=== PATIENT | male | born 1950 | race Caucasian/White ===

== ENCOUNTER 2023-12-20 14:43 | Inpatient (IN) ==
[2023-12-20 15:34] LABS: Basophils # (auto) 0.03 K/uL (0.00-0.20); Basophils % (auto) 0.2 %; Eosinophils # (auto) 0.01 K/uL (0.00-0.50); Eosinophils % (auto) 0.1 %; Hematocrit (blood only) 35.3 % (42.0-52.0); Hemoglobin 11.4 g/dl (14.0-18.0); Immature Granulocytes # (auto) 0.07 K/uL (0.01-0.20); Immature Granulocytes % (auto) 0.5 %; Lymphocytes # (auto) 0.93 K/uL (1.20-3.40); Lymphocytes % (auto) 7.3 %; Mean Corpuscular Hemoglobin 31.2 pg (25.0-34.0); Mean Corpuscular Hgb Conc 32.3 g/dL (32.0-36.0); Mean Corpuscular Volume 96.7 fL (80.0-100.0); Mean Platelet Volume 9.2 fL (9.4-12.4); Monocytes # (auto) 1.93 K/uL (0.11-0.59); Monocytes % (auto) 15.2 %; Neutrophils # (auto) 9.76 K/uL (1.40-6.50); Neutrophils % (auto) 76.7 %; Platelet Count 114 K/uL (130-400); RDW Coefficient of Variation 13.3 % (11.5-14.5); RDW Standard Deviation 47.8 fL (36.4-46.3); Red Blood Count 3.65 M/uL (4.70-6.10); White Blood Count 12.73 K/ul (4.8-10.8)
--- NOTE | 2023-12-20 15:42 | Electrocardiogram Report ---
Test Reason : Blood Pressure : */* mmHG Vent. Rate : 73 BPM Atrial Rate : 73 BPM P-R Int : 156 ms QRS Dur : 136 ms QT Int : 396 ms P-R-T Axes : 45 -30 -32 degrees QTcB Int : 436 ms Normal sinus rhythm Left axis deviation Right bundle branch block T wave abnormality, consider lateral ischemia Abnormal ECG When compared with ECG of 04-Sep-2022 16:28, Nonspecific T wave abnormality now evident in Inferior leads T wave inversion now evident in Lateral leads QT has shortened Confirmed by Ritchie Adams ([id number]) on 12/20/2023 3:41:39 PM Referred By: Confirmed By: Ritchie Adams
[2023-12-20 15:48] LABS: Albumin Globulin Ratio 1.2 (0.9-2); Albumin Level 3.5 gm/dl (3.4-5.0); BUN Creatinine Ratio 15.7 (10-20); Bilirubin,Total 0.9 mg/dl (0.2-1.0); Calcium 9.1 mg/dl (8.6-10.3); Globulin 2.9 gm/dl (2.5-4.0); Potassium 4.6 mmol/L (3.5-5.1); Total Protein 6.4 gm/dl (6.0-8.3)
[2023-12-20 15:54] LABS: Troponin I High Sensitivity 21.6 pg/ml (0-20)
[2023-12-20 16:01] LABS: INR 1.1 (0.9-1.1); Partial Thromboplastin Ratio 1.4; Partial Thromboplastin Time 38 Seconds (21-31); Prothrombin Time 12.2 Seconds (9.0-12.0)
[2023-12-20 16:17] LABS: Adenovirus PCR Not Detected (NotDetected); Bordetella parapertussis PCR Not Detected (NotDetected); Bordetella pertussis PCR Not Detected (NotDetected); Chlamydia pneumoniae PCR Not Detected (NotDetected); Coronavirus 229E PCR Not Detected (NotDetected); Coronavirus CoV-2 (COVID19)PCR Not Detected (NotDetected); Coronavirus HKU1 PCR Not Detected (NotDetected); Coronavirus NL63 PCR Not Detected (NotDetected); Coronavirus OC43PCR Not Detected (NotDetected); Human Metapneumovirus PCR Not Detected (NotDetected); Influenza A PCR Not Detected (NotDetected); Influenza B PCR Not Detected (NotDetected); Mycoplasma pneumoniae PCR Not Detected (NotDetected); Parainfluenza Virus 1 PCR Not Detected (NotDetected); Parainfluenza Virus 2 PCR Not Detected (NotDetected); Parainfluenza Virus 3 PCR Not Detected (NotDetected); Parainfluenza Virus 4 PCR Not Detected (NotDetected); Respiratory Syncytial VirusPCR Not Detected (NotDetected); Rhinovirus/Enterovirus PCR DETECTED (NotDetected)
--- NOTE | 2023-12-20 16:23 | XRay Report ---
SINGLE VIEW CHEST CLINICAL HISTORY: Atypical chest pain FINDINGS: 2 AP upright chest radiographs are compared to study dated 09/04/2022. The heart is enlarged noting atherosclerotic calcification of the thoracic aorta. The pulmonary vasculature is noncongeste d. Chronic interstitial thickening similar to previous. There is a small left pleural effusion with l eft basilar consolidation. This is similar to 09/04/2022. The right lung is grossly clear noting depen dent atelectasis. No pneumothorax is seen. The skeletal structures are osteopenic. The bony thorax is grossly intact. IMPRESSION: 1. Cardiomegaly without radiographic evidence of congestive failure. 2. Small left pleural effusion and left basilar consolidation is similar to the 09/04/2022 examination and may be chronic. Correlate clinically. ACT 112: Negative or not required by law. Electronically signed by: Navin Alfonso M.D. 12/20/2023 4:21 PM
[2023-12-20] MEDS: ALBUT/IPRATROP 3MG/0.5MG NEB 3 ML VIAL NEB STA ×2 (16:26→19:12)
[2023-12-20] MEDS: methylPREDNISolone 125 MG/2 ML VIAL IV STA (16:28)
[2023-12-20] MEDS: METOPROLOL TARTRATE 1 MG/ML VIAL IV STA (19:09)
[2023-12-20] MEDS: guaiFENesin 600 MG TABCR PO STA (20:28)
[2023-12-20] MEDS: PIPERACILLIN/TAZOBACTAM 4.5 GM/100 ML BAG IV ONE (20:30)
[2023-12-20] MEDS: traZODone HCL 50 MG TAB PO STA (21:06)
[2023-12-20] MEDS: QUEtiapine FUMARATE 100 MG TABLET PO STA (21:07)
[2023-12-20] MEDS: busPIRone 5 MG TAB PO STA (21:08)
[2023-12-20] MEDS: DIVALPROEX DELAY RELEASE 250 MG TABEC PO STA (21:08)
[2023-12-20] MEDS: APIXABAN 5 MG TABLET PO STA (21:08)
[2023-12-20] MEDS: AZITHROMYCIN 500 MG in DEXTROSE 5% 250 ML IV ONE (21:15)
[2023-12-20] MEDS: QUEtiapine FUMARATE 25 MG TABLET PO STA (21:22)
[2023-12-20] MEDS ORDERED: METOPROLOL TARTRATE 1 MG/ML VIAL IV PRN (22:33)
[2023-12-20] MEDS ORDERED: ACETAMINOPHEN 325 MG TAB PO PRN (22:33)
--- NOTE | 2023-12-20 23:09 | History & Physical Report ---
Date of Service December 20, 2023 Assessment & Plan (1) Acute respiratory failure with hypoxia: (2) Left lower lobe pneumonia: (3) Rhinovirus infection: (4) COPD (chronic obstructive pulmonary disease): (5) KURT (obstructive sleep apnea): (6) Hypertension: (7) Convulsions: (8) Dementia: (9) Diabetes mellitus: (10) Atrial fibrillation: (11) Hyperlipidemia: Plan Acute respiratory failure with hypoxia/left lower lobe pneumonia/rhinovirus infection/COPD exacerbation- Pulse ox 84% on room air, and presently 96% on 4 L nasal cannula Sputum Gram stain and culture Droplet precautions From the ED received the following: Duonebs 3 mL x 2, methylprednisolone 60 mg IV Zosyn 4.5 g IV every 8 hours Azithromycin 500 mg IV daily Guaifenesin extended release 1200 mg p.o. twice daily Methylprednisolone 40 mg IV every 8 hours Duonebs every 4 hours while awake and every 2 hours when necessary. Nasal cannula oxygen, titrate to keep pulse ox around 94% Atrial fibrillation with RVR- The patient will be admitted to telemetry for serial cardiac enzymes, serial EKG's, cardiac rhythm monitoring and a 2-D echocardiogram with Dopplers. Continue apixaban 5 mg twice daily He did not receive the Lopressor IV dose written for by the ED, due to low blood pressure Resume metoprolol tartrate 25 mg p.o. twice daily in the a.m. if blood pressure is adequate Lopressor 2.5 mg IV every 4 hours as needed for heart rate greater than 120 May need treated with digoxin if blood pressure remains low No previous echocardiogram on record Convulsions/seizure disorder/dementia/depression- Continue buspirone, divalproex, quetiapine and trazodone CODE STATUS: Full code, as noted in transfer records from [facility] Admission and Anticipated Discharge Date Admission Date: December 20, 2023 History of Present Illness Chief Complaint: The patient is referred to the emergency department from [facility] with confusion increased difficulty with respirations throughout the day, hypoxia, and atrial fibrillation with RVR. Primary Care Provider: Adonay Yost The patient is a 73-year-old male with a past medical history including COPD, KURT, hypertension, convulsions, dementia, diabetes mellitus, atrial fibrillation, hyperlipidemia and chronic anemia. He is brought to the emergency department with symptoms as noted above. HPI and review of systems are limited due to patient's underlying dementia and current medical state. During conversation, patient continually removes his mask, and is noted to have a moist cough. He is conversant, but is confused. Allergies Allergy/AdvReac Type Severity Reaction Status Date / Time No Known Allergies Allergy Verified 12/20/23 19:27 Home Medications Medication Instructions Recorded Confirmed Type acetaminophen 325 mg tablet 650 mg PO Q6 PRN PAIN 1-10 12/20/23 12/20/23 History acetaminophen 325 mg tablet 650 mg PO QID PRN TEMP > 101 12/20/23 12/20/23 History apixaban 5 mg tablet (Eliquis) 5 mg PO BID 12/20/23 12/20/23 History atorvastatin 40 mg tablet 40 mg PO DAILY 12/20/23 12/20/23 History buspirone 10 mg tablet 10 mg PO TID 12/20/23 12/20/23 History chlorhexidine gluconate 0.12 % 15 ml buccal Q12 12/20/23 12/20/23 History mouthwash (Peridex) divalproex 250 mg tablet,delayed 250 mg PO TID 12/20/23 12/20/23 History release ferrous sulfate 325 mg (65 mg 325 mg PO DAILY 12/20/23 12/20/23 History iron) tablet (FeroSul) folic acid 400 mcg tablet 0.4 mg PO DAILY 12/20/23 12/20/23 History ipratropium 20 mcg-albuterol 100 1 puff inhalation Q6 PRN Wheezing 12/20/23 12/20/23 History mcg/actuation mist for inhalation (Combivent Respimat) menthol 0.1 % lotion (Eucerin Itch 1 ea topical BID 12/20/23 12/20/23 History Relief) metoprolol tartrate 25 mg tablet 25 mg PO BID 12/20/23 12/20/23 History quetiapine 100 mg tablet 100 mg PO HS 12/20/23 12/20/23 History quetiapine 25 mg tablet (Seroquel) 50 mg PO DAILY 12/20/23 12/20/23 History sennosides 8.6 mg-docusate sodium 1 tab-cap PO HS 12/20/23 12/20/23 History 50 mg tablet (Senna-S) trazodone 50 mg tablet 75 mg PO HS 12/20/23 12/20/23 History Past Med/Surg History Problem List (Updated 12/20/23 @ 23:23 by Jeancarlos Woodard MD) Acute respiratory failure with hypoxia Rhinovirus infection Left lower lobe pneumonia Supplemental oxygen dependent 2 L n/c COPD (chronic obstructive pulmonary disease) KURT (obstructive sleep apnea) Hypokalemia Hypertension Respiratory failure with hypoxia Convulsions Dementia Diabetes mellitus Atrial fibrillation Osteoarthritis Hyperlipidemia Anemia Medical History Complication of tracheostomy tube Social History Smoking Status: Never smoker Hx Alcohol Use: No Hx Substance Use: No Preferred Language: [employer] L[employer] Required: No Beliefs That Will Affect Care: None Current Living Situation: Long-Term Current Living Situation Comment: [facility] Feels Safe at Home: Yes Safety Concerns: Feels Safe At This Time Assistive Devices: Denture - Upper, Denture - Lower, Glasses and Oxygen - Continuous Review of Systems Review of Systems: Review of systems is somewhat limited due to patient's dementia Physical Exam Physical Exam: The patient is awake, confused, well developed and well nourished, normocephalic and atraumatic, lying in bed and in no acute distress. HEENT--PERRL, EOMI, mucous membranes and oropharynx dry. Neck--supple. No JVD. No bruits. Thyroid normal, trachea midline, no adenopathy. Heart--normal S1 and S2. No murmurs, rubs or gallops. Lungs--coarse breath sounds bilaterally, with scattered wheezes. No respiratory distress, no accessory muscle use. Abdomen--normal bowel sounds and soft. Nontender. Nondistended. Extremities--no cyanosis or clubbing. No edema. Dermatologic--normal skin turgor, normal color, no abnormal lymph nodes, no rash. Neurologic--cranial nerves II through XII grossly intact. Rheumatologic--normal range of motion. Psychiatric--normal affect. Results & Data Results & Data Vital Signs (Past 12 Hours) Vital Signs Temp Pulse Pulse Resp BP BP Pulse Ox 12/20/23 23:06 60 12/20/23 22:34 12/20/23 22:34 36.3 C L 77 16 96/58 L 96 12/20/23 22:33 12/20/23 22:04 79 16 87/55 L 96 12/20/23 21:18 81 22 99/62 L 94 12/20/23 19:09 93 H 91/69 L 12/20/23 19:04 93 H 28 H 102/73 92 12/20/23 18:55 110 H 12/20/23 15:18 73 18 96 12/20/23 15:07 73 12/20/23 14:43 84 L 12/20/23 14:43 37 C 80 18 98/54 L 84 L Pulse Ox O2 Del Method O2 Del Method O2 Flow Rate O2 Flow Rate 12/20/23 23:06 12/20/23 22:34 Nasal Cannula 4 12/20/23 22:34 Nasal Cannula 4 12/20/23 22:33 94 Nasal Cannula 4 12/20/23 22:04 Nasal Cannula 4 12/20/23 21:18 Nasal Cannula 4 12/20/23 19:09 12/20/23 19:04 Oxymask 7 12/20/23 18:55 12/20/23 15:18 Oxymask 5 12/20/23 15:07 12/20/23 14:43 Oxymask 2 12/20/23 14:43 Nasal Cannula 2 Laboratory Results Laboratory Results WBC 12.73 K/ul (4.8-10.8) H 12/20/23 15:10 RBC 3.65 M/uL (4.70-6.10) L 12/20/23 15:10 Hgb 11.4 g/dl (14.0-18.0) L 12/20/23 15:10 Hct 35.3 % (42.0-52.0) L 12/20/23 15:10 MCV 96.7 fL (80.0-100.0) 12/20/23 15:10 MCH 31.2 pg (25.0-34.0) 12/20/23 15:10 MCHC 32.3 g/dL (32.0-36.0) 12/20/23 15:10 RDW Std Deviation 47.8 fL (36.4-46.3) H 12/20/23 15:10 RDW Coeff of Johana 13.3 % (11.5-14.5) 12/20/23 15:10 Plt Count 114 K/uL (130-400) L 12/20/23 15:10 MPV 9.2 fL (9.4-12.4) L 12/20/23 15:10 Immature Gran % (Auto) 0.5 % 12/20/23 15:10 Neut % (Auto) 76.7 % 12/20/23 15:10 Lymph % (Auto) 7.3 % 12/20/23 15:10 [place] % (Auto) 15.2 % 12/20/23 15:10 Eos % (Auto) 0.1 % 12/20/23 15:10 Baso % (Auto) 0.2 % 12/20/23 15:10 Neut # (Auto) 9.76 K/uL (1.40-6.50) H 12/20/23 15:10 Lymph # (Auto) 0.93 K/uL (1.20-3.40) L 12/20/23 15:10 [place] # (Auto) 1.93 K/uL (0.11-0.59) H 12/20/23 15:10 Eos # (Auto) 0.01 K/uL (0.00-0.50) 12/20/23 15:10 Baso # (Auto) 0.03 K/uL (0.00-0.20) 12/20/23 15:10 Immature Gran # (Auto) 0.07 K/uL (0.01-0.20) 12/20/23 15:10 PT 12.2 Seconds (9.0-12.0) H 12/20/23 15:10 INR 1.1 (0.9-1.1) 12/20/23 15:10 APTT 38 Seconds (21-31) H 12/20/23 15:10 PTT Ratio 1.4 12/20/23 15:10 Sodium 134 mmol/L (136-145) L 12/20/23 15:10 Potassium 4.6 mmol/L (3.5-5.1) 12/20/23 15:10 Chloride 96 mmol/L (98-107) L 12/20/23 15:10 Carbon Dioxide 33 mmol/L (21-32) H 12/20/23 15:10 Anion Gap 5 (3-11) 12/20/23 15:10 BUN 18 mg/dl (6-23) 12/20/23 15:10 Creatinine 1.15 mg/dl (0.6-1.4) 12/20/23 15:10 Est Cr Clr Drug Dosing 60.0 ml/min 12/20/23 15:10 eGFR 66.78 12/20/23 15:10 BUN/Creatinine Ratio 15.7 (10-20) 12/20/23 15:10 Glucose 87 mg/dl (70-99(Fasting)) 12/20/23 15:10 Calcium 9.1 mg/dl (8.6-10.3) 12/20/23 15:10 Total Bilirubin 0.9 mg/dl (0.2-1.0) 12/20/23 15:10 AST 19 U/L (13-39) 12/20/23 15:10 ALT 8 U/L (7-52) 12/20/23 15:10 Alkaline Phosphatase 37 U/L (34-104) 12/20/23 15:10 Troponin I High Sens 18.0 pg/ml (0-20) 12/20/23 17:00 Total Protein 6.4 gm/dl (6.0-8.3) 12/20/23 15:10 Albumin 3.5 gm/dl (3.4-5.0) 12/20/23 15:10 Globulin 2.9 gm/dl (2.5-4.0) 12/20/23 15:10 Albumin/Globulin Ratio 1.2 (0.9-2) 12/20/23 15:10 Nasal Screen MRSA (PCR) Negative (Negative) 12/20/23 21:19 Adenovirus (PCR) Not Detected (NotDetected) 12/20/23 15:12 B. pertussis DNA (PCR) Not Detected (NotDetected) 12/20/23 15:12 B.parapertussis DNA PCR Not Detected (NotDetected) 12/20/23 15:12 C. pneumoniae DNA (PCR) Not Detected (NotDetected) 12/20/23 15:12 Coronavirus OC43 (PCR) Not Detected (NotDetected) 12/20/23 15:12 Coronavirus HKU1 (PCR) Not Detected (NotDetected) 12/20/23 15:12 Coronavirus 229E (PCR) Not Detected (NotDetected) 12/20/23 15:12 SARS-CoV-2 (PCR) Not Detected (NotDetected) 12/20/23 15:12 Coronavirus NL63 (PCR) Not Detected (NotDetected) 12/20/23 15:12 Human Metapneumovir PCR Not Detected (NotDetected) 12/20/23 15:12 Influenza Type A (PCR) Not Detected (NotDetected) 12/20/23 15:12 Influenza Type B (PCR) Not Detected (NotDetected) 12/20/23 15:12 M. pneumoniae (PCR) Not Detected (NotDetected) 12/20/23 15:12 Parainfluenza 1 (PCR) Not Detected (NotDetected) 12/20/23 15:12 Parainfluenza 2 (PCR) Not Detected (NotDetected) 12/20/23 15:12 Parainfluenza 3 (PCR) Not Detected (NotDetected) 12/20/23 15:12 Parainfluenza 4 (PCR) Not Detected (NotDetected) 12/20/23 15:12 RSV (PCR) Not Detected (NotDetected) 12/20/23 15:12 Entero/Rhino (PCR) DETECTED (NotDetected) A 12/20/23 15:12 Impressions Chest X-Ray 12/20/23 15:18 SINGLE VIEW CHEST CLINICAL HISTORY: Atypical chest pain FINDINGS: 2 AP upright chest radiographs are compared to study dated 09/04/2022. The heart is enlarged noting atherosclerotic calcification of the thoracic aorta. The pulmonary vasculature is noncongested. Chronic interstitial thickening similar to previous. There is a small left pleural effusion with left basilar consolidation. This is similar to 09/04/2022. The right lung is grossly clear noting dependent atelectasis. No pneumothorax is seen. The skeletal structures are osteopenic. The bony thorax is grossly intact. IMPRESSION: 1. Cardiomegaly without radiographic evidence of congestive failure. 2. Small left pleural effusion and left basilar consolidation is similar to the 09/04/2022 examination and may be chronic. Correlate clinically. ACT 112: Negative or not required by law. Electronically signed by: Navin Alfonso M.D. 12/20/2023 4:21 PM Code Status & VTE Plan Code Status Full code VTE Prophylaxis Plan VTE Prophylaxis will be ordered: Yes PG Care Time/CCT Total # of Minutes Spent Total Time Spent with Patient: Total time spent is greater than 50% in coordination of care (as documented) at patient's floor/unit and/or counseling patient: Coding Level of Care Code 33212 INT INP/OBS CARE 3/75MIN Diagnoses Acute respiratory failure with hypoxia J96.01 Left lower lobe pneumonia J18.9 Rhinovirus infection B34.8 COPD (chronic obstructive pulmonary disease) J44.9 KURT (obstructive sleep apnea) G47.33 Hypertension I10 Convulsions R56.9 Dementia F03.90 Diabetes mellitus E11.9 Atrial fibrillation I48.91 Hyperlipidemia E78.5
[2023-12-20] MEDS: EUCERIN CR 120 GM JAR TOP SCH (23:19)
[2023-12-20] MEDS: DOCUSATE SODIUM/SENNA 50/8.6MG TAB PO SCH (23:19)
[2023-12-20] MEDS: CHLORHEXIDINE GLUCONATE 0.12% 480 ML MT SCH (23:19)
--- NOTE | 2023-12-21 00:33 | Emergency Department Note ---
Impression & Plan COPD (chronic obstructive pulmonary disease), Supplemental oxygen dependent, Rhinovirus infection ED Provider Note CHIEF COMPLAINT: Shortness of breath, hypoxia, cough HISTORY OF PRESENT ILLNESS: This 73-year-old male patient with past medical history of COPD, hypertension, dementia, diabetes mellitus, atrial fibrillation, hyperlipidemia, osteoarthritis who is chronically O2 dependent at a local snf presents to the emergency department with a cough, shortness of breath and hypoxia. The patient's roommate has a "cold" per nursing/EMS report. Patient does have some difficulty leaving his oxygen in place. He has noted to be in the mid 80s on his nasal cannula oxygen however 94% on oxymask. The patient will not leave the oxymask in place. REVIEW OF SYSTEMS: A review of systems was performed with positives and pertinent negatives listed in the history of present illness. 10 systems were reviewed and are otherwise negative. ALLERGIES: see below MEDICATIONS: see below PMH: see below SOCIAL HISTORY: see below DDx: Pneumonia, COPD exacerbation, pleural effusion, PE, viral syndrome such as COVID, influenza among others. PHYSICAL EXAM: Vital signs reviewed. General: Chronically ill-appearing 73-year-old male, in no significant distress. HEENT: No scleral icterus, PERRLA, neck supple. Atraumatic. Cardiovascular: Regular rate and rhythm, no extra sounds. Pulmonary: Wheezing throughout the bilateral lung youssef with slight increased work of breathing, Abdomen: Soft, nontender, nondistended, positive bowel sounds. Musculoskeletal: Atraumatic, no peripheral edema. Neurologic: Patient awake alert and oriented x 3, speech is clear Skin: Warm, dry, no rash EMERGENCY DEPARTMENT COURSE/MDM: This patient was evaluated and appeared to be in no significant distress. IV access was obtained and laboratory work was drawn. The patient was placed on the conveyor monitor noted to be hypoxic on room air. Per past medical records, the patient is oxygen dependent secondary to his COPD. He would not leave the oxymask in place however a nasal cannula was attempted. The nursing staff reminded the patient fairly constantly to keep his oxygen in place as he did desaturate when it was removed. Patient was medicated with 60 mg of IV Solu-Medrol, DuoNeb treatment. He did receive 5 mg of IV metoprolol due to atrial fibrillation with RVR. Patient's laboratory work is fairly reassuring. Chest x-ray is clear, there is no evidence of focal lung consolidation or failure. Imaging3 has tested positive for rhinovirus. Patient is likely suffering a COPD exacerbation secondary to the rhinovirus. Due to his hypoxia, the patient will be evaluated by the hospitalist service for admission and further management. MONITORING: An order for cardiac monitoring was placed and the patient is noted to be in a NSR at 93 beats per minute. RADIOLOGY: Chest x-ray: IMPRESSION: 1. Cardiomegaly without radiographic evidence of congestive failure. 2. Small left pleural effusion and left basilar consolidation is similar to the 09/04/2022 examination and may be chronic. Correlate clinically. EKG: To my interpretation reveals a normal sinus rhythm at 73 bpm. left axis deviation, right bundle branch block, QTc of 436. Patient then converted to atrial fibrillation. DISPOSITION: Admission Past Med/Surg History Problem List (Updated 12/23/23 @ 21:58 by Annette Mcclendon MD) Rhinovirus infection (Acute) Acute respiratory failure with hypoxia Rhinovirus infection Left lower lobe pneumonia Supplemental oxygen dependent (Acute) 2 L n/c COPD (chronic obstructive pulmonary disease) (Acute) KURT (obstructive sleep apnea) Hypokalemia Hypertension Respiratory failure with hypoxia Convulsions Dementia Diabetes mellitus Atrial fibrillation Osteoarthritis Hyperlipidemia Anemia Medical History Complication of tracheostomy tube Social History Smoking Status: Never smoker Hx Alcohol Use: No Hx Substance Use: No Preferred Language: Georgian Communication Ability: Effective 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 Beliefs That Will Affect Care: None Current Living Situation: Care Home Current Living Situation Comment: [place] Feels Safe at Home: Yes Safety Concerns: Feels Safe At This Time Assistive Devices: Wheelchair Allergies Allergies Allergy/AdvReac Type Severity Reaction Status Date / Time No Known Allergies Allergy Verified 12/20/23 19:27 Home Meds Home Medications Medication Instructions Recorded Confirmed acetaminophen 325 mg tablet 650 mg PO Q6 PRN PAIN 1-10 12/20/23 12/20/23 acetaminophen 325 mg tablet 650 mg PO QID PRN TEMP > 101 12/20/23 12/20/23 apixaban 5 mg tablet (Eliquis) 5 mg PO BID 12/20/23 12/20/23 atorvastatin 40 mg tablet 40 mg PO DAILY 12/20/23 12/20/23 buspirone 10 mg tablet 10 mg PO TID 12/20/23 12/20/23 chlorhexidine gluconate 0.12 % 15 ml buccal Q12 12/20/23 12/20/23 mouthwash (Peridex) divalproex 250 mg tablet,delayed 250 mg PO TID 12/20/23 12/20/23 release ferrous sulfate 325 mg (65 mg 325 mg PO DAILY 12/20/23 12/20/23 iron) tablet (FeroSul) folic acid 400 mcg tablet 0.4 mg PO DAILY 12/20/23 12/20/23 ipratropium 20 mcg-albuterol 100 1 puff inhalation Q6 PRN Wheezing 12/20/23 12/20/23 mcg/actuation mist for inhalation (Combivent Respimat) menthol 0.1 % lotion (Eucerin Itch 1 ea topical BID 12/20/23 12/20/23 Relief) metoprolol tartrate 25 mg tablet 25 mg PO BID 12/20/23 12/20/23 quetiapine 100 mg tablet 100 mg PO HS 12/20/23 12/20/23 quetiapine 25 mg tablet (Seroquel) 50 mg PO DAILY 12/20/23 12/20/23 sennosides 8.6 mg-docusate sodium 1 tab-cap PO HS 12/20/23 12/20/23 50 mg tablet (Senna-S) trazodone 50 mg tablet 75 mg PO HS 12/20/23 12/20/23 Results & Data (ED) Vital Signs Vital Signs - 24 hr 12/20/23 14:43 12/20/23 14:43 12/20/23 15:07 Temperature 37 C Temperature Source Axillary Pulse Rate 80 73 Pulse Rate [Apical] Pulse Rhythm Respiratory Rate 18 Respiratory Effort / Characteristics Non-Labored Respiratory Depth Normal Respiratory Pattern Regular Blood Pressure 98/54 L Blood Pressure [Right Arm] Blood Pressure Mean 68 Blood Pressure Mean [Right Arm] Pulse Oximetry 84 L 84 L Oxygen Delivery Method Nasal Cannula Oxymask Oxygen Flow Rate 2 2 Sepsis Recent Fever Within 48 Hours No Sepsis New/Unexplained Change in Mental Status N/A Sepsis Action Taken by Nursing No Action Required Oxygen Flow Rate - Titration 5 Pulse Oximetry Post Tiitration 96 12/20/23 15:18 12/20/23 18:55 12/20/23 19:04 Temperature Temperature Source Pulse Rate 73 110 H Pulse Rate [Apical] 93 H Pulse Rhythm Regular Respiratory Rate 18 28 H Respiratory Effort / Characteristics Respiratory Depth Respiratory Pattern Blood Pressure Blood Pressure [Right Arm] 102/73 Blood Pressure Mean Blood Pressure Mean [Right Arm] 82 Pulse Oximetry 96 92 Oxygen Delivery Method Oxymask Oxymask Oxygen Flow Rate 5 7 Sepsis Recent Fever Within 48 Hours Sepsis New/Unexplained Change in Mental Status Sepsis Action Taken by Nursing Oxygen Flow Rate - Titration Pulse Oximetry Post Tiitration 12/20/23 19:09 Temperature Temperature Source Pulse Rate 93 H Pulse Rate [Apical] Pulse Rhythm Respiratory Rate Respiratory Effort / Characteristics Respiratory Depth Respiratory Pattern Blood Pressure 91/69 L Blood Pressure [Right Arm] Blood Pressure Mean Blood Pressure Mean [Right Arm] Pulse Oximetry Oxygen Delivery Method Oxygen Flow Rate Sepsis Recent Fever Within 48 Hours Sepsis New/Unexplained Change in Mental Status Sepsis Action Taken by Nursing Oxygen Flow Rate - Titration Pulse Oximetry Post Tiitration Home Medications Current Medication List: was personally reviewed by me Laboratory Data Attestation: I reviewed the patient's lab results. 12/23/23 06:19 12/23/23 06:19 Lab Results 12/20/23 12/20/23 12/20/23 Range/Units 15:10 15:12 17:00 WBC 12.73 H (4.8-10.8) K/ul RBC 3.65 L (4.70-6.10) M/uL Hgb 11.4 L (14.0-18.0) g/dl Hct 35.3 L (42.0-52.0) % MCV 96.7 (80.0-100.0) fL MCH 31.2 (25.0-34.0) pg MCHC 32.3 (32.0-36.0) g/dL RDW Std Deviation 47.8 H (36.4-46.3) fL RDW Coeff of Johana 13.3 (11.5-14.5) % Plt Count 114 L (130-400) K/uL MPV 9.2 L (9.4-12.4) fL Immature Gran % (Auto) 0.5 % Neut % (Auto) 76.7 % Lymph % (Auto) 7.3 % [place] % (Auto) 15.2 % Eos % (Auto) 0.1 % Baso % (Auto) 0.2 % Neut # (Auto) 9.76 H (1.40-6.50) K/uL Lymph # (Auto) 0.93 L (1.20-3.40) K/uL [place] # (Auto) 1.93 H (0.11-0.59) K/uL Eos # (Auto) 0.01 (0.00-0.50) K/uL Baso # (Auto) 0.03 (0.00-0.20) K/uL Immature Gran # (Auto) 0.07 (0.01-0.20) K/uL PT 12.2 H (9.0-12.0) Seconds INR 1.1 (0.9-1.1) APTT 38 H (21-31) Seconds PTT Ratio 1.4 Sodium 134 L (136-145) mmol/L Potassium 4.6 (3.5-5.1) mmol/L Chloride 96 L (98-107) mmol/L Carbon Dioxide 33 H (21-32) mmol/L Anion Gap 5 (3-11) BUN 18 (6-23) mg/dl Creatinine 1.15 (0.6-1.4) mg/dl Est Cr Clr Drug Dosing 60.0 ml/min eGFR 66.78 BUN/Creatinine Ratio 15.7 (10-20) Glucose 87 (70-99(Fasting)) mg/dl Calcium 9.1 (8.6-10.3) mg/dl Total Bilirubin 0.9 (0.2-1.0) mg/dl AST 19 (13-39) U/L ALT 8 (7-52) U/L Alkaline Phosphatase 37 (34-104) U/L Troponin I High Sens 21.6 H 18.0 (0-20) pg/ml Total Protein 6.4 (6.0-8.3) gm/dl Albumin 3.5 (3.4-5.0) gm/dl Globulin 2.9 (2.5-4.0) gm/dl Albumin/Globulin Ratio 1.2 (0.9-2) Adenovirus (PCR) Not Detected (NotDetected) B. pertussis DNA (PCR) Not Detected (NotDetected) B.parapertussis DNA PCR Not Detected (NotDetected) C. pneumoniae DNA (PCR) Not Detected (NotDetected) Coronavirus OC43 (PCR) Not Detected (NotDetected) Coronavirus HKU1 (PCR) Not Detected (NotDetected) Coronavirus 229E (PCR) Not Detected (NotDetected) SARS-CoV-2 (PCR) Not Detected (NotDetected) Coronavirus NL63 (PCR) Not Detected (NotDetected) Human Metapneumovir PCR Not Detected (NotDetected) Influenza Type A (PCR) Not Detected (NotDetected) Influenza Type B (PCR) Not Detected (NotDetected) M. pneumoniae (PCR) Not Detected (NotDetected) Parainfluenza 1 (PCR) Not Detected (NotDetected) Parainfluenza 2 (PCR) Not Detected (NotDetected) Parainfluenza 3 (PCR) Not Detected (NotDetected) Parainfluenza 4 (PCR) Not Detected (NotDetected) RSV (PCR) Not Detected (NotDetected) Entero/Rhino (PCR) DETECTED A (NotDetected) Administered Medications Albuterol (Albut/Ipratrop 3mg/0.5mg Neb 3 Ml Vial) 3 ml NEB Q3HWA PRN; Protocol PRN Reason: Shortness Of Breath Or Wheezing Stop: 01/20/24 17:59 Last Admin: 12/22/23 08:50 Dose: 3 ml Documented By: [id number] Albuterol (Albuterol Hfa 8 Gm Inhaler) 1 puffs INH QIDR QUINCY Stop: 01/22/24 10:59 Last Admin: 12/23/23 19:45 Dose: 1 puffs Documented By: Admin: 12/23/23 14:31 Dose: 1 puffs Documented By: Admin: 12/23/23 11:12 Dose: 1 puffs Documented By: GARY Apixaban (Apixaban 5 Mg Tablet) 5 mg PO BID [facility] Stop: 01/20/24 08:59 Last Admin: 12/23/23 20:19 Dose: 5 mg Documented By: Admin: 12/23/23 09:41 Dose: 5 mg Documented By: Admin: 12/22/23 20:06 Dose: 5 mg Documented By: Admin: 12/22/23 08:29 Dose: 5 mg Documented By: Admin: 12/21/23 21:52 Dose: 5 mg Documented By: Admin: 12/21/23 08:47 Dose: 5 mg Documented By: MARLEN Atorvastatin Calcium (Atorvastatin 40 Mg Tab) 40 mg PO DAILY QUINCY Stop: 01/20/24 08:59 Last Admin: 12/23/23 09:41 Dose: 40 mg Documented By: Admin: 12/22/23 08:29 Dose: 40 mg Documented By: Admin: 12/21/23 08:47 Dose: 40 mg Documented By: MARLEN Azithromycin (Azithromycin 250 Mg Tab) 250 mg PO DAILY@2100 QUINCY Stop: 12/24/23 21:01 Last Admin: 12/23/23 20:20 Dose: 250 mg Documented By: Admin: 12/22/23 20:09 Dose: 250 mg Documented By: JAMES Buspirone HCl (Buspirone 5 Mg Tab) 10 mg PO TID QUINCY Stop: 01/20/24 08:59 Last Admin: 12/23/23 20:20 Dose: 10 mg Documented By: Admin: 12/23/23 15:00 Dose: 10 mg Documented By: Admin: 12/23/23 09:41 Dose: 10 mg Documented By: Admin: 12/22/23 20:08 Dose: 10 mg Documented By: Admin: 12/22/23 15:23 Dose: 10 mg Documented By: Admin: 12/22/23 08:30 Dose: 10 mg Documented By: Admin: 12/21/23 21:53 Dose: 10 mg Documented By: Admin: 12/21/23 13:29 Dose: 10 mg Documented By: Admin: 12/21/23 08:45 Dose: 10 mg Documented By: MARLEN Chlorhexidine Gluconate (Chlorhexidine Gluconate 0.12% 480 Ml) 15 ml MT Q12 QUINCY Stop: 01/19/24 22:32 Last Admin: 12/23/23 20:21 Dose: 15 ml Documented By: Admin: 12/23/23 09:43 Dose: 15 ml Documented By: Admin: 12/22/23 20:09 Dose: 15 ml Documented By: Admin: 12/22/23 08:33 Dose: 15 ml Documented By: Admin: 12/21/23 21:53 Dose: 15 ml Documented By: Admin: 12/21/23 08:59 Dose: 15 ml Documented By: Admin: 12/20/23 23:19 Dose: 15 ml Documented By: ALEKSANDR Divalproex Sodium (Divalproex Delay Release 250 Mg Tabec) 250 mg PO TID QUINCY Stop: 01/20/24 08:59 Last Admin: 12/23/23 20:22 Dose: 250 mg Documented By: Admin: 12/23/23 15:00 Dose: 250 mg Documented By: Admin: 12/23/23 09:41 Dose: 250 mg Documented By: Admin: 12/22/23 20:06 Dose: 250 mg Documented By: Admin: 12/22/23 15:23 Dose: 250 mg Documented By: Admin: 12/22/23 08:29 Dose: 250 mg Documented By: Admin: 12/21/23 21:53 Dose: 250 mg Documented By: Admin: 12/21/23 13:29 Dose: 250 mg Documented By: Admin: 12/21/23 08:45 Dose: 250 mg Documented By: MARLEN Ferrous Sulfate (Ferrous Sulfate 325 Mg Tab) 325 mg PO DAILY QUINCY Stop: 01/20/24 08:59 Last Admin: 12/23/23 09:42 Dose: 325 mg Documented By: Admin: 12/22/23 08:29 Dose: 325 mg Documented By: Admin: 12/21/23 08:44 Dose: 325 mg Documented By: MARLEN Folic Acid (Folic Acid 400 Mcg Tab) 400 mcg PO DAILY QUINCY Stop: 01/20/24 08:59 Last Admin: 12/23/23 09:42 Dose: 400 mcg Documented By: Admin: 12/22/23 08:30 Dose: 400 mcg Documented By: Admin: 12/21/23 08:44 Dose: 400 mcg Documented By: MARLEN Guaifenesin (Guaifenesin 600 Mg Tabcr) 1,200 mg PO Q12 QUINCY Stop: 01/20/24 08:59 Last Admin: 12/23/23 20:25 Dose: 1,200 mg Documented By: Admin: 12/23/23 09:41 Dose: 1,200 mg Documented By: Admin: 12/22/23 20:08 Dose: 1,200 mg Documented By: Admin: 12/22/23 08:29 Dose: 1,200 mg Documented By: Admin: 12/21/23 21:51 Dose: 1,200 mg Documented By: Admin: 12/21/23 08:45 Dose: 1,200 mg Documented By: MARLEN Ipratropium Husser (Ipratropium Husser Hfa Inhaler) 1 puffs INH QIDR QUINCY Stop: 01/22/24 10:59 Last Admin: 12/23/23 19:46 Dose: 1 puffs Documented By: Admin: 12/23/23 14:32 Dose: 1 puffs Documented By: Admin: 12/23/23 11:12 Dose: 1 puffs Documented By: GARY Metoprolol Tartrate (Metoprolol Tartrate 25 Mg Tab) 25 mg PO BID [facility] Stop: 01/20/24 08:59 Last Admin: 12/23/23 09:41 Dose: 25 mg Documented By: Admin: 12/22/23 20:10 Dose: Not Given Documented By: Admin: 12/22/23 08:29 Dose: 25 mg Documented By: Admin: 12/21/23 22:44 Dose: Not Given Documented By: Admin: 12/21/23 08:52 Dose: Not Given Documented By: MARLEN Multi-Ingredient Cream (Eucerin Cr 120 Gm Jar) 1 appln TOP BID [facility] Stop: 01/19/24 22:32 Last Admin: 12/23/23 20:22 Dose: 1 appln Documented By: Admin: 12/23/23 09:42 Dose: 1 appln Documented By: Admin: 12/22/23 20:09 Dose: 1 appln Documented By: Admin: 12/22/23 08:34 Dose: 1 appln Documented By: Admin: 12/21/23 21:53 Dose: 1 appln Documented By: Admin: 12/21/23 08:43 Dose: 1 appln Documented By: Admin: 12/20/23 23:19 Dose: 1 appln Documented By: ALEKSANDR Quetiapine Fumarate (Quetiapine Fumarate 100 Mg Tablet) 100 mg PO HS [facility] Stop: 01/20/24 20:59 Last Admin: 12/23/23 20:24 Dose: 100 mg Documented By: Admin: 12/22/23 20:08 Dose: 100 mg Documented By: Admin: 12/21/23 21:49 Dose: 100 mg Documented By: JAMES Quetiapine Fumarate (Quetiapine Fumarate 25 Mg Tablet) 50 mg PO DAILY [facility] Stop: 01/20/24 08:59 Last Admin: 12/23/23 09:42 Dose: 50 mg Documented By: Admin: 12/22/23 08:29 Dose: 50 mg Documented By: Admin: 12/21/23 08:44 Dose: 50 mg Documented By: MARLEN Senna/Docusate Sodium (Docusate Sodium/Senna 50/8.6mg Tab) 1 tab PO [facility] Stop: 01/19/24 22:32 Last Admin: 12/23/23 20:22 Dose: 1 tab Documented By: Admin: 12/22/23 20:06 Dose: 1 tab Documented By: Admin: 12/21/23 21:48 Dose: 1 tab Documented By: Admin: 12/20/23 23:19 Dose: 1 tab Documented By: ALEKSANDR Trazodone HCl (Trazodone Hcl 50 Mg Tab) 75 mg PO [facility] Stop: 01/20/24 20:59 Last Admin: 12/23/23 20:23 Dose: 75 mg Documented By: Admin: 12/22/23 20:07 Dose: 75 mg Documented By: Admin: 12/21/23 21:48 Dose: 75 mg Documented By: JAMES Discontinued Medications Albuterol (Albut/Ipratrop 3mg/0.5mg Neb 3 Ml Vial) 3 ml NEB NOW STA; Protocol Stop: 12/20/23 16:22 Last Admin: 12/20/23 16:26 Dose: 3 ml Documented By: KRISTA Albuterol (Albut/Ipratrop 3mg/0.5mg Neb 3 Ml Vial) 3 ml NEB NOW STA; Protocol Stop: 12/20/23 19:09 Last Admin: 12/20/23 19:12 Dose: 3 ml Documented By: JASMIN Albuterol (Albut/Ipratrop 3mg/0.5mg Neb 3 Ml Vial) 3 ml NEB QIDR QUINCY; Protocol Stop: 01/20/24 06:59 Last Admin: 12/21/23 16:13 Dose: 3 ml Documented By: JASMIN(2) Admin: 12/21/23 14:28 Dose: Not Given Documented By: Admin: 12/21/23 13:43 Dose: 3 ml Documented By: [id number] Admin: 12/21/23 07:45 Dose: 3 ml Documented By: [id number] Apixaban (Apixaban 5 Mg Tablet) 5 mg PO ONE STA Stop: 12/20/23 20:35 Last Admin: 12/20/23 21:08 Dose: 5 mg Documented By: JASMIN Buspirone HCl (Buspirone 5 Mg Tab) 10 mg PO ONE STA Stop: 12/20/23 20:36 Last Admin: 12/20/23 21:08 Dose: 10 mg Documented By: JASMIN Divalproex Sodium (Divalproex Delay Release 250 Mg Tabec) 250 mg PO NOW STA Stop: 12/20/23 20:36 Last Admin: 12/20/23 21:08 Dose: 250 mg Documented By: JASMIN Guaifenesin (Guaifenesin 600 Mg Tabcr) 1,200 mg PO NOW STA Stop: 12/20/23 20:13 Last Admin: 12/20/23 20:28 Dose: 1,200 mg Documented By: JASMIN Piperacillin Sod/Tazobactam Sod (Zosyn) 4.5 gm in 100 mls @ 200 mls/hr IV NOW ONE; Protocol Stop: 12/20/23 20:59 Last Infusion: 12/20/23 21:06 Dose: Infused Documented By: Admin: 12/20/23 20:30 Dose: 200 mls/hr Documented By: JASMIN Azithromycin 500 mg/ Dextrose 255 mls @ 127.5 mls/hr IV ONE ONE Stop: 12/20/23 22:29 Last Infusion: 12/20/23 23:15 Dose: Infused Documented By: Admin: 12/20/23 21:15 Dose: 127.5 mls/hr Documented By: JASMIN Azithromycin 500 mg/ Dextrose 255 mls @ 125 mls/hr IV Q24H QUINCY Stop: 12/28/23 20:59 Last Infusion: 12/21/23 23:59 Dose: Infused Documented By: Admin: 12/21/23 21:53 Dose: 125 mls/hr Documented By: JAMES Piperacillin Sod/Tazobactam Sod (Zosyn) 4.5 gm in 100 mls @ 25 mls/hr IV Q8H QUINCY; Protocol Stop: 12/28/23 01:59 Last Infusion: 12/21/23 10:24 Dose: Infused Documented By: Admin: 12/21/23 08:59 Dose: 25 mls/hr Documented By: Infusion: 12/21/23 06:00 Dose: Infused Documented By: Admin: 12/21/23 01:52 Dose: 25 mls/hr Documented By: ALEKSANDR Methylprednisolone 40 mg/ (Syringe) 0.64 mls @ 1.5 mls/min IV Q8H QUINCY Stop: 01/20/24 05:59 Last Admin: 12/21/23 05:32 Dose: 1.5 mls/min Documented By: ALEKSANDR Methylprednisolone 40 mg/ (Syringe) 0.64 mls @ 1.5 mls/min IV BID QUINCY Stop: 01/20/24 20:59 Last Admin: 12/23/23 09:40 Dose: 1.5 mls/min Documented By: Admin: 12/22/23 20:09 Dose: 1.5 mls/min Documented By: Admin: 12/22/23 08:34 Dose: 1.5 mls/min Documented By: Admin: 12/21/23 23:01 Dose: 1.5 mls/min Documented By: JAMES Lactated Ringer's (Lr) 1,000 mls @ 999 mls/hr IV .Q1H1M ONE Stop: 12/21/23 16:25 Last Infusion: 12/21/23 17:28 Dose: Infused Documented By: Admin: 12/21/23 16:24 Dose: 999 mls/hr Documented By: MARLEN Lactated Ringer's (Lr) 1,000 mls @ 999 mls/hr IV .Q1H1M ONE Stop: 12/21/23 18:41 Last Infusion: 12/21/23 19:28 Dose: Infused Documented By: Admin: 12/21/23 18:10 Dose: 999 mls/hr Documented By: MARLEN Methylprednisolone (Methylprednisolone 125 Mg/2 Ml Vial) 60 mg IV NOW STA Stop: 12/20/23 16:22 Last Admin: 12/20/23 16:28 Dose: 60 mg Documented By: KRITSA Metoprolol Tartrate (Metoprolol Tartrate 1 Mg/Ml Vial) 5 mg IV NOW STA Stop: 12/20/23 19:03 Last Admin: 12/20/23 19:09 Dose: Not Given Documented By: JASMIN Quetiapine Fumarate (Quetiapine Fumarate 25 Mg Tablet) 50 mg PO NOW STA Stop: 12/20/23 20:22 Last Admin: 12/20/23 21:22 Dose: Not Given Documented By: JASMIN Quetiapine Fumarate (Quetiapine Fumarate 100 Mg Tablet) 100 mg PO NOW STA Stop: 12/20/23 20:22 Last Admin: 12/20/23 21:07 Dose: 100 mg Documented By: JASMIN Trazodone HCl (Trazodone Hcl 50 Mg Tab) 75 mg PO NOW STA Stop: 12/20/23 20:36 Last Admin: 12/20/23 21:06 Dose: 75 mg Documented By: EMB Imaging Data Radiologist's Impression: Chest X-Ray 12/20/23 15:18 SINGLE VIEW CHEST CLINICAL HISTORY: Atypical chest pain FINDINGS: 2 AP upright chest radiographs are compared to study dated 09/04/2022. The heart is enlarged noting atherosclerotic calcification of the thoracic aorta. The pulmonary vasculature is noncongested. Chronic interstitial thickening similar to previous. There is a small left pleural effusion with left basilar consolidation. This is similar to 09/04/2022. The right lung is grossly clear noting dependent atelectasis. No pneumothorax is seen. The skeletal structures are osteopenic. The bony thorax is grossly intact. IMPRESSION: 1. Cardiomegaly without radiographic evidence of congestive failure. 2. Small left pleural effusion and left basilar consolidation is similar to the 09/04/2022 examination and may be chronic. Correlate clinically. ACT 112: Negative or not required by law. Electronically signed by: Navin Alfonso M.D. 12/20/2023 4:21 PM Discharge Plan Visit Data Chief Complaint: Shortness of Breath/Dyspnea Stated Complaint: HYPOXIA, ED Provider: Annette Mcclendon Discharge Problem: COPD (chronic obstructive pulmonary disease), Supplemental oxygen dependent, Rhinovirus infection Patient Disposition: Admitted As Inpatient Discharge Instructions Interventions: ED Discharge Assessment Last Done: 12/20/23 22:04 Discharge Problem: COPD (chronic obstructive pulmonary disease) Qualifiers: COPD type: COPD with acute exacerbation Qualified Code(s): J44.1 - Chronic obstructive pulmonary disease with (acute) exacerbation
[2023-12-21] MEDS: PIPERACILLIN/TAZOBACTAM 4.5 GM/100 ML BAG IV SCH (01:52)
[2023-12-21] MEDS: methylPREDNISolone 40 MG in SYRINGE 0 ML IV SCH ×2 (05:32→23:01)
[2023-12-21] MEDS ORDERED: methylPREDNISolone 1000 MG/16 ML IV SCH (06:00)
[2023-12-21 07:33] LABS: Basophils # (auto) 0.01 K/uL (0.00-0.20); Basophils % (auto) 0.1 %; Hematocrit (blood only) 33.7 % (42.0-52.0); Hemoglobin 11.1 g/dl (14.0-18.0); Immature Granulocytes # (auto) 0.04 K/uL (0.01-0.20); Immature Granulocytes % (auto) 0.5 %; Lymphocytes # (auto) 0.42 K/uL (1.20-3.40); Lymphocytes % (auto) 4.9 %; Mean Corpuscular Hemoglobin 31.6 pg (25.0-34.0); Mean Corpuscular Hgb Conc 32.9 g/dL (32.0-36.0); Mean Platelet Volume 9.8 fL (9.4-12.4); Monocytes # (auto) 0.65 K/uL (0.11-0.59); Monocytes % (auto) 7.5 %; Platelet Count 109 K/uL (130-400); RDW Coefficient of Variation 13.1 % (11.5-14.5); RDW Standard Deviation 46.3 fL (36.4-46.3); Red Blood Count 3.51 M/uL (4.70-6.10); White Blood Count 8.62 K/ul (4.8-10.8)
[2023-12-21] MEDS: ALBUT/IPRATROP 3MG/0.5MG NEB 3 ML VIAL NEB SCH (07:45)
[2023-12-21 08:02] LABS: Albumin Level 3.3 gm/dl (3.4-5.0); BUN Creatinine Ratio 26.1 (10-20); Calcium 8.8 mg/dl (8.6-10.3); Creatinine Clr Calc Pharmacy 78.4 ml/min; Magnesium 1.8 mg/dl (1.7-2.4); Phosphorus 3.6 mg/dl (2.5-4.9); Potassium 4.2 mmol/L (3.5-5.1)
[2023-12-21] MEDS: FERROUS SULFATE 325 MG TAB PO SCH (08:44)
[2023-12-21] MEDS: FOLIC ACID 400 MCG TAB PO SCH (08:44)
[2023-12-21] MEDS: QUEtiapine FUMARATE 25 MG TABLET PO SCH (08:44)
[2023-12-21] MEDS: DIVALPROEX DELAY RELEASE 250 MG TABEC PO SCH (08:45)
[2023-12-21] MEDS: busPIRone 5 MG TAB PO SCH (08:45)
[2023-12-21] MEDS: guaiFENesin 600 MG TABCR PO SCH (08:45)
[2023-12-21] MEDS: APIXABAN 5 MG TABLET PO SCH (08:47)
[2023-12-21] MEDS: ATORVASTATIN 40 MG TAB PO SCH (08:47)
[2023-12-21] MEDS: METOPROLOL TARTRATE 25 MG TAB PO SCH (08:52)
--- NOTE | 2023-12-21 10:25 | Hospitalist Progress Note ---
Date of Service December 21, 2023 Assessment & Plan (1) Acute respiratory failure with hypoxia: (2) Left lower lobe pneumonia: (3) Rhinovirus infection: (4) COPD (chronic obstructive pulmonary disease): (5) KURT (obstructive sleep apnea): (6) Hypertension: (7) Convulsions: (8) Dementia: (9) Diabetes mellitus: (10) Atrial fibrillation: (11) Hyperlipidemia: Plan ## Acute respiratory failure with hypoxia // COPD exacerbation (home oxygen 2 lpm) - Patient from [facility] dementia unit who was admitted due to progressively worsening SOB - CXR w/ LLL consolidation that is relatively unchanged from CXR from 08/2022, raising the question of whether or not this is a chronic issue. Believe this is chronic given lack of changes on imaging, but will assess further on CT for better characterization Will stop Zosyn due to low concern of PNA, but may add alternate abx depending on CT findings - Sputum Gram stain and culture showing epithelial cells, recc repeat but already treated w/ abx - Biofire positive for Rhinovirus - Azithromycin 500 mg IV daily x3 days - Guaifenesin extended release 1200 mg p.o. twice daily - Methylprednisolone 40 mg IV bid. If he continue to improve clinically, may start steroid taper tomorrow. - Duonebs every 4 hours while awake and every 2 hours when necessary. - Nasal cannula oxygen, titrate to keep pulse ox 88-92% ## Atrial fibrillation with RVR - Troponin peak at 21 - TTE pending - Continue apixaban 5 mg bid - Currently rate controlled - Continue to monitor tele - Metoprolol tartrate 25 mg p.o. bid held due to hypotension Chronic conditions: Convulsions/seizure disorder/dementia/depression - Continue buspirone, divalproex, quetiapine and trazodone CODE STATUS: Full code Admission and Anticipated Discharge Date Admission Date: December 20, 2023 Supervising Physician Co-Signing Physician Notes I personally examined the patient and verified all baxter points of history and exam, discussed case, and agree with decision making with Dr Trevino feels good hard to guage HPI due to dementia but notes that he feels good. eating lunch. vitals noted nad heent nc at mmm breathing unlabored no accessory muscles good effort skin no rashes no pallor or icterus lungs dminished faint rhonchi COPD exac - steroids, zithromax LLL findings - doubt pneumonia. CT to clarify. stop zosyn anticoagulated with eliquis Subjective Patient pleasantly confused, limiting HPI. Denies SOB or respiratory difficulty. No chest pain, fevers, chills, weakness, or any other sxs. No overnight events. Review of Systems Review of Systems: As per HPI. Physical Exam Physical Exam: GENERAL: awake and alert, not oriented/pleasantly confused, afebrile, NAD Heart--normal S1 and S2. No murmurs, rubs or gallops. Lungs--coarse breath sounds bilaterally, with scattered wheezes. No respiratory distress, no accessory muscle use, NC at 2 lpm Abdomen--normal bowel sounds and soft. Nontender. Nondistended. Extremities--no cyanosis or clubbing. No edema. Results & Data Results & Data Vital Signs (Past 12 Hours) Vital Signs Temp Pulse Pulse Resp BP Pulse Ox Pulse Ox 12/21/23 10:07 12/21/23 08:25 36.2 C L 73 19 95/51 L 91 12/21/23 07:47 69 20 91 12/21/23 03:28 36.3 C L 71 18 103/62 91 12/20/23 23:06 60 12/20/23 22:34 12/20/23 22:34 36.3 C L 77 16 96/58 L 96 12/20/23 22:33 94 O2 Del Method O2 Del Method O2 Flow Rate O2 Flow Rate 12/21/23 10:07 Nasal Cannula 2 12/21/23 08:25 Nasal Cannula 3 12/21/23 07:47 Oxymask 4 12/21/23 03:28 Room Air 12/20/23 23:06 12/20/23 22:34 Nasal Cannula 4 12/20/23 22:34 Nasal Cannula 4 12/20/23 22:33 Nasal Cannula 4 Resident Activity Tracking Resident Involvement: Resident Care Provided Care Provided: Adult Hospital Medicine
--- NOTE | 2023-12-21 12:14 | XCELERA ---
[id number]
--- NOTE | 2023-12-21 13:27 | CT Scan Report ---
CT SCAN OF THE CHEST WITHOUT IV CONTRAST CLINICAL HISTORY: Left lower lobe consolidation COMPARISON STUDY: Chest x-ray dated 12/20/2023 and 09/04/2022 TECHNIQUE: CT scan of the thorax was performed from the thoracic inlet to the upper abdomen. Images are reviewed in the axial, sagittal, and coronal planes. IV contrast was not administered for this ex amination as per the referring clinician. A dose lowering technique was utilized adhering to the [facility]. The examination is severely degraded by motion artifact, as well as by streak artif act from the arms which could not be elevated above the chest. CT DOSE: 633.87 mGy.cm FINDINGS: Thyroid: Imaged portions of the thyroid gland are normal in size and attenuation. Thoracic aorta: There is atherosclerotic calcification of the thoracic aorta, which is normal in chencho rocky and demonstrates variant 3-vessel arch anatomy. 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 Heart: The heart is mildly enlarged and without pericardial effusion. The coronary arteries are dense ly calcified. Lungs and pleural spaces: Evaluation of the lung parenchyma is severely degraded by motion artifact. Emphysematous change is noted. The trachea is clear. There is marked narrowing with near complete occ lusion of the left mainstem bronchus seen on axial image #93. There is complete atelectasis/consolida tion of the left lower lobe. Segmental atelectasis is seen in the left upper lobe which is largely ae rated. There are trace pleural effusions. Segmental atelectasis is seen at the right lung base. Mediastinum: There is no mediastinal lymphadenopathy. There is leftward shift of the mediastinum. Krissy: Not well assessed without IV contrast. Axillae: There is no axillary lymphadenopathy. Upper abdomen: Partially visualized upper abdominal viscera is within normal limits. Skeletal structures: The skeletal structures are osteopenic. Degenerative change and hyperkyphosis is noted in the thoracic spine. Arthritic change is seen in the shoulders. No lytic or blastic bony les ions are seen. IMPRESSION: 1. Streak and motion compromised examination 2. Cardiomegaly and emphysema 3. There is marked narrowing of the distal left mainstem bronchus, which could be related to stenosis or intraluminal secretions/debris. An obstructing lesion would be impossible to exclude. Pulmonology evaluation is advised. 4. There is complete atelectasis/consolidation of the left lower lobe. This may be related to bronchi al obstruction. Underlying mass lesion or pneumonia would be impossible to exclude. 5. There is segmental atelectasis in the left upper lobe and at the right lung base. 6. Trace pleural effusions. 7. No mediastinal lymphadenopathy is seen. 8. Advanced coronary artery atherosclerosis. 9. Additional findings as above. ACT 112: Negative or not required by law. Electronically signed by: Navin Alfonso M.D. 12/21/2023 1:25 PM
[2023-12-21] MEDS: LACTATED RINGER'S 1,000 ML IV ONE ×2 (16:24→18:10)
--- NOTE | 2023-12-21 17:57 | Billing Data ---
Date of Service December 21, 2023 Coding Level of Care Code 51261 SUB INP/OBS CARE MIN
[2023-12-21] MEDS: traZODone HCL 50 MG TAB PO SCH (21:48)
[2023-12-21] MEDS: QUEtiapine FUMARATE 100 MG TABLET PO SCH (21:49)
[2023-12-21] MEDS: AZITHROMYCIN 500 MG in DEXTROSE 5% 250 ML IV SCH (21:53)
[2023-12-22 06:29] LABS: Hematocrit (blood only) 33.3 % (42.0-52.0); Hemoglobin 11.1 g/dl (14.0-18.0); Mean Corpuscular Hemoglobin 31.5 pg (25.0-34.0); Mean Corpuscular Hgb Conc 33.3 g/dL (32.0-36.0); Mean Corpuscular Volume 94.6 fL (80.0-100.0); Mean Platelet Volume 9.5 fL (9.4-12.4); Platelet Count 122 K/uL (130-400); RDW Coefficient of Variation 12.7 % (11.5-14.5); RDW Standard Deviation 43.9 fL (36.4-46.3); Red Blood Count 3.52 M/uL (4.70-6.10); White Blood Count 9.78 K/ul (4.8-10.8)
[2023-12-22 06:58] LABS: Albumin Level 3.2 gm/dl (3.4-5.0); BUN Creatinine Ratio 35.5 (10-20); Basophils # (auto) 0.01 K/uL (0.00-0.20); Basophils % (auto) 0.1 %; Calcium 8.8 mg/dl (8.6-10.3); Creatinine Clr Calc Pharmacy 90.8 ml/min; Immature Granulocytes # (auto) 0.06 K/uL (0.01-0.20); Immature Granulocytes % (auto) 0.6 %; Lymphocytes # (auto) 0.43 K/uL (1.20-3.40); Lymphocytes % (auto) 4.4 %; Magnesium 1.7 mg/dl (1.7-2.4); Monocytes # (auto) 0.47 K/uL (0.11-0.59); Monocytes % (auto) 4.8 %; Neutrophils # (auto) 8.81 K/uL (1.40-6.50); Neutrophils % (auto) 90.1 %; Phosphorus 2.4 mg/dl (2.5-4.9); Polychromasia 1+; Potassium 4.4 mmol/L (3.5-5.1); Toxic Vacuolation 1+
[2023-12-22] MEDS: ALBUT/IPRATROP 3MG/0.5MG NEB 3 ML VIAL NEB PRN (08:50)
--- NOTE | 2023-12-22 14:15 | Electrocardiogram Report ---
Test Reason : Blood Pressure : */* mmHG Vent. Rate : 100 BPM Atrial Rate : * BPM P-R Int : * ms QRS Dur : 138 ms QT Int : 378 ms P-R-T Axes : * -27 -30 degrees QTcB Int : 487 ms Atrial fibrillation Right bundle branch block Minimal voltage criteria for LVH, may be normal variant ( R in aVL ) Lateral infarct , age undetermined Abnormal ECG When compared with ECG of 20-Dec-2023 14:58, Atrial fibrillation has replaced Sinus rhythm QT has lengthened Confirmed by Ritchie Adams ([id number]) on 12/22/2023 2:14:36 PM [facility] Confirmed By: Ritchie Adams
--- NOTE | 2023-12-22 14:52 | Electrocardiogram Report ---
Test Reason : Blood Pressure : */* mmHG Vent. Rate : 47 BPM Atrial Rate : 47 BPM P-R Int : 130 ms QRS Dur : 132 ms QT Int : 442 ms P-R-T Axes : 43 -27 -47 degrees QTcB Int : 391 ms Sinus bradycardia with Premature atrial complexes in a pattern of bigeminy Right bundle branch block Abnormal ECG When compared with ECG of 20-Dec-2023 18:59, (unconfirmed) Sinus rhythm has replaced Atrial fibrillation Vent. rate has decreased by 53 bpm QT has shortened Confirmed by Ritchie Adams ([id number]) on 12/22/2023 2:52:26 PM Referred By: [facility] Confirmed By: Ritchie Adams
--- NOTE | 2023-12-22 15:13 | Medical Student Progress Note ---
Date of Service December 22, 2023 Assessment & Plan (1) Acute respiratory failure with hypoxia: (2) Left lower lobe pneumonia: (3) Rhinovirus infection: (4) COPD (chronic obstructive pulmonary disease): (5) KURT (obstructive sleep apnea): (6) Hypertension: (7) Convulsions: (8) Dementia: (9) Diabetes mellitus: (10) Atrial fibrillation: (11) Hyperlipidemia: Plan Acute respiratory failure with hypoxia/left lower lobe pneumonia/rhinovirus infection/COPD exacerbation - Biofire positive for RSV - Pulse ox mid 70s on nasal cannula, currently in 90s with 10L oxygen mask - L lower lobe atelectasis that appears to be chronic, recent XR remains similar to [address], weigh mucus plugging vs endobronchial lesion. Consider bronchoscopy and lesion biopsy. - Continue Azithromycin 500 mg IV daily x3 days - Guaifenesin extended release 1200 mg p.o. twice daily - Methylprednisolone 40 mg IV bid. Consider tapering tomorrow if he continues to improve - Duonebs every 4 hours while awake and every 2 hours when necessary. Atrial fibrillation with RVR - Troponin peak at 21 - Transthoracic echocardiogram recorded normal LV function, LV ejection fraction 60-65% - Currently rate controlled - Continue apixaban 5 mg bid - Continue to monitor tele - Metoprolol tartrate 25 mg p.o. bid held due to hypotension Chronic conditions: Convulsions/seizure disorder/dementia/depression - Continue buspirone, divalproex, quetiapine and trazodone Admission and Anticipated Discharge Date Admission Date: December 20, 2023 Subjective Patient is pleasantly confused, limiting HPI. Denies SOB or respiratory difficulty. Denies chest pain, fevers, chills, weakness, or any other sxs. No overnight events. Physical Exam Respiratory: B/L diminished air flow, crackles heard in b/l mid lobes Results & Data Vital Signs (Past 12 Hours) Vital Signs Temp Pulse Pulse Resp BP Pulse Ox O2 Del Method 12/22/23 12:07 35.7 C L 60 15 122/70 97 Oxymask 12/22/23 10:18 Oxymask 12/22/23 08:55 89 26 H 99 Oxymask 12/22/23 07:59 36.3 C L 83 20 131/67 87 L Nasal Cannula 12/22/23 05:54 56 L 12/22/23 03:26 36.5 C 75 18 116/58 L 90 Nasal Cannula O2 Flow Rate 12/22/23 12:07 12/22/23 10:18 5 12/22/23 08:55 15 12/22/23 07:59 2 12/22/23 05:54 12/22/23 03:26 6 Resident Activity Tracking Resident Involvement: Resident Care Provided Care Provided: Adult Hospital Medicine Resident Supervision Co-Signing Physician Notes Resident Attestation I was personally present during medical student and patient encounter and independently interviewed and examined the patient and verified the baxter history and physical, reviewed labs and image studies, discussed the case with Sue Navarro, and agree with the above mentioned findings and care plan. I personally examined the patient and verified all baxter points of history and exam, discussed case, and agree with decision making with Dr Trevino and Nadira Navarro MS2 feels good hard to gauge HPI due to dementia but notes that he feels good. Later called and updated the best my ability and her satisfaction. vitals noted nad heent nc at mmm breathing unlabored no accessory muscles good effort skin no rashes no pallor or icterus lungs diminished faint rhonchi COPD exac - steroids, zithromax, seems to be overall improving, oxygen requirements along with neurotic likely due to mucous plugging LLL findings - CT notedmucous plugging versus endobronchial lesion. The concern would be for a while, but directions would be if it has been there for a while certainly does not seem to be growing dramatically. Discussed this with , discussed options, she is most likely to leave it alone given his dementia and overall condition. Outpatient follow-up to revisit discussions at a later date, but at this point she was pretty clear that she would not want anything done for cancer anyway, which seems really reasonable given his baseline status anticoagulated with eliquis
--- NOTE | 2023-12-22 18:04 | Billing Data ---
Date of Service December 22, 2023 Coding Level of Care Code 91486 SUB INP/OBS CARE MIN
[2023-12-22] MEDS: AZITHROMYCIN 250 MG TAB PO SCH (20:09)
[2023-12-23 07:04] LABS: Hematocrit (blood only) 33.6 % (42.0-52.0); Hemoglobin 11.4 g/dl (14.0-18.0); Immature Granulocytes # (auto) 0.05 K/uL (0.01-0.20); Immature Granulocytes % (auto) 0.7 %; Lymphocytes # (auto) 0.57 K/uL (1.20-3.40); Lymphocytes % (auto) 8.2 %; Mean Corpuscular Hemoglobin 32.2 pg (25.0-34.0); Mean Corpuscular Hgb Conc 33.9 g/dL (32.0-36.0); Mean Corpuscular Volume 94.9 fL (80.0-100.0); Mean Platelet Volume 9.6 fL (9.4-12.4); Monocytes # (auto) 0.24 K/uL (0.11-0.59); Monocytes % (auto) 3.5 %; Neutrophils # (auto) 6.05 K/uL (1.40-6.50); Neutrophils % (auto) 87.6 %; Platelet Count 156 K/uL (130-400); RDW Coefficient of Variation 12.7 % (11.5-14.5); RDW Standard Deviation 44.4 fL (36.4-46.3); Red Blood Count 3.54 M/uL (4.70-6.10); White Blood Count 6.91 K/ul (4.8-10.8)
[2023-12-23 07:08] LABS: Acanthocytes 1+
--- NOTE | 2023-12-23 07:19 | Hospitalist Progress Note ---
Date of Service December 23, 2023 Assessment & Plan (1) Acute respiratory failure with hypoxia: (2) Left lower lobe pneumonia: (3) Rhinovirus infection: (4) COPD (chronic obstructive pulmonary disease): (5) KURT (obstructive sleep apnea): (6) Hypertension: (7) Convulsions: (8) Dementia: (9) Diabetes mellitus: (10) Atrial fibrillation: (11) Hyperlipidemia: Plan 1) Acute respiratory failure with hypoxia/left lower lobe pneumonia/rhinovirus infection/COPD exacerbation - Biofire positive for RSV - Pulse ox mid 70s on nasal cannula, currently in 90s with 5 L NC O2 - L lower lobe atelectasis that appears to be chronic, recent CXR remains simil ar to [address] consider mucus plugging vs endobronchial lesion, - Continue Azithromycin 500 mg IV daily x3 days; Guaifenesin, ER, 1200 mg, PO, BID - Methylprednisolone 40 mg IV bid. Consider tapering tomorrow if he continues to improve - Duonebs every 4 hours while awake and every 2 hours when necessary. 2) Atrial fibrillation with RVR - Troponin peak at 21; troponin (12/22), 10.6 - TTE recorded normal LV function - Currently rate controlled, Continue apixaban 5 mg bid - Continue to monitor tele - Metoprolol tartrate 25 mg, PO, BID held due to hypotension and bradycardia Chronic conditions: 3) Convulsions/seizure disorder/dementia/depression - Continue buspirone, divalproex, quetiapine and trazodone Code status: Full code Disposition: PCU-Tele FENGI: Heart healthy diet VTE Prophylaxis: continue home med, Eliquis, 5 mg, PO, BID Admission and Anticipated Discharge Date Admission Date: December 20, 2023 Supervising Physician Co-Signing Physician Notes I personally examined the patient and verified all baxter points of history and exam, discussed case, and agree with decision making with Dr Asencio feels good no complaints, obviously HPI and ROS enormously limited by dementia. vitals noted nad heent nc at mmm breathing unlabored no accessory muscles good effort. no focal neuro deficits. again more lucid today but still seems quite easily confused, not clear that he remembers that he lives in a SNF COPD exac - slowly wean steroids, continue nebs, suspect a lot of his erratic O2 requirement relates to mucous plugging, finish zithromax LLL findings - mucous plugging vs obstructing mass - d/w on 12/21 - she wouldn't want anything invasive done, and because of that she really doesn't feel further w/u would benefit him. agree with her thoughts. would ask that PCP at [facility] revisit once more in the coming weeks to ensure this remains her opinion, but given his dementia/this seems to be the most reasonable approach - i doubt she would change her thoughts bradycardia - very hard to gauge sx due to dementia, for the most part doesn't appear symptomatic - but at times quite bradycardic - predominantly sinus; has baseline hx afib. at this point on low but (+) dose of metoprolol - will hold and follow. question if he's starting to show sick sinus - although may not meet indications for pacemaker considerations and possible that stopping metoprolol alone will allow rates to improve. obviously even after discharge will have to look at this as "work in progress" monitoring for both rosi and tachycardia - probably would benefit from ambulatory rhythm monitoring at SNF anticoagulated with eliquis return to [facility] once able Subjective Patient is pleasantly confused, limiting HPI. Denies SOB or respiratory difficulty. Denies chest pain, fevers, chills, weakness, or any other sxs. No overnight events, besides sinus bradycardia into 40s, noted on telemetry. Patient AAO x 3 (not to time) Review of Systems Constitutional: no fever, no chills and no body aches Ear, Nose, Mouth, Throat: + nasal congestion, + nasal discharge an d + post nasal drip; no sinus pain/pressure Respiratory: + cough and + dyspnea Cardiovascular: no chest pain, no palpitations, no edema and no calf pain Gastrointestinal: no abdominal pain, no nausea, no vomiting, no constipation and no diarrhea/loose stools Neurologic: no tingling, no numbness and no headache(s) Physical Exam Constitutional: WD/WN, vitals as above Respiratory: normal respiratory effort, lungs clear to auscultation Cardiovascular: RRR, no murmur, no edema Gastrointestinal (Abdomen): normal bowel sounds, soft, nontender, no hepatosplenomegaly Psychiatric: Orientation: alert, oriented to person, oriented to place and cooperative; + not oriented to time Results & Data Results & Data Vital Signs (Past 12 Hours) Vital Signs Temp Pulse Pulse Resp BP Pulse Ox O2 Del Method 12/23/23 05:32 53 L 12/23/23 04:14 36.4 C L 50 L 15 115/68 94 Oxymask 12/22/23 23:53 36.4 C L 49 L 16 125/61 96 Oxymask 12/22/23 23:36 Oxymask 12/22/23 22:19 53 L 12/22/23 20:23 36.4 C L 91 H 18 120/67 90 Nasal Cannula O2 Flow Rate 12/23/23 05:32 12/23/23 04:14 3 12/22/23 23:53 3 12/22/23 23:36 3 12/22/23 22:19 12/22/23 20:23 5
[2023-12-23 07:35] LABS: Albumin Level 3.2 gm/dl (3.4-5.0); BUN Creatinine Ratio 37.3 (10-20); Calcium 8.9 mg/dl (8.6-10.3); Magnesium 1.9 mg/dl (1.7-2.4); Phosphorus 3.1 mg/dl (2.5-4.9); Potassium 4.7 mmol/L (3.5-5.1)
[2023-12-23] MEDS ORDERED: IPRATROPIUM BROMIDE/ALBUTEROL respimat INH INH SCH (09:00)
--- NOTE | 2023-12-23 09:51 | Billing Data ---
Date of Service December 23, 2023 Coding Level of Care Code 54742 SUB INP/OBS CARE
[2023-12-23] MEDS: ALBUTEROL HFA 8 GM INHALER INH SCH (11:12)
[2023-12-23] MEDS: IPRATROPIUM BROMIDE HFA INHALER INH SCH (11:12)
--- NOTE | 2023-12-24 07:42 | Hospitalist Progress Note ---
Date of Service December 24, 2023 Assessment & Plan (1) Acute respiratory failure with hypoxia: (2) Left lower lobe pneumonia: (3) Rhinovirus infection: (4) COPD (chronic obstructive pulmonary disease): (5) KURT (obstructive sleep apnea): (6) Hypertension: (7) Convulsions: (8) Dementia: (9) Diabetes mellitus: (10) Atrial fibrillation: (11) Hyperlipidemia: Plan 1) Acute respiratory failure with hypoxia/left lower lobe pneumonia/rhinovirus infection/COPD exacerbation - Biofire positive for RSV - Pulse ox currently in mid 90s with 4 L NC O2 - L lower lobe atelectasis that appears to be chronic, recent CXR remains similar to [address] consider mucus plugging vs endobronchial lesion - Last dose of Azithromycin 500 mg IV daily x3 days; Guaifenesin, ER, 1200 mg, PO, BID - Methylprednisolone 40 mg IV bid. Consider tapering tomorrow if he continues to improve - Duonebs every 4 hours while awake and every 2 hours when necessary. 2) Atrial fibrillation with RVR - Troponin peak at 21; troponin (12/22), 10.6 - TTE recorded normal LV function - Currently rate controlled, Continue apixaban 5 mg bid - Continue to monitor tele - Metoprolol tartrate 25 mg, PO, BID held due to hypotension and bradycardia 3) Asymptomatic bradycardia - patient with episodes of sinus bradycardia during the day (HR's in the 40s) and overnight (HR as low as 37), as noted on telemetry and captured on EKG, even after metoprolol has been held - with Hx of AFib w/ RVR, concerning for development of sick sinus syndrome; outpatient cardiac monitoring w/ Holter monitor should be considered once discharged Chronic conditions: 4) Convulsions/seizure disorder/dementia/depression - Continue buspirone, divalproex, quetiapine and trazodone Code status: Full code Disposition: PCU-Tele FENGI: Heart healthy diet VTE Prophylaxis: continue home med, Eliquis, 5 mg, PO, BID Admission and Anticipated Discharge Date Admission Date: December 20, 2023 Subjective Patient is confused but pleasant, limiting HPI. Believes he still lives at home with and children, who are waiting expectantly for him to return. Denies SOB or respiratory difficulty, but desatting to low 80s even on 10 L NC O2. Denies chest pain, fevers, chills, weakness, or any other sxs. No overnight events, besides sinus bradycardia, with HR's in upper 30s noted on telemetry. Patient AAO x 3 (not to time). Review of Systems Review of Systems: As per HPI. Constitutional: no fever, no chills and no body aches Ear, Nose, Mouth, Throat: + nasal congestion, + nasal discharge an d + post nasal drip; no sinus pain/pressure Respiratory: + cough and + dyspnea Cardiovascular: no chest pain, no palpitations, no edema and no calf pain Gastrointestinal: no abdominal pain, no nausea, no vomiting, no constipation and no diarrhea/loose stools Neurologic: no tingling, no numbness and no headache(s) Physical Exam Constitutional: WD/WN, vitals as above Respiratory: normal respiratory effort, lungs clear to auscultation Cardiovascular: RRR, no murmur, no edema Gastrointestinal (Abdomen): normal bowel sounds, soft, nontender, no hepatosplenomegaly Psychiatric: Orientation: alert, oriented to person, oriented to place and cooperative; + not oriented to time Results & Data Results & Data Vital Signs (Past 12 Hours) Vital Signs Temp Pulse Pulse Resp BP Pulse Ox O2 Del Method 12/24/23 07:30 64 12/24/23 07:18 48 L 16 96 Oxymask 12/24/23 06:50 148/77 H 12/24/23 04:20 36.7 C 69 18 159/90 H 98 Oxymask 12/23/23 23:41 36.4 C L 54 L 17 127/67 95 Nasal Cannula 12/23/23 23:27 58 L 12/23/23 23:27 Nasal Cannula 12/23/23 20:06 36.6 C 61 17 143/78 H 91 Nasal Cannula 12/23/23 19:50 92 H 24 92 Nasal Cannula O2 Flow Rate 12/24/23 07:30 12/24/23 07:18 4 12/24/23 06:50 12/24/23 04:20 5 12/23/23 23:41 5 12/23/23 23:27 12/23/23 23:27 5 12/23/23 20:06 5 12/23/23 19:50 5 (4) COPD (chronic obstructive pulmonary disease) COPD type: COPD with acute exacerbation Qualified Code(s): J44.1 - Chronic obstructive pulmonary disease with (acute) exacerbation
[2023-12-24 08:43] LABS: BUN Creatinine Ratio 33.3 (10-20); Calcium 8.8 mg/dl (8.6-10.3); Creatinine Clr Calc Pharmacy 109.6 ml/min
[2023-12-24 08:45] LABS: Basophils # (auto) 0.01 K/uL (0.00-0.20); Basophils % (auto) 0.1 %; Eosinophils # (auto) 0.01 K/uL (0.00-0.50); Eosinophils % (auto) 0.1 %; Hematocrit (blood only) 36.8 % (42.0-52.0); Immature Granulocytes # (auto) 0.06 K/uL (0.01-0.20); Immature Granulocytes % (auto) 0.8 %; Lymphocytes # (auto) 1.38 K/uL (1.20-3.40); Lymphocytes % (auto) 19.1 %; Mean Corpuscular Hemoglobin 31.3 pg (25.0-34.0); Mean Corpuscular Hgb Conc 32.6 g/dL (32.0-36.0); Mean Corpuscular Volume 96.1 fL (80.0-100.0); Mean Platelet Volume 9.3 fL (9.4-12.4); Monocytes # (auto) 0.63 K/uL (0.11-0.59); Monocytes % (auto) 8.7 %; Neutrophils # (auto) 5.12 K/uL (1.40-6.50); Neutrophils % (auto) 71.2 %; Platelet Count 174 K/uL (130-400); RDW Coefficient of Variation 12.5 % (11.5-14.5); Red Blood Count 3.83 M/uL (4.70-6.10); White Blood Count 7.21 K/ul (4.8-10.8)
[2023-12-24] MEDS: methylPREDNISolone 40 MG in SYRINGE 0 ML IV SCH (09:42)
--- NOTE | 2023-12-24 12:28 | Electrocardiogram Report ---
Test Reason : Blood Pressure : */* mmHG Vent. Rate : 48 BPM Atrial Rate : 48 BPM P-R Int : 128 ms QRS Dur : 132 ms QT Int : 422 ms P-R-T Axes : 48 -25 -47 degrees QTcB Int : 376 ms Sinus bradycardia Right bundle branch block Abnormal ECG When compared with ECG of 22-Dec-2023 06:02, Premature atrial complexes are no longer Present Confirmed by Ritchie Adams ([id number]) on 12/24/2023 12:28:29 PM Referred By: [facility] Confirmed By: Ritchie Adams
--- NOTE | 2023-12-24 14:36 | Billing Data ---
Date of Service December 24, 2023 Coding Level of Care Code 91031 SUB INP/OBS CARE MIN
--- NOTE | 2023-12-25 07:07 | Hospitalist Progress Note ---
Date of Service December 25, 2023 Assessment & Plan (1) Acute respiratory failure with hypoxia: (2) Left lower lobe pneumonia: (3) Rhinovirus infection: (4) COPD (chronic obstructive pulmonary disease): (5) KURT (obstructive sleep apnea): (6) Hypertension: (7) Convulsions: (8) Dementia: (9) Diabetes mellitus: (10) Atrial fibrillation: (11) Hyperlipidemia: Plan 1) Acute respiratory failure with hypoxia/left lower lobe pneumonia/rhinovirus infection/COPD exacerbation - Biofire positive for Rhinovirus - Pulse ox 90s on 4 L NC O2, improved with sitting up - L lower lobe atelectasis that appears to be chronic, recent CXR similar to [address] with possible mucus plugging vs obstructing mass in left mainstem bronchus - d/w patient's previously, declined further work up as she wouldn't want to pursue invasive or aggressive treatment - Azithromycin x3 days completed, continue Guaifenesin, ER, 1200 mg, PO, BID - Methylprednisolone 40 mg IV given today - plan to transition to PO prednisone 40mg daily x3 days starting 12/25 - Duonebs every 4 hours while awake and every 2 hours when necessary. 2) Atrial fibrillation with RVR - Rate controlled with Metoprolol at baseline - held due to sinus bradycardia n oted on telemetry and relative hypotension, now resolved. - Continue apixaban 5 mg bid - Continue to monitor tele 3) Asymptomatic bradycardia - patient with episodes of sinus bradycardia during the day and overnight, as noted on telemetry and captured on EKG - sinus bradycardia persisted even after metoprolol held - Concerning for possible sick sinus syndrome - discussed with patient's , who would like cardiology to weigh in - cardiology consulted, appreciate recs Chronic conditions: 4) Convulsions/seizure disorder/dementia/depression - Continue buspirone, divalproex, quetiapine and trazodone Code status: Full code Disposition: PCU-Tele FENGI: Heart healthy diet VTE Prophylaxis: Eliquis, 5 mg, PO, BID Admission and Anticipated Discharge Date Admission Date: December 20, 2023 Supervising Physician Co-Signing Physician Notes Attending Physician Supervision Note: I independently interviewed and examined the patient and verified the baxter history and physical, reviewed labs and image studies and agree with findings and care plan noted above. Unable to get any history. Pleasant. No respiratory distress. Pulse dropping with removal of oxymask. Left lung crackles Persistent Hypoxia - On 2L at baseline. Assess oxygenation while upright and with ambulation. COPD exac d/t Rhinovirus - improved. 3 days of steroid burst and then stop. LLL consolidation/atelectasis with left bronchus narrowing - per discussion with 12/21 - no w/u since not planning anything invasive done. A fib; Bradycardia - episodic. No improvement with holding metoprolol. Eliquis. Severe dementia - continue further goals of care discussion. Once oxygenation status assessed to the level of SNF care level then anticipate d/c. From [facility]. Subjective Patient is confused but pleasant, unable to contribute meaningfully to HPI but denies SOB, fevers, chills. Of note patient removed oxymask and fairly quickly desatted to low 80s. Overnight O2 requirement between 4-7L. Telemetry reviewed, overnight HR min 36 but generally maintained in the 80s-90s. Review of Systems Review of Systems: as per HPI Physical Exam Physical Exam: General: AOx1. No acute distress Cardiac: Regular rate and rhythm, no murmurs appreciated Respiratory: Lungs clear to auscultation bilaterally, mildly decreased breath sounds bilaterally,, No increased work of breathing Abdominal: Soft, non-tender, non-distended. Bowel sounds present. Results & Data Results & Data Vital Signs (Past 12 Hours) Vital Signs Temp Pulse Resp BP Pulse Ox O2 Del Method O2 Flow Rate 12/25/23 03:37 36.8 C 61 17 136/79 90 Oxymask 12/24/23 23:37 36.4 C L 67 18 106/65 88 L Oxymask 12/24/23 22:00 Oxymask 5 12/24/23 19:55 36.5 C 82 18 138/71 94 Oxymask 7 12/24/23 19:37 72 20 95 Oxymask 7 Resident Activity Tracking Resident Involvement: Resident Care Provided Care Provided: Adult Hospital Medicine (4) COPD (chronic obstructive pulmonary disease) COPD type: COPD with acute exacerbation Qualified Code(s): J44.1 - Chronic obstructive pulmonary disease with (acute) exacerbation
--- NOTE | 2023-12-25 15:57 | Cardiology Consultation ---
Date of Consultation December 25, 2023 Assessment & Plan (1) Paroxysmal A-fib: (2) Tachy-rosi syndrome: (3) Acute respiratory failure with hypoxia: (4) COPD (chronic obstructive pulmonary disease): (5) Dementia: Plan Despite heart rate variability suggesting tendency to tachybradycardia syndrome, no need for any medication adjustments at this time as he remains asymptomatic. Although demonstrating a wide variation in his heart rate (40-150 bpm range), his rate response is generally appropriate (slower overnight when sleeping, faster with activity) and up to this point there have been no symptoms clearly attributable to bradycardia or tachycardia. If he were to have more frequent or sustained tachycardic episodes, could restart metoprolol tartrate at reduced dose (12.5 mg twice daily) while continuing to monitor for bradycardia (in the absence of heart block or major pauses, would probably be preferable to have mild sinus bradycardia over sustained tachycardia). However, reasonable to remain off any negative chronotropes for now (although trazodone could have a mild negative chronotropic effect and may account for some of his nocturnal bradycardia, in the absence of symptoms reasonable to continue this). In the absence of substantial or symp tomatic pauses, no need to consider pacemaker placement at this time. Although on multiple potentially QT prolonging medications (quetiapine, trazodone, briefly on azithromycin) his QT interval on ECG has been unremarkable. Continue anticoagulation with apixaban given his episodic recurrences of atrial fibrillation. Will continue to follow along from a cardiac perspective while he is hospitaliz ed. History of Present Illness Reason for Consultation: Concern for Sick Sinus Syndrome Requesting Physician: Crystal Howard MD Attending Physician: Crystal Howard MD History of Present Illness 73-year-old man who resides in an assisted care facility due to dementia and severe COPD, cardiac history notable for paroxysmal atrial fibrillation (metoprolol/apixaban), admitted with RSV infection 12/20/2023, who during this hospitalization has had predominantly sinus rhythm with episodes of marked nocturnal bradycardia and predominantly daytime episodes of transient atrial fib rillation. He is alert and answers simple questions but lacks insight. He denies any subjective palpitations, lightheadedness, or chest discomfort. He denies any dyspnea at rest currently. Review of telemetry monitoring shows initial tachycardia on the day of admission, but only transient subsequent episodes of tachycardia (usually atrial fibrillation) with rates of up to 150 bpm, but lasting only seconds to minutes before returning to sinus rhythm. At night, his rhythm is predominantly sinus bradycardia, with rate mostly 40-50 bpm. He was hypotensive on admission, but subsequent BPs have been variable and generally normotensive. Of note, there is no evidence of prolonged hypotension, heart block, or persistent tachycardia. His usual dose of metoprolol tartrate 25 mg twice daily has been held since admission due to his initial hypotension. At the time of my evaluation this afternoon he was comfortable and had no somatic complaints. Allergies Allergy/AdvReac Type Severity Reaction Status Date / Time No Known Allergies Allergy Verified 12/20/23 19:27 Home Medications Medication Instructions Recorded Confirmed Type acetaminophen 325 mg tablet 650 mg PO Q6 PRN PAIN 1-10 12/20/23 12/20/23 History acetaminophen 325 mg tablet 650 mg PO QID PRN TEMP > 101 12/20/23 12/20/23 History apixaban 5 mg tablet (Eliquis) 5 mg PO BID 12/20/23 12/20/23 History atorvastatin 40 mg tablet 40 mg PO DAILY 12/20/23 12/20/23 History buspirone 10 mg tablet 10 mg PO TID 12/20/23 12/20/23 History chlorhexidine gluconate 0.12 % 15 ml buccal Q12 12/20/23 12/20/23 History mouthwash (Peridex) divalproex 250 mg tablet,delayed 250 mg PO TID 12/20/23 12/20/23 History release ferrous sulfate 325 mg (65 mg 325 mg PO DAILY 12/20/23 12/20/23 History iron) tablet (FeroSul) folic acid 400 mcg tablet 0.4 mg PO DAILY 12/20/23 12/20/23 History ipratropium 20 mcg-albuterol 100 1 puff inhalation Q6 PRN Wheezing 12/20/23 12/20/23 History mcg/actuation mist for inhalation (Combivent Respimat) menthol 0.1 % lotion (Eucerin Itch 1 ea topical BID 12/20/23 12/20/23 History Relief) metoprolol tartrate 25 mg tablet 25 mg PO BID 12/20/23 12/20/23 History quetiapine 100 mg tablet 100 mg PO HS 12/20/23 12/20/23 History quetiapine 25 mg tablet (Seroquel) 50 mg PO DAILY 12/20/23 12/20/23 History sennosides 8.6 mg-docusate sodium 1 tab-cap PO HS 12/20/23 12/20/23 History 50 mg tablet (Senna-S) trazodone 50 mg tablet 75 mg PO HS 12/20/23 12/20/23 History Patient History Medical History Complication of tracheostomy tube Social History Smoking Status: Never smoker Hx Alcohol Use: No Hx Substance Use: No Preferred Language: Wallisian Communication Ability: Effective Pilot Instructor Required: No Beliefs That Will Affect Care: None Current Living Situation: [facility] Current Living Situation Comment: [facility] Feels Safe at Home: Yes Safety Concerns: Feels Safe At This Time Assistive Devices: Wheelchair Physical Exam Physical Exam: Adult white male in no distress. Afebrile. BP currently normotensive. Pulse 94 bpm and regular with occasional ectopy. Respirations 19 and unlabored. Skin: no generalized lesions. HEENT: unremarkable. Neck: JVP just above the clavicle at 90 degrees, no carotid bruits. Lungs: Mildly decreased breath sounds with occasional rhonchi, no wheezing on forced exhalation. No accessory muscle use. Cardiac: regular rhythm, normal S1-2, no murmur. Abdomen: benign. Extremities: no edema, pulses intact. Neurologic: Answers simple questions, limited insight, grossly nonfocal. Results & Data Laboratory Results Hemoglobin 12.0 with normal white count and platelet count. Sodium 134, potassium 5.0, BUN 21, creatinine 0.63. Magnesium 1.92 days ago. Peak troponin 21.6 with subsequent decline. Diagnostic Findings Initial ECG showed sinus rhythm at 73 bpm with right bundle branch block and lateral T wave inversions. Compared with August 2022 T wave inversion laterally was new. An ECG later on the day of admission showed atrial fibrillation at 100 bpm, RBBB, no change in lateral T abnormalities. ECG the day after admission showed sinus bradycardia at 47 bpm with PACs in a bigeminal pattern, RBBB, no change in the lateral T abnormalities. ECG on 12/23/2023 showed sinus bradycardia at 48 bpm, RBBB, no change in the lateral T wave abnormalities. Echocardiogram 12/21/2023 showed normal LV systolic function with mild LVH, no wall motion abnormalities. No obvious valvular disease and no prior studies for comparison. Chest x-ray on admission showed cardiomegaly without CHF, small left pleural effusion and left basilar consolidation were unchanged from August 2022. Chest CT showed emphysema, narrowed left mainstem bronchus, atelectasis/consolidation of left lower lobe, trace pleural effusions, advanced coronary atherosclerosis, no pulmonary edema noted. PG Care Time/CCT Total # of Minutes Spent Total Time Spent with Patient: Total time spent is greater than 50% in coordination of care (as documented) at patient's floor/unit and/or counseling patient: Coding Level of Care Code 14656 IN/OBS CONSULT LVL 4,60M Diagnoses Paroxysmal A-fib I48.0 Tachy-rosi syndrome I49.5 Acute respiratory failure with hypoxia J96.01 COPD (chronic obstructive pulmonary disease) J44.1 COPD type: COPD with acute exacerbation Dementia F03.90 (4) COPD (chronic obstructive pulmonary disease) COPD type: COPD with acute exacerbation Qualified Code(s): J44.1 - Chronic obstructive pulmonary disease with (acute) exacerbation
[2023-12-26 03:38] VITALS: TEMP 97.5
--- NOTE | 2023-12-26 06:50 | Hospitalist Progress Note ---
Date of Service December 26, 2023 Assessment & Plan (1) Acute respiratory failure with hypoxia: (2) Left lower lobe pneumonia: (3) Rhinovirus infection: (4) COPD (chronic obstructive pulmonary disease): (5) KURT (obstructive sleep apnea): (6) Hypertension: (7) Convulsions: (8) Dementia: (9) Diabetes mellitus: (10) Atrial fibrillation: (11) Hyperlipidemia: Plan 1) Acute respiratory failure with hypoxia/left lower lobe pneumonia/rhinovirus infection/COPD exacerbation - Biofire positive for Rhinovirus - Pulse ox 90s on 4 L NC O2, improved with sitting up - L lower lobe atelectasis that appears to be chronic, recent CXR similar to [address] with possible mucus plugging vs obstructing mass in left mainstem bronchus - d/w patient's previously, declined further work up as she wouldn't want to pursue invasive or aggressive treatment - Azithromycin x3 days completed, continue Guaifenesin, ER, 1200 mg, PO, BID - Methylprednisolone 40 mg IV given today - plan to transition to PO prednisone 40mg daily x3 days starting 12/25 - Duonebs every 4 hours while awake and every 2 hours when necessary. 2) Atrial fibrillation with RVR - Rate controlled with Metoprolol at baseline - held due to sinus bradycardia n oted on telemetry and relative hypotension, now resolved. - Continue apixaban 5 mg bid - Continue to monitor tele 3) Asymptomatic bradycardia - patient with episodes of sinus bradycardia during the day and overnight, as noted on telemetry and captured on EKG - sinus bradycardia persisted even after metoprolol held - Concerning for possible sick sinus syndrome - discussed with patient's , who would like cardiology to weigh in - cardiology consulted, appreciate recs Chronic conditions: 4) Convulsions/seizure disorder/dementia/depression - Continue buspirone, divalproex, quetiapine and trazodone Code status: Full code Disposition: PCU-Tele FENGI: Heart healthy diet VTE Prophylaxis: Eliquis, 5 mg, PO, BID Admission and Anticipated Discharge Date Admission Date: December 20, 2023 Subjective Patient is confused but pleasant, unable to contribute meaningfully to HPI but denies SOB, fevers, chills. Of note patient removed oxymask and fairly quickly desatted to low 80s. Overnight O2 requirement between 4-7L. Telemetry reviewed, overnight HR min 36 but generally maintained in the 80s-90s. Review of Systems Review of Systems: as per HPI Physical Exam Physical Exam: General: AOx1. No acute distress Cardiac: Regular rate and rhythm, no murmurs appreciated Respiratory: Lungs clear to auscultation bilaterally, mildly decreased breath sounds bilaterally,, No increased work of breathing Abdominal: Soft, non-tender, non-distended. Bowel sounds present. Results & Data Results & Data Vital Signs (Past 12 Hours) Vital Signs Temp Pulse Resp BP Pulse Ox O2 Del Method O2 Flow Rate 12/26/23 03:37 36.4 C L 64 18 169/71 H 99 Nasal Cannula 12/25/23 23:30 Nasal Cannula 3 12/25/23 22:47 36.3 C L 64 20 118/69 99 Nasal Cannula 4.0 12/25/23 21:00 Nasal Cannula 4 12/25/23 20:23 82 22 98 Nasal Cannula 4 12/25/23 19:33 36.6 C 81 20 130/80 94 Nasal Cannula 4.0 (4) COPD (chronic obstructive pulmonary disease) COPD type: COPD with acute exacerbation Qualified Code(s): J44.1 - Chronic obstructive pulmonary disease with (acute) exacerbation
[2023-12-26] MEDS: predniSONE 20 MG TAB PO SCH (10:06)
--- NOTE | 2023-12-26 10:49 | Cardiology Progress Note ---
Date of Service December 26, 2023 Assessment & Plan (1) Paroxysmal A-fib: (2) Tachy-rosi syndrome: (3) Acute respiratory failure with hypoxia: (4) COPD (chronic obstructive pulmonary disease): (5) Dementia: Plan He remains asymptomatic from a cardiac perspective and his heart rate range is less variable. Reasonable to remain off metoprolol given absence of any sustained tachycardias and concerns about worsening his nocturnal bradycardia. If tachycardia does occur, resume metoprolol at reduced dose (12.5 mg twice daily). Continue anticoagulation indefinitely. No role for pacemaker presently. Will sign off from a cardiology perspective, please contact if any additional concerns or change in his clinical status. Admission and Anticipated Discharge Date Admission Date: December 20, 2023 Subjective States that he feels "tired" today and would like to rest. Denies lightheadedness, palpitations, chest pain, or dyspnea. Telemetry shows sinus rhythm in the 50 bpm range overnight, peak heart rate over the past 24 hours in the 110 bpm range, no sustained tachycardia or pauses. Physical Exam Physical Exam: No distress. Normotensive. Pulse 63 bpm and regular. Respirations 20 and unlabored. Skin: no generalized lesions. HEENT: unremarkable. Neck: JVP just above the clavicle at 90 degrees, no carotid bruits. Lungs: Mildly decreased breath sounds with occasional rhonchi, no wheezing on forced exhalation. No accessory muscle use. Cardiac: regular rhythm, normal S1-2, no murmur. Abdomen: benign. Extremities: no edema, pulses intact. Neurologic: Answers simple questions, limited insight, grossly nonfocal. PG Care Time/CCT Total # of Minutes Spent Total Time Spent with Patient: Total time spent is greater than 50% in coordination of care (as documented) at patient's floor/unit and/or counseling patient: Coding Level of Care Code 46415 SUB INP/OBS CARE 04/06MIN Diagnoses Paroxysmal A-fib I48.0 Tachy-rosi syndrome I49.5 Acute respiratory failure with hypoxia J96.01 COPD (chronic obstructive pulmonary disease) J44.1 COPD type: COPD with acute exacerbation Dementia F03.90 (4) COPD (chronic obstructive pulmonary disease) COPD type: COPD with acute exacerbation Qualified Code(s): J44.1 - Chronic obstructive pulmonary disease with (acute) exacerbation
--- NOTE | 2023-12-26 11:17 | Discharge Summary ---
Date of Service December 26, 2023 Admission HPI Per Admitting Provider The patient is a 73-year-old male with a past medical history including COPD, KURT, hypertension, convulsions, dementia, diabetes mellitus, atrial fibrillation, hyperlipidemia and chronic anemia. He is brought to the emergency department with symptoms as noted above. HPI and review of systems are limited due to patient's underlying dementia and current medical state. During conversation, patient continually removes his mask, and is noted to have a moist cough. He is conversant, but is confused. Admission Exam Per Admitting Provider The patient is awake, confused, well developed and well nourished, normocephalic and atraumatic, lying in bed and in no acute distress. HEENT--PERRL, EOMI, mucous membranes and oropharynx dry. Neck--supple. No JVD. No bruits. Thyroid normal, trachea midline, no adenopathy. Heart--normal S1 and S2. No murmurs, rubs or gallops. Lungs--coarse breath sounds bilaterally, with scattered wheezes. No respiratory distress, no accessory muscle use. Abdomen--normal bowel sounds and soft. Nontender. Nondistended. Extremities--no cyanosis or clubbing. No edema. Dermatologic--normal skin turgor, normal color, no abnormal lymph nodes, no rash. Neurologic--cranial nerves II through XII grossly intact. Rheumatologic--normal range of motion. Psychiatric--normal affect. Principal Diagnosis COPD exacerbation Discharge Exam General: AOx1. No acute distress Cardiac: Regular rate and rhythm, no murmurs appreciated Respiratory: Lungs clear to auscultation bilaterally, mildly decreased breath sounds bilaterally,, No increased work of breathing Abdominal: Soft, non-tender, non-distended. Bowel sounds present. Discharge Data Allergies Allergy/AdvReac Type Severity Reaction Status Date / Time No Known Allergies Allergy Verified 12/20/23 19:27 Consultations 12/20/23 20:55 ED Decision to Admit Stat 12/25/23 14:03 Consult Cardiology Routine Ordered Studies 12/21/23 10:13 CT chest without contrast [CT chest diagnostic wo con] Routine Hospital Course (1) Acute respiratory failure with hypoxia: (2) Left lower lobe pneumonia: (3) Rhinovirus infection: (4) COPD (chronic obstructive pulmonary disease): (5) KURT (obstructive sleep apnea): (6) Hypertension: (7) Convulsions: (8) Dementia: (9) Diabetes mellitus: (10) Atrial fibrillation: (11) Hyperlipidemia: Plan 1) Acute respiratory failure with hypoxia/rhinovirus infection/COPD exacerbation - Biofire positive for Rhinovirus - L lower lobe atelectasis that appears to be chronic, recent CXR similar to [address] with possible mucus plugging vs obstructing mass in left mainstem bronchus - d/w patient's , declined further work up as she wouldn't want to pursue invasive or aggressive treatment. Consider revisiting in the outpatient setting as part of broader goals of care discussion. - Azithromycin x3 days completed - Treated with steroids - recommend completing course with Prednisone 40mg daily 12/26-12/27 - Continue home inhaler regimen - Supplemental O2 as needed, on 2L at time of discharge, may have elevated O2 requirement following discharge but expect return to baseline 2) Atrial fibrillation with RVR - Rate controlled with Metoprolol at baseline - Metoprolol held due to sinus bradycardia noted on telemetry, no significant tachycardia noted on tele since Metoprolol held. Recommend holding Metoprolol at discharge, could consider restarting at 12.5mg dose if noted recurrence of RVR. - Continue apixaban 5 mg bid 3) Asymptomatic bradycardia - patient with episodes of sinus bradycardia during the day and overnight, as noted on telemetry and captured on EKG - sinus bradycardia persisted even after metoprolol held - Concerning for possible sick sinus syndrome - cardiology consulted - given absence of major pauses or heart block in addition to asymptomatic nature of bradycardic episodes, no role for pacemaker at this time. Chronic conditions: 4) Convulsions/seizure disorder/dementia/depression - Continue buspirone, divalproex, quetiapine and trazodone Total Time Total Time Spent Total Time Spent (In Minutes): see attending attestation Discharge Plan Discharge Items Patient Disposition: Personal Group Home Reason For Visit: ACURE RESP FAILURE WITH HYPOXIA Discharge Diagnosis: Acute respiratory failure with hypoxia/left lower lobe pneumonia/rhinovirus infection/COPD exacerbation Activity: Per Instructions section Non-emergency contact: Primary Care Provider Call non-emergency contact if: you have any medication questions, your symptoms worsen and you have a fever Follow-up/Referrals: Adonay Yost [Primary Care Provider] - Diet: Heart Healthy Addtl Attending Provider Instructions: 1) Acute respiratory failure with hypoxia/rhinovirus infection/COPD exacerbation - Biofire positive for Rhinovirus - L lower lobe atelectasis that appears to be chronic, recent CXR similar to [address] with possible mucus plugging vs obstructing mass in left mainstem bronchus - d/w patient's , declined further work up as she wouldn't want to pursue invasive or aggressive treatment. Consider revisiting in the outpatient setting as part of broader goals of care discussion. - Azithromycin x3 days completed - Treated with steroids - recommend completing course with Prednisone 40mg daily 12/26-12/27 - Continue home inhaler regimen - Supplemental O2 as needed, on 2L at time of discharge, may have elevated O2 requirement following discharge but expect return to baseline 2) Atrial fibrillation with RVR - Rate controlled with Metoprolol at baseline - Metoprolol held due to sinus bradycardia noted on telemetry, no significant tachycardia noted on tele since Metoprolol held. Recommend holding Metoprolol at discharge, could consider restarting at 12.5mg dose if noted recurrence of RVR. - Continue apixaban 5 mg bid 3) Asymptomatic bradycardia - patient with episodes of sinus bradycardia during the day and overnight, as noted on telemetry and captured on EKG - sinus bradycardia persisted even after metoprolol held - Concerning for possible sick sinus syndrome - cardiology consulted - given absence of major pauses or heart block in addition to asymptomatic nature of bradycardic episodes, no role for pacemaker at this time. Chronic conditions: 4) Convulsions/seizure disorder/dementia/depression - Continue buspirone, divalproex, quetiapine and trazodone Pending Studies at Discharge: No Stand-Alone Forms: My [employer], Smoking Cessation Skilled Items Patient informed of condition?: Yes DNR: No Discharge Level of Care: Other Communicable Disease: No Discharge Prognosis: Improving Lines: None Urinary Catheter: No Medications and DC Order Prescriptions: New prednisone 20 mg tablet 40 mg PO DAILY 2 Days Qty: 4 0RF Continued quetiapine [Seroquel] 25 mg Tablet 50 mg PO DAILY trazodone 50 mg Tablet 75 mg PO HS atorvastatin 40 mg Tablet 40 mg PO DAILY acetaminophen 325 mg Tablet 650 mg PO Q6 MDD 3G/24HR PRN (Reason: PAIN 1-10) acetaminophen 325 mg Tablet 650 mg PO QID MDD 3GM/24 HRS PRN (Reason: TEMP > 101) divalproex 250 mg tablet,delayed release (DR/EC) 250 mg PO TID buspirone 10 mg tablet 10 mg PO TID Combivent Respimat 20-100 mcg/actuation mist 1 puff INHALATION Q6 PRN (Reason: Wheezing) ferrous sulfate [FeroSul] 325 mg (65 mg iron) tablet 325 mg PO DAILY Eliquis 5 mg tablet 5 mg PO BID Eucerin Itch Relief 0.1 % Lotion 1 ea TOPICAL BID Rx Instructions: APPLY TO ITCHY AREAS EVERY DAY AND EVENING SHIFT folic acid 400 mcg Tablet 0.4 mg PO DAILY quetiapine 100 mg tablet 100 mg PO HS sennosides-docusate sodium [Senna-S] 8.6-50 mg Tablet 1 tab-cap PO HS chlorhexidine gluconate [Peridex] 0.12 % Mouthwash 15 ml BUCCAL Q12 Held metoprolol tartrate 25 mg tablet 25 mg PO BID Hold Instructions: Held due to bradycardia; could consider reduced dose (12.5mg BID) if sustained episodes of tachycardia Discharge Orders: Discharge Order (Routine); Ordered 12/26/23 Ordered By: Brayan Dalal Admission Data Admit Date/Time: 12/20/23 20:42 Attending Provider: Crystal Howard Admit Provider: Jeancarlos Woodard Primary Care Provider: Adonay Yost Other Providers: Jeancarlos Woodard; Phil Andino; Roshan Narvaez Other Interventions: Discharge Summary Assessment (RN) Last Done: 12/26/23 11:28 Supervising Physician Co-Signing Physician Notes Attending Physician Supervision Note: I independently interviewed and examined the patient and verified the baxter history and physical, reviewed labs and image studies and agree with findings and care plan noted above. Unable to get any history. Pleasant. No respiratory distress. Left lung crackles Acute on chronic resp failure - Down to his baseline O2 needs at 2L. COPD exac d/t Rhinovirus - improved. Finish steroid burst in 2 days. LLL consolidation/atelectasis with left bronchus narrowing - per discussion with 12/21 - no w/u since not planning anything invasive done. A fib; Bradycardia - episodic. Metoprolol held. HR by the time of discharge better - lowest drop into 50s. Evaluated by cardiology - recommended continuing to hold Beta kyaw. Continue to hold metoprolol on discharge and to assess for resuming at the SNF. Continue Eliquis. Severe dementia - continue further goals of care discussion. Discussed with at the time of discharge - She would like to keep him on full code status. Unsure of her understanding of the condition given undifferentiated lung pathology. Should continue discussion at the facility. Discharged to [facility].
[2023-12-26 11:28] VITALS: BP 116/69; PULSE 58; RESP 16; O2SAT 90
[2023-12-26 12:07] LABS: BUN Creatinine Ratio 31.1 (10-20); Calcium 8.5 mg/dl (8.6-10.3); Creatinine Clr Calc Pharmacy 113.2 ml/min; Potassium 4.6 mmol/L (3.5-5.1)
--- NOTE | 2023-12-27 17:32 | Coding Query ---
To promote full compliance with coding requirements relating to patient care, provider participation is requested in all cases of it support specialist uncertainty. Please assist us with the question(s) below: Coding Question(s): The diagnosis(es) below was documented in the (it support specialist fill out source document ie H&P, progress notes, etc.) then subsequently still being documented subseqently. Please indicate if it is still a possible diagnosis or ruled out. 12/20 PN Acute respiratory failure with hypoxia // COPD exacerbation (home oxygen 2 lpm) - Patient from [facility] dementia unit who was admitted due to progressively worsening SOB - CXR w/ LLL consolidation that is relatively unchanged from CXR from 08/2022, raising the question of whether or not this is a chronic issue. Believe this is chronic given lack of changes on imaging, but will assess further on CT for better characterization Will stop Zosyn due to low concern of PNA, but may add alternate abx depending on CT findings Physician's Response(s): PNEUMONIA ( ) Diagnosed and POA Pls specifiy type (bacterial, viral, or unknown) ( x ) Ruled out - bacterial pneumonia ruled out. Rhino virus infection LRTI. ( ) Other (please specify) If ruled out, please specify the site/type of the rhinovirus infection. ie bronchitis, bronchiectasis, other LRTI Mary Nieto, CDIP, [employer] PROF[employer] ) [facility]
== END 2023-12-26 14:00 | disposition home or self-care (01) | DRG 190 ==
LOC: ED 14:43 → SUATTDRO 20:42 → 2E 20:42

== ENCOUNTER 2024-04-01 01:27 | Inpatient (IN) ==
[2024-04-01] MEDS: NOREPINEPHRINE/D5W 4 MG/250 ML PLCT IV SCH (01:43)
[2024-04-01] MEDS: CEFEPIME 2000MG 2,000 MG/20 ML SYR IV STA (01:58)
[2024-04-01] MEDS: SODIUM CHLORIDE 0.9% 1,000 ML IV SCH (01:59)
[2024-04-01 02:01] LABS: Basophils # (auto) 0.02 K/uL (0.00-0.20); Basophils % (auto) 0.2 %; Hematocrit (blood only) 37.3 % (42.0-52.0); Hemoglobin 12.1 g/dl (14.0-18.0); Immature Granulocytes # (auto) 0.06 K/uL (0.01-0.20); Immature Granulocytes % (auto) 0.5 %; Lymphocytes # (auto) 2.11 K/uL (1.20-3.40); Lymphocytes % (auto) 16.9 %; Mean Corpuscular Hemoglobin 31.4 pg (25.0-34.0); Mean Corpuscular Hgb Conc 32.4 g/dL (32.0-36.0); Mean Corpuscular Volume 96.9 fL (80.0-100.0); Monocytes # (auto) 1.54 K/uL (0.11-0.59); Monocytes % (auto) 12.3 %; Neutrophils # (auto) 8.75 K/uL (1.40-6.50); Neutrophils % (auto) 70.1 %; Platelet Count 111 K/uL (130-400); RDW Coefficient of Variation 13.2 % (11.5-14.5); RDW Standard Deviation 47.1 fL (36.4-46.3); Red Blood Count 3.85 M/uL (4.70-6.10); White Blood Count 12.48 K/ul (4.8-10.8)
[2024-04-01 02:15] LABS: Alanine Aminotransferase 10 U/L (7-52); Alkaline Phosphatase 32 U/L (34-104); Anion Gap 8 (3-11); Aspartate Aminotransferase 23 U/L (13-39); BUN Creatinine Ratio 19.7 (10-20); Bilirubin Direct 0.1 mg/dl (0-0.2); Bilirubin,Total 0.5 mg/dl (0.2-1.0); Blood Urea Nitrogen 31 mg/dl (6-23); Calcium 8.2 mg/dl (8.6-10.3); Carbon Dioxide 25 mmol/L (21-32); Chloride 112 mmol/L (98-107); Glucose 105 mg/dl (70-99(Fasting)); Magnesium 1.6 mg/dl (1.7-2.4); Potassium 3.9 mmol/L (3.5-5.1); Sodium 145 mmol/L (136-145); Total Protein 5.7 gm/dl (6.0-8.3)
[2024-04-01 02:22] LABS: Troponin I High Sensitivity 32.5 pg/ml (0-20)
[2024-04-01] MEDS: MIDAZOLAM HCL 5 MG/ML 2ML VIAL ONE (02:41)
[2024-04-01] MEDS: MIDAZOLAM HCL 1 MG/ML 2ML VIAL IV STA (02:41)
[2024-04-01 02:43] LABS: Appearance Urine Cloudy (Clear); Bacteria Urine Automated 2+ (None Seen); Bilirubin Urine Negative (Negative); Blood Urine Trace (Negative); Cast Urine Automated >20 /lpf (0-2); Color Urine Dark Yellow; Glucose Urine UA Negative (Negative); Ketones Urine 1+ (Negative); Leukocyte Esterase Urine Trace (Negative); Mucus Urine Present (None Prsent); Nitrite Urine Negative (Negative); Protein Urine 2+ (Negative); Urobilinogen Urine Negative (Negative)
[2024-04-01] MEDS: OPTIRAY 320 125ml IV ONE (03:00)
[2024-04-01] MEDS ORDERED: STAT IV Infusion **Titration per Protocol STA ×2 (03:05→06:05)
[2024-04-01] MEDS ORDERED: fentaNYL BOLUS from BAG IV PRN (03:05)
--- NOTE | 2024-04-01 03:06 | XRay Report ---
EXAM: XR chest 1V portable CLINICAL HISTORY: POST INTUBATION SDM TECHNIQUE: An X-ray image of the chest is obtained in AP projection. COMPARISON: No prior studies are available for comparison. FINDINGS: Pulmonary Parenchyma: An ETT is noted, its tip is about 1.4 cm above the isaiah. A left mid and lower zonal air-space opacity is seen silhouetting the left cardiac border and left hemidiaphragm. The left costophrenic angle is obscured. No gross right lung air-space opacities. The right costophrenic angle is clear. Heart and Mediastinum: Limited evaluation of the cardiac size given an AP projection. Bony Thorax: Bony thorax appears intact without fractures or deformities. Soft Tissues: Soft tissues overlying the chest wall are unremarkable. IMPRESSION: 1. An ETT is noted, its tip is about 1.4 cm above the isaiah, need to be pulled 1-2 cm. 2. Left mid and lower zonal air-space opacity (possibly pneumonic) with possible left pleural effusion. Electronically signed by Melvin Farris 04-01-2024 03:06 AM
[2024-04-01] MEDS: fentaNYL citrate PF 100 MCG/2 ML VIAL IV ONE (03:12)
[2024-04-01] MEDS: fentaNYL citrate PF 100 MCG/2 ML VIAL ONE (03:12)
[2024-04-01] MEDS: NOREPINEPHRINE/D5W 4 MG/250 ML IV ONE (03:12)
[2024-04-01] MEDS: STAT IV Infusion **Titration per Protocol STA (03:12)
[2024-04-01] MEDS: fentaNYL citrate 2,500 MCG/250 ML BAG IV SCH (03:13)
[2024-04-01] MEDS: fentaNYL citrate 2,500 MCG/250 ML BAG IV ONE (03:13)
--- NOTE | 2024-04-01 03:14 | XRay Report ---
EXAM: XR KUB/Abdomen 1 view CLINICAL HISTORY: OG PLACEMENT. TECHNIQUE: An X-ray image of the abdomen was obtained in an AP supine position. COMPARISON: No prior studies are available for comparison. FINDINGS: The tip of the NG tube is noted in the stomach. Gas Pattern: The gas pattern within the abdomen is normal. No free air under the diaphragm. Soft Tissues: Visualized soft tissues of the abdomen appear normal. For lungs please refer to chest xray of the same date. IMPRESSION: 1. The tip of the NG tube is noted in the stomach. Optimal position. 2. No free air under the diaphragm. Electronically signed by Melvin Farris 04-01-2024 03:14 AM
[2024-04-01 03:22] LABS: Adenovirus PCR Not Detected (NotDetected); Bordetella parapertussis PCR Not Detected (NotDetected); Bordetella pertussis PCR Not Detected (NotDetected); Chlamydia pneumoniae PCR Not Detected (NotDetected); Coronavirus 229E PCR Not Detected (NotDetected); Coronavirus CoV-2 (COVID19)PCR Not Detected (NotDetected); Coronavirus HKU1 PCR Not Detected (NotDetected); Coronavirus NL63 PCR Not Detected (NotDetected); Coronavirus OC43PCR Not Detected (NotDetected); Human Metapneumovirus PCR Not Detected (NotDetected); Influenza A PCR Not Detected (NotDetected); Influenza B PCR Not Detected (NotDetected); Mycoplasma pneumoniae PCR Not Detected (NotDetected); Parainfluenza Virus 1 PCR Not Detected (NotDetected); Parainfluenza Virus 2 PCR Not Detected (NotDetected); Parainfluenza Virus 3 PCR Not Detected (NotDetected); Parainfluenza Virus 4 PCR Not Detected (NotDetected); Respiratory Syncytial VirusPCR Not Detected (NotDetected); Rhinovirus/Enterovirus PCR DETECTED (NotDetected)
[2024-04-01 03:23] LABS: iSTAT Arterial Blood Gas HCO3 21 meg/L (19-24); iSTAT Arterial Blood Gas pCO2 46 mmHg (35-46); iSTAT Arterial Blood Gas pH 7.27 (7.35-7.45); iSTAT Arterial Blood Gas pO2 82 mmHg (80-95); iSTAT Carbon Dioxide 22 mmol/L (24-31); iSTAT FiO2 80 %; iSTAT Hematocrit 34 % (42-52); iSTAT Hemoglobin 11.6 g/dl (14.0-18.0); iSTAT Potassium 3.7 mmol/L (3.3-5.0); iSTAT Sample Type Arterial; iSTAT Sodium 144 mmol/L (135-144)
--- NOTE | 2024-04-01 03:31 | Critical Care Consultation ---
Date of Consultation April 01, 2024 Assessment & Plan (1) Required emergency intubation: (2) Acute respiratory failure with hypoxia: (3) Shock: (4) Paroxysmal A-fib: (5) COPD (chronic obstructive pulmonary disease): (6) Hypertension: (7) Dementia: (8) Diabetes mellitus: (9) Hyperlipidemia: Plan Reason Critically Ill: 74 YOM resident of group home found unresponsive and hypoxic requiring intubation in the field, now on vasopressors and mechanically ventilated Neuro - Sedation for mechanical ventilation, hx of dementia, Hx of convulsions CAM ICU: LENA - Sedation goal MARYSOL -1 - Fentanyl infusion with bolus, if more sedation required for synchrony will add propofol - Reportedly baseline function is good and he is independent at the facility - Head CT negative for acute bleed or LVO - Medical history with reports of "convulsions" however with what information is currently viewable, there is no mention of type or other seizure disorder- convert valproate to IV while intubated - Hold serequel, Buspar, Trazadone while intubated and sedated Cardiac - Shock unspecified, afib, on chronic anticoagulation - Hypotension likely related to sedation as well as possible sepsis - Per my interpretation CTA of chest negative for PE/obstructive shock- - Bedside POCUS negative for pericardial effusion - ECG without STEMI- RBB - Levophed to maintain MAPS > 65 - ECHO in am - Trend HsCTNI- likely elevated secondary to type II mismatch - FOR his Afib hold on metoprolol with JASON - if rate control needed- will replete magnesium to level of 2.0 and could then consider Esmolol or Amiodarone for rate control - Heparin in lieu of Eliquis Respiratory - Hypoxic respiratory failure requiring emergent intubation and mechanical ventilation, COPD, KURT - Respiratory failure requiring intubation- at this time likely secondary to viral infection and possible mucous plugging vs. aspiration vs. viral and bacterial pneumonia or combination of these. - VLAD opacity, increased oxygen need, sputum yellow mondragon, WBC elevation, elevated PCT- can't exclude bacterial pneumonia see below - CTA negative for PE - Respiratory viral panel + for Enter/Rhinovirus - As he is not overtly wheezy or with CO2 retention, will hold on IV steroids at this time - Continue supportive care - Nebulizers scheduled- MAE and ICS GI - No acute needs - OGT to LIWS - NPO RENAL/LYTES - Respiratory acidosis, JASON - Continue supportive care for mild acidosis - Maintain MAPS >65 for JASON- follow urine output and volume assessments - ICU electrolyte protocol - No acute needs - Andrade while intubated and sedated ENDO - DMII - ICU hyperglycemic protocol HEME - On chronic anticoagulation - Hold Eliquis - Heparin infusion ID - Sepsis likely pulmonary source - VLAD opacity, increased oxygen need, sputum yellow mondragon, WBC elevation, elevated PCT- can't exclude bacterial pneumonia in conjunction with Enter/Rhino - Zosyn, Vancomycin- pending MRSA swab - Sputum sample pending - blood culture pending LINES/IV ACCESS - PIV, ETT, OGT, CVL, Barbra Continue use of these lines DVT PROPHYLAXIS - SCDS, Heparin infusion DISPO: ICU while intubated and sedated as well as requiring vasopressors I have personally spent 60 minutes of critical care time in the direct management of this patient. This is a life/limb threatening event. This includes time spent evaluating patient, direct bedside care, chart review, placing orders, interpretation of diagnostic studies, discussion with consultants, patient, and family members, as well as other required patient management activities. This time is exclusive of all separately billable procedures, and teaching time and separate from and in addition to any other critical care service time. Thank you for allowing us to participate in the care of this patient. Please refer to my attending physician's documentation for any further recommendations. Supervising Physician Co-Signing Physician Notes I have personally evaluated and examined this patient. I agree with assessment and plan of Davy LACEY. I was able to contact the patient's at the phone number listed in the chart. Phone was initially picked up by patient's son: AJ (patient's reported that the son lives with them, I was unable to elucidate whether the patient's son has a disability that may preclude him from functioning as a surrogate decision maker should this be required.) Discussed with patient's current prognosis and current condition. Emphasized patient is critically ill in a day by day state. He had previously underwent a tracheostomy for what sounds like inability to liberate from the ventilator. Patient was reportedly transferred to [facility] at [facility] with tracheostomy still present. I am able to locate prior records that indicate the tracheostomy was dislodged and eventually the patient was evaluated by ENT and the stoma was closed. Patient's reports that this all took place at [facility]. Patient's lives in [facility] and is unable to drive, given the extreme weather she is not planning on presenting to the hospital. She reports patient has significant dementia and is a permanent resident in a longterm facility. I asked if they had ever discussed what he would want in event of a life-threatening illness or significant impairments, reported they had not had these discussions (reported they have been for 35+ years). Also emphasized patient has multisystem organ failure given presumptive sepsis requiring vasoactive medication administration and acute kidney injury. I was asked several times by the patient's whether the patient was in serious condition or data day/hour by hour, I reiterated at least 5 times during our discussion patient was in a dated day condition. When asked explicitly if he would want heroic resuscitative efforts in event of cardiac arrest patient's responded affirmatively. Reported to the she would be contacted if patient condition continues to deteriorate. I have personally spent 30 minutes of critical care time in the direct management of this patient. This is a life/limb threatening event. This includes time spent evaluating patient, direct bedside care, chart review, placing orders, interpretation of diagnostic studies, discussion with consultants, patient, and/or family members regarding treatment decisions, as well as other required patient management activities. This time is exclusive of all separately billable procedures, and teaching time and separate from and in addition to any other critical care service time. History of Present Illness Reason for Consultation: intubation with mechanical ventilation secondary to hypoxic respiratory failure Requesting Physician: Jeancarlos Woodard MD Attending Physician: Jeancarlos Woodard MD History of Present Illness 73 YOM resident of [facility] with medical history of: COPD, KURT, HTN, Dementia, DM, Afib (on Eliquis), HLD. Patient was brought to EMD today following being found unresponsive and hypoxic at his [facility]. Reportedly found "blue" EMS was summoned and reportedly was found hypoxic in the 60-70s as well as hypotensive. Reportedly NIPPV was trialed and subsequently he was intubated in the field. He also reportedly required push dose epi en route as well on arrival to the EMD. In the ER he had CXR obtained and routine labs to include respiratory biofire. He was given 3 L of crystalloid and remained hypotensive and Levophed infusion was initiated. He received Versed x1 as well as Cefepime in the ER. CTA was requested following discussion with ER physician. ABG was also requested upon my arrival to the ER, which reveals mixed respiratory and metabolic acidosis. He will be brought ot the ICU for continued support for respiratory failure and possibly septic shock from pulmonary source. CODE: FULL Allergies Allergy/AdvReac Type Severity Reaction Status Date / Time No Known Allergies Allergy Verified 12/20/23 19:27 Home Medications Medication Instructions Recorded Confirmed Type acetaminophen 325 mg tablet 650 mg PO Q6 PRN PAIN 1-10 12/20/23 12/20/23 History acetaminophen 325 mg tablet 650 mg PO QID PRN TEMP > 101 12/20/23 12/20/23 History apixaban 5 mg tablet (Eliquis) 5 mg PO BID 12/20/23 12/20/23 History atorvastatin 40 mg tablet 40 mg PO DAILY 12/20/23 12/20/23 History buspirone 10 mg tablet 10 mg PO TID 12/20/23 12/20/23 History chlorhexidine gluconate 0.12 % 15 ml buccal Q12 12/20/23 12/20/23 History mouthwash (Peridex) divalproex 250 mg tablet,delayed 250 mg PO TID 12/20/23 12/20/23 History release ferrous sulfate 325 mg (65 mg 325 mg PO DAILY 12/20/23 12/20/23 History iron) tablet (FeroSul) folic acid 400 mcg tablet 0.4 mg PO DAILY 12/20/23 12/20/23 History ipratropium 20 mcg-albuterol 100 1 puff inhalation Q6 PRN Wheezing 12/20/23 12/20/23 History mcg/actuation mist for inhalation (Combivent Respimat) menthol 0.1 % lotion (Eucerin Itch 1 ea topical BID 12/20/23 12/20/23 History Relief) metoprolol tartrate 25 mg tablet 25 mg PO BID 12/20/23 12/20/23 History quetiapine 100 mg tablet 100 mg PO HS 12/20/23 12/20/23 History quetiapine 25 mg tablet (Seroquel) 50 mg PO DAILY 12/20/23 12/20/23 History sennosides 8.6 mg-docusate sodium 1 tab-cap PO HS 12/20/23 12/20/23 History 50 mg tablet (Senna-S) trazodone 50 mg tablet 75 mg PO HS 12/20/23 12/20/23 History Patient History Medical History Complication of tracheostomy tube Social History Smoking Status: Never smoker Hx Alcohol Use: No Hx Substance Use: No Preferred Language: Italian Communication Ability: Impaired Harvesting Contractor Required: No Beliefs That Will Affect Care: None Current Living Situation: [facility] Current Living Situation Comment: [facility] Feels Safe at Home: Declines to Answer Assistive Devices: Wheelchair Review of Systems Review of Systems: unable to perform secondary to intubation and mechanical ventilation Physical Exam Physical Exam: PHYSICAL EXAM: General: moving arms and legs, bucking the ventilator Head: Normocephalic, atraumatic ENT: PERRLA, no pharyngeal exudate, mucous membranes dry Neuro: Intubated and sedated, was coughing and gagging with tube prior to sedation, moving hands and lower extremities, localized Chest: equal rise and fall of the chest, scattered rhonchi LT > RT Cardiac: Irregular rate and rhythm, telemetry reviewed- afib s/tach, skin warm dry, cap refill <3 seconds, peripheral pulses, +2 no JVD, no murmur, no edema, dusky feet GI: NABS x 4 quadrants, soft, nontender to palpation, no rebound, guarding or tenderness : Andrade to gravity draining light yellow urine Results & Data Results & Data Vital Signs (Past 12 Hours) Vital Signs Temp Pulse Pulse Resp BP BP Pulse Ox 04/01/24 03:20 37.5 C 114 H 18 113/71 95 04/01/24 02:24 121 H 14 91 04/01/24 02:12 122 H 14 98/65 L 92 04/01/24 02:06 113 H 14 96 04/01/24 02:04 90/48 L 04/01/24 01:58 124/68 04/01/24 01:57 122 H 14 100 04/01/24 01:56 119/69 04/01/24 01:54 120 H 10 L 100 04/01/24 01:54 118/60 04/01/24 01:45 120 H 04/01/24 01:44 73/57 L 04/01/24 01:44 73/57 L 04/01/24 01:43 43/30 L 04/01/24 01:41 122 H 14 94 04/01/24 01:41 04/01/24 01:41 37.4 C 122 H 14 93 04/01/24 01:41 04/01/24 01:41 37.4 C 122 H 14 100/62 93 04/01/24 01:39 40/31 L 04/01/24 01:38 119 H 14 100 04/01/24 01:36 153 H 87 L 04/01/24 01:33 44/32 L O2 Del Method FiO2 04/01/24 03:20 Mechanical Vent 04/01/24 02:24 04/01/24 02:12 04/01/24 02:06 04/01/24 02:04 04/01/24 01:58 04/01/24 01:57 04/01/24 01:56 04/01/24 01:54 04/01/24 01:54 04/01/24 01:45 04/01/24 01:44 04/01/24 01:44 04/01/24 01:43 04/01/24 01:41 Mechanical Vent 40 04/01/24 01:41 Mechanical Vent 40 04/01/24 01:41 Mechanical Vent 40 04/01/24 01:41 Mechanical Vent 40 04/01/24 01:41 Mechanical Vent 40 04/01/24 01:39 04/01/24 01:38 40 04/01/24 01:36 04/01/24 01:33 Laboratory Results Abnormal lab results 04/01/24 04/01/24 Range/Units 01:42 03:09 WBC 12.48 H (4.8-10.8) K/ul RBC 3.85 L (4.70-6.10) M/uL Hgb 12.1 L (14.0-18.0) g/dl POC Hgb 11.6 L (14.0-18.0) g/dl Hct 37.3 L (42.0-52.0) % POC Hct 34 L (42-52) % RDW Std Deviation 47.1 H (36.4-46.3) fL Plt Count 111 L (130-400) K/uL Neut # (Auto) 8.75 H (1.40-6.50) K/uL Dukes # (Auto) 1.54 H (0.11-0.59) K/uL POC pH 7.27 L (7.35-7.45) POC Total CO2 22 L (24-31) mmol/L Chloride 112 H (98-107) mmol/L BUN 31 H (6-23) mg/dl Creatinine 1.57 H (0.6-1.4) mg/dl Glucose 105 H (70-99(Fasting)) mg/dl Lactate 2.2 H* (0.4-2.0) mmol/L Calcium 8.2 L (8.6-10.3) mg/dl Magnesium 1.6 L (1.7-2.4) mg/dl Alkaline Phosphatase 32 L (34-104) U/L Troponin I High Sens 32.5 H (0-20) pg/ml Total Protein 5.7 L (6.0-8.3) gm/dl Albumin 3.0 L (3.4-5.0) gm/dl Procalcitonin 1.18 H (0-0.5) ng/ml Urine Appearance Cloudy A (Clear) Urine Protein 2+ H (Negative) Urine Ketones 1+ H (Negative) Urine Blood Trace H (Negative) Ur Leukocyte Esterase Trace H (Negative) Urine WBC (Auto) 6-10 H (0-5) /hpf Urine RBC (Auto) 11-20 H (0-2) /hpf U Hyaline Cast (Auto) >20 H (0-2) /lpf U Epithel Cells (Auto) 11-20 H (0-2) /hpf Urine Bacteria (Auto) 2+ H (None Seen) Urine Mucus Present A (None Prsent) Entero/Rhino (PCR) DETECTED A (NotDetected) Diagnostic Findings Chest X-Ray 04/01/24 01:34 EXAM: XR chest 1V portable CLINICAL HISTORY: POST INTUBATION SDM TECHNIQUE: An X-ray image of the chest is obtained in AP projection. COMPARISON: No prior studies are available for comparison. FINDINGS: Pulmonary Parenchyma: An ETT is noted, its tip is about 1.4 cm above the isaiah. A left mid and lower zonal air-space opacity is seen silhouetting the left cardiac border and left hemidiaphragm. The left costophrenic angle is obscured. No gross right lung air-space opacities. The right costophrenic angle is clear. Heart and Mediastinum: Limited evaluation of the cardiac size given an AP projection. Bony Thorax: Bony thorax appears intact without fractures or deformities. Soft Tissues: Soft tissues overlying the chest wall are unremarkable. IMPRESSION: 1. An ETT is noted, its tip is about 1.4 cm above the isaiah, need to be pulled 1-2 cm. 2. Left mid and lower zonal air-space opacity (possibly pneumonic) with possible left pleural effusion. Electronically signed by Melvin Farris 04-01-2024 03:06 AM KUB X-Ray 04/01/24 02:21 EXAM: XR KUB/Abdomen 1 view CLINICAL HISTORY: OG PLACEMENT. TECHNIQUE: An X-ray image of the abdomen was obtained in an AP supine position. COMPARISON: No prior studies are available for comparison. FINDINGS: The tip of the NG tube is noted in the stomach. Gas Pattern: The gas pattern within the abdomen is normal. No free air under the diaphragm. Soft Tissues: Visualized soft tissues of the abdomen appear normal. For lungs please refer to chest xray of the same date. IMPRESSION: 1. The tip of the NG tube is noted in the stomach. Optimal position. 2. No free air under the diaphragm. Electronically signed by Melvin Farris 04-01-2024 03:[address] 04/01/24 02:27 EXAM: CT head/brain wo con CLINICAL HISTORY: the chief complaint of respiratory distress occurred tonight. Pt is from the [facility] and staff reported to EMS pt was found blue and unresponsive. TECHNIQUE: Axial non-contrast CT scan of the brain was performed from the skull base to the high parietal region. One of the following dose reduction techniques was utilized for this exam: Automated exposure control, adjustment of the mA and/or kV according to patient size, use of iterative reconstruction. COMPARISON: None. FINDINGS: Brain Parenchyma: Mild age-related cerebral involutional changes were noted. Patchy periventricular hypodense areas related to small vessel disease. Normal attenuation of the cerebral hemispheres, cerebellum, and brainstem. No evidence of acute infarct, hemorrhage, or mass effect. Diffuse scattered atherosclerotic clarifications within the ICA cavernous portions and both vertebral arteries. Ventricular System: Ventricles are normal in size and configuration. No evidence of hydrocephalus or ventricular enlargement. Subarachnoid Spaces: Normal sulci and cisterns. No evidence of subarachnoid hemorrhage or extra-axial fluid collections. Cerebellum and Brainstem: Normal size and signal. No masses, lesions, or areas of abnormal density. Orbits: Normal appearance of the globes, optic nerves, and extraocular muscles. No evidence of orbital masses or abnormal density. Sinuses: Clear paranasal sinuses. No evidence of sinusitis or mucosal thickening. Mastoid Air Cells: Clear mastoid air cells. No evidence of mastoiditis. Skull: Normal skull morphology. IMPRESSION: 1. Mild age-related cerebral involutional changes were noted. 2. Patchy periventricular hypodense areas related to small vessel disease. 3. Diffuse scattered atherosclerotic clarifications within the ICA cavernous portions and both vertebral arteries. 4. No recent ischemic or hemorrhagic insult was depicted. Electronically signed by Melvin Farris 04-01-2024 04:36 AM Medications Administered Sodium Chloride (Nss) 1,000 mls @ 999 mls/hr IV .Q1H1M QUINCY Stop: 04/01/24 03:45 Last Admin: 04/01/24 03:00 Dose: 999 mls/hr Documented By: Infusion: 04/01/24 03:00 Dose: Infused Documented By: Admin: 04/01/24 01:59 Dose: 999 mls/hr Documented By: IDD Norepinephrine Bitartrate (Levophed/D5w) 4 mg in 250 mls @ 14.063 mls/hr IV .[id number] QUINCY; Protocol Stop: 05/01/24 01:44 Last Titration: 04/01/24 02:50 Dose: 0.2 mcg/kg/min, 56.3 mls/hr Documented By: IDD Co-signed By: TAMAR Titration: 04/01/24 02:48 Dose: 0.15 mcg/kg/min, 42.2 mls/hr Documented By: IDD Co-signed By: AN Titration: 04/01/24 02:06 Dose: 0.13 mcg/kg/min, 36.6 mls/hr Documented By: IDD Co-signed By: AN Titration: 04/01/24 01:58 Dose: 0.1 mcg/kg/min, 28.1 mls/hr Documented By: IDD Co-signed By: TAMAR Titration: 04/01/24 01:54 Dose: 0.15 mcg/kg/min, 42.2 mls/hr Documented By: IDD Co-signed By: TAMAR Titration: 04/01/24 01:48 Dose: 0.2 mcg/kg/min, 56.3 mls/hr Documented By: IDD Co-signed By: TAMAR Admin: 04/01/24 01:43 Dose: 0.05 mcg/kg/min, 14.1 mls/hr Documented By: IDD Co-signed By: TAMAR Fentanyl Citrate (Fentanyl Citrate) 2,500 mcg in 250 mls @ 5 mls/hr IV .Q50H QUINCY; Protocol Stop: 04/15/24 03:14 Last Admin: 04/01/24 03:13 Dose: 50 mcg/hr, 5 mls/hr Documented By: IDD Co-signed By: TAMAR Discontinued Medications Fentanyl Citrate (Fentanyl Citrate Pf 100 Mcg/2 Ml Vial) Confirm Administered Dose 100 mcg .ROUTE .STK-MED ONE Stop: 04/01/24 01:58 Last Admin: 04/01/24 03:12 Dose: Not Given Documented By: IDSahra Fentanyl Citrate (Fentanyl Citrate Pf 100 Mcg/2 Ml Vial) 50 mcg IV NOW ONE Stop: 04/01/24 03:03 Last Admin: 04/01/24 03:12 Dose: 50 mcg Documented By: VIKRAM Fentanyl Citrate (Fentanyl Citrate 2,500 Mcg/250 Ml Bag) Confirm Administered Dose 2,500 mcg IV .STK-MED ONE Stop: 04/01/24 03:07 Last Admin: 04/01/24 03:13 Dose: Not Given Documented By: IDSahra Cefepime HCl (Maxipime 2000mg) 2,000 mg in 20 mls @ 5 mls/min IV NOW STA; Protocol Stop: 04/01/24 01:46 Last Admin: 04/01/24 01:58 Dose: 5 mls/min Documented By: VIKRAM Ioversol (Optiray 320 125ml) 125 ml IV ONCE ONE Stop: 04/01/24 03:01 Last Admin: 04/01/24 03:00 Dose: 118 ml Documented By: BUNNY Midazolam HCl (Midazolam Hcl 5 Mg/Ml 2ml Vial) Confirm Administered Dose 10 mg .ROUTE .STK-MED ONE Stop: 04/01/24 01:32 Last Admin: 04/01/24 02:41 Dose: Not Given Documented By: IDD Midazolam HCl (Midazolam Hcl 1 Mg/Ml 2ml Vial) 2 mg IV NOW STA Stop: 04/01/24 02:36 Last Admin: 04/01/24 02:41 Dose: 2 mg Documented By: IDD Miscellaneous (Stat Iv Infusion Titration Per Protocol) 1 each N/A NOW Stop: 04/01/24 01:41 Last Admin: 04/01/24 03:12 Dose: Not Given Documented By: IDD Norepinephrine Bitartrate (Norepinephrine/D5w 4 Mg/250 Ml) Confirm Administered Dose 4 mg IV .STK-MED ONE Stop: 04/01/24 01:35 Last Admin: 04/01/24 03:12 Dose: Not Given Documented By: IDD ECG Additional Comments: Atrial fibrillationwith rapid ventricular response Right bundle branch block Left anterior fascicular block Bifascicular block T wave abnormality, consider lateral ischemia Abnormal ECG When compared with ECG [id number] 15:21, Atrial fibrillationhas replacedSinus rhythm Vent. ratehas increasedby 99bpm T wave inversion no longer evident inInferior leads T wave inversion less evident inLateral leads Coding Level of Care Code 58735 CRITICAL CARE 1ST 30-74M Additional Critical Care Time Additional 30min Critical Care Time: Yes - 56195 Diagnoses Required emergency intubation Z98.890 Acute respiratory failure with hypoxia J96.01 Shock R57.9 Paroxysmal A-fib I48.0 COPD (chronic obstructive pulmonary disease) J44.1 COPD type: COPD with acute exacerbation Hypertension I10 Dementia F03.90 Diabetes mellitus E11.9 Hyperlipidemia E78.5 Additional Codes Critical Care Time - Additional 30min Critical Care Time: Yes - 64737 ([id number]) (5) COPD (chronic obstructive pulmonary disease) COPD type: COPD with acute exacerbation Qualified Code(s): J44.1 - Chronic obstructive pulmonary disease with (acute) exacerbation
--- NOTE | 2024-04-01 03:39 | History & Physical Report ---
Date of Service April 01, 2024 Assessment & Plan (1) Septic shock: (2) Acute respiratory failure with hypoxia: (3) Pneumonia involving left lung: (4) Acute kidney injury: (5) Rhinovirus infection: (6) Admitted to intensive care unit: (7) Required emergency intubation: Plan The patient is a 73-year-old male with a past medical history including paroxysmal atrial fibrillation, tachybradycardia syndrome, COPD, KURT, hypertension, chronic respiratory failure with hypoxia, convulsions, dementia, diabetes mellitus, osteoarthritis, hyperlipidemia, anemia, on chronic anticoagulation with Eliquis. The patient had been found unresponsive and hypoxic at [facility], EMS was called emergently, the patient required intubation in the field, and mechanical ventilation. Upon arrival to the emergency department and prior my examination, patient is unresponsive, on the ventilator, and on pressure support and IV sedation. #Acute respiratory failure with hypoxia/pneumonia involving left lung/required emergency intubation in the field- Admitted to intensive care unit Consult intensive team for ventilator management Linezolid 60 mg IV every 12 hours Zosyn 4.5 g IV every 8 hours Methylprednisolone 125 mg IV now, then 40 mg IV every 8 hours Duonebs every 2 hours when necessary. #Septic shock- Continue Levophed IV infusion per protocol #Atrial fibrillation/chronic anticoagulation with Eliquis- Holding Eliquis Placed on heparin drip standard dosing without bolus per protocol #Acute kidney injury- Creatinine 1.57, with base 0.62 IV fluid rehydration NSS 80 mL/h x 2 L Recheck laboratories in the a.m. #Seizure disorder-on oral divalproex 250 p.o. 3 times daily. Pharmacy to change to IV dosing History of Present Illness Chief Complaint: The patient was brought to the emergency department via EMS after being found unresponsive and hypoxic at [facility], requiring intubation in the field and mechanical ventilation. Primary Care Provider: [facility] The patient is a 73-year-old male with a past medical history including paroxysmal atrial fibrillation, tachybradycardia syndrome, COPD, KURT, hypertension, chronic respiratory failure with hypoxia, convulsions, dementia, diabetes mellitus, osteoarthritis, hyperlipidemia, anemia, on chronic anticoagulation with Eliquis. The patient had been found unresponsive and hypoxic at [facility], EMS was called emergently, the patient required intubation in the field, and mechanical ventilation. Upon arrival to the emergency department and prior my examination, patient is unresponsive, on the ventilator, and on pressure support and IV sedation. Allergies Allergy/AdvReac Type Severity Reaction Status Date / Time No Known Allergies Allergy Verified 12/20/23 19:27 Home Medications Medication Instructions Recorded Confirmed Type acetaminophen 325 mg tablet 650 mg PO Q6 PRN PAIN 1-10 12/20/23 12/20/23 History acetaminophen 325 mg tablet 650 mg PO QID PRN TEMP > 101 12/20/23 12/20/23 H istory apixaban 5 mg tablet (Eliquis) 5 mg PO BID 12/20/23 12/20/23 History atorvastatin 40 mg tablet 40 mg PO DAILY 12/20/23 12/20/23 History buspirone 10 mg tablet 10 mg PO TID 12/20/23 12/20/23 History chlorhexidine gluconate 0.12 % 15 ml buccal Q12 12/20/23 12/20/23 History mouthwash (Peridex) divalproex 250 mg tablet,delayed 250 mg PO TID 12/20/23 12/20/23 History release ferrous sulfate 325 mg (65 mg 325 mg PO DAILY 12/20/23 12/20/23 History iron) tablet (FeroSul) folic acid 400 mcg tablet 0.4 mg PO DAILY 12/20/23 12/20/23 History ipratropium 20 mcg-albuterol 100 1 puff inhalation Q6 PRN Wheezing 12/20/23 12/20/23 History mcg/actuation mist for inhalation (Combivent Respimat) menthol 0.1 % lotion (Eucerin Itch 1 ea topical BID 12/20/23 12/20/23 History Relief) metoprolol tartrate 25 mg tablet 25 mg PO BID 12/20/23 12/20/23 History quetiapine 100 mg tablet 100 mg PO HS 12/20/23 12/20/23 History quetiapine 25 mg tablet (Seroquel) 50 mg PO DAILY 12/20/23 12/20/23 History sennosides 8.6 mg-docusate sodium 1 tab-cap PO HS 12/20/23 12/20/23 History 50 mg tablet (Senna-S) trazodone 50 mg tablet 75 mg PO HS 12/20/23 12/20/23 History Past Med/Surg History Problem List (Updated 04/01/24 @ 04:40 by Jeancarlos Woodard MD) Admitted to intensive care unit Rhinovirus infection Acute kidney injury Pneumonia involving left lung Septic shock Shock Required emergency intubation Respiratory failure Paroxysmal A-fib Tachy-rosi syndrome Acute respiratory failure with hypoxia Supplemental oxygen dependent (Acute) 2 L n/c COPD (chronic obstructive pulmonary disease) (Acute) KURT (obstructive sleep apnea) Hypokalemia Hypertension Respiratory failure with hypoxia Convulsions Dementia Diabetes mellitus Atrial fibrillation Osteoarthritis Hyperlipidemia Anemia Medical History Complication of tracheostomy tube Social History Smoking Status: Unknown if ever smoked Hx Alcohol Use: No Hx Substance Use: No Preferred Language: Gabonese Communication Ability: Effective Cutter Hot Knife Required: No Beliefs That Will Affect Care: None Current Living Situation: Senior Living Current Living Situation Comment: [facility] Feels Safe at Home: Yes Assistive Devices: Wheelchair Review of Systems Review of Systems: HPI and review of systems are unobtainable due to patient's medical state, and obtained from EMS records, [facility] records in the emergency department Physical Exam Physical Exam: The patient is sedated, unresponsive, intubated, normocephalic and atraumatic, lying in bed and in no acute distress. HEENT--PERRL, EOMI, mucous membranes and oropharynx dry. Neck--supple. No JVD. No bruits. Thyroid normal, trachea midline, no adenopathy. Heart--normal S1 and S2. No murmurs, rubs or gallops. Lungs--coarse breath sounds with wheezes, left significantly greater than right. On the ventilator Abdomen--normal bowel sounds and soft. Nontender. Nondistended. Mildly tympanitic Extremities--no cyanosis or clubbing. No edema. There are good distal pulses b/l. Dermatologic--normal skin turgor, normal color, no abnormal lymph nodes, no rash. Neurologic--cranial nerves II through XII grossly intact. Rheumatologic--sedated. Psychiatric--sedated Results & Data Results & Data Vital Signs (Past 12 Hours) Vital Signs Temp Pulse Pulse Resp BP BP Pulse Ox 04/01/24 03:30 37.5 C 113 H 16 113/74 94 01/20/25 03:20 37.5 C 114 H 18 113/71 95 04/01/24 02:24 121 H 14 91 04/01/24 02:12 122 H 14 98/65 L 92 04/01/24 02:06 113 H 14 96 04/01/24 02:04 90/48 L 04/01/24 01:58 124/68 04/01/24 01:57 122 H 14 100 04/01/24 01:56 119/69 04/01/24 01:54 120 H 10 L 100 04/01/24 01:54 118/60 04/01/24 01:45 120 H 04/01/24 01:44 73/57 L 04/01/24 01:44 73/57 L 04/01/24 01:43 43/30 L 04/01/24 01:41 122 H 14 94 04/01/24 01:41 04/01/24 01:41 37.4 C 122 H 14 93 04/01/24 01:41 04/01/24 01:41 37.4 C 122 H 14 100/62 93 04/01/24 01:39 40/31 L 04/01/24 01:38 119 H 14 100 04/01/24 01:36 153 H 87 L 04/01/24 01:33 44/32 L O2 Del Method FiO2 04/01/24 03:30 Mechanical Vent 04/01/24 03:20 Mechanical Vent 04/01/24 02:24 04/01/24 02:12 04/01/24 02:06 04/01/24 02:04 04/01/24 01:58 04/01/24 01:57 04/01/24 01:56 04/01/24 01:54 04/01/24 01:54 04/01/24 01:45 04/01/24 01:44 04/01/24 01:44 04/01/24 01:43 04/01/24 01:41 Mechanical Vent 40 04/01/24 01:41 Mechanical Vent 40 04/01/24 01:41 Mechanical Vent 40 04/01/24 01:41 Mechanical Vent 40 04/01/24 01:41 Mechanical Vent 40 04/01/24 01:39 04/01/24 01:38 40 04/01/24 01:36 04/01/24 01:33 Laboratory Results Laboratory Results WBC 12.48 K/ul (4.8-10.8) H 04/01/24 01:42 RBC 3.85 M/uL (4.70-6.10) L 04/01/24 01:42 Hgb 12.1 g/dl (14.0-18.0) L 04/01/24 01:42 POC Hgb 11.6 g/dl (14.0-18.0) L 04/01/24 03:09 Hct 37.3 % (42.0-52.0) L 04/01/24 01:42 POC Hct 34 % (42-52) L 04/01/24 03:09 MCV 96.9 fL (80.0-100.0) 04/01/24 01:42 MCH 31.4 pg (25.0-34.0) 04/01/24 01:42 MCHC 32.4 g/dL (32.0-36.0) 04/01/24 01:42 RDW Std Deviation 47.1 fL (36.4-46.3) H 04/01/24 01:42 RDW Coeff of Johana 13.2 % (11.5-14.5) 04/01/24 01:42 Plt Count 111 K/uL (130-400) L 04/01/24 01:42 MPV 10.0 fL (9.4-12.4) 04/01/24 01:42 Immature Gran % (Auto) 0.5 % 04/01/24 01:42 Neut % (Auto) 70.1 % 04/01/24 01:42 Lymph % (Auto) 16.9 % 04/01/24 01:42 [place] % (Auto) 12.3 % 04/01/24 01:42 Eos % (Auto) 0.0 % 04/01/24 01:42 Baso % (Auto) 0.2 % 04/01/24 01:42 Neut # (Auto) 8.75 K/uL (1.40-6.50) H 04/01/24 01:42 Lymph # (Auto) 2.11 K/uL (1.20-3.40) 04/01/24 01:42 [place] # (Auto) 1.54 K/uL (0.11-0.59) H 04/01/24 01:42 Eos # (Auto) 0.00 K/uL (0.00-0.50) 04/01/24 01:42 Baso # (Auto) 0.02 K/uL (0.00-0.20) 04/01/24 01:42 Immature Gran # (Auto) 0.06 K/uL (0.01-0.20) 04/01/24 01:42 Specimen Type Arterial 04/01/24 03:09 POC pH 7.27 (7.35-7.45) L 04/01/24 03:09 POC pCO2 46 mmHg (35-46) 04/01/24 03:09 POC pO2 82 mmHg (80-95) 04/01/24 03:09 POC HCO3 21 julieth/L (19-24) 04/01/24 03:09 POC Total CO2 22 mmol/L (24-31) L 04/01/24 03:09 POC Base Excess -6.0 julieth/L (-9-1.8) 04/01/24 03:09 POC ABG O2 Sat 94.0 % (90-95) 04/01/24 03:09 POC FiO2 80 % 04/01/24 03:09 POC Sodium 144 mmol/L (135-144) 04/01/24 03:09 Sodium 145 mmol/L (136-145) 04/01/24 01:42 POC Potassium 3.7 mmol/L (3.3-5.0) 04/01/24 03:09 Potassium 3.9 mmol/L (3.5-5.1) 04/01/24 01:42 Chloride 112 mmol/L (98-107) H 04/01/24 01:42 Carbon Dioxide 25 mmol/L (21-32) 04/01/24 01:42 Anion Gap 8 (3-11) 04/01/24 01:42 BUN 31 mg/dl (6-23) H 04/01/24 01:42 Creatinine 1.57 mg/dl (0.6-1.4) H 04/01/24 01:42 Est Cr Clr Drug Dosing Not Reportable 04/01/24 01:42 eGFR 45.96 04/01/24 01:42 BUN/Creatinine Ratio 19.7 (10-20) 04/01/24 01:42 Glucose 105 mg/dl (70-99(Fasting)) H 04/01/24 01:42 Lactate 2.2 mmol/L (0.4-2.0) H* 04/01/24 01:42 Calcium 8.2 mg/dl (8.6-10.3) L 04/01/24 01:42 Magnesium 1.6 mg/dl (1.7-2.4) L 04/01/24 01:42 Total Bilirubin 0.5 mg/dl (0.2-1.0) 04/01/24 01:42 Direct Bilirubin 0.1 mg/dl (0-0.2) 04/01/24 01:42 AST 23 U/L (13-39) 04/01/24 01:42 ALT 10 U/L (7-52) 04/01/24 01:42 Alkaline Phosphatase 32 U/L (34-104) L 04/01/24 01:42 Troponin I High Sens 32.5 pg/ml (0-20) H 04/01/24 01:42 Total Protein 5.7 gm/dl (6.0-8.3) L 04/01/24 01:42 Albumin 3.0 gm/dl (3.4-5.0) L 04/01/24 01:42 Procalcitonin 1.18 ng/ml (0-0.5) H 04/01/24 01:42 Urine Color Dark Yellow 04/01/24 01:42 Urine Appearance Cloudy (Clear) A 04/01/24 01:42 Urine pH 6.0 (4.5-7.5) 04/01/24 01:42 Ur Specific [place] 1.020 (1.000-1.030) 04/01/24 01:42 Urine Protein 2+ (Negative) H 04/01/24 01:42 Urine Glucose (UA) Negative (Negative) 04/01/24 01:42 Urine Ketones 1+ (Negative) H 04/01/24 01:42 Urine Blood Trace (Negative) H 04/01/24 01:42 Urine Nitrite Negative (Negative) 04/01/24 01:42 Urine Bilirubin Negative (Negative) 04/01/24 01:42 Urine Urobilinogen Negative (Negative) 04/01/24 01:42 Ur Leukocyte Esterase Trace (Negative) H 04/01/24 01:42 Urine WBC (Auto) 6-10 /hpf (0-5) H 04/01/24 01:42 Urine RBC (Auto) 11-20 /hpf (0-2) H 04/01/24 01:42 U Hyaline Cast (Auto) >20 /lpf (0-2) H 04/01/24 01:42 U Epithel Cells (Auto) 11-20 /hpf (0-2) H 04/01/24 01:42 Urine Bacteria (Auto) 2+ (None Seen) H 04/01/24 01:42 Urine Mucus Present (None Prsent) A 04/01/24 01:42 Adenovirus (PCR) Not Detected (NotDetected) 04/01/24 01:42 B. pertussis DNA (PCR) Not Detected (NotDetected) 04/01/24 01:42 B.parapertussis DNA PCR Not Detected (NotDetected) 04/01/24 01:42 C. pneumoniae DNA (PCR) Not Detected (NotDetected) 04/01/24 01:42 Coronavirus OC43 (PCR) Not Detected (NotDetected) 04/01/24 01:42 Coronavirus HKU1 (PCR) Not Detected (NotDetected) 04/01/24 01:42 Coronavirus 229E (PCR) Not Detected (NotDetected) 04/01/24 01:42 SARS-CoV-2 (PCR) Not Detected (NotDetected) 04/01/24 01:42 Coronavirus NL63 (PCR) Not Detected (NotDetected) 04/01/24 01:42 Human Metapneumovir PCR Not Detected (NotDetected) 04/01/24 01:42 Influenza Type A (PCR) Not Detected (NotDetected) 04/01/24 01:42 Influenza Type B (PCR) Not Detected (NotDetected) 04/01/24 01:42 M. pneumoniae (PCR) Not Detected (NotDetected) 04/01/24 01:42 Parainfluenza 1 (PCR) Not Detected (NotDetected) 04/01/24 01:42 Parainfluenza 2 (PCR) Not Detected (NotDetected) 04/01/24 01:42 Parainfluenza 3 (PCR) Not Detected (NotDetected) 04/01/24 01:42 Parainfluenza 4 (PCR) Not Detected (NotDetected) 04/01/24 01:42 RSV (PCR) Not Detected (NotDetected) 04/01/24 01:42 Entero/Rhino (PCR) DETECTED (NotDetected) A 04/01/24 01:42 Impressions Chest X-Ray 04/01/24 01:34 EXAM: XR chest 1V portable CLINICAL HISTORY: POST INTUBATION SDM TECHNIQUE: An X-ray image of the chest is obtained in AP projection. COMPARISON: No prior studies are available for comparison. FINDINGS: Pulmonary Parenchyma: An ETT is noted, its tip is about 1.4 cm above the isaiah. A left mid and lower zonal air-space opacity is seen silhouetting the left cardiac border and left hemidiaphragm. The left costophrenic angle is obscured. No gross right lung air-space opacities. The right costophrenic angle is clear. Heart and Mediastinum: Limited evaluation of the cardiac size given an AP projection. Bony Thorax: Bony thorax appears intact without fractures or deformities. Soft Tissues: Soft tissues overlying the chest wall are unremarkable. IMPRESSION: 1. An ETT is noted, its tip is about 1.4 cm above the isaiah, need to be pulled 1-2 cm. 2. Left mid and lower zonal air-space opacity (possibly pneumonic) with possible left pleural effusion. Electronically signed by Melvin Farris 04-01-2024 03:06 AM KUB X-Ray 04/01/24 02:21 EXAM: XR KUB/Abdomen 1 view CLINICAL HISTORY: OG PLACEMENT. TECHNIQUE: An X-ray image of the abdomen was obtained in an AP supine position. COMPARISON: No prior studies are available for comparison. FINDINGS: The tip of the NG tube is noted in the stomach. Gas Pattern: The gas pattern within the abdomen is normal. No free air under the diaphragm. Soft Tissues: Visualized soft tissues of the abdomen appear normal. For lungs please refer to chest xray of the same date. IMPRESSION: 1. The tip of the NG tube is noted in the stomach. Optimal position. 2. No free air under the diaphragm. Electronically signed by Melvin Farris 04-01-2024 03:[address] 04/01/24 02:27 EXAM: CT head/brain wo con CLINICAL HISTORY: the chief complaint of respiratory distress occurred tonight. Pt is from the [facility] and staff reported to EMS pt was found blue and unresponsive. TECHNIQUE: Axial non-contrast CT scan of the brain was performed from the skull base to the high parietal region. One of the following dose reduction techniques was utilized for this exam: Automated exposure control, adjustment of the mA and/or kV according to patient size, use of iterative reconstruction. COMPARISON: None. FINDINGS: Brain Parenchyma: Mild age-related cerebral involutional changes were noted. Patchy periventricular hypodense areas related to small vessel disease. Normal attenuation of the cerebral hemispheres, cerebellum, and brainstem. No evidence of acute infarct, hemorrhage, or mass effect. Diffuse scattered atherosclerotic clarifications within the ICA cavernous portions and both vertebral arteries. Ventricular System: Ventricles are normal in size and configuration. No evidence of hydrocephalus or ventricular enlargement. Subarachnoid Spaces: Normal sulci and cisterns. No evidence of subarachnoid hemorrhage or extra-axial fluid collections. Cerebellum and Brainstem: Normal size and signal. No masses, lesions, or areas of abnormal density. Orbits: Normal appearance of the globes, optic nerves, and extraocular muscles. No evidence of orbital masses or abnormal density. Sinuses: Clear paranasal sinuses. No evidence of sinusitis or mucosal thickening. Mastoid Air Cells: Clear mastoid air cells. No evidence of mastoiditis. Skull: Normal skull morphology. IMPRESSION: 1. Mild age-related cerebral involutional changes were noted. 2. Patchy periventricular hypodense areas related to small vessel disease. 3. Diffuse scattered atherosclerotic clarifications within the ICA cavernous portions and both vertebral arteries. 4. No recent ischemic or hemorrhagic insult was depicted. Electronically signed by Melvin Farris 04-01-2024 04:36 AM Code Status & VTE Plan Code Status Full code VTE Prophylaxis Plan VTE Prophylaxis will be ordered: Yes PG Care Time/CCT Total # of Minutes Spent Total Time Spent with Patient: Total time spent is greater than 50% in coordination of care (as documented) at patient's floor/unit and/or counseling patient: Critical Care Time 45 minutes Coding Level of Care Code 11451 INT INP/OBS CARE 3/75MIN Diagnoses Septic shock A41.9; R65.21 Acute respiratory failure with hypoxia J96.01 Pneumonia involving left lung J18.9 Acute kidney injury N17.9 Rhinovirus infection B34.8 Admitted to intensive care unit Z78.9 Required emergency intubation Z98.890
[2024-04-01] MEDS: methylPREDNISolone 125 MG/2 ML VIAL IV STA (03:59)
[2024-04-01] MEDS: 4.5GM X1 IV STA (04:00)
[2024-04-01] MEDS: HEPARIN 25000 UNIT/500 ML D5W 25,000 UNITS/500 ML BAG IV SCH (04:15)
[2024-04-01] MEDS: Heparin IV Adult Wt-Based Low-Dose *NO* INITIAL Bolus Protocol IV SCH (04:19)
[2024-04-01] MEDS: LINEZOLID 600 MG/300 ML BAG IV SCH (04:33)
--- NOTE | 2024-04-01 04:36 | CT Scan Report ---
EXAM: CT head/brain wo con CLINICAL HISTORY: the chief complaint of respiratory distress occurred tonight. Pt is from the [facility] and staff reported to EMS pt was found blue and unresponsive. TECHNIQUE: Axial non-contrast CT scan of the brain was performed from the skull base to the high parietal region. One of the following dose reduction techniques was utilized for this exam: Automated exposure control, adjustment of the mA and/or kV according to patient size, use of iterative reconstruction. COMPARISON: None. FINDINGS: Brain Parenchyma: Mild age-related cerebral involutional changes were noted. Patchy periventricular hypodense areas related to small vessel disease. Normal attenuation of the cerebral hemispheres, cerebellum, and brainstem. No evidence of acute infarct, hemorrhage, or mass effect. Diffuse scattered atherosclerotic clarifications within the ICA cavernous portions and both vertebral arteries. Ventricular System: Ventricles are normal in size and configuration. No evidence of hydrocephalus or ventricular enlargement. Subarachnoid Spaces: Normal sulci and cisterns. No evidence of subarachnoid hemorrhage or extra-axial fluid collections. Cerebellum and Brainstem: Normal size and signal. No masses, lesions, or areas of abnormal density. Orbits: Normal appearance of the globes, optic nerves, and extraocular muscles. No evidence of orbital masses or abnormal density. Sinuses: Clear paranasal sinuses. No evidence of sinusitis or mucosal thickening. Mastoid Air Cells: Clear mastoid air cells. No evidence of mastoiditis. Skull: Normal skull morphology. IMPRESSION: 1. Mild age-related cerebral involutional changes were noted. 2. Patchy periventricular hypodense areas related to small vessel disease. 3. Diffuse scattered atherosclerotic clarifications within the ICA cavernous portions and both vertebral arteries. 4. No recent ischemic or hemorrhagic insult was depicted. Electronically signed by Melvin Farris 04-01-2024 04:36 AM
--- NOTE | 2024-04-01 04:45 | Emergency Department Note ---
Impression & Plan Respiratory failure, Rhinovirus infection, Septic shock, Left lower lobe pneumonia, Atrial fibrillation with rapid ventricular response Admit to the ICU ED Provider Note NAME: PORFIRIO JUAN AGE: 73 SEX: Male INFORMANT: EMS ED PROVIDER(S): Maria De Jesus Fox DO CHIEF COMPLAINT: Respiratory arrest with cyanosis PLAN: Disposition: Admit to the ICU MEDICAL DECISION MAKING: This is a 73-year-old male patient from [facility] who according to staff from that facility had not been feeling well throughout the day with decreased oral intake. Tonight staff found the patient unresponsive with decreased respirations and significant cyanosis. EMS was called. Upon their treatment of the patient, they initially tried CPAP but the patient suffered respiratory arrest and they switched to bag valve ventilation and perform sedation assisted endotracheal intubation with etomidate. Patient was significantly hypotensive and required push dose epi in the field. Tube placement was confirmed. Respiratory therapy work to perform inline suctioning and patient's O2 saturations came up. Patient was bolused with an additional liter of IV crystalloid and given consecutive doses of push dose epi for pressure support. Patient was also started on a Levophed drip. A septic protocol was performed. Portable chest x-ray was obtained. Upper respiratory bio fire test was obtained. Laboratory studies revealed a white blood cell count of 12.4. Hemoglobin was 12.1. And platelet count was 111. BUN was 31 and creatinine was 1.57. Troponin was elevated at 32.5. Upper respiratory bio fire testing was positive for rhinovirus. Glucose was normal. Lactate was 2.2 and procalcitonin was 1.18. Patient received an additional 500 cc of normal saline solution in the emergency department and had received a liter prehospital he for a total of 2500 cc of normal saline solution which would meet his 30/mL kilo requirement for sepsis. Chest x-ray shows evidence of a left lower lobe pneumonia. The patient was given IV cefepime for presumed sepsis just after his arrival. Patient blood pressure did respond to the push dose epi, IV crystalloids and IV Levophed. I discussed the case with the [facility] Hospitalist as well as the critical care team and they will evaluate the patient. Care/management discussed with: I kept the patient's -Renee abreast of the situation with multiple phone calls.; I discussed this with the manager food beverage, [facility]ist and critical care team Triage Nursing notes: reviewed and agree with them. Vital Signs: reviewed and remarkable for hypotension, tachycardia Additional History obtained from: EMS Prior/ Outside/ External records reviewed: I did review multiple records from her outside Differential Diagnosis: Cardiac dysrhythmia, sepsis, pneumonia, upper respiratory viral infection, hypercapnic respiratory failure, STEMI, NSTEMI Diagnostics, independently interpreted by me: ECG: A-fib with RVR at a rate of 147. there is a right bundle branch block. There is T wave inversions in leads I and aVL Cardiac Monitoring: none Imaging studies: Portable chest x-ray: Left lower lobe pulmonary infiltrate consistent with pneumonia; endotracheal tube is 1 and half centimeters above the isaiah. This was pulled back by 2 cm. HPI: 73 year old Male arrives for evaluation of respiratory failure and cyanosis. The patient was found at [facility] in his bed cyanotic with significant respiratory distress. EMS was called. Upon their arrival, they found patient with extremely low O2 saturations and with a very low respiratory rate near respiratory arrest. They formed CPAP initially and then switched to sedation assisted endotracheal intubation to support the patient's airway. He was also noted to be significantly hypotensive and required push dose epi. PAST MEDICAL HISTORY: See Below PAST SURGICAL HISTORY: [See Below] SOCIAL HISTORY: Resides at [facility] HOME MEDICATIONS: See list ALLERGIES: None VITALS: See Below PHYSICAL EXAMINATION: HEENT: Head - normocephalic and atraumatic. Pupils are sluggishly reactive to light. sclera are anicteric. Nose -dry nasal mucosa without discharge. Mouth -dry buccal mucosa. Endotracheal tube in place Neck: Supple; no JVD or nuchal rigidity Heart: Irregularly irregular rhythm with a tachycardic rate. there is a normal S1 and S2 with no murmurs, clicks, or gallops appreciated. Lungs: Diminished breath sounds in the left lung base but otherwise clear Abdomen: Soft, nontender, moderately distended, with good bowel sounds. There are no palpable pulsatile masses or hepatosplenomegaly. There is no guarding, rigidity, or rebound noted. Extremities: No evidence of cyanosis, clubbing, or edema. There are easily palpable peripheral pulses. Skin: warm and dry with poor turgor and no rashes. neuro: The patient is sedate after having received etomidate for prehospital intubation. He is not following commands. He is overbreathing the vent. Emergency department treatment: phototypesetting equipment monitor; ventilatory support through prehospital endotracheal intubation; IV normal saline bolus for significant hypotension; push dose epi x 4 doses; IV Levophed; IV cefepime Emergency Department course: The patient was evaluated in room B-1. A complete history and physical was performed. I received report from EMS. Another IV lock was initiated. An order was placed for continuous cardiac monitoring. The patient was in atrial fibrillation at a rate of 144. Patient was bolused with another 1500 cc of normal saline solution under pressure. A twelve-lead EKG was obtained. A portable chest x-ray was performed. A septic protocol was performed. Upper respiratory bio fire testing was obtained. A Andrade catheter was obtained. Patient was given a total of 4 doses of push dose epi in order to support his blood pressure. He was started on a Levophed drip. He was given a dose of IV cefepime for what was presumed to be septic shock. I discussed the case with the patient's to confirm CODE STATUS. An OG tube was placed. I discussed the case with the [facility]ist group as well as the critical care team. They will evaluate the patient for further inpatient care. I have personally spent greater than 70 minutes of critical care time in the direct management of this patient. This includes bedside care, interpretation of diagnostic studies, and testing, discussion with consultants, patient, and family members, and other required patient management activities. This 70 minutes is in excess of all separately billable procedures. Past Med/Surg History Problem List (Updated 04/01/24 @ 18:40 by Maria De Jesus Fox DO) Atrial fibrillation with rapid ventricular response (Acute) Left lower lobe pneumonia (Acute) Septic shock (Acute) Rhinovirus infection (Acute) Respiratory failure (Acute) Admitted to intensive care unit Rhinovirus infection Acute kidney injury Pneumonia involving left lung Septic shock Shock Required emergency intubation Respiratory failure Paroxysmal A-fib Tachy-rosi syndrome Acute respiratory failure with hypoxia Supplemental oxygen dependent (Acute) 2 L n/c COPD (chronic obstructive pulmonary disease) (Acute) KURT (obstructive sleep apnea) Hypokalemia Hypertension Respiratory failure with hypoxia Convulsions Dementia Diabetes mellitus Atrial fibrillation Osteoarthritis Hyperlipidemia Anemia Medical History Complication of tracheostomy tube Social History Smoking Status: Never smoker Hx Alcohol Use: No Hx Substance Use: No Preferred Language: Faroese Communication Ability: Impaired Poultry [employer] Required: No Beliefs That Will Affect Care: None Current Living Situation: Longterm Current Living Situation Comment: [facility] Feels Safe at Home: Declines to Answer Assistive Devices: Wheelchair Allergies Allergies Allergy/AdvReac Type Severity Reaction Status Date / Time No Known Allergies Allergy Verified 12/20/23 19:27 Home Meds Home Medications Medication Instructions Recorded Confirmed acetaminophen 325 mg tablet 650 mg PO Q6 PRN PAIN 1-10 12/20/23 12/20/23 acetaminophen 325 mg tablet 650 mg PO QID PRN TEMP > 101 12/20/23 12/20/23 apixaban 5 mg tablet (Eliquis) 5 mg PO BID 12/20/23 12/20/23 atorvastatin 40 mg tablet 40 mg PO DAILY 12/20/23 12/20/23 buspirone 10 mg tablet 10 mg PO TID 12/20/23 12/20/23 chlorhexidine gluconate 0.12 % 15 ml buccal Q12 12/20/23 12/20/23 mouthwash (Peridex) divalproex 250 mg tablet,delayed 250 mg PO TID 12/20/23 12/20/23 release ferrous sulfate 325 mg (65 mg 325 mg PO DAILY 12/20/23 12/20/23 iron) tablet (FeroSul) folic acid 400 mcg tablet 0.4 mg PO DAILY 12/20/23 12/20/23 ipratropium 20 mcg-albuterol 100 1 puff inhalation Q6 PRN Wheezing 12/20/23 12/20/23 mcg/actuation mist for inhalation (Combivent Respimat) menthol 0.1 % lotion (Eucerin Itch 1 ea topical BID 12/20/23 12/20/23 Relief) metoprolol tartrate 25 mg tablet 25 mg PO BID 12/20/23 12/20/23 quetiapine 100 mg tablet 100 mg PO HS 12/20/23 12/20/23 quetiapine 25 mg tablet (Seroquel) 50 mg PO DAILY 12/20/23 12/20/23 sennosides 8.6 mg-docusate sodium 1 tab-cap PO HS 12/20/23 12/20/23 50 mg tablet (Senna-S) trazodone 50 mg tablet 75 mg PO HS 12/20/23 12/20/23 Results & Data (ED) Vital Signs Vital Signs - 24 hr 04/01/24 01:33 04/01/24 01:36 04/01/24 01:38 Temperature Temperature Source Pulse Rate 153 H 119 H Pulse Rate [Apical] Pulse Rate from SpO2 Sensor 145 H Pulse Rhythm Pulse Rhythm [Apical] Pulse Strength Pulse Strength [Apical] Respiratory Rate 14 Respiratory Effort / Characteristics Respiratory Depth Respiratory Pattern Blood Pressure 44/32 L Blood Pressure [Right Arm] Blood Pressure Mean 37 Blood Pressure Mean [Right Arm] Blood Pressure Position Pulse Oximetry 87 L 100 Oxygen Delivery Method Fraction of Inspired Oxygen 40 SaO2/FiO2 Ratio Sepsis Recent Fever Within 48 Hours Sepsis New/Unexplained Change in Mental Status Sepsis Action Taken by Nursing End-Tidal CO2 37 End Tidal CO2 (18-54mmHg) 04/01/24 01:39 04/01/24 01:41 04/01/24 01:41 Temperature 37.4 C Temperature Source Andrade Cath ( Temp Sensing) Pulse Rate 122 H Pulse Rate [Apical] Pulse Rate from SpO2 Sensor Pulse Rhythm Regular Pulse Rhythm [Apical] Pulse Strength Normal Pulse Strength [Apical] Respiratory Rate 14 Respiratory Effort / Characteristics Non-Labored Spontaneous Respiratory Depth Normal Respiratory Pattern Regular Blood Pressure 40/31 L 100/62 Blood Pressure [Right Arm] Blood Pressure Mean 34 74 Blood Pressure Mean [Right Arm] Blood Pressure Position Semi-fowlers Pulse Oximetry 93 Oxygen Delivery Method Mechanical Vent Mechanical Vent Fraction of Inspired Oxygen 40 40 SaO2/FiO2 Ratio 232 Sepsis Recent Fever Within 48 Hours Yes Sepsis New/Unexplained Change in Mental Status Yes Sepsis Action Taken by Nursing Physician Notified End-Tidal CO2 End Tidal CO2 (18-54mmHg) 04/01/24 01:41 04/01/24 01:41 04/01/24 01:41 Temperature 37.4 C Temperature Source Andrade Cath ( Temp Sensing) Pulse Rate 122 H Pulse Rate [Apical] 122 H Pulse Rate from SpO2 Sensor Pulse Rhythm Regular Pulse Rhythm [Apical] Regular Pulse Strength Pulse Strength [Apical] Normal Respiratory Rate 14 14 Respiratory Effort / Characteristics Non-Labored Spontaneous Non-Labored Spontaneous Respiratory Depth Normal Deep Respiratory Pattern Regular Regular Blood Pressure Blood Pressure [Right Arm] Blood Pressure Mean Blood Pressure Mean [Right Arm] Blood Pressure Position Pulse Oximetry 93 94 Oxygen Delivery Method Mechanical Vent Mechanical Vent Mechanical Vent Fraction of Inspired Oxygen 40 40 40 SaO2/FiO2 Ratio 232 235 Sepsis Recent Fever Within 48 Hours Sepsis New/Unexplained Change in Mental Status Sepsis Action Taken by Nursing End-Tidal CO2 End Tidal CO2 (18-54mmHg) 04/01/24 01:43 04/01/24 01:44 04/01/24 01:44 Temperature Temperature Source Pulse Rate Pulse Rate [Apical] Pulse Rate from SpO2 Sensor Pulse Rhythm Pulse Rhythm [Apical] Pulse Strength Pulse Strength [Apical] Respiratory Rate Respiratory Effort / Characteristics Respiratory Depth Respiratory Pattern Blood Pressure 43/30 L 73/57 L 73/57 L Blood Pressure [Right Arm] Blood Pressure Mean 33 59 59 Blood Pressure Mean [Right Arm] Blood Pressure Position Pulse Oximetry Oxygen Delivery Method Fraction of Inspired Oxygen SaO2/FiO2 Ratio Sepsis Recent Fever Within 48 Hours Sepsis New/Unexplained Change in Mental Status Sepsis Action Taken by Nursing End-Tidal CO2 End Tidal CO2 (18-54mmHg) 04/01/24 01:45 04/01/24 01:54 04/01/24 01:54 Temperature Temperature Source Pulse Rate 120 H 120 H Pulse Rate [Apical] Pulse Rate from SpO2 Sensor 118 H Pulse Rhythm Pulse Rhythm [Apical] Pulse Strength Pulse Strength [Apical] Respiratory Rate 10 L Respiratory Effort / Characteristics Respiratory Depth Respiratory Pattern Blood Pressure 118/60 Blood Pressure [Right Arm] Blood Pressure Mean 88 Blood Pressure Mean [Right Arm] Blood Pressure Position Pulse Oximetry 100 Oxygen Delivery Method Fraction of Inspired Oxygen SaO2/FiO2 Ratio Sepsis Recent Fever Within 48 Hours Sepsis New/Unexplained Change in Mental Status Sepsis Action Taken by Nursing End-Tidal CO2 37 End Tidal CO2 (18-54mmHg) 04/01/24 01:56 04/01/24 01:57 04/01/24 01:58 Temperature Temperature Source Pulse Rate 122 H Pulse Rate [Apical] Pulse Rate from SpO2 Sensor 119 H Pulse Rhythm Pulse Rhythm [Apical] Pulse Strength Pulse Strength [Apical] Respiratory Rate 14 Respiratory Effort / Characteristics Respiratory Depth Respiratory Pattern Blood Pressure 119/69 124/68 Blood Pressure [Right Arm] Blood Pressure Mean 81 79 Blood Pressure Mean [Right Arm] Blood Pressure Position Pulse Oximetry 100 Oxygen Delivery Method Fraction of Inspired Oxygen SaO2/FiO2 Ratio Sepsis Recent Fever Within 48 Hours Sepsis New/Unexplained Change in Mental Status Sepsis Action Taken by Nursing End-Tidal CO2 38 End Tidal CO2 (18-54mmHg) 04/01/24 02:04 04/01/24 02:06 04/01/24 02:12 Temperature Temperature Source Pulse Rate 113 H 122 H Pulse Rate [Apical] Pulse Rate from SpO2 Sensor 106 H 118 H Pulse Rhythm Pulse Rhythm [Apical] Pulse Strength Pulse Strength [Apical] Respiratory Rate 14 14 Respiratory Effort / Characteristics Respiratory Depth Respiratory Pattern Blood Pressure 90/48 L 98/65 L Blood Pressure [Right Arm] Blood Pressure Mean 59 76 Blood Pressure Mean [Right Arm] Blood Pressure Position Pulse Oximetry 96 92 Oxygen Delivery Method Fraction of Inspired Oxygen SaO2/FiO2 Ratio Sepsis Recent Fever Within 48 Hours Sepsis New/Unexplained Change in Mental Status Sepsis Action Taken by Nursing End-Tidal CO2 35 36 End Tidal CO2 (18-54mmHg) 04/01/24 02:24 04/01/24 02:28 04/01/24 02:34 Temperature Temperature Source Pulse Rate 121 H Pulse Rate [Apical] Pulse Rate from SpO2 Sensor 117 H Pulse Rhythm Pulse Rhythm [Apical] Pulse Strength Pulse Strength [Apical] Respiratory Rate 14 Respiratory Effort / Characteristics Respiratory Depth Respiratory Pattern Blood Pressure 101/66 111/59 L Blood Pressure [Right Arm] Blood Pressure Mean 84 77 Blood Pressure Mean [Right Arm] Blood Pressure Position Pulse Oximetry 91 Oxygen Delivery Method Fraction of Inspired Oxygen SaO2/FiO2 Ratio Sepsis Recent Fever Within 48 Hours Sepsis New/Unexplained Change in Mental Status Sepsis Action Taken by Nursing End-Tidal CO2 35 End Tidal CO2 (18-54mmHg) 04/01/24 02:36 04/01/24 02:38 04/01/24 02:59 Temperature Temperature Source Pulse Rate Pulse Rate [Apical] Pulse Rate from SpO2 Sensor Pulse Rhythm Pulse Rhythm [Apical] Pulse Strength Pulse Strength [Apical] Respiratory Rate Respiratory Effort / Characteristics Respiratory Depth Respiratory Pattern Blood Pressure 108/59 L 96/72 L 146/94 H Blood Pressure [Right Arm] Blood Pressure Mean 76 76 114 Blood Pressure Mean [Right Arm] Blood Pressure Position Pulse Oximetry Oxygen Delivery Method Fraction of Inspired Oxygen SaO2/FiO2 Ratio Sepsis Recent Fever Within 48 Hours Sepsis New/Unexplained Change in Mental Status Sepsis Action Taken by Nursing End-Tidal CO2 End Tidal CO2 (18-54mmHg) 04/01/24 03:00 04/01/24 03:00 04/01/24 03:02 Temperature Temperature Source Pulse Rate 119 H Pulse Rate [Apical] Pulse Rate from SpO2 Sensor 118 H Pulse Rhythm Pulse Rhythm [Apical] Pulse Strength Pulse Strength [Apical] Respiratory Rate 14 Respiratory Effort / Characteristics Respiratory Depth Respiratory Pattern Blood Pressure 124/97 125/85 Blood Pressure [Right Arm] Blood Pressure Mean 100 88 Blood Pressure Mean [Right Arm] Blood Pressure Position Pulse Oximetry 98 Oxygen Delivery Method Fraction of Inspired Oxygen SaO2/FiO2 Ratio Sepsis Recent Fever Within 48 Hours Sepsis New/Unexplained Change in Mental Status Sepsis Action Taken by Nursing End-Tidal CO2 41 End Tidal CO2 (18-54mmHg) 04/01/24 03:02 04/01/24 03:02 04/01/24 03:06 Temperature Temperature Source Pulse Rate 116 H Pulse Rate [Apical] Pulse Rate from SpO2 Sensor 118 H Pulse Rhythm Pulse Rhythm [Apical] Pulse Strength Pulse Strength [Apical] Respiratory Rate 14 Respiratory Effort / Characteristics Respiratory Depth Respiratory Pattern Blood Pressure 125/85 125/85 Blood Pressure [Right Arm] Blood Pressure Mean 88 88 Blood Pressure Mean [Right Arm] Blood Pressure Position Pulse Oximetry 94 Oxygen Delivery Method Fraction of Inspired Oxygen SaO2/FiO2 Ratio Sepsis Recent Fever Within 48 Hours Sepsis New/Unexplained Change in Mental Status Sepsis Action Taken by Nursing End-Tidal CO2 35 End Tidal CO2 (18-54mmHg) 04/01/24 03:08 04/01/24 03:10 04/01/24 03:12 Temperature Temperature Source Pulse Rate Pulse Rate [Apical] Pulse Rate from SpO2 Sensor Pulse Rhythm Pulse Rhythm [Apical] Pulse Strength Pulse Strength [Apical] Respiratory Rate Respiratory Effort / Characteristics Respiratory Depth Respiratory Pattern Blood Pressure 101/80 119/74 112/69 Blood Pressure [Right Arm] Blood Pressure Mean 84 87 85 Blood Pressure Mean [Right Arm] Blood Pressure Position Pulse Oximetry Oxygen Delivery Method Fraction of Inspired Oxygen SaO2/FiO2 Ratio Sepsis Recent Fever Within 48 Hours Sepsis New/Unexplained Change in Mental Status Sepsis Action Taken by Nursing End-Tidal CO2 End Tidal CO2 (18-54mmHg) 04/01/24 03:18 04/01/24 03:18 04/01/24 03:20 Temperature 37.5 C Temperature Source Andrade Cath ( Temp Sensing) Pulse Rate 107 H Pulse Rate [Apical] 114 H Pulse Rate from SpO2 Sensor 113 H Pulse Rhythm Pulse Rhythm [Apical] Pulse Strength Pulse Strength [Apical] Respiratory Rate 18 18 Respiratory Effort / Characteristics Mechanically Ventilated Respiratory Depth Respiratory Pattern Blood Pressure 106/77 Blood Pressure [Right Arm] 113/71 Blood Pressure Mean 88 Blood Pressure Mean [Right Arm] 85 Blood Pressure Position Pulse Oximetry 94 95 Oxygen Delivery Method Mechanical Vent Fraction of Inspired Oxygen SaO2/FiO2 Ratio Sepsis Recent Fever Within 48 Hours Sepsis New/Unexplained Change in Mental Status Sepsis Action Taken by Nursing End-Tidal CO2 29 End Tidal CO2 (18-54mmHg) 04/01/24 03:24 04/01/24 03:24 04/01/24 03:26 Temperature Temperature Source Pulse Rate 122 H Pulse Rate [Apical] Pulse Rate from SpO2 Sensor 114 H Pulse Rhythm Pulse Rhythm [Apical] Pulse Strength Pulse Strength [Apical] Respiratory Rate 18 Respiratory Effort / Characteristics Respiratory Depth Respiratory Pattern Blood Pressure 114/63 119/83 Blood Pressure [Right Arm] Blood Pressure Mean 88 87 Blood Pressure Mean [Right Arm] Blood Pressure Position Pulse Oximetry 94 Oxygen Delivery Method Fraction of Inspired Oxygen SaO2/FiO2 Ratio Sepsis Recent Fever Within 48 Hours Sepsis New/Unexplained Change in Mental Status Sepsis Action Taken by Nursing End-Tidal CO2 29 End Tidal CO2 (18-54mmHg) 04/01/24 03:30 04/01/24 03:30 04/01/24 03:32 Temperature 37.5 C Temperature Source Andrade Cath ( Temp Sensing) Pulse Rate Pulse Rate [Apical] 113 H Pulse Rate from SpO2 Sensor Pulse Rhythm Pulse Rhythm [Apical] Pulse Strength Pulse Strength [Apical] Respiratory Rate 16 Respiratory Effort / Characteristics Mechanically Ventilated Respiratory Depth Respiratory Pattern Blood Pressure 113/74 114/84 Blood Pressure [Right Arm] 113/74 Blood Pressure Mean 98 87 Blood Pressure Mean [Right Arm] 87 Blood Pressure Position Pulse Oximetry 94 Oxygen Delivery Method Mechanical Vent Fraction of Inspired Oxygen SaO2/FiO2 Ratio Sepsis Recent Fever Within 48 Hours Sepsis New/Unexplained Change in Mental Status Sepsis Action Taken by Nursing End-Tidal CO2 End Tidal CO2 (18-54mmHg) 04/01/24 03:33 04/01/24 03:34 Temperature Temperature Source Pulse Rate 107 H Pulse Rate [Apical] Pulse Rate from SpO2 Sensor 104 H Pulse Rhythm Pulse Rhythm [Apical] Pulse Strength Pulse Strength [Apical] Respiratory Rate 16 Respiratory Effort / Characteristics Respiratory Depth Respiratory Pattern Blood Pressure 108/77 Blood Pressure [Right Arm] Blood Pressure Mean 88 Blood Pressure Mean [Right Arm] Blood Pressure Position Pulse Oximetry 94 Oxygen Delivery Method Fraction of Inspired Oxygen SaO2/FiO2 Ratio Sepsis Recent Fever Within 48 Hours Sepsis New/Unexplained Change in Mental Status Sepsis Action Taken by Nursing End-Tidal CO2 29 End Tidal CO2 (18-54mmHg) Laboratory Data 04/01/24 01:42 04/01/24 01:42 Lab Results 04/01/24 04/01/24 04/01/24 Range/Units 01:40 01:42 03:09 WBC 12.48 H (4.8-10.8) K/ul RBC 3.85 L (4.70-6.10) M/uL Hgb 12.1 L (14.0-18.0) g/dl POC Hgb 11.9 L 11.6 L (14.0-18.0) g/dl Hct 37.3 L (42.0-52.0) % POC Hct 35 L 34 L (42-52) % MCV 96.9 (80.0-100.0) fL MCH 31.4 (25.0-34.0) pg MCHC 32.4 (32.0-36.0) g/dL RDW Std Deviation 47.1 H (36.4-46.3) fL RDW Coeff of Johana 13.2 (11.5-14.5) % Plt Count 111 L (130-400) K/uL MPV 10.0 (9.4-12.4) fL Immature Gran % (Auto) 0.5 % Neut % (Auto) 70.1 % Lymph % (Auto) 16.9 % Major % (Auto) 12.3 % Eos % (Auto) 0.0 % Baso % (Auto) 0.2 % Neut # (Auto) 8.75 H (1.40-6.50) K/uL Lymph # (Auto) 2.11 (1.20-3.40) K/uL Major # (Auto) 1.54 H (0.11-0.59) K/uL Eos # (Auto) 0.00 (0.00-0.50) K/uL Baso # (Auto) 0.02 (0.00-0.20) K/uL Immature Gran # (Auto) 0.06 (0.01-0.20) K/uL Specimen Type Arterial POC pH 7.27 L (7.35-7.45) POC pCO2 46 (35-46) mmHg POC pO2 82 (80-95) mmHg POC HCO3 21 (19-24) julieth/L POC Base Excess -6.0 (-9-1.8) julieth/L POC ABG O2 Sat 94.0 (90-95) % POC FiO2 80 % POC Sodium 147 H 144 (135-144) mmol/L Sodium 145 (136-145) mmol/L POC Potassium 3.8 3.7 (3.3-5.0) mmol/L Potassium 3.9 (3.5-5.1) mmol/L POC Chloride 111 (101-112) mmol/L Chloride 112 H (98-107) mmol/L Carbon Dioxide 25 (21-32) mmol/L POC Total CO2 24 22 L (24-31) mmol/L Anion Gap 8 (3-11) POC Anion Gap 17.0 (16-25) mmol/L POC BUN 29 H (7-18) mg/dl BUN 31 H (6-23) mg/dl Creatinine 1.57 H (0.6-1.4) mg/dl POC Creatinine 1.7 H (0.6-1.3) mg/dl Est Cr Clr Drug Dosing Not Reportable eGFR 45.96 BUN/Creatinine Ratio 19.7 (10-20) Glucose 105 H (70-99(Fasting)) mg/dl POC Glucose (other) 102 H (70-99) mg/dl Lactate 2.2 H* (0.4-2.0) mmol/L Calcium 8.2 L (8.6-10.3) mg/dl POC Ioniz Calcium Edil 1.09 L (1.12-1.32) mmol/l Magnesium 1.6 L (1.7-2.4) mg/dl Total Bilirubin 0.5 (0.2-1.0) mg/dl Direct Bilirubin 0.1 (0-0.2) mg/dl AST 23 (13-39) U/L ALT 10 (7-52) U/L Alkaline Phosphatase 32 L (34-104) U/L Troponin I High Sens 32.5 H (0-20) pg/ml Total Protein 5.7 L (6.0-8.3) gm/dl Albumin 3.0 L (3.4-5.0) gm/dl Procalcitonin 1.18 H (0-0.5) ng/ml Urine Color Dark Yellow Urine Appearance Cloudy A (Clear) Urine pH 6.0 (4.5-7.5) Ur Specific [place] 1.020 (1.000-1.030) Urine Protein 2+ H (Negative) Urine Glucose (UA) Negative (Negative) Urine Ketones 1+ H (Negative) Urine Blood Trace H (Negative) Urine Nitrite Negative (Negative) Urine Bilirubin Negative (Negative) Urine Urobilinogen Negative (Negative) Ur Leukocyte Esterase Trace H (Negative) Urine WBC (Auto) 6-10 H (0-5) /hpf Urine RBC (Auto) 11-20 H (0-2) /hpf U Hyaline Cast (Auto) >20 H (0-2) /lpf U Epithel Cells (Auto) 11-20 H (0-2) /hpf Urine Bacteria (Auto) 2+ H (None Seen) Urine Mucus Present A (None Prsent) Adenovirus (PCR) Not Detected (NotDetected) B. pertussis DNA (PCR) Not Detected (NotDetected) B.parapertussis DNA PCR Not Detected (NotDetected) C. pneumoniae DNA (PCR) Not Detected (NotDetected) Coronavirus OC43 (PCR) Not Detected (NotDetected) Coronavirus HKU1 (PCR) Not Detected (NotDetected) Coronavirus 229E (PCR) Not Detected (NotDetected) SARS-CoV-2 (PCR) Not Detected (NotDetected) Coronavirus NL63 (PCR) Not Detected (NotDetected) Human Metapneumovir PCR Not Detected (NotDetected) Influenza Type A (PCR) Not Detected (NotDetected) Influenza Type B (PCR) Not Detected (NotDetected) M. pneumoniae (PCR) Not Detected (NotDetected) Parainfluenza 1 (PCR) Not Detected (NotDetected) Parainfluenza 2 (PCR) Not Detected (NotDetected) Parainfluenza 3 (PCR) Not Detected (NotDetected) Parainfluenza 4 (PCR) Not Detected (NotDetected) RSV (PCR) Not Detected (NotDetected) Entero/Rhino (PCR) DETECTED A (NotDetected) Administered Medications Budesonide (Budesonide 0.25 Mg/2 Ml Vial (Pulmicort)) 0.25 mg NEB QDR QU[facility] Stop: 05/01/24 07:59 Last Admin: 04/01/24 13:33 Dose: 0.25 mg Documented By: DEBBIE Fentanyl Citrate (Fentanyl Citrate Pf 100 Mcg/2 Ml Vial) 100 mcg IV Q2H PRN PRN Reason: Severe Pain (7,8,9,10) on NRS Stop: 04/15/24 10:35 Last Admin: 04/01/24 18:11 Dose: 100 mcg Documented By: VERITO Norepinephrine Bitartrate (Levophed/D5w) 4 mg in 250 mls @ 16.875 mls/hr IV .[id number] QUINCY; Protocol Stop: 05/01/24 01:44 Last Admin: 04/01/24 10:16 Dose: Not Given Documented By: Titration: 04/01/24 09:21 Dose: 0.06 mcg/kg/min, 16.9 mls/hr Documented By: VERITO Co-signed By: LILY Titration: 04/01/24 09:01 Dose: 0.04 mcg/kg/min, 11.3 mls/hr Documented By: VERITO Co-signed By: MARK Titration: 04/01/24 08:16 Dose: 0.06 mcg/kg/min, 16.9 mls/hr Documented By: CB Co-signed By: MARK Admin: 04/01/24 07:24 Dose: 0.08 mcg/kg/min, 22.5 mls/hr Documented By: VERITO Co-signed By: VENESSA Titration: 04/01/24 07:24 Dose: Infused Documented By: VERITO Co-signed By: VENESSA Titration: 04/01/24 06:59 Dose: 0.1 mcg/kg/min, 28.1 mls/hr Documented By: CB Co-signed By: CHRISTOPHER Titration: 04/01/24 06:41 Dose: 0.1 mcg/kg/min, 28.1 mls/hr Documented By: JT Co-signed By: SG Titration: 04/01/24 06:26 Dose: 0.13 mcg/kg/min, 36.6 mls/hr Documented By: JT Co-signed By: SKS Titration: 04/01/24 03:00 Dose: 0.15 mcg/kg/min, 42.2 mls/hr Documented By: AN Co-signed By: ALENW Titration: 04/01/24 02:50 Dose: 0.2 mcg/kg/min, 56.3 mls/hr Documented By: IDD Co-signed By: TAMAR Titration: 04/01/24 02:48 Dose: 0.15 mcg/kg/min, 42.2 mls/hr Documented By: IDD Co-signed By: TAMAR Titration: 04/01/24 02:06 Dose: 0.13 mcg/kg/min, 36.6 mls/hr Documented By: IDD Co-signed By: AN Titration: 04/01/24 01:58 Dose: 0.1 mcg/kg/min, 28.1 mls/hr Documented By: IDD Co-signed By: AN Titration: 04/01/24 01:54 Dose: 0.15 mcg/kg/min, 42.2 mls/hr Documented By: IDD Co-signed By: AN Titration: 04/01/24 01:48 Dose: 0.2 mcg/kg/min, 56.3 mls/hr Documented By: IDD Co-signed By: AN Admin: 04/01/24 01:43 Dose: 0.05 mcg/kg/min, 14.1 mls/hr Documented By: IDD Co-signed By: TAMAR Piperacillin Sod/Tazobactam Sod (Zosyn) 4.5 gm in 100 mls @ 25 mls/hr IV Q8H QUINCY; Protocol Stop: 04/08/24 09:59 Last Admin: 04/01/24 18:12 Dose: 25 mls/hr Documented By: Infusion: 04/01/24 14:10 Dose: Infused Documented By: Admin: 04/01/24 10:20 Dose: 25 mls/hr Documented By: VERITO Heparin Sodium/Dextrose (Heparin Sodium/Dextrose) 25,000 units in 500 mls @ 13 mls/hr IV .Q24H QUINCY; Protocol Stop: 05/01/24 03:59 Last Titration: 04/01/24 14:02 Dose: 650 units/hr, 13 mls/hr Documented By: VERITO Co-signed By: MARK Titration: 04/01/24 12:47 Dose: 0 units/hr, 0 mls/hr Documented By: VERITO Co-signed By: MARK Titration: 04/01/24 06:59 Dose: 900 units/hr, 18 mls/hr Documented By: VERITO Co-signed By: CHRISTOPHER Admin: 04/01/24 04:15 Dose: 900 units/hr, 18 mls/hr Documented By: TAMAR Co-signed By: DEBBIE Valproic Acid 250 mg/ Dextrose 52.5 mls @ 55 mls/hr IV Q8H [facility] Stop: 05/01/24 05:59 Last Infusion: 04/01/24 15:23 Dose: Infused Documented By: Admin: 04/01/24 14:10 Dose: 55 mls/hr Documented By: Infusion: 04/01/24 08:15 Dose: Infused Documented By: Admin: 04/01/24 06:10 Dose: 55 mls/hr Documented By: CHRISTOPHER Pantoprazole Sodium (Protonix) 40 mg in 10 mls @ 5 mls/min IV BID [facility] Stop: 05/01/24 08:59 Last Admin: 04/01/24 09:31 Dose: 5 mls/min Documented By: VERITO Propofol (Diprivan) 1,000 mg in 100 mls @ 0 mls/hr IV .Q0M QUINCY; Protocol Stop: 04/04/24 06:14 Last Titration: 04/01/24 06:59 Dose: 0 mcg/kg/min, 0 mls/hr Documented By: VERITO Co-signed By: CHRISTOPHER Titration: 04/01/24 06:13 Dose: 0 mcg/kg/min, 0 mls/hr Documented By: Admin: 04/01/24 05:45 Dose: 20 mcg/kg/min, 9 mls/hr Documented By: CHRISTOPHER Co-signed By: ALEXIA Vancomycin HCl 1,250 mg/ (Sodium Chloride) 275 mls @ 200 mls/hr IV Q24H [facility] Stop: 04/06/24 17:59 Last Admin: 04/01/24 18:12 Dose: 200 mls/hr Documented By: VERITO Insulin Aspart (Insulin Aspart Per Unit Charge) 0 units SC Q6 [facility] Stop: 05/01/24 11:59 Last Admin: 04/01/24 11:50 Dose: 4 units Documented By: VERITO Co-signed By: VENESSA Miscellaneous (Icu Protocol For Hyperglycemia) 1 each N/A ACHS [facility] Stop: 04/03/24 07:29 Last Admin: 04/01/24 17:05 Dose: Not Given Documented By: Admin: 04/01/24 11:47 Dose: Not Given Documented By: Admin: 04/01/24 07:13 Dose: Not Given Documented By: VERITO Discontinued Medications Fentanyl Citrate (Fentanyl Citrate Pf 100 Mcg/2 Ml Vial) Confirm Administered Dose 100 mcg .ROUTE .STK-MED ONE Stop: 04/01/24 01:58 Last Admin: 04/01/24 03:12 Dose: Not Given Documented By: IDD Fentanyl Citrate (Fentanyl Citrate Pf 100 Mcg/2 Ml Vial) 50 mcg IV NOW ONE Stop: 04/01/24 03:03 Last Admin: 04/01/24 03:12 Dose: 50 mcg Documented By: IDD Fentanyl Citrate (Fentanyl Citrate 2,500 Mcg/250 Ml Bag) Confirm Administered Dose 2,500 mcg IV .STK-MED ONE Stop: 04/01/24 03:07 Last Admin: 04/01/24 03:13 Dose: Not Given Documented By: IDD Heparin Sodium/Dextrose (Heparin Iv Adult Wt-Based Low-Dose *No* Initial Bolus Protocol) 1 each IV Q15M QUINCY; Protocol Stop: 04/01/24 06:00 Last Admin: 04/01/24 04:19 Dose: Not Given Documented By: AN Sodium Chloride (Nss) 1,000 mls @ 999 mls/hr IV .Q1H1M [facility] Stop: 04/01/24 03:45 Last Infusion: 04/01/24 04:12 Dose: Infused Documented By: Admin: 04/01/24 03:00 Dose: 999 mls/hr Documented By: Infusion: 04/01/24 03:00 Dose: Infused Documented By: Admin: 04/01/24 01:59 Dose: 999 mls/hr Documented By: IDD Cefepime HCl (Maxipime 2000mg) 2,000 mg in 20 mls @ 5 mls/min IV NOW STA; Protocol Stop: 04/01/24 01:46 Last Admin: 04/01/24 01:58 Dose: 5 mls/min Documented By: IDD Fentanyl Citrate (Fentanyl Citrate) 2,500 mcg in 250 mls @ 0 mls/hr IV .Q0M [facility]CY; Protocol Stop: 04/15/24 03:14 Last Titration: 04/01/24 10:50 Dose: Infused Documented By: VERITO Co-signed By: LILY Titration: 04/01/24 08:40 Dose: 0 mcg/hr, 0 mls/hr Documented By: VERITO Co-signed By: MARK Titration: 04/01/24 06:59 Dose: 100 mcg/hr, 10 mls/hr Documented By: VERITO Co-signed By: CHRISTOPHER Titration: 04/01/24 06:12 Dose: 100 mcg/hr, 10 mls/hr Documented By: CHRISTOPHER Co-signed By: ALEXIA Titration: 04/01/24 05:30 Dose: 75 mcg/hr, 7.5 mls/hr Documented By: CHRISTOPHER Co-signed By: SKS Admin: 04/01/24 03:13 Dose: 50 mcg/hr, 5 mls/hr Documented By: VIKRAM Co-signed By: TAMAR Linezolid (Zyvox) 600 mg in 300 mls @ 300 mls/hr IV Q12H [facility] Stop: 04/08/24 03:59 Last Infusion: 04/01/24 07:03 Dose: Infused Documented By: Admin: 04/01/24 04:33 Dose: 300 mls/hr Documented By: TAMAR Piperacillin Sod/Tazobactam Sod (Zosyn) 4.5 gm in 100 mls @ 200 mls/hr IV NOW STA; Protocol Stop: 04/01/24 04:23 Last Infusion: 04/01/24 04:37 Dose: Infused Documented By: Admin: 04/01/24 04:00 Dose: 200 mls/hr Documented By: TAMAR Vancomycin HCl 1,500 mg/ (Sodium Chloride) 530 mls @ 200 mls/hr IV NOW ONE Stop: 04/01/24 08:38 Last Infusion: 04/01/24 09:01 Dose: Infused Documented By: Admin: 04/01/24 06:22 Dose: 200 mls/hr Documented By: CHRISTOPHER Magnesium Sulfate/Dextrose (Magnesium Sulfate / D5w) 1 gm in 100 mls @ 50 mls/hr IV Q2H [facility] Stop: 04/01/24 14:44 Last Infusion: 04/01/24 15:24 Dose: Infused Documented By: Admin: 04/01/24 12:49 Dose: 50 mls/hr Documented By: Infusion: 04/01/24 12:49 Dose: Infused Documented By: Admin: 04/01/24 10:57 Dose: 50 mls/hr Documented By: VERITO Ioversol (Optiray 320 125ml) 125 ml IV ONCE ONE Stop: 04/01/24 03:01 Last Admin: 04/01/24 03:00 Dose: 118 ml Documented By: BUNNY Methylprednisolone (Methylprednisolone 125 Mg/2 Ml Vial) 125 mg IV NOW STA Stop: 04/01/24 03:41 Last Admin: 04/01/24 03:59 Dose: 125 mg Documented By: TAMAR Midazolam HCl (Midazolam Hcl 5 Mg/Ml 2ml Vial) Confirm Administered Dose 10 mg .ROUTE .STK-MED ONE Stop: 04/01/24 01:32 Last Admin: 04/01/24 02:41 Dose: Not Given Documented By: IDSahra Midazolam HCl (Midazolam Hcl 1 Mg/Ml 2ml Vial) 2 mg IV NOW STA Stop: 04/01/24 02:36 Last Admin: 04/01/24 02:41 Dose: 2 mg Documented By: IDSahra Miscellaneous (Stat Iv Infusion Titration Per Protocol) 1 each N/A NOW STA Stop: 04/01/24 01:41 Last Admin: 04/01/24 03:12 Dose: Not Given Documented By: IDSahra Norepinephrine Bitartrate (Norepinephrine/D5w 4 Mg/250 Ml) Confirm Administered Dose 4 mg IV .STK-MED ONE Stop: 04/01/24 01:35 Last Admin: 04/01/24 03:12 Dose: Not Given Documented By: IDD Propofol (Propofol Iv Emulsion 10 Mg/Ml 100 Ml Vial) Confirm Administered Dose 1,000 mg IV .STK-MED ONE Stop: 04/01/24 05:10 Last Admin: 04/01/24 06:09 Dose: Not Given Documented By: CHRISTOPHER Imaging Data Radiologist's Impression: Chest X-Ray 04/01/24 01:34 EXAM: XR chest 1V portable CLINICAL HISTORY: POST INTUBATION SDM TECHNIQUE: An X-ray image of the chest is obtained in AP projection. COMPARISON: No prior studies are available for comparison. FINDINGS: Pulmonary Parenchyma: An ETT is noted, its tip is about 1.4 cm above the isaiah. A left mid and lower zonal air-space opacity is seen silhouetting the left cardiac border and left hemidiaphragm. The left costophrenic angle is obscured. No gross right lung air-space opacities. The right costophrenic angle is clear. Heart and Mediastinum: Limited evaluation of the cardiac size given an AP projection. Bony Thorax: Bony thorax appears intact without fractures or deformities. Soft Tissues: Soft tissues overlying the chest wall are unremarkable. IMPRESSION: 1. An ETT is noted, its tip is about 1.4 cm above the isaiah, need to be pulled 1-2 cm. 2. Left mid and lower zonal air-space opacity (possibly pneumonic) with possible left pleural effusion. Electronically signed by Melvin Farris 04-01-2024 03:06 AM KUB X-Ray 04/01/24 02:21 EXAM: XR KUB/Abdomen 1 view CLINICAL HISTORY: OG PLACEMENT. TECHNIQUE: An X-ray image of the abdomen was obtained in an AP supine position. COMPARISON: No prior studies are available for comparison. FINDINGS: The tip of the NG tube is noted in the stomach. Gas Pattern: The gas pattern within the abdomen is normal. No free air under the diaphragm. Soft Tissues: Visualized soft tissues of the abdomen appear normal. For lungs please refer to chest xray of the same date. IMPRESSION: 1. The tip of the NG tube is noted in the stomach. Optimal position. 2. No free air under the diaphragm. Electronically signed by Melvin Farris 04-01-2024 03:[address] 04/01/24 02:27 EXAM: CT head/brain wo con CLINICAL HISTORY: the chief complaint of respiratory distress occurred tonight. Pt is from the [facility] and staff reported to EMS pt was found blue and unresponsive. TECHNIQUE: Axial non-contrast CT scan of the brain was performed from the skull base to the high parietal region. One of the following dose reduction techniques was utilized for this exam: Automated exposure control, adjustment of the mA and/or kV according to patient size, use of iterative reconstruction. COMPARISON: None. FINDINGS: Brain Parenchyma: Mild age-related cerebral involutional changes were noted. Patchy periventricular hypodense areas related to small vessel disease. Normal attenuation of the cerebral hemispheres, cerebellum, and brainstem. No evidence of acute infarct, hemorrhage, or mass effect. Diffuse scattered atherosclerotic clarifications within the ICA cavernous portions and both vertebral arteries. Ventricular System: Ventricles are normal in size and configuration. No evidence of hydrocephalus or ventricular enlargement. Subarachnoid Spaces: Normal sulci and cisterns. No evidence of subarachnoid hemorrhage or extra-axial fluid collections. Cerebellum and Brainstem: Normal size and signal. No masses, lesions, or areas of abnormal density. Orbits: Normal appearance of the globes, optic nerves, and extraocular muscles. No evidence of orbital masses or abnormal density. Sinuses: Clear paranasal sinuses. No evidence of sinusitis or mucosal thickening. Mastoid Air Cells: Clear mastoid air cells. No evidence of mastoiditis. Skull: Normal skull morphology. IMPRESSION: 1. Mild age-related cerebral involutional changes were noted. 2. Patchy periventricular hypodense areas related to small vessel disease. 3. Diffuse scattered atherosclerotic clarifications within the ICA cavernous portions and both vertebral arteries. 4. No recent ischemic or hemorrhagic insult was depicted. Electronically signed by Melvin Farris 04-01-2024 04:36 AM Discharge Plan Visit Data Chief Complaint: Respiratory Problems Stated Complaint: RESPIRATORY FAILURE ED Provider: Maria De Jesus Fox Discharge Problem: Respiratory failure, Rhinovirus infection, Septic shock, Left lower lobe pneumonia, Atrial fibrillation with rapid ventricular response Patient Disposition: Admitted As Inpatient Discharge Instructions Interventions: ED Discharge Assessment Last Done: 04/01/24 04:35
--- NOTE | 2024-04-01 04:45 | Billing Data ---
Date of Service April 01, 2024 Coding Level of Care Code 96248 CRITICAL CARE
--- NOTE | 2024-04-01 05:17 | CT Scan Report ---
EXAM: CT angio chest PE protocol CLINICAL HISTORY: The chief complaint of respiratory distress occurred tonight. Pt is from the [facility] and staff reported to EMS pt was found blue and unresponsive. TECHNIQUE: Contiguous 3.[address] angiographic images of the chest were acquired with the administration of intravenous contrast. Coronal and sagittal reconstructions were obtained. 118 ML Optiray 320 was administered for post-contrast images. One of these 3D techniques was utilized: Maximum Intensity Pixel (MIP), 3D Reconstructed Images, Volume Rendered Images, Surface Shaded Rendering. One of the following dose reduction techniques was utilized for this exam: Automated exposure control, adjustment of the mA and/or kV according to patient size, and use of iterative reconstruction. DLP: 1485.6 mGy-cm, CTDI: 72.5 mGy. COMPARISON: with the prior study dated 12/21/2023. FINDINGS: Aorta: The thoracic aorta is normal in caliber. No evidence of aneurysm, dissection, or significant atherosclerotic changes. The aortic arch and descending thoracic aorta show scattered calcified atheromatous plaques. Pulmonary Arteries: Pulmonary arteries are normal in size and opacification. No evidence of pulmonary embolism. No stenosis or filling defects. Superior Vena Cava (SVC) and Inferior Vena Cava (IVC): Normal opacification and caliber. No evidence of thrombus or obstruction. Coronary Arteries: Coronary arteries are well-opacified. No significant stenosis or atherosclerotic changes. Mediastinum: No mediastinal mass or lymphadenopathy. Normal appearance of the thymus. Heart: Normal size and morphology of the heart. No pericardial effusion. Lungs: Left lower lung lobe collapse noted with mediastinal shift to the left side. Left upper lung lobe patchy ground glass opacities noted. Mild right lower chest pleural thickening noted. No pleural effusion or thickening. Bones: Mild spondylosis of the thoracic spine was noted. No fractures or lytic/sclerotic lesions of the visualized bony structures. Normal alignment and bone density. Soft Tissues: Normal appearance of the visualized soft tissues. No abnormal masses or fluid collections. ETT is properly inserted reaching 4 cm above the isaiah. NGT is inserted in a proper position. IMPRESSION: 1. No signs of pulmonary embolism were noted. 2. Diffuse aortic atherosclerotic changes were noted. 3. Left lower lung lobe collapse was seen. 4. No evidence of significant vascular abnormalities. 5. When compared to prior CT: Mild right pleural effusion is not seen at this time. Other findings are similar. Electronically signed by Melvin Farris 04-01-2024 05:17 AM
[2024-04-01] MEDS ORDERED: VANCOMYCIN CONSULT ACTIVE PRN ×2 (05:41)
[2024-04-01] MEDS ORDERED: ACETAMINOPHEN 1000 MG/100 ML IV IV PRN (05:41)
[2024-04-01] MEDS ORDERED: ONDANSETRON INJ 2 MG/ML 2 ML VIAL IV PRN (05:41)
[2024-04-01] MEDS: propofoL 1,000 MG/100 ML VIAL IV SCH (05:45)
--- NOTE | 2024-04-01 05:56 | Procedure Note ---
Procedure Note Date of Service April 01, 2024 Procedure: Internal Jugular Central Line Placement Proceduralist: Louie LACEY ([facility]-) Attending: Dr. Walters Indication: Central Drug Administration, Poor Venous Access, Multiple Lab Draws Necessary, etc. Anesthesia: [x]Lidocaine 1% Emergent Consent was implied as patient was with increasing vasopressor requirements and is FULL CODE intubated on mechanical ventilation. No family immediately availabe. Benefits outweigh the risks at this point in time. A time-out was completed verifying correct patient, procedure, site, positioning. Patients RIGHT Neck was scouted with ultrasound, once adequate target and anatomy identified, the site was then cleansed and draped in the typical sterile fashion using Chloraprep. The Internal Jugular Vein and Carotid Artery were again identified using ultrasound. The superficial tissue was anesthetized using 5 mL of 1% lidocaine without epinephrine under direct visualization with the ultrasound. After adequate anesthetization was achieved, the Internal Jugular vein was cannulated under direct ultrasound guidance using an introducer needle on a syringe. Good venous blood return was maintained prior to removal of syringe from introducer needle. Using Seldinger Technique, a guide wire was advanced through the introducer needle without resistance. The introducer needle was removed and ultrasound images were obtained of the guide wire within the Internal Jugular Vein. A small incision was made in penetrating fashion at the guide wire insertion site utilizing an 11 blade scalpel. The dilator was advanced to the vessel without resistance. The dilator was exchanged for the triple lumen catheter which was advanced into the vessel without resistance. The guide wire was removed intact from the catheter without issue. Claves were placed on each catheter tip with confirmation of good blood flow from each lumen. Each port was easily flushed with sterile saline. The catheter was placed at 17 cm and sutured in place. BioPatch was applied to the catheter and a sterile Tegaderm dressing was applied over the catheter with careful attention to sterility. Patient tolerated procedure well. No immediate complications were met. Post procedure x-ray was completed, placement was noted to be about 2 cm deep, and appears during dressing application the catheter slipped in to 19 cm, it was withdrew 2cm to 17 cm and covered with sterile dressing. Artery AND Vein visualized: YES Compressible Vein: YES Guidewire or Short Catheter seen in vein prior to dilation: YES [facility] [place] Procedure Codes (Charges) Tubes, Drains, and Vasc Access Procedure 1: Tubes, Drains, and Vasc Access: [id number] Insertion Of Non-tunneled Catheter Age 4 Yrs> Coding CPT Codes Tubes, Drains, and Vasc Access - Tubes, Drains, and Vasc Access: [id number] Insertion Of Non-tunneled Catheter Age 4 Yrs> ([id number]) Additional Codes Date of Service (PG.SURGERY)
--- NOTE | 2024-04-01 05:56 | Procedure Note ---
Procedure Note Date of Service April 01, 2024 Procedure: Arterial Line Placement Proceduralist: Louie LACEY ([facility]-) Attending: Dr. Walters Indication: Monitoring on Pressors Anesthesia: xLidocaine 1% Emergent Consent was implied as patient was on escalating dose of vasopressors, mechanically ventilated and intubated as well as FULL CODE. No family immediately available. Benefits outweigh risks at this point in time. A time-out was completed verifying correct patient, procedure, site, positioning, and implant(s) or special equipment if applicable. Allens test was performed to ensure adequate perfusion. Patients LEFT wrist was prepped and draped in the usual sterile fashion. Ultrasound guidance was used to aid needle placement. A 20g Arrow arterial line was introduced into the LEFT RADIAL artery x1 attempt. Brisk blood return was noted, the wire was advanced without resist ance, the Catheter was threaded, and the needle was removed with appropriate blood return. Pressure tubing was attached noting a good arterial waveform. The patient tolerated the procedure well. blood loss minimal and no immediate complications met. Blood Loss: Minimal Complications: None immediate Artery Identified: YES real time guidance [facility] [place] Procedure Codes (Charges) Tubes, Drains, and Vasc Access Procedure 1: Tubes, Drains, and Vasc Access: [id number] Arterial Cath/Cannulation Sampli ng/Monitoring/Transfusion Coding CPT Codes Tubes, Drains, and Vasc Access - Tubes, Drains, and Vasc Access: [id number] Arterial Cath/Cannulation Sampling/Monitoring/Transfusion ([id number]) Additional Codes Date of Service (PG.SURGERY)
[2024-04-01] MEDS ORDERED: PROPOFOL BOLUS FROM BAG IV PRN (06:05)
[2024-04-01] MEDS: PROPOFOL IV EMULSION 10 MG/ML 100 ML VIAL IV ONE (06:09)
[2024-04-01] MEDS: VALPROATE SOD 250 MG in DEXTROSE 5% 50 ML IV SCH (06:10)
[2024-04-01 06:19] LABS: iSTAT Art Bld Gas pCO2 Correct 31 mmHg (35-46); iSTAT Art Bld Gas pH Corrected 7.401 (7.35-7.45); iSTAT Arterial Blood Gas HCO3 19 meg/L (19-24); iSTAT Arterial Blood Gas pCO2 31 mmHg (35-46); iSTAT Arterial Blood Gas pH 7.41 (7.35-7.45); iSTAT Arterial Blood Gas pO2 95 mmHg (80-95); iSTAT Arterial Blood Gas pO2 C 98; iSTAT Carbon Dioxide 20 mmol/L (24-31); iSTAT FiO2 70 %; iSTAT Hematocrit 39 % (42-52); iSTAT Hemoglobin 13.3 g/dl (14.0-18.0); iSTAT Potassium 3.6 mmol/L (3.3-5.0); iSTAT Sample Type Arterial; iSTAT Site Art Line; iSTAT Sodium 144 mmol/L (135-144); iSTAT SpO2 99
[2024-04-01] MEDS: VANCOMYCIN HCL 1,500 MG in SODIUM CHLORIDE 0.9% 500 ML IV ONE (06:22)
[2024-04-01] MEDS: ICU Protocol for HYPERglycemia SCH (07:13)
--- NOTE | 2024-04-01 07:48 | XRay Report ---
EXAM: XR chest 1V portable CLINICAL HISTORY: S/P CENTRAL LINE PLACEMENT. TECHNIQUE: An X-ray image of the chest is obtained using an AP projection. COMPARISON: Radiograph dated 04/01/2024 01:31:52, performed earlier. FINDINGS: Right-sided central venous catheter with its distal tip in the right atrium. The endotracheal tube is seen in situ with the distal tip 3 cm above the isaiah(previously 1.4 cm). The nasogastric tube is seen, with the distal tip below the left hemidiaphragm. Pulmonary Parenchyma: Airspace opacification in the left lung. Blunting of the left costophrenic angle likely represents pleural effusion. No pleural effusion on the right side. Heart and Mediastinum: Enlarged heart. No mediastinal widening or masses. Bony Thorax: The bony thorax appears intact without fractures or deformities. Soft Tissues: Soft tissues overlying the chest wall are unremarkable. IMPRESSION: 1. Interval placement of right-sided central venous catheter with its distal tip in the right atrium. 2. The endotracheal tube is seen in situ with the distal tip 3 cm above the isaiah (Previously 1.4 cm). 3. The nasogastric tube is seen, with the distal tip below the left hemidiaphragm (new). 4. Airspace opacification in the left lung is likely infective/inflammatory change(mildly increased). 5. Blunting of the left costophrenic angle likely represents pleural effusion(stable). Electronically signed by Melvin Farris 04-01-2024 07:47 AM
[2024-04-01 09:14] LABS: iSTAT Creatinine 1.7 mg/dl (0.6-1.3); iSTAT Hemoglobin 11.9 g/dl (14.0-18.0); iSTAT Ionized Calcium 1.09 mmol/l (1.12-1.32); iSTAT Potassium 3.8 mmol/L (3.3-5.0)
[2024-04-01] MEDS: PANTOprazole 40 MG/10 ML SYR IV SCH (09:31)
[2024-04-01] MEDS: PIPERACILLIN/TAZOBACTAM 4.5 GM/100 ML BAG IV SCH (10:20)
[2024-04-01] MEDS: MAGNESIUM SULFATE / D5W 1 GM/100 ML BAG IV SCH ×2 (10:57→20:04)
[2024-04-01] MEDS ORDERED: methylPREDNISolone 10 mg/mL (For Ped Dose < 7mg) IV SCH (11:00)
[2024-04-01] MEDS ORDERED: methylPREDNISolone 40 MG in SYRINGE 0 ML IV SCH (11:00)
--- NOTE | 2024-04-01 11:15 | XCELERA ---
[id number] \\[email or web address]\[email or web address]_PDF_Reports\[id number]
--- NOTE | 2024-04-01 11:23 | Pharmacy Report ---
Pharmacy PK ABX Note - Date of Service April 01, 2024 - Assessment and Plan Assessment 73 year old M with PMH including COPD, KURT, HTN, Dementia, DM, Afib receiving vancomycin/zosyn for treatment of sepsis w/ presumed pulmonary source. Patient intubated in the field. Blood, urine, sputum cultures pending. SCr acutely elevated 1.57 (baseline ~0.6). + entero/rhinovirus on biofire. MRSA nasal swab negative. Continuing antibiotics for now. Plan Vancomycin * Loading dose: 1500 mg IV x 1 * Maintenance dose: 1250 mg IV every 24 hours * Regimen is predicted to achieve target AUC/RITIKA of 400-600 mg/L.hr * Random level to be ordered if continued >48 hours or with significant renal changes Pharmacy will continue to follow and will adjust dose/frequency as necessary. Thank you. Pharmacy has transitioned to AUC monitoring for vancomycin. AUC/RITIKA is the preferred PK/PD target and is associated with decreased risk of nephrotoxicity compared to traditional trough targets.
[2024-04-01] MEDS ORDERED: GLUCAGON FOR INJ 1 MG VIAL SQ PRN (11:42)
[2024-04-01] MEDS ORDERED: GLUCOSE 40% GEL 15 GM TUBE PO PRN (11:42)
[2024-04-01] MEDS ORDERED: GLUCOSE 10 TAB/TUBE PO PRN (11:42)
[2024-04-01] MEDS ORDERED: CARBOHYDRATES FOR HYPOGLYCEMIA PO PRN (11:42)
[2024-04-01] MEDS ORDERED: DEXTROSE 50% 50 ML SYRINGE IV PRN (11:42)
[2024-04-01] MEDS: INSULIN ASPART PER UNIT CHARGE SC SCH (11:50)
[2024-04-01 12:44] LABS: ANTI-Xa, UFH(UnfractionatedHep 0.99 IU/ml (0.3-0.7)
--- NOTE | 2024-04-01 13:18 | Communication Note ---
Date of Service: April 01, 2024 Please refer to the H&P dictated earlier this morning for details of presentation on admission. In brief, Mr. Mae was found unresponsive and hypoxic at [facility]. EMS was called emergently, patient was intubated in the field. Viral panel positive for enterovirus/rhinovirus. Cannot exclude bacterial superinfection. Started on IV antibiotics. Pulmonology managing vent. Not requiring sedation. He is on Levophed to maintain his blood pressure. He seems to have a urinary tract infection and acute kidney injury as well. Eliquis switched to heparin drip for A-fib chronic anticoagulation
[2024-04-01] MEDS: BUDESONIDE 0.25 MG/2 ML VIAL (PULMICORT) NEB SCH (13:33)
--- NOTE | 2024-04-01 15:03 | Electrocardiogram Report ---
Test Reason : Blood Pressure : */* mmHG Vent. Rate : 147 BPM Atrial Rate : * BPM P-R Int : * ms QRS Dur : 136 ms QT Int : 332 ms P-R-T Axes : * -48 113 degrees QTcB Int : 519 ms Atrial fibrillation with rapid ventricular response Right bundle branch block Left anterior fascicular block Bifascicular block T wave abnormality, consider lateral ischemia Abnormal ECG When compared with ECG of 23-Dec-2023 15:21, Atrial fibrillation has replaced Sinus rhythm Vent. rate has increased by 99 bpm T wave inversion no longer evident in Inferior leads T wave inversion less evident in Lateral leads Confirmed by Milton Song ([id number]) on 04/01/2024 3:03:25 PM Referred By: Jae Mars Confirmed By: Milton Song
--- NOTE | 2024-04-01 15:08 | Electrocardiogram Report ---
Test Reason : Blood Pressure : */* mmHG Vent. Rate : 52 BPM Atrial Rate : 52 BPM P-R Int : 136 ms QRS Dur : 132 ms QT Int : 408 ms P-R-T Axes : 67 -18 -76 degrees QTcB Int : 379 ms Sinus bradycardia Right bundle branch block T wave abnormality, consider inferior ischemia T wave abnormality, consider anterolateral ischemia Abnormal ECG Confirmed by Milton Song ([id number]) on 04/01/2024 3:07:55 PM Referred By: Jae Mars Confirmed By: Milton Song
[2024-04-01] MEDS: fentaNYL citrate PF 100 MCG/2 ML VIAL IV PRN (18:11)
[2024-04-01] MEDS: VANCOMYCIN HCL 1,250 MG in SODIUM CHLORIDE 0.9% 250 ML IV SCH (18:12)
[2024-04-01] MEDS ORDERED: Nursing to Pharmacy Communication SCH (20:00)
[2024-04-01 20:56] LABS: ANTI-Xa, UFH(UnfractionatedHep 0.72 IU/ml (0.3-0.7)
[2024-04-02 03:44] LABS: Albumin Globulin Ratio 0.9 (0.9-2); Albumin Level 2.8 gm/dl (3.4-5.0); Bilirubin,Total 0.6 mg/dl (0.2-1.0); Creatinine Clr Calc Pharmacy 83.2 ml/min; Globulin 3.1 gm/dl (2.5-4.0); Magnesium 2.6 mg/dl (1.7-2.4); Potassium 3.2 mmol/L (3.5-5.1); Total Protein 5.9 gm/dl (6.0-8.3)
[2024-04-02 03:58] LABS: Basophils # (auto) 0.04 K/uL (0.00-0.20); Basophils % (auto) 0.2 %; Echinocytes 1+; Eosinophils # (auto) 0.03 K/uL (0.00-0.50); Eosinophils % (auto) 0.2 %; Hematocrit (blood only) 35.4 % (42.0-52.0); Hemoglobin 12.1 g/dl (14.0-18.0); Immature Granulocytes # (auto) 0.17 K/uL (0.01-0.20); Immature Granulocytes % (auto) 0.9 %; Lymphocytes % (auto) 5.8 %; Mean Corpuscular Hemoglobin 31.1 pg (25.0-34.0); Mean Corpuscular Hgb Conc 34.2 g/dL (32.0-36.0); Mean Platelet Volume 9.7 fL (9.4-12.4); Monocytes % (auto) 10.1 %; Neutrophils # (auto) 15.61 K/uL (1.40-6.50); Neutrophils % (auto) 82.8 %; Platelet Count 127 K/uL (130-400); Polychromasia 1+; RDW Coefficient of Variation 13.2 % (11.5-14.5); RDW Standard Deviation 43.8 fL (36.4-46.3); Red Blood Count 3.89 M/uL (4.70-6.10); White Blood Count 18.85 K/ul (4.8-10.8)
[2024-04-02 04:10] LABS: ANTI-Xa, UFH(UnfractionatedHep 0.49 IU/ml (0.3-0.7); INR 1.1 (0.9-1.1); Partial Thromboplastin Ratio 1.8; Partial Thromboplastin Time 48 Seconds (21-31); Prothrombin Time 12.2 Seconds (9.0-12.0)
[2024-04-02 06:56] LABS: Platelet Estimate Decreased (Normal)
--- NOTE | 2024-04-02 06:58 | Critical Care Progress Note ---
Date of Service April 02, 2024 Assessment & Plan (1) Septic shock: (2) Respiratory failure: (3) Atrial fibrillation with rapid ventricular response: (4) Asymptomatic bradycardia: Plan Reason Critically Ill: 74 YOM resident of skilled nursing found unresponsive and hypoxic requiring intubation in the field, now on vasopressors and being mechanically ventilated Neuro - Sedation for mechanical ventilation, hx of dementia, Hx of convulsions CAM ICU: LENA - Sedation goal MARYSOL -1 - Fentanyl infusion with bolus, if more sedation required for synchrony will add propofol - Reportedly baseline function is good and he is independent at the facility - Head CT negative for acute bleed or LVO - Medical history with reports of "convulsions" however with what information is currently viewable, there is no mention of type or other seizure disorder- on valproate IV while intubated - Hold serequel, Buspar, Trazadone while intubated and sedated Cardiac - Shock unspecified, afib, on chronic anticoagulation; 04/02/24 12pm EKG showing Afib with slow ventricular response, competing junctional rhythm, RBBB; in HR of 30s, idioventricular rhythm suggested - Hypotension and bradycardia likely related to sedation as well as possible sepsis - atropine 1mg IV prepared should patient become symptomatically rosi in 30-40s range - consider cardiology consultation for their professional weigh-in: change of sedation medication vs dosage vs addition of atropine - Echocardiogram 04/01/24 AM: LV systolic function normal, RV moderately dilated, RV systolic function mildly reduced, LA mildly dilated; RV systolic pressure elevated at 30-40mmHg, IVC mildly dilated - CTA of chest negative for PE/obstructive shock - Bedside POCUS negative for pericardial effusion - Levophed to maintain MAPS > 65 - Trend HsCTNI- likely elevated secondary to type II mismatch: downtrending - 108.4 -> 64.8 - For his Afib hold on metoprolol with JASON - Heparin in lieu of Eliquis Respiratory - Hypoxic respiratory failure requiring emergent intubation and mechanical ventilation, COPD, KURT - Respiratory failure requiring intubation- at this time likely secondary to viral infection and possible mucous plugging vs. aspiration vs. viral and bacterial pneumonia or combination of these. - VLAD opacity, increased oxygen need, sputum yellow mondragon, WBC elevation, elevated PCT- can't exclude bacterial pneumonia see below - CTA negative for PE - Respiratory viral panel + for Enter/Rhinovirus - As he is not overtly wheezy or with CO2 retention, will hold on IV steroids at this time - Continue supportive care - Nebulizers scheduled- MAE and ICS GI - OGT to LIWS - can start tube feeds RENAL/LYTES - Respiratory acidosis, JASON - Continue supportive care for mild acidosis - Maintain MAPS >65 for JASON- follow urine output and volume assessments - ICU electrolyte protocol - 2+ bacteria, trace leuk, 11-20 RBCs, trace blood - Urine cx pending - Andrade while intubated and sedated ENDO - DMII - ICU hyperglycemic protocol - starting hydrocortisone IV for suspected adrenal insufficiency HEME - On chronic anticoagulation - Hold Eliquis - Heparin infusion ID - Sepsis likely pulmonary source - VLAD opacity, increased oxygen need, sputum yellow mondragon, WBC elevation, elevated PCT- can't exclude bacterial pneumonia in conjunction with Enter/Rhino - Zosyn, Vancomycin empirically, MRSA nares swab negative 04/01/24 - Sputum sample pending - blood culture pending - urine culture pending LINES/IV ACCESS - PIV, ETT, OGT, CVL, A-line - Continue use of these lines DVT PROPHYLAXIS - SCDS, Heparin infusion DISPO: ICU while intubated and sedated as well as requiring vasopressors Admission and Anticipated Discharge Date Admission Date: April 01, 2024 Supervising Physician Co-Signing Physician Notes Dr. Huerta was resident physician during care of patient. I separately evaluated patient for baxter portions of the history and the exam. I was present during the critical portion of medical decision making, and I discussed the case with the resident. I generally agree with the findings and plan. At baseline has dementia unclear how impactful this is but a permanent residence of senior living. In discussions with I am led to believe patient was intubated and unable to liberate from the ventilator unclear if it was a pulm onary pump issue or a neurologic issue precluding his ability to liberate and he had a tracheostomy in approximately July 2022. I discussed the patient may need tracheostomy for safe liberation from the ventilator if family wants to pursue aggressive care which they do at this time. Per medical records patient had a PEG previously; accordingly if patient needs tracheostomy PEG would be highly indicated as well. Subjective Patient was seen and evaluated at bedside this AM, mechanically intubated with FiO2 40%, not currently appearing in acute distress. Becomes alert when addressed by name, appears to want to talk but unable to do so. Able to somewhat follow basic commands, for example he moved his hands and feet when asked to "wiggle your fingers" and "...toes" respectively. Heart rate seems to be intermittently dropping into the 40s and high 30s at times, EKG suggesting atrial fibrillation with slow ventricular response, junctional rhythm, and RBBB; in 30s, EKG suggesting idioventricular rhythm Physical Exam Physical Exam: General: Sedated, lethargic at rest but becomes alert when addressed by name; intubated, normocephalic and atraumatic, lying in bed and in no acute distress. HEENT: b/l pupils constricted, pupils equal but unable to gauge reactivity to light. EOM intact, mucous membranes and oropharynx dry. Neck: No JVD, R IJ line in place, no signs of inflammation. CV: bradycardic regular rhythm at this time, otherwise regular rhythm. +s1/s2, No murmurs, rubs or gallops heard on auscultation. Respiratory: coarse breath sounds with wheezes, left significantly greater than right. On the ventilator GI/Abdomen: normal bowel sounds, abdomen soft. 1x1cm indentation in epigastric region where PEG was previously located. Abdomen nondistended, nontender to palpation, no ecchymosis seen. Extremities:No edema appreciated. 2+ radial pulses b/l, 2+ posterior tibial pulses b/l. No cyanosis or clubbing seen. Dermatologic: normal skin turgor, normal color, no abnormal lymph nodes, no rashes. Neurologic: no facial droop seen, unable to asses speech as pt is intubated, mild resting tremor seen in RUE, can move b/l hands and feet Results & Data Results & Data Vital Signs (Past 12 Hours) Vital Signs Temp Pulse Resp BP Pulse Ox Pulse Ox O2 Del Method 04/02/24 06:48 36.7 C 44 L 14 98 04/02/24 06:30 36.6 C 44 L 14 98 04/02/24 06:00 118/68 04/02/24 06:00 11804/02/24 06:00 11804/02/24 06:00 36.6 C 44 L 14 98 04/02/24 05:51 36.6 C 44 L 14 98 04/02/24 05:41 98 04/02/24 05:39 36.0 C L 66 18 90 04/02/24 05:15 36.4 C L 45 L 14 98 04/02/24 05:00 144/75 H 04/02/24 05:00 36.4 C L 45 L 14 99 04/02/24 04:45 36.4 C L 45 L 14 98 04/02/24 04:36 36.3 C L 45 L 14 97 04/02/24 04:18 36.4 C L 44 L 14 97 04/02/24 04:03 36.4 C L 46 L 14 97 04/02/24 04:00 120/66 04/02/24 04:00 120/66 04/02/24 04:00 04/02/24 04:00 48 L 114/51 L 04/02/24 03:57 36.4 C L 45 L 14 97 04/02/24 03:45 36.4 C L 45 L 14 98 04/02/24 03:39 36.4 C L 44 L 14 98 04/02/24 03:21 36.1 C L 44 L 15 98 04/02/24 03:08 45 L 15 98 04/02/24 03:00 36.4 C L 46 L 14 97 04/02/24 02:48 36.4 C L 45 L 13 98 04/02/24 02:39 36.3 C L 45 L 14 99 04/02/24 02:18 36.4 C L 44 L 14 98 04/02/24 02:03 36.5 C 43 L 14 98 04/02/24 02:00 142/74 H 04/02/24 02:00 142/74 H 04/02/24 01:48 36.5 C 45 L 14 97 04/02/24 01:36 36.4 C L 43 L 14 98 04/02/24 01:27 36.1 C L 40 L 14 98 04/02/24 01:09 36.6 C 46 L 17 99 04/02/24 01:05 98 04/02/24 01:00 143/75 H 04/02/24 01:00 143/75 H 04/02/24 00:21 36.5 C 43 L 15 99 04/02/24 00:18 36.4 C L 40 L 15 99 04/02/24 00:03 36.6 C 43 L 14 99 04/02/24 00:00 141/69 H 04/02/24 00:00 141/69 H 04/02/24 00:00 04/02/24 00:00 44 L 138/53 L 04/02/24 00:00 44 L 04/01/24 23:39 36.6 C 44 L 14 100 04/01/24 23:36 36.6 C 44 L 15 100 04/01/24 23:30 43 L 15 99 04/01/24 23:03 36.7 C 44 L 14 98 04/01/24 23:00 124/68 04/01/24 23:00 124/68 04/01/24 23:00 124/68 04/01/24 22:51 36.8 C 44 L 14 98 04/01/24 22:30 36.8 C 45 L 14 99 04/01/24 22:21 36.8 C 45 L 14 99 04/01/24 22:20 Mechanical Vent 04/01/24 22:00 125/68 04/01/24 21:54 36.9 C 44 L 14 100 04/01/24 21:39 36.9 C 44 L 14 99 04/01/24 21:15 36.9 C 44 L 14 99 04/01/24 21:00 119/67 04/01/24 20:51 36.8 C 45 L 14 98 04/01/24 20:45 36.8 C 44 L 14 98 04/01/24 20:39 45 L 15 96 04/01/24 20:33 36.3 C L 74 21 90 04/01/24 20:18 35.9 C L 46 L 12 98 04/01/24 20:06 36.7 C 73 32 H 98 04/01/24 20:00 122/65 04/01/24 20:00 122/65 04/01/24 20:00 04/01/24 20:00 45 L 121/74 04/01/24 19:48 37.0 C 45 L 14 97 04/01/24 19:15 37.1 C 45 L 14 97 04/01/24 19:03 37.2 C 45 L 14 97 04/01/24 19:00 122/64 04/01/24 19:00 122/64 O2 Del Method FiO2 04/02/24 06:48 04/02/24 06:30 04/02/24 06:00 04/02/24 06:00 04/02/24 06:00 04/02/24 06:00 04/02/24 05:51 04/02/24 05:41 Mechanical Vent 04/02/24 05:39 04/02/24 05:15 04/02/24 05:00 04/02/24 05:00 04/02/24 04:45 04/02/24 04:36 04/02/24 04:18 04/02/24 04:03 04/02/24 04:00 04/02/24 04:00 04/02/24 04:00 50 04/02/24 04:00 04/02/24 03:57 04/02/24 03:45 04/02/24 03:39 04/02/24 03:21 04/02/24 03:08 50 04/02/24 03:00 04/02/24 02:48 04/02/24 02:39 04/02/24 02:18 04/02/24 02:03 04/02/24 02:00 04/02/24 02:00 04/02/24 01:48 04/02/24 01:36 04/02/24 01:27 04/02/24 01:09 04/02/24 01:05 Mechanical Vent 04/02/24 01:00 04/02/24 01:00 04/02/24 00:21 04/02/24 00:18 04/02/24 00:03 04/02/24 00:00 04/02/24 00:00 04/02/24 00:00 60 04/02/24 00:00 04/02/24 00:00 04/01/24 23:39 04/01/24 23:36 04/01/24 23:30 50 04/01/24 23:03 04/01/24 23:00 04/01/24 23:00 04/01/24 23:00 04/01/24 22:51 04/01/24 22:30 04/01/24 22:21 04/01/24 22:20 60 04/01/24 22:00 04/01/24 21:54 04/01/24 21:39 04/01/24 21:15 04/01/24 21:00 04/01/24 20:51 04/01/24 20:45 04/01/24 20:39 60 04/01/24 20:33 04/01/24 20:18 04/01/24 20:06 04/01/24 20:00 04/01/24 20:00 04/01/24 20:00 60 04/01/24 20:00 04/01/24 19:48 04/01/24 19:15 04/01/24 19:03 04/01/24 19:00 04/01/24 19:00 Resident Activity Tracking Resident Involvement: Resident Care Provided Care Provided: Adult Hospital Medicine (2) Respiratory failure Chronicity: acute Respiratory failure complication: hypoxia Qualified Code(s): J96.01 - Acute respiratory failure with hypoxia
[2024-04-02] MEDS: HYDROCORTISONE SOD 100 MG in SYRINGE 0 ML IV STA (08:18)
[2024-04-02] MEDS: POTASSIUM CHLORIDE / WTR 20 MEQ/100 ML PLCT IV SCH (08:18)
[2024-04-02] MEDS: VANCOMYCIN HCL 1,000 MG/270 ML BAG IV SCH (08:18)
[2024-04-02] MEDS ORDERED: STAT IV Infusion **Titration per Protocol STA (09:31)
[2024-04-02] MEDS: fentaNYL citrate 2,500 MCG/250 ML BAG IV SCH (09:36)
--- NOTE | 2024-04-02 10:03 | Billing Data ---
Date of Service April 02, 2024 Coding Level of Care Code 54911 CRITICAL CARE 1ST 30-74M Time Spent (min) 50
--- NOTE | 2024-04-02 10:28 | XRay Report ---
XR chest 1V portable CLINICAL HISTORY: intubation COMPARISON STUDY: 04/01/2024 FINDINGS: Endotracheal tube tip is stable between the thoracic inlet and the isaiah. Nasogastric tube tip is off the field of view inferiorly. Stable mild cardiomegaly without pulmonary vascular congest ion. Stable opacity at the left base with obscuration of the left hemidiaphragm. No pneumothorax. IMPRESSION: Stable exam. ACT 112: Negative or not required by law. Electronically signed by: Diogo Lacy M.D. 04/02/2024 10:26 AM
[2024-04-02] MEDS: INSULIN ASPART PER UNIT CHARGE SC SCH (11:42)
[2024-04-02] MEDS: ATROPINE SULFATE 0.1 MG/ML 10ML SYR IV ONE (11:45)
--- NOTE | 2024-04-02 13:21 | Hospitalist Progress Note ---
Date of Service April 02, 2024 Assessment & Plan (1) Septic shock: (2) Acute respiratory failure with hypoxia: (3) Pneumonia involving left lung: (4) Acute kidney injury: (5) Rhinovirus infection: (6) Admitted to intensive care unit: (7) Required emergency intubation: Plan The patient is a 73-year-old male with a past medical history including paroxysmal atrial fibrillation, tachybradycardia syndrome, COPD, KURT, hypertension, chronic respiratory failure with hypoxia, convulsions, dementia, diabetes mellitus, osteoarthritis, hyperlipidemia, anemia, on chronic anticoagulation with Eliquis. The patient had been found unresponsive and hypoxic at [facility], EMS was called emergently, the patient required intubation in the field, and mechanical ventilation. #Acute respiratory failure with hypoxia/pneumonia involving left lung/required emergency intubation in the field- Admitted to intensive care unit Millinery Worker involved for ventilator management Positive for enterovirus/rhinovirus On vancomycin and Zosyn Duonebs every 2 hours when necessary. Not on propofol for sedation Managed with IV fentanyl pushes #Septic shock- Continue Levophed IV infusion per protocol On hydrocortisone #Atrial fibrillation/chronic anticoagulation with Eliquis- Holding Eliquis Placed on heparin drip standard dosing without bolus per protocol #Demand ischemia Troponin elevated due to combination of hypotension, hypoxia, pneumonia, sepsis Echocardiogram reviewed #Acute kidney injury- Initial creatinine 1.57, with base 0.62 Improved to 0.8 today Was hydrated #Seizure disorder-on oral divalproex 250 p.o. 3 times daily. Currently on IV Depacon #UTI Banken Zosyn will cover Urine culture pending, blood culture pending Per nurse, public health specialist spoke to family. wishes full code Admission and Anticipated Discharge Date Admission Date: April 01, 2024 Results & Data Results & Data Vital Signs (Past 12 Hours) Vital Signs Temp Pulse Resp BP Pulse Ox Pulse Ox O2 Del Method 04/02/24 12:12 36.8 C 47 L 14 95 04/02/24 11:45 36.8 C 49 L 14 95 04/02/24 11:01 72/44 L 04/02/24 10:51 36.8 C 50 L 14 94 04/02/24 10:46 51 L 20 95 04/02/24 10:12 36.8 C 52 L 14 96 04/02/24 10:01 151/87 H 04/02/24 09:57 36.8 C 42 L 14 96 04/02/24 09:03 36.8 C 47 L 14 95 04/02/24 09:00 129/71 04/02/24 08:54 36.8 C 47 L 14 95 04/02/24 08:33 36.7 C 46 L 14 94 04/02/24 08:27 36.7 C 45 L 14 94 04/02/24 08:19 45 L 14 96 04/02/24 08:12 36.7 C 49 L 20 95 04/02/24 08:00 115/66 04/02/24 08:00 45 L 04/02/24 07:57 36.7 C 45 L 14 95 04/02/24 07:48 36.4 C L 62 23 98 04/02/24 07:18 36.6 C 45 L 14 98 04/02/24 07:09 36.7 C 46 L 14 98 04/02/24 06:48 36.7 C 44 L 14 98 04/02/24 06:30 36.6 C 44 L 14 98 04/02/24 06:00 118/68 04/02/24 06:00 118/68 04/02/24 06:00 118/68 04/02/24 06:00 36.6 C 44 L 14 98 04/02/24 05:51 36.6 C 44 L 14 98 04/02/24 05:41 98 Mechanical Vent 04/02/24 05:39 36.0 C L 66 18 90 04/02/24 05:15 36.4 C L 45 L 14 98 04/02/24 05:00 144/75 H 04/02/24 05:00 36.4 C L 45 L 14 99 04/02/24 04:45 36.4 C L 45 L 14 98 04/02/24 04:36 36.3 C L 45 L 14 97 04/02/24 04:18 36.4 C L 44 L 14 97 04/02/24 04:03 36.4 C L 46 L 14 97 04/02/24 04:00 120/66 04/02/24 04:00 120/66 04/02/24 04:00 04/02/24 04:00 48 L 114/51 L 04/02/24 03:57 36.4 C L 45 L 14 97 04/02/24 03:45 36.4 C L 45 L 14 98 04/02/24 03:39 36.4 C L 44 L 14 98 04/02/24 03:21 36.1 C L 44 L 15 98 04/02/24 03:08 45 L 15 98 04/02/24 03:00 36.4 C L 46 L 14 97 04/02/24 02:48 36.4 C L 45 L 13 98 04/02/24 02:39 36.3 C L 45 L 14 99 04/02/24 02:18 36.4 C L 44 L 14 98 04/02/24 02:03 36.5 C 43 L 14 98 04/02/24 02:00 142/74 H 04/02/24 02:00 142/74 H 04/02/24 01:48 36.5 C 45 L 14 97 04/02/24 01:36 36.4 C L 43 L 14 98 04/02/24 01:27 36.1 C L 40 L 14 98 FiO2 04/02/24 12:12 40 04/02/24 11:45 04/02/24 11:01 04/02/24 10:51 04/02/24 10:46 40 04/02/24 10:12 04/02/24 10:01 04/02/24 09:57 04/02/24 09:03 04/02/24 09:00 04/02/24 08:54 04/02/24 08:33 50 04/02/24 08:27 04/02/24 08:19 40 04/02/24 08:12 04/02/24 08:00 04/02/24 08:00 04/02/24 07:57 04/02/24 07:48 04/02/24 07:18 04/02/24 07:09 04/02/24 06:48 04/02/24 06:30 04/02/24 06:00 04/02/24 06:00 04/02/24 06:00 04/02/24 06:00 04/02/24 05:51 04/02/24 05:41 04/02/24 05:39 04/02/24 05:15 04/02/24 05:00 04/02/24 05:00 04/02/24 04:45 04/02/24 04:36 04/02/24 04:18 04/02/24 04:03 04/02/24 04:00 04/02/24 04:00 04/02/24 04:00 50 04/02/24 04:00 04/02/24 03:57 04/02/24 03:45 04/02/24 03:39 04/02/24 03:21 04/02/24 03:08 50 04/02/24 03:00 04/02/24 02:48 04/02/24 02:39 04/02/24 02:18 04/02/24 02:03 04/02/24 02:00 04/02/24 02:00 04/02/24 01:48 04/02/24 01:36 04/02/24 01:27 PG Care Time/CCT Total # of Minutes Spent Total Time Spent with Patient: Total time spent is greater than 50% in coordination of care (as documented) at patient's floor/unit and/or counseling patient: Coding Level of Care Code 90702 SUB INP/OBS CARE 2/35MIN Diagnoses Septic shock A41.9; R65.21 Acute respiratory failure with hypoxia J96.01 Pneumonia involving left lung J18.9 Acute kidney injury N17.9 Rhinovirus infection B34.8 Admitted to intensive care unit Z78.9 Required emergency intubation Z98.890
--- NOTE | 2024-04-02 13:24 | Pharmacy Report ---
Pharmacy PK ABX Note - Date of Service April 02, 2024 - Assessment and Plan Assessment 04/02 Continuing zosyn/vancomycin today. Requiring pressors, hydrocoritsone. WBC trending upward but remains afebrile. Renal function has improved today (SCr 0.82). Will empirically adjust dose to maintain predicted target AUC/RITIKA between 400-600 mg/L.hr 04/01 73 year old M with PMH including COPD, KURT, HTN, Dementia, DM, Afib receiving vancomycin/zosyn for treatment of sepsis w/ presumed pulmonary source. Patient intubated in the field. Blood, urine, sputum cultures pending. SCr acutely elevated 1.57 (baseline ~0.6). + entero/rhinovirus on biofire. MRSA nasal swab negative. Continuing antibiotics for now. Plan Vancomycin * Loading dose: 1500 mg IV x 1 * Maintenance dose: 1250 mg IV every 24 hours * Adjust to 1000 mg q12H * Regimen is predicted to achieve target AUC/RITIKA of 400-600 mg/L.hr * Random level with AM labs 04/03 Pharmacy will continue to follow and will adjust dose/frequency as necessary. Thank you. Pharmacy has transitioned to AUC monitoring for vancomycin. AUC/RITIKA is the preferred PK/PD target and is associated with decreased risk of nephrotoxicity compared to traditional trough targets.
--- NOTE | 2024-04-02 14:08 | Electrocardiogram Report ---
Test Reason : Blood Pressure : */* mmHG Vent. Rate : 39 BPM Atrial Rate : * BPM P-R Int : * ms QRS Dur : 126 ms QT Int : 468 ms P-R-T Axes : * 10 -66 degrees QTcB Int : 376 ms Junctional rhythm Right bundle branch block T wave abnormality, consider inferolateral ischemia Abnormal ECG When compared with ECG of 02-Apr-2024 07:15, (unconfirmed) Junctional rhythm has replaced Sinus rhythm Confirmed by Milton Song ([id number]) on 04/02/2024 2:08:03 PM Referred By: Jae Mars Confirmed By: Milton Song
[2024-04-02] MEDS: PEPTAMEN INTENSE VHP 1.0 CAL 1,000 ML BAG OG SCH (14:56)
[2024-04-02] MEDS: TUBE FEEDING WATER FLUSH OG SCH (14:57)
[2024-04-02] MEDS: fentaNYL BOLUS from BAG IV PRN (16:00)
[2024-04-02] MEDS: MIDAZOLAM HCL 1 MG/ML 2ML VIAL IV PRN (18:03)
[2024-04-03 04:51] LABS: Basophils # (auto) 0.01 K/uL (0.00-0.20); Basophils % (auto) 0.1 %; Hematocrit (blood only) 33.3 % (42.0-52.0); Hemoglobin 11.5 g/dl (14.0-18.0); Immature Granulocytes # (auto) 0.15 K/uL (0.01-0.20); Immature Granulocytes % (auto) 0.9 %; Lymphocytes # (auto) 1.24 K/uL (1.20-3.40); Lymphocytes % (auto) 7.6 %; Mean Corpuscular Hemoglobin 31.4 pg (25.0-34.0); Mean Corpuscular Hgb Conc 34.5 g/dL (32.0-36.0); Mean Platelet Volume 10.3 fL (9.4-12.4); Monocytes # (auto) 1.15 K/uL (0.11-0.59); Neutrophils # (auto) 13.87 K/uL (1.40-6.50); Neutrophils % (auto) 84.4 %; Platelet Count 141 K/uL (130-400); RDW Coefficient of Variation 12.9 % (11.5-14.5); RDW Standard Deviation 43.2 fL (36.4-46.3); Red Blood Count 3.66 M/uL (4.70-6.10); White Blood Count 16.42 K/ul (4.8-10.8)
[2024-04-03 05:08] LABS: Albumin Level 2.8 gm/dl (3.4-5.0); BUN Creatinine Ratio 32.3 (10-20); Bilirubin,Total 0.5 mg/dl (0.2-1.0); Creatinine Clr Calc Pharmacy 109.4 ml/min; Globulin 2.7 gm/dl (2.5-4.0); Potassium 3.3 mmol/L (3.5-5.1); Total Protein 5.5 gm/dl (6.0-8.3)
[2024-04-03 05:16] LABS: ANTI-Xa, UFH(UnfractionatedHep 0.24 IU/ml (0.3-0.7); INR 1.1 (0.9-1.1); Partial Thromboplastin Ratio 1.5; Partial Thromboplastin Time 41 Seconds (21-31); Prothrombin Time 11.7 Seconds (9.0-12.0)
[2024-04-03] MEDS: VANCOMYCIN LEVEL ONE (06:15)
[2024-04-03] MEDS: POTASSIUM CHLORIDE / WTR 20 MEQ/100 ML PLCT IV SCH (06:16)
[2024-04-03] MEDS: POTASSIUM CHLORIDE 20 MEQ/15 ML UDC PO STA (06:24)
--- NOTE | 2024-04-03 07:19 | Critical Care Progress Note ---
Date of Service April 03, 2024 Assessment & Plan (1) Septic shock: (2) Respiratory failure: (3) Atrial fibrillation with rapid ventricular response: (4) Asymptomatic bradycardia: Plan Reason Critically Ill: 74 YOM resident of [facility] found unresponsive and hypoxic requiring intubation in the field, now on vasopressors and being mechanically ventilated Neuro - Sedation for mechanical ventilation, hx of dementia and convulsions CAM ICU: LENA - Sedation goal MARYSOL -1 - Fentanyl infusion with bolus, if more sedation required for synchrony will add propofol - Reportedly baseline function is good and he is independent at the facility - Head CT negative for acute bleed or LVO - Medical history with reports of "convulsions" however with what information is currently viewable, there is no mention of type or other seizure disorder- on valproate IV while intubated - Hold seroquel, Buspar, Trazadone while intubated and sedated Cardiac - Shock unspecified, afib, on chronic anticoagulation; 04/02/24 12pm EKG showing junctional rhythm per portfolio director interpretation when BP was in upper 30s-40s; appears to have improved -> currently mainly in 50s-60s. - Hypotension and bradycardia have improved - Echocardiogram 04/01/24 AM: LV systolic function normal, RV moderately dilated, RV systolic function mildly reduced, LA mildly dilated; RV systolic pressure elevated at 30-40mmHg, IVC mildly dilated - CTA of chest negative for PE/obstructive shock - Bedside POCUS negative for pericardial effusion - Levophed to maintain MAPS > 65 - high-sensitivity troponin downtrending as of 04/02/24 - 108.4 -> 64.8 - consider restarting metoprolol for afib as JASON has resolved - Heparin in lieu of Eliquis Respiratory - Hypoxic respiratory failure requiring emergent intubation and mechanical ventilation, COPD, KURT - Respiratory failure requiring intubation- at this time likely secondary to viral infection and possible mucous plugging vs. aspiration vs. viral and bacterial pneumonia or combination of these. - Medical Records release form submitted to obtain all relevant medical records from [facility] between June and August 2022, where Kian underwent tracheostomy in order to liberate from ET intubation, verbal consent from pt's obtained - L lung opacities improved from today's cxr 04/03/24; sputum yellow mondragon, WBC elevation, elevated PCT- can't exclude bacterial pneumonia - CTA negative for PE - Respiratory viral panel + for Enter/Rhinovirus - Continue supportive care - Nebulizers scheduled- MAE and ICS GI - OGT to LIWS - can start tube feeds RENAL/LYTES - Respiratory acidosis, JASON - both have improved - Maintain MAPS >65 - continue following urine output and volume assessments - ICU electrolyte protocol - 2+ bacteria, trace leuk, 11-20 RBCs, trace blood - Urine cx pending, presently negative - Andrade while intubated and sedated ENDO - DMII - ICU hyperglycemic protocol - starting hydrocortisone IV for suspected adrenal insufficiency HEME - On chronic anticoagulation - Hold Eliquis - Heparin infusion ID - Sepsis likely pulmonary source - VLAD opacity, increased oxygen need, sputum yellow mondragon, WBC elevation, elevated PCT- can't exclude bacterial pneumonia in conjunction with Enter/Rhino - Zosyn, Vancomycin empirically, MRSA nares swab negative 04/01/24 - Sputum sample pending, moderate normal glenda from 04/01/24 - blood culture pending, preliminary neg - urine culture pending, preliminary neg LINES/IV ACCESS - PIV, ETT, OGT, CVL, A-line - Continue use of these lines DVT PROPHYLAXIS - SCDS, Heparin infusion DISPO: ICU while intubated and sedated as well as requiring vasopressors Admission and Anticipated Discharge Date Admission Date: April 01, 2024 Supervising Physician Co-Signing Physician Notes Dr. Huerta was resident physician during care of patient. I separately evaluated patient for baxter portions of the history and the exam. I was present during the critical portion of medical decision making, and I discussed the case with the resident. I generally agree with the findings and plan. Patient requiring sedation to assist with mechanical ventilation, doubtful we will be able to obtain safe extubation parameters as the patient has significant dementia at baseline necessitating placement in personal care facility. Patient's blood pressure is labile with sedation, during periods of agitation is extremely elevated and then essentially with minimal sedation he requires vasoactive's to maintain adequate perfusion pressure. We have attempted to order prior records from [facility] July 2022 when a similar episode occurred. I believe in order to safely facilitate liberation from the ventilator patient would be best managed with tracheostomy tube provide patent airway and ability to clear secretions. Patient had previous PEG tube, if he undergoes a tracheostomy I feel like PEG tube placement would also be appropriate. de sires full aggressive and heroic measures to be undertaken. Risk of requiring reintubation following simple extubation would be considerably high. Update: Had extensive discussion with the patient's regarding risk benefits of tracheostomy versus extubation and watchful waiting versus terminal extubation. Specifically asked what is a guiding principle the patient being alive for the patient having quality of life to which she replied the patient being alive. In discussing possibilities of extubation watchful waiting and possible need for reintubation, I feel the safest approach is to proceed with tracheostomy as patient had previously undergone. Patient has significant dementia, becomes combative not able to adequately wean sedation and evaluate mental status. Patient on minimal vent settings however I am unclear if he has the neurocognitive capabilities of maintaining a patent airway and airways to clear clearance. Therefore given the under arcing goal of longevity over q uality (we discussed possible needs of PEG tube placement and relearning to talk and feeds self) we will proceed with a tracheostomy. That way the patient will have a definitive airway to facilitate secretion clearance if he is unable to clear his airways. Subjective Patient was seen and evaluated at bedside this AM, mechanically intubated with F iO2 30%, not currently appearing in acute distress. Becomes alert when addressed by name, appears to want to talk but unable to do so. Was not as able to follow simple commands today, such as wiggling his fingers and toes, but appears to move extremities slightly. Heart rate seems to be have improved since day prior, today mainly in 50s-60s. Physical Exam Physical Exam: General: Sedated, lethargic at rest but becomes alert when addressed by name; intubated and with OG tube, normocephalic and atraumatic, lying in bed and in no acute distress. HEENT: b/l pupils constricted, pupils equal and slightly reactive to light. EOM intact, mucous membranes and oropharynx dry. Neck: RIJ line in place, no signs of inflammation. CV: bradycardic-regular rate and regular rhythm at this time. +s1/s2, No murmurs, rubs or gallops heard on auscultation. - 2+ carotid pulses b/l, 2+ radial pulse s b/l Respiratory: mildly coarse breath sounds throughout, no wheezes heard on auscultation. On ventilator, FiO2 30% GI/Abdomen: normal bowel sounds, abdomen soft. 1x1cm indentation in epigastric region where PEG was previously located. Abdomen nondistended, nontender to palpation, no ecchymosis seen. Extremities: No edema appreciated. 2+ radial pulses b/l, 2+ posterior tibial pulses b/l. No cyanosis or clubbing seen. Dermatologic: normal skin turgor, normal color, no abnormal lymph nodes, no rashes. Neurologic: no facial droop seen, unable to asses speech as pt is intubated, mild resting tremor seen in RUE Results & Data Results & Data Vital Signs (Past 12 Hours) Vital Signs Temp Pulse Resp BP Pulse Ox Pulse Ox O2 Del Method 04/03/24 05:00 92 04/03/24 04:01 108/69 04/03/24 04:00 37.4 C 87 30 H 91 04/03/24 03:50 48 L 19 93 04/03/24 03:48 37.3 C 74 15 93 04/03/24 03:42 04/03/24 03:42 61 167/74 H 04/03/24 03:36 37.2 C 68 15 94 04/03/24 03:01 104/77 04/03/24 03:01 104/77 04/03/24 03:01 104/77 04/03/24 02:51 37.3 C 67 22 94 04/03/24 02:39 37.3 C 58 L 14 93 04/03/24 02:15 37.3 C 82 21 92 04/03/24 02:03 37.3 C 63 14 93 04/03/24 02:00 129/74 04/03/24 02:00 129/74 04/03/24 02:00 129/74 04/03/24 01:51 37.2 C 67 15 94 04/03/24 01:36 37.2 C 65 14 91 04/03/24 01:00 108/73 04/03/24 01:00 108/73 04/03/24 00:57 37.3 C 68 16 91 04/03/24 00:48 37.2 C 62 12 93 04/03/24 00:48 92 04/03/24 00:44 65 15 92 04/03/24 00:36 37.3 C 68 14 92 04/03/24 00:18 37.2 C 64 14 92 04/03/24 00:01 127/83 04/03/24 00:00 04/03/24 00:00 69 173/75 H 04/03/24 00:00 69 04/02/24 23:48 37.2 C 73 18 91 04/02/24 23:33 37.3 C 70 15 91 04/02/24 23:24 37.2 C 92 H 29 H 89 L 04/02/24 23:09 37.2 C 89 29 H 88 L 04/02/24 23:01 160/88 H 04/02/24 22:30 37.1 C 44 L 14 93 04/02/24 22:27 37.2 C 42 L 14 94 04/02/24 22:02 127/84 04/02/24 22:00 37.1 C 48 L 14 94 04/02/24 21:45 37.0 C 54 L 14 98 04/02/24 21:30 36.9 C 42 L 14 95 04/02/24 21:27 36.8 C 40 L 16 95 04/02/24 21:01 121/69 04/02/24 21:00 36.9 C 40 L 16 95 04/02/24 20:33 36.9 C 42 L 14 95 04/02/24 20:18 36.9 C 40 L 14 96 04/02/24 20:00 148/77 H 04/02/24 20:00 148/77 H 04/02/24 20:00 04/02/24 20:00 74 150/65 H 04/02/24 20:00 Mechanical Vent 04/02/24 20:00 36.9 C 42 L 14 95 04/02/24 19:59 42 L 14 96 04/02/24 19:45 36.8 C 43 L 14 95 04/02/24 19:33 36.9 C 40 L 14 96 04/02/24 19:27 36.9 C 41 L 14 95 O2 Del Method FiO2 04/03/24 05:00 Mechanical Vent 04/03/24 04:01 04/03/24 04:00 04/03/24 03:50 30 04/03/24 03:48 04/03/24 03:42 30 04/03/24 03:42 04/03/24 03:36 04/03/24 03:01 04/03/24 03:01 04/03/24 03:01 04/03/24 02:51 04/03/24 02:39 04/03/24 02:15 04/03/24 02:03 04/03/24 02:00 04/03/24 02:00 04/03/24 02:00 04/03/24 01:51 04/03/24 01:36 04/03/24 01:00 04/03/24 01:00 04/03/24 00:57 04/03/24 00:48 04/03/24 00:48 Mechanical Vent 04/03/24 00:44 30 04/03/24 00:36 04/03/24 00:18 04/03/24 00:01 04/03/24 00:00 30 04/03/24 00:00 04/03/24 00:00 04/02/24 23:48 04/02/24 23:33 04/02/24 23:24 04/02/24 23:09 04/02/24 23:01 04/02/24 22:30 04/02/24 22:27 04/02/24 22:02 04/02/24 22:00 04/02/24 21:45 04/02/24 21:30 04/02/24 21:27 04/02/24 21:01 04/02/24 21:00 04/02/24 20:33 04/02/24 20:18 04/02/24 20:00 04/02/24 20:00 04/02/24 20:00 30 04/02/24 20:00 04/02/24 20:00 30 04/02/24 20:00 04/02/24 19:59 30 04/02/24 19:45 04/02/24 19:33 04/02/24 19:27 Critical Care Time Critical Care Time: Yes I have personally spent 55 minutes of critical care time in the direct management of this patient. This is a life/limb threatening event. This includes time spent evaluating patient, direct bedside care, chart review, placing orders, interpretation of diagnostic studies, discussion with consultants, patient, and/or family members regarding treatment decisions, as well as other required patient management activities. This time is exclusive of all separately billable procedures, and teaching time and separate from and in addition to any other critical care service time. Resident Activity Tracking Resident Involvement: Resident Care Provided Care Provided: Adult [facility] Medicine (2) Respiratory failure Chronicity: acute Respiratory failure complication: hypoxia Qualified Code (s): J96.01 - Acute respiratory failure with hypoxia
[2024-04-03] MEDS: VANCOMYCIN HCL 1,250 MG in SODIUM CHLORIDE 0.9% 250 ML IV SCH (07:50)
[2024-04-03] MEDS: ALBUT/IPRATROP 3MG/0.5MG NEB 3 ML VIAL NEB PRN (07:56)
[2024-04-03] MEDS: MULTI VIT W/MINERALS LIQUID 15 ML UDC NG SCH (08:39)
--- NOTE | 2024-04-03 08:56 | XRay Report ---
EXAM: XR chest 1V portable CLINICAL HISTORY: INTUBATION TECHNIQUE: An X-ray image of the chest is obtained in 1 AP projection. COMPARISON: 04/01/2024 CR. FINDINGS: Right-sided central venous catheter with its distal tip in the right atrium. The endotracheal tube is seen with its distal tip 2.4 cm above the isaiah. The nasogastric tube is seen with its distal tip below the left hemidiaphragm. Pulmonary Parenchyma: Mild interval improvement of the left lung lower zone opacity/effusion. No right-sided pleural effusion. Heart and Mediastinum: Stable borderline cardiomegaly. No mediastinal widening or masses. Bony Thorax: The bony thorax appears intact without fractures or deformities. Soft Tissues: Soft tissues overlying the chest wall are unremarkable. IMPRESSION: 1. Mild interval improvement of the left lung lower zone opacity/effusion. 2. The endotracheal tube is seen with its distal tip 2.4 cm above the isaiah. 3. Right-sided central venous catheter with its distal tip in the right atrium. 4. The nasogastric tube is seen with its distal tip below the left hemidiaphragm. 5. No other significant interval changes. Electronically signed by Melvin Farris 04-03-2024 08:55 AM
--- NOTE | 2024-04-03 12:13 | Hospitalist Progress Note ---
Date of Service April 03, 2024 Assessment & Plan (1) Septic shock: (2) Acute respiratory failure with hypoxia: (3) Pneumonia involving left lung: (4) Acute kidney injury: (5) Rhinovirus infection: (6) Admitted to intensive care unit: (7) Required emergency intubation: Plan The patient is a 73-year-old male with a past medical history including paroxysmal atrial fibrillation, tachybradycardia syndrome, COPD, KURT, hypertension, chronic respiratory failure with hypoxia, convulsions, dementia, diabetes mellitus, osteoarthritis, hyperlipidemia, anemia, on chronic anticoagulation with Eliquis. The patient had been found unresponsive and hypoxic at [facility], EMS was called emergently, the patient required intubation in the field, and mechanical ventilation. #Acute respiratory failure with hypoxia/pneumonia involving left lung/required emergency intubation in the field- Admitted to intensive care unit Switch Engineer involved for ventilator management Positive for enterovirus/rhinovirus On Zosyn. MRSA negative. Vancomycin discontinued Duonebs every 2 hours when necessary. On propofol for sedation, also on fentanyl Family wanting to continue aggressive treatments. Likely will need to be trached in near future #Septic shock- Continue Levophed IV infusion per protocol On hydrocortisone #Leukocytosis Likely steroid-induced, on hydrocortisone Cultures negative #Atrial fibrillation/chronic anticoagulation with Eliquis- Holding Eliquis Placed on heparin drip standard dosing without bolus per protocol #Demand ischemia Troponin elevated due to combination of hypotension, hypoxia, pneumonia, sepsis Echocardiogram reviewed #Acute kidney injury- Initial creatinine 1.57, with base 0.62 Improved to normal Was hydrated #Seizure disorder-on oral divalproex 250 p.o. 3 times daily. Currently on IV Depacon #UTI Zosyn will cover Urine culture negative Per nurse, pastrycook's assistant spoke to family. wishes full code and to continue "everything". Most likely he is heading towards having a tracheostomy done in near future Admission and Anticipated Discharge Date Admission Date: April 01, 2024 Subjective Patient was seen and examined at 11:30 PM. Discussed with nurse at the bedside. He is still intubated. Review of Systems Review of Systems: Unobtainable due to endotracheal tube Physical Exam Physical Exam: General: Intubated Heart: S1, S2/regular rate and rhythm, no murmur rubs or gallops Lungs: Diminished breath sounds bilaterally. Normal effort Abdomen: Soft/nontender/nondistended. No hepatosplenomegaly Extremities: No clubbing/cyanosis. No edema Behavior: Unable to assess Results & Data Results & Data Vital Signs (Past 12 Hours) Vital Signs Temp Pulse Resp BP Pulse Ox Pulse Ox O2 Del Method 04/03/24 10:15 58 L 14 92 04/03/24 09:30 36.9 C 60 14 92 04/03/24 09:30 107/66 04/03/24 09:30 107/66 04/03/24 09:16 108/66 04/03/24 09:15 36.9 C 55 L 15 95 04/03/24 09:09 37.0 C 60 14 93 04/03/24 09:00 107/70 04/03/24 08:54 37.0 C 66 14 92 04/03/24 08:48 37.1 C 65 14 93 04/03/24 08:45 102/70 04/03/24 08:45 102/70 04/03/24 08:42 37.1 C 60 14 93 04/03/24 08:30 86/62 L 04/03/24 08:00 92/64 L 04/03/24 08:00 58 L 15 92 04/03/24 08:00 92 04/03/24 08:00 04/03/24 08:00 87 04/03/24 08:00 Mechanical Vent 04/03/24 07:54 37.2 C 62 14 93 04/03/24 07:48 37.3 C 56 L 14 95 04/03/24 07:45 124/77 04/03/24 07:45 124/77 04/03/24 07:36 37.3 C 71 14 89 L 04/03/24 07:34 66/42 L 04/03/24 07:34 66/42 L 04/03/24 07:34 66/42 L 04/03/24 07:33 37.2 C 65 14 89 L 04/03/24 07:30 37.2 C 68 17 91 04/03/24 07:15 37.2 C 65 14 91 04/03/24 07:00 103/70 04/03/24 07:00 103/70 04/03/24 07:00 37.1 C 69 17 91 04/03/24 06:45 37.1 C 58 L 14 92 04/03/24 05:00 92 04/03/24 04:01 108/69 04/03/24 04:00 37.4 C 87 30 H 91 04/03/24 03:50 48 L 19 93 04/03/24 03:48 37.3 C 74 15 93 04/03/24 03:42 04/03/24 03:42 61 167/74 H 04/03/24 03:36 37.2 C 68 15 94 04/03/24 03:01 104/77 04/03/24 03:01 104/77 04/03/24 03:01 104/77 04/03/24 02:51 37.3 C 67 22 94 04/03/24 02:39 37.3 C 58 L 14 93 04/03/24 02:15 37.3 C 82 21 92 04/03/24 02:03 37.3 C 63 14 93 04/03/24 02:00 129/74 04/03/24 02:00 129/74 04/03/24 02:00 129/74 04/03/24 01:51 37.2 C 67 15 94 04/03/24 01:36 37.2 C 65 14 91 04/03/24 01:00 108/73 04/03/24 01:00 108/73 04/03/24 00:57 37.3 C 68 16 91 04/03/24 00:48 37.2 C 62 12 93 04/03/24 00:48 92 04/03/24 00:44 65 15 92 04/03/24 00:36 37.3 C 68 14 92 04/03/24 00:18 37.2 C 64 14 92 O2 Del Method FiO2 04/03/24 10:15 30 04/03/24 09:30 04/03/24 09:30 04/03/24 09:30 04/03/24 09:16 04/03/24 09:15 04/03/24 09:09 04/03/24 09:00 04/03/24 08:54 04/03/24 08:48 04/03/24 08:45 04/03/24 08:45 04/03/24 08:42 04/03/24 08:30 04/03/24 08:00 04/03/24 08:00 30 04/03/24 08:00 Mechanical Vent 04/03/24 08:00 30 04/03/24 08:00 04/03/24 08:00 30 04/03/24 07:54 04/03/24 07:48 04/03/24 07:45 04/03/24 07:45 04/03/24 07:36 04/03/24 07:34 04/03/24 07:34 04/03/24 07:34 04/03/24 07:33 04/03/24 07:30 04/03/24 07:15 04/03/24 07:00 04/03/24 07:00 04/03/24 07:00 04/03/24 06:45 04/03/24 05:00 Mechanical Vent 04/03/24 04:01 04/03/24 04:00 04/03/24 03:50 30 04/03/24 03:48 04/03/24 03:42 30 04/03/24 03:42 04/03/24 03:36 04/03/24 03:01 04/03/24 03:01 04/03/24 03:01 04/03/24 02:51 04/03/24 02:39 04/03/24 02:15 04/03/24 02:03 04/03/24 02:00 04/03/24 02:00 04/03/24 02:00 04/03/24 01:51 04/03/24 01:36 04/03/24 01:00 04/03/24 01:00 04/03/24 00:57 04/03/24 00:48 04/03/24 00:48 Mechanical Vent 04/03/24 00:44 30 04/03/24 00:36 04/03/24 00:18 PG Care Time/CCT Total # of Minutes Spent Total Time Spent with Patient: Total time spent is greater than 50% in coordination of care (as documented) at patient's floor/unit and/or counseling patient: Coding Level of Care Code 64352 SUB INP/OBS CARE 2/35MIN Diagnoses Septic shock A41.9; R65.21 Acute respiratory failure with hypoxia J96.01 Pneumonia involving left lung J18.9 Acute kidney injury N17.9 Rhinovirus infection B34.8 Admitted to intensive care unit Z78.9 Required emergency intubation Z98.890
[2024-04-03 12:46] LABS: ANTI-Xa, UFH(UnfractionatedHep 0.28 IU/ml (0.3-0.7)
[2024-04-03] MEDS: HYDROCORTISONE SOD 50 MG in SYRINGE 0 ML IV SCH (12:58)
--- NOTE | 2024-04-03 13:23 | Electrocardiogram Report ---
Test Reason : Blood Pressure : */* mmHG Vent. Rate : 45 BPM Atrial Rate : 45 BPM P-R Int : 92 ms QRS Dur : 128 ms QT Int : 474 ms P-R-T Axes : * -16 -59 degrees QTcB Int : 410 ms Sinus bradycardia Non-specific intra-ventricular conduction block T wave abnormality, consider inferior ischemia T wave abnormality, consider anterolateral ischemia Abnormal ECG When compared with ECG of 01-Apr-2024 12:58, AL interval has decreased Confirmed by Milton Snog ([id number]) on 04/03/2024 1:23:15 PM Referred By: Jae Mars Confirmed By: Milton Song
--- NOTE | 2024-04-03 14:23 | Gastrointestinal Consultation ---
Date of Consultation April 03, 2024 Assessment & Plan (1) Rhinovirus infection: 73 year old male w/ history of COPD, KURT, HTN, Dementia, DM, Afib (on Eliquis), HLD presenting through the ED after being found unresponsive and hypoxic [facility] admitted to the ICU w/ acute respiratory failure with hypoxia/pneumonia involving left lung/required emergency intubation in the field positive for enterovirus/rhinovirus - GI was asked to evaluate for PEG placement. Discussed w/ on phone who is requesting PEG placement. Will discuss with attending. On Zosyn. Will need heparin held. I spent a total of 60 minutes on the date of service in review of patient's record, and previously obtained i nformation in person and appropriate medical visit, discussion and education of plan, with patient and/or caregiver, placing orders for tests/referral/procedures as medically necessary and documentation of pertinent clinical information in patient's medical records for their visit today. Supervising Physician Co-Signing Physician Notes Critically ill gentleman with advanced medical problems. Currently on Levophed he is getting some feeds through a orogastric tube. There is been a previous PEG tube. Reinserting through a previous PEG site can be associate with increased risk of bleeding from scar tissue and revascularization. There is also the risk of other organs being stuck to the PEG site. Not clear that we need to mcdonnell to place a PEG tube. Please not until it is clear what his clinical course will be. If feeding other than orogastric desired a Dobbhoff tube could be used. If and when he is clinical course improves we could look at long-term feeding option such as potential PEG placement. History of Present Illness Reason for Consultation: PEG placement, tracheostomy Requesting Physician: Sterling Veloz MD Attending Physician: Sterling Veloz MD History of Present Illness 73 year old male w/ history of COPD, KURT, HTN, Dementia, DM, Afib (on Eliquis), HLD presenting through the ED after being found unresponsive and hypoxic at his shelter admitted to the ICU w/ acute respiratory failure with hypoxia/pneumonia involving left lung/required emergency intubation in the field positive for enterovirus/rhinovirus. GI was asked to evaluate for PEG placement. No family at bedside - called Renee. She is requesting everything to be arranged including attempted PEG placement. Allergies Allergy/AdvReac Type Severity Reaction Status Date / Time No Known Allergies Allergy Verified 12/20/23 19:27 Home Medications Medication Instructions Recorded Confirmed Type acetaminophen 325 mg tablet 650 mg PO Q6 PRN PAIN 1-10 12/20/23 12/20/23 History acetaminophen 325 mg tablet 650 mg PO QID PRN TEMP > 101 12/20/23 12/20/23 History apixaban 5 mg tablet (Eliquis) 5 mg PO BID 12/20/23 12/20/23 History atorvastatin 40 mg tablet 40 mg PO DAILY 12/20/23 12/20/23 History buspirone 10 mg tablet 10 mg PO TID 12/20/23 12/20/23 History chlorhexidine gluconate 0.12 % 15 ml buccal Q12 12/20/23 12/20/23 History mouthwash (Peridex) divalproex 250 mg tablet,delayed 250 mg PO TID 12/20/23 12/20/23 History release ferrous sulfate 325 mg (65 mg 325 mg PO DAILY 12/20/23 12/20/23 History iron) tablet (FeroSul) folic acid 400 mcg tablet 0.4 mg PO DAILY 12/20/23 12/20/23 History ipratropium 20 mcg-albuterol 100 1 puff inhalation Q6 PRN Wheezing 12/20/23 12/20/23 History mcg/actuation mist for inhalation (Combivent Respimat) menthol 0.1 % lotion (Eucerin Itch 1 ea topical BID 12/20/23 12/20/23 History Relief) metoprolol tartrate 25 mg tablet 25 mg PO BID 12/20/23 12/20/23 History quetiapine 100 mg tablet 100 mg PO HS 12/20/23 12/20/23 History quetiapine 25 mg tablet (Seroquel) 50 mg PO DAILY 12/20/23 12/20/23 History sennosides 8.6 mg-docusate sodium 1 tab-cap PO HS 12/20/23 12/20/23 History 50 mg tablet (Senna-S) trazodone 50 mg tablet 75 mg PO HS 12/20/23 12/20/23 History Patient History Medical History Complication of tracheostomy tube Social History Smoking Status: Never smoker Hx Alcohol Use: No Hx Substance Use: No Preferred Language: Azeri Communication Ability: Impaired Frame And Scrap Crusher Required: No Beliefs That Will Affect Care: None Current Living Situation: Long Term Current Living Situation Comment: [facility] Feels Safe at Home: Declines to Answer Assistive Devices: Wheelchair Review of Systems Review of Systems: Unobtainable due to endotracheal tube Physical Exam Constitutional: well developed; no acute distress Respiratory: sedatd/intubated Cardiovascular: Rate/Rhythm: regular rate Gastrointestinal (Abdomen): normal bowel sounds, soft, nontender, no hepatosplenomegaly healed PEG track in upper abdomen Skin: no rashes, warm and dry Results & Data Vital Signs (Past 12 Hours) Vital Signs Temp Pulse Resp BP Pulse Ox Pulse Ox O2 Del Method 04/03/24 13:15 98.2 F 54 L 14 96 04/03/24 13:00 98.4 F 43 L 14 96 04/03/24 13:00 107/71 04/03/24 13:00 107/71 04/03/24 13:00 107/71 04/03/24 13:00 107/71 04/03/24 12:45 98.2 F 53 L 14 93 04/03/24 12:33 98.2 F 70 14 94 04/03/24 12:30 103/70 04/03/24 12:30 103/70 04/03/24 12:09 98.2 F 56 L 14 95 04/03/24 12:00 87/62 L 04/03/24 12:00 87/62 L 04/03/24 12:00 87/62 L 04/03/24 12:00 98.4 F 61 14 94 04/03/24 12:00 04/03/24 12:00 58 L 04/03/24 11:30 116/77 04/03/24 11:30 116/77 04/03/24 11:30 98.2 F 56 L 14 92 04/03/24 11:15 98.2 F 57 L 14 94 04/03/24 10:48 98.2 F 54 L 14 91 04/03/24 10:45 107/73 04/03/24 10:45 107/73 04/03/24 10:45 107/73 04/03/24 10:30 113/70 04/03/24 10:24 98.2 F 56 L 14 92 04/03/24 10:15 112/71 04/03/24 10:15 112/71 04/03/24 10:15 58 L 14 92 04/03/24 10:00 99/75 L 04/03/24 10:00 98.2 F 58 L 14 92 04/03/24 09:45 98.4 F 64 14 91 04/03/24 09:30 98.4 F 60 14 92 04/03/24 09:30 107/66 04/03/24 09:30 107/66 04/03/24 09:16 108/66 04/03/24 09:15 98.4 F 55 L 15 95 04/03/24 09:09 98.6 F 60 14 93 04/03/24 09:00 107/70 04/03/24 08:54 98.6 F 66 14 92 04/03/24 08:48 98.8 F 65 14 93 04/03/24 08:45 102/70 04/03/24 08:45 102/70 04/03/24 08:42 98.8 F 60 14 93 04/03/24 08:30 86/62 L 04/03/24 08:00 92/64 L 04/03/24 08:00 58 L 15 92 04/03/24 08:00 92 04/03/24 08:00 04/03/24 08:00 87 04/03/24 08:00 Mechanical Vent 04/03/24 07:54 99.0 F 62 14 93 04/03/24 07:48 99.1 F 56 L 14 95 04/03/24 07:45 124/77 04/03/24 07:45 124/77 04/03/24 07:36 99.1 F 71 14 89 L 04/03/24 07:34 66/42 L 04/03/24 07:34 66/42 L 04/03/24 07:34 66/42 L 04/03/24 07:33 99.0 F 65 14 89 L 04/03/24 07:30 99.0 F 68 17 91 04/03/24 07:15 99.0 F 65 14 91 04/03/24 07:00 103/70 01/22/25 07:00 103/70 04/03/24 07:00 98.8 F 69 17 91 04/03/24 06:45 98.8 F 58 L 14 92 04/03/24 05:00 92 04/03/24 04:01 108/69 04/03/24 04:00 99.3 F 87 30 H 91 04/03/24 03:50 48 L 19 93 04/03/24 03:48 99.1 F 74 15 93 04/03/24 03:42 04/03/24 03:42 61 167/74 H 04/03/24 03:36 99.0 F 68 15 94 04/03/24 03:01 104/77 04/03/24 03:01 104/77 04/03/24 03:01 104/77 04/03/24 02:51 99.1 F 67 22 94 04/03/24 02:39 99.1 F 58 L 14 93 O2 Del Method FiO2 04/03/24 13:15 04/03/24 13:00 04/03/24 13:00 04/03/24 13:00 04/03/24 13:00 04/03/24 13:00 04/03/24 12:45 04/03/24 12:33 04/03/24 12:30 04/03/24 12:30 04/03/24 12:09 04/03/24 12:00 04/03/24 12:00 04/03/24 12:00 04/03/24 12:00 04/03/24 12:00 30 04/03/24 12:00 04/03/24 11:30 04/03/24 11:30 04/03/24 11:30 04/03/24 11:15 04/03/24 10:48 04/03/24 10:45 04/03/24 10:45 04/03/24 10:45 04/03/24 10:30 04/03/24 10:24 04/03/24 10:15 04/03/24 10:15 04/03/24 10:15 30 04/03/24 10:00 04/03/24 10:00 04/03/24 09:45 04/03/24 09:30 04/03/24 09:30 04/03/24 09:30 04/03/24 09:16 04/03/24 09:15 04/03/24 09:09 04/03/24 09:00 04/03/24 08:54 04/03/24 08:48 04/03/24 08:45 04/03/24 08:45 04/03/24 08:42 04/03/24 08:30 04/03/24 08:00 04/03/24 08:00 30 04/03/24 08:00 Mechanical Vent 04/03/24 08:00 30 04/03/24 08:00 04/03/24 08:00 30 04/03/24 07:54 04/03/24 07:48 04/03/24 07:45 04/03/24 07:45 04/03/24 07:36 04/03/24 07:34 04/03/24 07:34 04/03/24 07:34 04/03/24 07:33 04/03/24 07:30 04/03/24 07:15 04/03/24 07:00 04/03/24 07:00 04/03/24 07:00 04/03/24 06:45 04/03/24 05:00 Mechanical Vent 04/03/24 04:01 04/03/24 04:00 04/03/24 03:50 30 04/03/24 03:48 04/03/24 03:42 04/03/24 03:42 04/03/24 03:36 04/03/24 03:01 04/03/24 03:01 04/03/24 03:01 04/03/24 02:51 04/03/24 02:39 Laboratory Results 04/03/24 04/03/24 04/03/24 Range/Units 12:10 11:05 07:49 WBC (4.8-10.8) K/ul RBC (4.70-6.10) M/uL Hgb (14.0-18.0) g/dl Hct (42.0-52.0) % MCV (80.0-100.0) fL MCH (25.0-34.0) pg MCHC (32.0-36.0) g/dL RDW Std Deviation (36.4-46.3) fL RDW Coeff of Johana (11.5-14.5) % Plt Count (130-400) K/uL MPV (9.4-12.4) fL Immature Gran % (Auto) % Neut % (Auto) % Lymph % (Auto) % [place] % (Auto) % Eos % (Auto) % Baso % (Auto) % Neut # (Auto) (1.40-6.50) K/uL Lymph # (Auto) (1.20-3.40) K/uL [place] # (Auto) (0.11-0.59) K/uL Eos # (Auto) (0.00-0.50) K/uL Baso # (Auto) (0.00-0.20) K/uL Immature Gran # (Auto) (0.01-0.20) K/uL PT (9.0-12.0) Seconds INR (0.9-1.1) APTT (21-31) Seconds PTT Ratio Heparin Anti-Xa, Unfract 0.28 L (0.3-0.7) IU/ml Sodium (136-145) mmol/L Potassium (3.5-5.1) mmol/L Chloride (98-107) mmol/L Carbon Dioxide (21-32) mmol/L Anion Gap (3-11) BUN (6-23) mg/dl Creatinine (0.6-1.4) mg/dl Est Cr Clr Drug Dosing ml/min eGFR BUN/Creatinine Ratio (10-20) Glucose (70-99(Fasting)) mg/dl POC Glucose (other) 118 H 123 H (70-99) mg/dl Calcium (8.6-10.3) mg/dl Magnesium (1.7-2.4) mg/dl Total Bilirubin (0.2-1.0) mg/dl AST (13-39) U/L ALT (7-52) U/L Alkaline Phosphatase (34-104) U/L Total Protein (6.0-8.3) gm/dl Albumin (3.4-5.0) gm/dl Globulin (2.5-4.0) gm/dl Albumin/Globulin Ratio (0.9-2) Random Vancomycin (10-20) mcg/ml 04/03/24 04/03/24 04/02/24 Range/Units 04:20 03:56 23:35 WBC 16.42 H (4.8-10.8) K/ul RBC 3.66 L (4.70-6.10) M/uL Hgb 11.5 L (14.0-18.0) g/dl Hct 33.3 L (42.0-52.0) % MCV 91.0 (80.0-100.0) fL MCH 31.4 (25.0-34.0) pg MCHC 34.5 (32.0-36.0) g/dL RDW Std Deviation 43.2 (36.4-46.3) fL RDW Coeff of Johana 12.9 (11.5-14.5) % Plt Count 141 (130-400) K/uL MPV 10.3 (9.4-12.4) fL Immature Gran % (Auto) 0.9 % Neut % (Auto) 84.4 % Lymph % (Auto) 7.6 % [place] % (Auto) 7.0 % Eos % (Auto) 0.0 % Baso % (Auto) 0.1 % Neut # (Auto) 13.87 H (1.40-6.50) K/uL Lymph # (Auto) 1.24 (1.20-3.40) K/uL [place] # (Auto) 1.15 H (0.11-0.59) K/uL Eos # (Auto) 0.00 (0.00-0.50) K/uL Baso # (Auto) 0.01 (0.00-0.20) K/uL Immature Gran # (Auto) 0.15 (0.01-0.20) K/uL PT 11.7 (9.0-12.0) Seconds INR 1.1 (0.9-1.1) APTT 41 H (21-31) Seconds PTT Ratio 1.5 Heparin Anti-Xa, Unfract 0.24 L (0.3-0.7) IU/ml Sodium 137 (136-145) mmol/L Potassium 3.3 L (3.5-5.1) mmol/L Chloride 107 (98-107) mmol/L Carbon Dioxide 23 (21-32) mmol/L Anion Gap 7 (3-11) BUN 21 (6-23) mg/dl Creatinine 0.65 (0.6-1.4) mg/dl Est Cr Clr Drug Dosing 109.4 ml/min eGFR 98.88 BUN/Creatinine Ratio 32.3 H (10-20) Glucose 106 H (70-99(Fasting)) mg/dl POC Glucose (other) 112 H 125 H (70-99) mg/dl Calcium 8.0 L (8.6-10.3) mg/dl Magnesium 2.0 (1.7-2.4) mg/dl Total Bilirubin 0.5 (0.2-1.0) mg/dl AST 18 (13-39) U/L ALT 8 (7-52) U/L Alkaline Phosphatase 40 (34-104) U/L Total Protein 5.5 L (6.0-8.3) gm/dl Albumin 2.8 L (3.4-5.0) gm/dl Globulin 2.7 (2.5-4.0) gm/dl Albumin/Globulin Ratio 1.0 (0.9-2) Random Vancomycin 15.1 (10-20) mcg/ml 04/02/24 04/02/24 Range/Units 22:28 16:30 WBC (4.8-10.8) K/ul RBC (4.70-6.10) M/uL Hgb (14.0-18.0) g/dl Hct (42.0-52.0) % MCV (80.0-100.0) fL MCH (25.0-34.0) pg MCHC (32.0-36.0) g/dL RDW Std Deviation (36.4-46.3) fL RDW Coeff of Johana (11.5-14.5) % Plt Count (130-400) K/uL MPV (9.4-12.4) fL Immature Gran % (Auto) % Neut % (Auto) % Lymph % (Auto) % [place] % (Auto) % Eos % (Auto) % Baso % (Auto) % Neut # (Auto) (1.40-6.50) K/uL Lymph # (Auto) (1.20-3.40) K/uL [place] # (Auto) (0.11-0.59) K/uL Eos # (Auto) (0.00-0.50) K/uL Baso # (Auto) (0.00-0.20) K/uL Immature Gran # (Auto) (0.01-0.20) K/uL PT (9.0-12.0) Seconds INR (0.9-1.1) APTT (21-31) Seconds PTT Ratio Heparin Anti-Xa, Unfract (0.3-0.7) IU/ml Sodium (136-145) mmol/L Potassium (3.5-5.1) mmol/L Chloride (98-107) mmol/L Carbon Dioxide (21-32) mmol/L Anion Gap (3-11) BUN (6-23) mg/dl Creatinine (0.6-1.4) mg/dl Est Cr Clr Drug Dosing ml/min eGFR BUN/Creatinine Ratio (10-20) Glucose (70-99(Fasting)) mg/dl POC Glucose (other) 120 H 146 H (70-99) mg/dl Calcium (8.6-10.3) mg/dl Magnesium (1.7-2.4) mg/dl Total Bilirubin (0.2-1.0) mg/dl AST (13-39) U/L ALT (7-52) U/L Alkaline Phosphatase (34-104) U/L Total Protein (6.0-8.3) gm/dl Albumin (3.4-5.0) gm/dl Globulin (2.5-4.0) gm/dl Albumin/Globulin Ratio (0.9-2) Random Vancomycin (10-20) mcg/ml PG Care Time/CCT Total # of Minutes Spent Total Time Spent with Patient: Total time spent is greater than 50% in coordination of care (as documented) at patient's floor/unit and/or counseling patient: Coding Level of Care Code 43900 INT INP/OBS CARE 2MIN Diagnoses Rhinovirus infection B34.8
[2024-04-03] MEDS: HOLD HEPARIN ORDER ONE (23:58)
[2024-04-04 05:13] LABS: Basophils # (auto) 0.01 K/uL (0.00-0.20); Basophils % (auto) 0.1 %; Hematocrit (blood only) 34.8 % (42.0-52.0); Hemoglobin 11.8 g/dl (14.0-18.0); Immature Granulocytes # (auto) 0.04 K/uL (0.01-0.20); Immature Granulocytes % (auto) 0.5 %; Lymphocytes % (auto) 10.5 %; Mean Corpuscular Hemoglobin 30.3 pg (25.0-34.0); Mean Corpuscular Hgb Conc 33.9 g/dL (32.0-36.0); Mean Corpuscular Volume 89.2 fL (80.0-100.0); Monocytes # (auto) 0.37 K/uL (0.11-0.59); Monocytes % (auto) 4.3 %; Neutrophils # (auto) 7.27 K/uL (1.40-6.50); Neutrophils % (auto) 84.6 %; Platelet Count 148 K/uL (130-400); RDW Coefficient of Variation 13.1 % (11.5-14.5); RDW Standard Deviation 42.7 fL (36.4-46.3); White Blood Count 8.59 K/ul (4.8-10.8)
[2024-04-04 05:30] LABS: Albumin Globulin Ratio 1.1 (0.9-2); Albumin Level 2.8 gm/dl (3.4-5.0); BUN Creatinine Ratio 30.5 (10-20); Bilirubin,Total 0.5 mg/dl (0.2-1.0); Calcium 8.1 mg/dl (8.6-10.3); Creatinine Clr Calc Pharmacy 120.6 ml/min; Globulin 2.6 gm/dl (2.5-4.0); Magnesium 1.9 mg/dl (1.7-2.4); Potassium 3.3 mmol/L (3.5-5.1); Total Protein 5.4 gm/dl (6.0-8.3)
[2024-04-04 05:41] LABS: INR 1.1 (0.9-1.1); Partial Thromboplastin Ratio 1.2; Partial Thromboplastin Time 32 Seconds (21-31); Prothrombin Time 11.8 Seconds (9.0-12.0)
[2024-04-04] MEDS: POTASSIUM CHLORIDE / WTR 20 MEQ/100 ML PLCT IV ONE (06:50)
--- NOTE | 2024-04-04 06:54 | Critical Care Progress Note ---
Date of Service April 04, 2024 Assessment & Plan (1) Septic shock: (2) Respiratory failure: (3) Atrial fibrillation with rapid ventricular response: (4) Asymptomatic bradycardia: Plan Reason Critically Ill: 74 YOM resident of [facility] found unresponsive and hypoxic requiring intubation in the field, ICU due to being on vasopressors and mechanically ventilated Neuro - Sedation for mechanical ventilation, hx of dementia and convulsions CAM ICU: LENA - Decreasing sedation post-extubation 04/04/24 - Reportedly baseline function is good and he is independent at [facility] - Head CT negative for acute bleed or LVO - Medical history with reports of "convulsions" however with what information is currently viewable, there is no mention of type or other seizure disorder- on valproate IV while intubated - Hold seroquel, Buspar, Trazadone while sedated -> consider going back on as sedation decreasing Cardiovascular - Shock unspecified, afib, on chronic anticoagulation; 04/02/24 12pm EKG showing junctional rhythm per drilling contractor interpretation when BP was in upper 30s-40s; appears to have improved -> currently mainly in 50s-60s. - Hypotension and bradycardia improved but with transient declines, Midodrine TID started 04/04/24 evening to maintain MAP off Levo - Echocardiogram 04/01/24 AM: LV systolic function normal, RV moderately dilated, RV systolic function mildly reduced, LA mildly dilated; RV systolic pressure elevated at 30-40mmHg, IVC mildly dilated - CTA of chest negative for PE/obstructive shock - Bedside POCUS negative for pericardial effusion - Levophed to maintain MAPS > 65, has been off for all of 04/04/24 - high-sensitivity troponin downtrending as of 04/02/24 - 108.4 -> 64.8 - consider restarting metoprolol for afib as JASON has resolved - Heparin in lieu of Eliquis Respiratory - Hypoxic respiratory failure requiring emergent intubation and mechanical ventilation, COPD, KURT - 04/04/24 liberate from endotracheal intubation via tracheostomy -> tracheal intubation - Respiratory failure requiring intubation- at this time likely secondary to viral infection and possible mucous plugging vs. aspiration vs. viral and bacterial pneumonia or combination of these. - [facility] records between June and August 2022 obtained, where Kian underwent tracheostomy in order to liberate from ET intubation - L lung opacities improved from today's cxr 04/03/24; sputum yellow mondragon, WBC elevation, elevated PCT- can't exclude bacterial pneumonia - CTA negative for PE - Respiratory viral panel + for Enter/Rhinovirus - Continue supportive care - Nebulizers scheduled- MAE and ICS GI - OG -> NG tube post-extubation 04/04/24 - continue NG feeds RENAL/LYTES - Respiratory acidosis, JASON - both have improved: Creatinine 0.59 - Maintain MAPS >65 - continue following urine output and volume assessments - ICU electrolyte protocol - UA 04/01/24 with 2+ bacteria, trace leuk, 11-20 RBCs, trace blood - Urine cx still negative - Andrade while intubated and sedated ENDO - DMII - ICU hyperglycemic protocol: today 118 - hydrocortisone IV completing tonight 04/04/24 HEME - On chronic anticoagulation - Hold Eliquis - Heparin infusion ID - Sepsis likely pulmonary source - VLAD opacity, increased oxygen need, sputum yellow mondragon, WBC elevation, elevated PCT- can't exclude bacterial pneumonia in conjunction with Enter/Rhino - Continue Zosyn through 04/08/24 - Sputum sample pending, light normal glenda from 04/03/24 - blood culture pending, preliminary neg - urine culture pending, preliminary neg LINES/IV ACCESS - PIV, CVL, Left radial A-line, NGT - Continue use of these lines DVT PROPHYLAXIS - SCDS, Heparin infusion DISPO: ICU as he may still require vasopressors Admission and Anticipated Discharge Date Admission Date: April 01, 2024 Supervising Physician Co-Signing Physician Notes Dr. Huerta was resident physician during care of patient. I separately evaluated patient for baxter portions of the history and the exam. I was present during the critical portion of medical decision making, and I discussed the case with the resident. I generally agree with the findings and plan. Patient underwent successful tracheostomy placement today. And discussed with case management patient can return to [facility] if he is off the ventilator however still requiring tracheostomy for airway patency however he would need a definitive PEG tube cannot leave with NG tube for feedings. Continue hydrocortisone for 24 hours then discontinue able to progress tube feeds to goal at this time. Once neuromuscular blockade wears off discontinue sedation and move towards liberating from mechanical ventilation. Patient with persistent left lower lobe opacities, bronchoscopy today he had tenacious mucoid secretions cannot exclude aspiration given history will continue Zosyn for 7 days then discontinue. Subjective Patient was seen and evaluated at bedside this AM, mechanically intubated with FiO2 30%, not currently appearing in acute distress. Becomes alert when addressed by name, appears to want to talk but unable to do so. Was not as able to follow simple commands today, such as wiggling his fingers and toes, but appears to move extremities slightly. Heart rate seems to be have improved since day prior, today mainly in 50s-60s Plan to obtain tracheal intubation today via repeat perc trach to liberate from endotracheal intubation -> procedure successful Physical Exam Physical Exam: Constitutional: Sedated, lethargic at rest but becomes alert when addressed by name; intubated and with OG tube, normocephalic and atraumatic, lying in bed and in no acute distress. HEENT: b/l pupils constricted, pupils equal and slightly reactive to light. EOM intact, mucous membranes and oropharynx dry. Neck: RIJ line in place, no signs of inflammation. CV: regular rate and regular rhythm at this time. +s1/s2, No murmurs, rubs or gallops heard on auscultation. - 2+ carotid pulses b/l, 2+ radial pulse s b/l Respiratory: mildly coarse breath sounds throughout, no wheezes heard on auscultation. On ventilator, FiO2 20% GI/Abdomen: normal bowel sounds, abdomen soft. 1x1cm indentation in epigastric region where PEG was previously located. Abdomen nondistended, nontender to palpation, no ecchymosis seen. Extremities: No edema appreciated. 2+ radial pulses b/l, 2+ posterior tibial pulses b/l. No cyanosis or clubbing seen. Dermatologic: normal skin turgor, normal color, no abnormal lymph nodes, no rashes. Neurologic: no facial droop seen, unable to asses speech as pt is intubated Results & Data Results & Data Vital Signs (Past 12 Hours) Vital Signs Temp Pulse Resp BP Pulse Ox Pulse Ox O2 Del Method 04/04/24 06:00 130/78 04/04/24 06:00 36.7 C 70 14 95 04/04/24 05:30 121/84 04/04/24 05:30 121/84 04/04/24 05:21 36.7 C 65 22 87 L 04/04/24 05:00 36.7 C 59 L 14 95 04/04/24 05:00 62 L 04/04/24 04:30 111/80 04/04/24 04:30 111/80 04/04/24 04:18 36.7 C 59 L 14 95 04/04/24 04:06 36.7 C 54 L 14 96 04/04/24 04:00 119/76 04/04/24 04:00 04/04/24 04:00 130/69 04/04/24 03:51 36.7 C 52 L 14 96 04/04/24 03:28 57 L 14 96 04/04/24 03:03 36.8 C 68 14 97 04/04/24 03:00 119/74 04/04/24 03:00 119/74 04/04/24 03:00 119/74 04/04/24 02:33 36.8 C 56 L 14 97 04/04/24 02:30 122/73 04/04/24 02:30 36.8 C 56 L 14 97 04/04/24 02:06 36.9 C 54 L 14 98 04/04/24 02:00 110/66 04/04/24 02:00 110/66 04/04/24 02:00 110/66 04/04/24 01:48 36.9 C 54 L 14 98 04/04/24 01:30 36.9 C 63 14 99 04/04/24 01:30 106/80 04/04/24 01:00 36.9 C 58 L 14 96 04/04/24 00:33 36.8 C 60 19 88 L 04/04/24 00:30 93/68 L 04/04/24 00:27 36.8 C 58 L 14 100 04/04/24 00:24 36.8 C 65 15 100 04/04/24 00:00 91/64 L 04/04/24 00:00 04/04/24 00:00 113/65 04/03/24 23:48 36.7 C 74 14 97 04/03/24 23:45 36.8 C 65 14 99 04/03/24 23:39 36.8 C 65 14 95 04/03/24 23:31 144/80 H 04/03/24 23:25 55 L 14 98 04/03/24 23:06 36.8 C 51 L 14 98 04/03/24 23:00 36.8 C 73 19 97 04/03/24 22:51 36.8 C 62 14 97 04/03/24 22:30 124/85 04/03/24 22:30 124/85 04/03/24 22:27 36.7 C 61 14 97 04/03/24 22:00 137/79 04/03/24 22:00 137/79 04/03/24 22:00 137/79 04/03/24 22:00 137/79 04/03/24 22:00 137/79 04/03/24 22:00 36.7 C 53 L 14 97 04/03/24 21:45 36.7 C 59 L 14 96 04/03/24 21:33 36.7 C 56 L 14 97 04/03/24 21:31 147/79 H 04/03/24 21:31 147/79 H 04/03/24 21:24 36.8 C 60 14 96 04/03/24 21:18 36.7 C 73 14 94 04/03/24 21:09 36.7 C 78 16 91 04/03/24 21:00 152/89 H 04/03/24 20:51 36.7 C 54 L 14 97 04/03/24 20:45 36.7 C 59 L 14 97 04/03/24 20:30 131/83 04/03/24 20:30 36.7 C 64 14 96 04/03/24 20:15 36.7 C 61 14 95 04/03/24 20:00 117/79 04/03/24 20:00 04/03/24 20:00 154/74 H 04/03/24 20:00 Mechanical Vent 04/03/24 19:57 36.8 C 62 14 96 04/03/24 19:45 36.8 C 71 14 95 04/03/24 19:42 36.8 C 75 14 94 04/03/24 19:30 119/77 04/03/24 19:18 36.8 C 82 14 97 04/03/24 19:15 36.7 C 112 H 18 96 04/03/24 19:00 126/79 04/03/24 19:00 36.8 C 66 14 96 O2 Del Method FiO2 04/04/24 06:00 04/04/24 06:00 04/04/24 05:30 04/04/24 05:30 04/04/24 05:21 04/04/24 05:00 04/04/24 05:00 Mechanical Vent 04/04/24 04:30 04/04/24 04:30 04/04/24 04:18 04/04/24 04:06 04/04/24 04:00 04/04/24 04:00 30 04/04/24 04:00 04/04/24 03:51 04/04/24 03:28 30 04/04/24 03:03 04/04/24 03:00 04/04/24 03:00 04/04/24 03:00 04/04/24 02:33 04/04/24 02:30 04/04/24 02:30 04/04/24 02:06 04/04/24 02:00 04/04/24 02:00 04/04/24 02:00 04/04/24 01:48 04/04/24 01:30 04/04/24 01:30 04/04/24 01:00 04/04/24 00:33 04/04/24 00:30 04/04/24 00:27 04/04/24 00:24 04/04/24 00:00 04/04/24 00:00 30 04/04/24 00:00 04/03/24 23:48 04/03/24 23:45 04/03/24 23:39 04/03/24 23:31 04/03/24 23:25 30 04/03/24 23:06 04/03/24 23:00 04/03/24 22:51 04/03/24 22:30 04/03/24 22:30 04/03/24 22:27 04/03/24 22:00 04/03/24 22:00 04/03/24 22:00 04/03/24 22:00 04/03/24 22:00 04/03/24 22:00 04/03/24 21:45 04/03/24 21:33 04/03/24 21:31 04/03/24 21:31 04/03/24 21:24 04/03/24 21:18 04/03/24 21:09 04/03/24 21:00 04/03/24 20:51 04/03/24 20:45 04/03/24 20:30 04/03/24 20:30 04/03/24 20:15 04/03/24 20:00 04/03/24 20:00 30 04/03/24 20:00 04/03/24 20:00 04/03/24 19:57 04/03/24 19:45 04/03/24 19:42 04/03/24 19:30 04/03/24 19:18 04/03/24 19:15 04/03/24 19:00 04/03/24 19:00 Critical Care Time Critical Care Time: Yes I have personally spent 45 minutes of critical care time in the direct management of this patient. This is a life/limb threatening event. This includes time spent evaluating patient, direct bedside care, chart review, placing orders, interpretation of diagnostic studies, discussion with consultants, patient, and/or family members regarding treatment decisions, as well as other required patient management activities. This time is exclusive of all separately billable procedures, and teaching time and separate from and in addition to any other critical care service time. Resident Activity Tracking Resident Involvement: Resident Care Provided Care Provided: Adult Hospital Medicine (2) Respiratory failure Chronicity: acute Respiratory failure complication: hypoxia Qualified Code(s): J96.01 - Acute respiratory failure with hypoxia
[2024-04-04] MEDS: VECURONIUM BROMIDE 10 MG VIAL IV PRN (07:24)
--- NOTE | 2024-04-04 08:05 | Billing Data ---
Date of Service April 03, 2024 Coding Level of Care Code 60089 CRITICAL CARE
--- NOTE | 2024-04-04 08:12 | Procedure Note ---
Procedure Note Date of Service April 04, 2024 Procedure: Flexible Bronchoscopy Attending/Mineral Surveying Technician: Louie LACEY ([facility]-) Anesthetic/Sedation: Continuos infusions of - Fentanyl, Propofol Indication: Respiratory failure requiring PERC TRACH Consent was obtained and signed by Dr. Walters and placed on the chart prior to procedure. Indication, risks, and benefits were explained at length to the patient's . A time-out was completed verifying correct patient, procedure, site, positioning, and implant(s) or special equipment if applicable.- TIME OUT 714 Procedure: Bronchoscope was advanced down ETT, isaiah easily visualized. There were some thick mucoid secretions that were suctioned out. The bronchoscope was then withdrawn with the ETT to the vocal chords until ballottement was viewed below the tube and transillumination visualized by Dr. Walters. Seeker needle was then placed through anterior neck by Dr. Walters, visualized in good position with bronchoscope and noting not to go through the posterior wall. The guidewire was advanced and visualized going downward towards the isaiah. Serial dilations were viewed being completed by Dr. Walters and 6.0 cuffed Tracheostomy with inner cannula was then placed into the trachea, direct visualization with bronchoscope remained with Trach in good position. The scope and ETT was removed. The bronchoscope was then placed down the new tracheostomy and trach tube, noting no occlusions. The bronchoscope was advanced to the isaiah and then navigated down the RIGHT and LEFT mainstem bronchus suctioning out thick clear mucoid secretions LEFT > RIGHT. Once the mainstem bronchus were cleared the bronchoscope was withdrawn intact. Post procedural CXR is pending. No cultures were obtained [facility] [place] Codes (Charges) Pulmonary/Thoracic Procedure 1: Pulmonary and Thoracic: 75550 Dx bronchoscopy/BAL Procedure 2: Pulmonary and Thoracic: 32636 Bronchoscopy, clear airways Coding CPT Codes Pulmonary/Thoracic - Pulmonary and Thoracic: 74533 Dx bronchoscopy/BAL ([id number]) Pulmonary/Thoracic - Pulmonary and Thoracic: 22939 Bronchoscopy, clear airways ([id number]) Additional Codes Date of Service (PG.SURGERY)
--- NOTE | 2024-04-04 08:25 | XRay Report ---
XR chest 1V portable CLINICAL HISTORY: INTUBATION COMPARISON STUDY: 04/03/2024 FINDINGS: Tracheostomy tube tip is at the thoracic inlet. Nasogastric tube tip is off the field of vi ew inferiorly. Right central catheter is stable. Heart size and pulmonary vasculature are normal. The re is stable opacity at the left base with obscuration of the left hemidiaphragm and blunting of the left costophrenic angle. No pneumothorax. IMPRESSION: Interval well-positioned tracheostomy. Otherwise stable exam. ACT 112: Negative or not required by law. Electronically signed by: Diogo Lacy M.D. 04/04/2024 8:24 AM
--- NOTE | 2024-04-04 09:52 | Billing Data ---
Date of Service April 04, 2024 Coding Level of Care Code 35121 CRITICAL CARE
[2024-04-04] MEDS: POTASSIUM CHLORIDE 20 MEQ/15 ML UDC PO SCH (10:00)
[2024-04-04] MEDS: PEPTAMEN 1.5 CAL 1,000 ML BAG NG SCH (12:47)
--- NOTE | 2024-04-04 12:58 | Hospitalist Progress Note ---
Date of Service April 04, 2024 Assessment & Plan (1) Septic shock: (2) Acute respiratory failure with hypoxia: (3) Pneumonia involving left lung: (4) Acute kidney injury: (5) Rhinovirus infection: (6) Admitted to intensive care unit: (7) Required emergency intubation: Plan The patient is a 73-year-old male with a past medical history including paroxysmal atrial fibrillation, tachybradycardia syndrome, COPD, KURT, hypertension, chronic respiratory failure with hypoxia, convulsions, dementia, diabetes mellitus, osteoarthritis, hyperlipidemia, anemia, on chronic anticoagulation with Eliquis. The patient had been found unresponsive and hypoxic at [facility], EMS was called emergently, the patient required intubation in the field, and mechanical ventilation. #Acute respiratory failure with hypoxia/pneumonia involving left lung/required emergency intubation in the field- Admitted to intensive care unit Art Gilder involved for ventilator management Positive for enterovirus/rhinovirus On Zosyn. MRSA negative. Vancomycin discontinued Patient had trach done 04/04 #Septic shock- Continue Levophed IV infusion per protocol On hydrocortisone #Leukocytosis Likely steroid-induced, on hydrocortisone Cultures negative #Atrial fibrillation/chronic anticoagulation with Eliquis- Holding Eliquis Placed on heparin drip standard dosing #Demand ischemia Troponin elevated due to combination of hypotension, hypoxia, pneumonia, sepsis Echocardiogram reviewed #Acute kidney injury- Initial creatinine 1.57, with base 0.62 Improved to normal Was hydrated #Seizure disorder-on oral divalproex 250 p.o. 3 times daily. Currently on IV Depacon #UTI Zosyn will cover Urine culture negative wishes full code and to continue "everything". Tracheostomy done 12/03. GI involved to consider PEG tube placement. Will continue tube feeds for now. Patient recently had trach and PEG. GI concerned about scar tissue from prior PEG tube placement. GI wishes to monitor for now. Admission and Anticipated Discharge Date Admission Date: April 01, 2024 Subjective Patient was seen and examined at 11:05 AM. Spoke to HAYDEN Szymanski who did not raise any significant issues or concerns. Patient had a tracheostomy done today. Review of Systems Review of Systems: All systems reviewed & are unremarkable except as noted in Subjective Physical Exam Physical Exam: General: Trached. Seems to wake up when I call his name. Tries to talk to me but is unable. Does not follow commands Heart: S1, S2/regular rate and rhythm, no murmur rubs or gallops Lungs: Diminished breath sounds bilaterally. Normal effort Abdomen: Soft/nontender/nondistended. No hepatosplenomegaly Extremities: No clubbing/cyanosis. No edema Behavior: Unable to assess Results & Data Results & Data Vital Signs (Past 12 Hours) Vital Signs Temp Pulse Resp BP Pulse Ox Pulse Ox O2 Del Method 04/04/24 12:00 04/04/24 12:00 113 H 04/04/24 11:03 37.1 C 113 H 30 H 95 04/04/24 11:01 123/85 04/04/24 11:01 123/85 04/04/24 10:52 108/79 04/04/24 10:51 37.0 C 129 H 20 98 04/04/24 10:48 37.0 C 153 H 26 H 98 04/04/24 10:33 36.9 C 83 12 98 04/04/24 10:31 121/91 04/04/24 10:31 121/91 04/04/24 10:18 36.9 C 81 14 97 04/04/24 10:15 107/83 04/04/24 10:15 107/83 04/04/24 10:06 36.9 C 80 17 92 04/04/24 10:05 70 15 97 04/04/24 09:45 36.9 C 59 L 14 99 04/04/24 09:45 107/76 04/04/24 09:45 107/76 04/04/24 09:45 107/76 04/04/24 09:33 36.9 C 68 14 99 04/04/24 09:30 103/81 04/04/24 09:30 103/81 04/04/24 09:27 36.9 C 62 14 99 04/04/24 09:21 36.9 C 64 14 99 04/04/24 09:00 36.9 C 70 14 99 04/04/24 09:00 99/68 L 04/04/24 09:00 99/68 L 04/04/24 09:00 99/68 L 04/04/24 09:00 99/68 L 04/04/24 08:48 36.9 C 89 16 99 04/04/24 08:45 97/79 L 04/04/24 08:45 97/79 L 04/04/24 08:45 97/79 L 04/04/24 08:42 36.8 C 75 14 98 04/04/24 08:30 36.8 C 85 14 97 04/04/24 08:30 102/75 04/04/24 08:30 102/75 04/04/24 08:30 102/75 04/04/24 08:18 36.8 C 83 14 98 04/04/24 08:15 112/81 04/04/24 08:15 112/81 04/04/24 08:13 Mechanical Vent 04/04/24 08:07 79/59 L 04/04/24 08:03 91/63 L 04/04/24 08:03 91/63 L 04/04/24 08:03 36.8 C 98 H 14 100 04/04/24 08:00 Mechanical Vent 04/04/24 08:00 36.8 C 110 H 14 100 04/04/24 08:00 106/78 04/04/24 08:00 106/78 04/04/24 08:00 04/04/24 08:00 62 L 04/04/24 08:00 93/61 L 04/04/24 08:00 102 H 04/04/24 08:00 Mechanical Vent 04/04/24 07:58 98/72 L 04/04/24 07:55 93/61 L 04/04/24 07:53 90/61 L 04/04/24 07:50 95/63 L 04/04/24 07:45 36.9 C 102 H 13 92 Mechanical Vent 04/04/24 07:45 106 H 14 96/64 L 96 Mechanical Vent 04/04/24 07:38 106 H 14 123/80 94 Mechanical Vent 04/04/24 07:33 98 H 14 124/71 94 Mechanical Vent 04/04/24 07:30 95 H 14 115/73 93 Mechanical Vent 04/04/24 07:30 101 H 14 115/73 94 Mechanical Vent 04/04/24 07:28 96 H 14 115/75 96 Mechanical Vent 04/04/24 07:25 95 H 14 123/80 96 Mechanical Vent 04/04/24 07:21 36.9 C 93 H 100 Mechanical Vent 04/04/24 07:15 70 23 90 04/04/24 07:09 36.8 C 69 20 92 Mechanical Vent 04/04/24 07:06 36.8 C 78 22 92 Mechanical Vent 04/04/24 07:00 36.7 C 90 26 H 94 Mechanical Vent 04/04/24 06:00 130/78 04/04/24 06:00 36.7 C 70 14 95 04/04/24 05:30 121/84 04/04/24 05:30 121/84 04/04/24 05:21 36.7 C 65 22 87 L 04/04/24 05:00 36.7 C 59 L 14 95 04/04/24 05:00 62 L 04/04/24 04:30 111/80 04/04/24 04:30 111/80 04/04/24 04:18 36.7 C 59 L 14 95 04/04/24 04:06 36.7 C 54 L 14 96 04/04/24 04:00 119/76 04/04/24 04:00 04/04/24 04:00 130/69 04/04/24 03:51 36.7 C 52 L 14 96 04/04/24 03:28 57 L 14 96 04/04/24 03:03 36.8 C 68 14 97 04/04/24 03:00 119/74 04/04/24 03:00 119/74 04/04/24 03:00 119/74 04/04/24 02:33 36.8 C 56 L 14 97 04/04/24 02:30 122/73 04/04/24 02:30 36.8 C 56 L 14 97 04/04/24 02:06 36.9 C 54 L 14 98 04/04/24 02:00 110/66 04/04/24 02:00 110/66 04/04/24 02:00 110/66 04/04/24 01:48 36.9 C 54 L 14 98 04/04/24 01:30 36.9 C 63 14 99 04/04/24 01:30 106/80 04/04/24 01:00 36.9 C 58 L 14 96 O2 Del Method FiO2 04/04/24 12:00 30 04/04/24 12:00 04/04/24 11:03 04/04/24 11:01 04/04/24 11:01 04/04/24 10:52 04/04/24 10:51 04/04/24 10:48 04/04/24 10:33 04/04/24 10:31 04/04/24 10:31 04/04/24 10:18 04/04/24 10:15 04/04/24 10:15 04/04/24 10:06 04/04/24 10:05 30 04/04/24 09:45 04/04/24 09:45 04/04/24 09:45 04/04/24 09:45 04/04/24 09:33 04/04/24 09:30 04/04/24 09:30 04/04/24 09:27 04/04/24 09:21 04/04/24 09:00 04/04/24 09:00 04/04/24 09:00 04/04/24 09:00 04/04/24 09:00 04/04/24 08:48 04/04/24 08:45 04/04/24 08:45 04/04/24 08:45 04/04/24 08:42 04/04/24 08:30 04/04/24 08:30 04/04/24 08:30 04/04/24 08:30 04/04/24 08:18 04/04/24 08:15 04/04/24 08:15 04/04/24 08:13 04/04/24 08:07 04/04/24 08:03 04/04/24 08:03 04/04/24 08:03 04/04/24 08:00 30 04/04/24 08:00 04/04/24 08:00 04/04/24 08:00 04/04/24 08:00 100 04/04/24 08:00 Mechanical Vent 04/04/24 08:00 04/04/24 08:00 04/04/24 08:00 50 04/04/24 07:58 04/04/24 07:55 04/04/24 07:53 04/04/24 07:50 04/04/24 07:45 100 04/04/24 07:45 100 04/04/24 07:38 100 04/04/24 07:33 100 04/04/24 07:30 100 04/04/24 07:30 100 04/04/24 07:28 04/04/24 07:04/04/24 07:21 04/04/24 07:15 04/04/24 07:09 04/04/24 07:06 04/04/24 07:00 04/04/24 06:00 04/04/24 06:00 04/04/24 05:30 04/04/24 05:30 04/04/24 05:21 04/04/24 05:00 04/04/24 05:00 Mechanical Vent 04/04/24 04:30 04/04/24 04:30 04/04/24 04:18 04/04/24 04:06 04/04/24 04:00 04/04/24 04:00 04/04/24 04:00 04/04/24 03:51 04/04/24 03:28 04/04/24 03:03 04/04/24 03:00 04/04/24 03:00 04/04/24 03:00 04/04/24 02:33 04/04/24 02:30 04/04/24 02:30 04/04/24 02:06 04/04/24 02:00 04/04/24 02:00 04/04/24 02:00 04/04/24 01:48 04/04/24 01:30 04/04/24 01:30 04/04/24 01:00 Laboratory Results Abnormal lab results 04/03/24 04/03/24 04/04/24 Range/Units 15:13 20:49 00:09 RBC (4.70-6.10) M/uL Hgb (14.0-18.0) g/dl Hct (42.0-52.0) % Neut # (Auto) (1.40-6.50) K/uL Lymph # (Auto) (1.20-3.40) K/uL APTT (21-31) Seconds Potassium (3.5-5.1) mmol/L Chloride (98-107) mmol/L Creatinine (0.6-1.4) mg/dl BUN/Creatinine Ratio (10-20) Glucose (70-99(Fasting)) mg/dl POC Glucose (other) 118 H 163 H 133 H (70-99) mg/dl Calcium (8.6-10.3) mg/dl Total Protein (6.0-8.3) gm/dl Albumin (3.4-5.0) gm/dl 04/04/24 04/04/24 04/04/24 Range/Units 04:27 04:35 08:31 RBC 3.90 L (4.70-6.10) M/uL Hgb 11.8 L (14.0-18.0) g/dl Hct 34.8 L (42.0-52.0) % Neut # (Auto) 7.27 H (1.40-6.50) K/uL Lymph # (Auto) 0.90 L (1.20-3.40) K/uL APTT 32 H (21-31) Seconds Potassium 3.3 L (3.5-5.1) mmol/L Chloride 108 H (98-107) mmol/L Creatinine 0.59 L (0.6-1.4) mg/dl BUN/Creatinine Ratio 30.5 H (10-20) Glucose 118 H (70-99(Fasting)) mg/dl POC Glucose (other) 120 H 142 H (70-99) mg/dl Calcium 8.1 L (8.6-10.3) mg/dl Total Protein 5.4 L (6.0-8.3) gm/dl Albumin 2.8 L (3.4-5.0) gm/dl Diagnostic Findings Chest X-Ray 04/04/24 00:00 XR chest 1V portable CLINICAL HISTORY: INTUBATION COMPARISON STUDY: 04/03/2024 FINDINGS: Tracheostomy tube tip is at the thoracic inlet. Nasogastric tube tip is off the field of view inferiorly. Right central catheter is stable. Heart size and pulmonary vasculature are normal. There is stable opacity at the left base with obscuration of the left hemidiaphragm and blunting of the left costophrenic angle. No pneumothorax. IMPRESSION: Interval well-positioned tracheostomy. Otherwise stable exam. ACT 112: Negative or not required by law. Electronically signed by: Diogo Lacy M.D. 04/04/2024 8:24 AM PG Care Time/CCT Total # of Minutes Spent Total Time Spent with Patient: Total time spent is greater than 50% in coordination of care (as documented) at patient's floor/unit and/or counseling patient: Coding Level of Care Code 51043 SUB INP/OBS CARE 2/35MIN Diagnoses Septic shock A41.9; R65.21 Acute respiratory failure with hypoxia J96.01 Pneumonia involving left lung J18.9 Acute kidney injury N17.9 Rhinovirus infection B34.8 Admitted to intensive care unit Z78.9 Required emergency intubation Z98.890
[2024-04-04] MEDS ORDERED: MIDODRINE HCL 2.5 MG TAB PO SCH (17:00)
[2024-04-04] MEDS: PROSOURCE NO CARB 30 ML/PKT NG SCH (17:43)
[2024-04-04] MEDS: MIDODRINE HCL 2.5 MG TAB PO SCH (17:43)
[2024-04-04] MEDS: QUEtiapine FUMARATE 100 MG TABLET PO SCH (21:39)
[2024-04-05 04:49] LABS: Basophils # (auto) 0.01 K/uL (0.00-0.20); Basophils % (auto) 0.2 %; Hematocrit (blood only) 32.2 % (42.0-52.0); Hemoglobin 10.9 g/dl (14.0-18.0); Immature Granulocytes # (auto) 0.05 K/uL (0.01-0.20); Immature Granulocytes % (auto) 0.8 %; Lymphocytes % (auto) 18.2 %; Mean Corpuscular Hemoglobin 30.4 pg (25.0-34.0); Mean Corpuscular Hgb Conc 33.9 g/dL (32.0-36.0); Mean Corpuscular Volume 89.9 fL (80.0-100.0); Mean Platelet Volume 10.1 fL (9.4-12.4); Monocytes # (auto) 0.69 K/uL (0.11-0.59); Monocytes % (auto) 10.4 %; Neutrophils # (auto) 4.66 K/uL (1.40-6.50); Neutrophils % (auto) 70.4 %; Platelet Count 137 K/uL (130-400); RDW Coefficient of Variation 13.2 % (11.5-14.5); RDW Standard Deviation 43.5 fL (36.4-46.3); Red Blood Count 3.58 M/uL (4.70-6.10); White Blood Count 6.61 K/ul (4.8-10.8)
[2024-04-05 05:06] LABS: BUN Creatinine Ratio 37.7 (10-20); Calcium 7.5 mg/dl (8.6-10.3); Creatinine Clr Calc Pharmacy 103.1 ml/min; Magnesium 2.1 mg/dl (1.7-2.4); Phosphorus 1.9 mg/dl (2.5-4.9); Potassium 3.6 mmol/L (3.5-5.1)
--- NOTE | 2024-04-05 07:05 | Critical Care Progress Note ---
Date of Service April 05, 2024 Assessment & Plan (1) Septic shock: (2) Respiratory failure: (3) Atrial fibrillation with rapid ventricular response: (4) Asymptomatic bradycardia: (5) Acute respiratory failure with hypoxia: (6) Pneumonia involving left lung: (7) Acute kidney injury: (8) Rhinovirus infection: (9) Admitted to intensive care unit: (10) Required emergency intubation: Plan Reason Critically Ill: 74 YOM resident of [facility] found unresponsive and hypoxic requiring intubation in the field, ICU due to being on vasopressors and mechanically ventilated TO UPDATE: Neuro - improving alertness and mental status, weaning sedation as he is s/p extubation w/ repeat perc trach intubation day 1 CAM ICU: unable to assess - Reportedly baseline function is good and he is independent at [facility] - Head CT negative for acute bleed or LVO - Medical history with reports of "convulsions" however with what information is currently viewable, there is no mention of type or other seizure disorder, valproate when inubated - back on seroquel and trazodone, sedation weaned Cardiovascular - Shock unspecified, afib, on chronic anticoagulation; 04/02/24 12pm EKG showing junctional rhythm per joint finisher interpretation when BP was in upper 30s-40s; appears to have improved -> currently mainly in 50s-60s. - Hypotension and bradycardia have improved but with transient declines, Midodrine TID started 04/04/24 evening to maintain MAP off Levo - Echocardiogram 04/01/24 AM: LV systolic function normal, RV moderately dilated, RV systolic function mildly reduced, LA mildly dilated; RV systolic pressure elevated at 30-40mmHg, IVC mildly dilated - CTA of chest negative for PE/obstructive shock - Bedside POCUS negative for pericardial effusion - high-sensitivity troponin downtrending as of 04/02/24 - 108.4 -> 64.8 - consider adding metoprolol for afib once BP has stabilized and can be off midodrine - Heparin in lieu of Eliquis Respiratory - Hypoxic respiratory failure requiring emergent intubation and mechanical ventilation, COPD, KURT - 04/04/24 liberate from endotracheal intubation via tracheostomy -> tracheal intubation - Respiratory failure requiring intubation- at this time likely secondary to viral infection and possible mucous plugging vs. aspiration vs. viral and bacterial pneumonia or combination of these. - [facility] records between June and August 2022 obtained, where Kian underwent tracheostomy in order to liberate from ET intubation - L lung opacities improved from today's cxr 04/03/24; sputum yellow mondragon, WBC elevation, elevated PCT- can't exclude bacterial pneumonia - CTA negative for PE - Respiratory viral panel + for Enter/Rhinovirus - Continue supportive care - Nebulizers scheduled- MAE and ICS GI - OG -> NG tube post-extubation 04/04/24 - continue NG feeds RENAL/LYTES - Respiratory acidosis, JASON - both have improved - Maintain MAPS >65, currently midodrine in lieu of Levophed - continue following urine output and volume assessments - ICU electrolyte protocol - UA 04/01/24 with 2+ bacteria, trace leuk, 11-20 RBCs, trace blood - Urine cx still negative - Andrade while intubated / sedated ENDO - DMII - ICU hyperglycemic protocol: today 137 - hydrocortisone IV complete HEME - On chronic anticoagulation - Hold Eliquis - Heparin infusion ID - Sepsis likely pulmonary source - VLAD opacity, increased oxygen need, sputum yellow mondragon, WBC elevation, elevated PCT- can't exclude bacterial pneumonia in conjunction with Enter/Rhino - Continue Zosyn through 04/08/24 - vent sputum suction sample: Leslie albicans 04/05/24 - consider oral fluconazole once able to swallow, though likely will be difficult due to present mouth tremors and tongue pushing - Sputum sample pending, light normal glenda from 04/03/24 - blood culture pending, no growth 48hrs - urine culture pending, no growth 48hrs LINES/IV ACCESS - PIV, CVL, Left radial A-line, NGT - Continue use of these lines DVT PROPHYLAXIS - SCDS, Heparin infusion DISPO: ICU Admission and Anticipated Discharge Date Admission Date: April 01, 2024 Supervising Physician Co-Signing Physician Notes Dr. Huerta was resident physician during care of patient. I separately evaluated patient for baxter portions of the history and the exam. I was present during the critical portion of medical decision making, and I discussed the case with the resident. I generally agree with the findings and plan. Postop day 1 from tracheostomy. Neurostatus improving, discontinuing sedation adding midodrine to medication regimen hopefully will be able to discontinue vasoactive's. Trach trial today as the respiratory failure is largely related to neurocognitive limitations and not respiratory pump failure. Unless we can proceed expediently to decannulation patient will likely need PEG tube placement for enteral feeding access. Clinical update since being placed on trach collar trial patient has adequate cough clearing thick secretions. Empiric antibiotic treatment for 7 days. As anticipated patient's mental status: Not redirectable not following complex commands intermittently following simple commands unclear what his baseline is but resides at [facility] and reports dementia necessitating permanent placement. Venancio Langston was seen and evaluated at bedside this PM s/p extubation and perc trach day 1, currently on trach collar at 9-10/min satting low-mid 90s. Patient was alert during encounter but unable to gauge orientation. Having significant mouth movements with tongue pushing making it difficult for him to speak, in addition to having tracheostomy. Was able to discern an airy "thank you". Upon shaking patient's hand he was able to clench properly, showing potentially some situational awareness. Physical Exam Physical Exam: Constitutional: alert but not able to gauge orientation, trach collar with O2 9L/min with NGT in place, normocephalic and atraumatic, lying in bed and in no acute distress. HEENT: b/l pupils constricted, pupils equal and slightly reactive to light. EOM intact, mucous membranes and oropharynx dry. Neck: RIJ line in place, no signs of inflammation. CV: regular rate and regular rhythm at this time. +s1/s2, No murmurs, rubs or gallops heard on auscultation. - 2+ carotid pulses b/l, 2+ radial pulse s b/l Respiratory: mildly coarse breath sounds throughout, no wheezes heard on auscultation GI/Abdomen: normal bowel sounds, abdomen soft. 1x1cm indentation in epigastric region where PEG was previously located. Abdomen nondistended, nontender to palpation, no ecchymosis seen. Extremities: No edema appreciated. 2+ radial pulses b/l, 2+ posterior tibial pulses b/l. No cyanosis or clubbing seen. Dermatologic: normal skin turgor, normal color, no abnormal lymph nodes, no rashes. Neurologic: no facial droop seen, unable to asses speech as pt is intubated Results & Data Results & Data Vital Signs (Past 12 Hours) Vital Signs Temp Pulse Pulse Resp BP BP BP 04/05/24 06:00 36.7 C 55 L 14 118/50 L 101/50 L 04/05/24 05:09 36.6 C 43 L 14 04/05/24 04:39 36.6 C 45 L 16 04/05/24 04:24 36.5 C 22 04/05/24 04:17 48 L 16 04/05/24 04:01 129/70 04/05/24 04:00 04/05/24 03:54 36.5 C 35 L 14 04/05/24 03:30 36.6 C 42 L 22 04/05/24 03:01 106/58 L 04/05/24 03:00 36.6 C 43 L 14 04/05/24 02:57 36.6 C 53 L 14 04/05/24 02:06 36.6 C 42 L 14 04/05/24 02:00 126/65 04/05/24 01:54 36.7 C 36 L 14 04/05/24 01:33 36.7 C 33 L 14 04/05/24 01:08 36.7 C 47 L 14 04/05/24 00:41 36.8 C 46 L 14 04/05/24 00:30 127/63 04/05/24 00:11 36.9 C 35 L 13 04/05/24 00:00 116/63 04/05/24 00:00 04/05/24 00:00 44 L 04/04/24 23:57 36 L 14 04/04/24 23:35 37.0 C 38 L 14 04/04/24 23:32 37.0 C 39 L 14 04/04/24 23:30 106/59 L 04/04/24 23:29 37.0 C 38 L 14 04/04/24 23:08 37.1 C 39 L 14 04/04/24 22:44 37.1 C 39 L 14 04/04/24 22:30 110/63 04/04/24 22:26 37.0 C 39 L 14 04/04/24 21:41 37.2 C 36 L 12 04/04/24 21:30 115/60 04/04/24 21:17 37.3 C 38 L 17 04/04/24 21:14 37.3 C 42 L 17 04/04/24 20:31 118/61 04/04/24 20:31 118/61 04/04/24 20:31 118/61 01/23/25 20:31 118/61 04/04/24 20:31 118/61 04/04/24 20:30 37.1 C 34 L 14 04/04/24 20:10 62 33 H 04/04/24 20:00 04/04/24 20:00 04/04/24 19:45 116/63 04/04/24 19:45 116/63 04/04/24 19:45 37.3 C 35 L 14 04/04/24 19:30 37.3 C 36 L 14 04/04/24 19:30 122/65 04/04/24 19:30 122/65 04/04/24 19:30 37.3 C 40 L 14 121/59 L 122/65 Pulse Ox O2 Del Method O2 Flow Rate FiO2 04/05/24 06:00 95 Mechanical Vent 40 04/05/24 05:09 95 Mechanical Vent 04/05/24 04:39 92 04/05/24 04:24 96 04/05/24 04:17 94 40 04/05/24 04:01 04/05/24 04:00 40 04/05/24 03:54 92 04/05/24 03:30 92 Mechanical Vent 04/05/24 03:01 04/05/24 03:00 91 04/05/24 02:57 92 04/05/24 02:06 90 Mechanical Vent 04/05/24 02:00 04/05/24 01:54 90 04/05/24 01:33 93 Mechanical Vent 04/05/24 01:08 92 Mechanical Vent 04/05/24 00:41 93 04/05/24 00:30 04/05/24 00:11 94 04/05/24 00:00 04/05/24 00:00 30 04/05/24 00:00 04/04/24 23:57 94 30 04/04/24 23:35 94 04/04/24 23:32 95 Mechanical Vent 04/04/24 23:30 04/04/24 23:29 94 04/04/24 23:08 94 Mechanical Vent 04/04/24 22:44 93 04/04/24 22:30 04/04/24 22:26 93 Mechanical Vent 04/04/24 21:41 91 04/04/24 21:30 04/04/24 21:17 88 L 04/04/24 21:14 89 L 04/04/24 20:31 04/04/24 20:31 04/04/24 20:31 04/04/24 20:31 04/04/24 20:31 04/04/24 20:30 92 Mechanical Vent 04/04/24 20:10 97 30 04/04/24 20:00 Mechanical Vent 30 04/04/24 20:00 30 04/04/24 19:45 04/04/24 19:45 04/04/24 19:45 91 04/04/24 19:30 91 Mechanical Vent 04/04/24 19:30 04/04/24 19:30 04/04/24 19:30 92 Mechanical Vent 30 Resident Activity Tracking Resident Involvement: Resident Care Provided Care Provided: Adult Hospital Medicine (2) Respiratory failure Chronicity: acute Respiratory failure complication: hypoxia Qualified Code(s): J96.01 - Acute respiratory failure with hypoxia
--- NOTE | 2024-04-05 07:43 | Billing Data ---
Date of Service April 05, 2024 Coding Level of Care Code 16591 SUB INP/OBS CARE MIN
--- NOTE | 2024-04-05 11:33 | Electrocardiogram Report ---
Test Reason : Blood Pressure : */* mmHG Vent. Rate : 34 BPM Atrial Rate : 34 BPM P-R Int : 116 ms QRS Dur : 126 ms QT Int : 508 ms P-R-T Axes : 43 -7 -42 degrees QTcB Int : 381 ms Marked sinus bradycardia Right bundle branch block T wave abnormality, consider anterior ischemia Abnormal ECG When compared with ECG of 02-Apr-2024 12:22, Sinus rhythm has replaced Junctional rhythm Confirmed by Milton Song ([id number]) on 04/05/2024 11:33:22 AM Referred By: Jae Mars Confirmed By: Milton Song
[2024-04-05] MEDS: MIDODRINE HCL 10 MG TAB PO SCH (12:07)
--- NOTE | 2024-04-05 12:59 | Hospitalist Progress Note ---
Date of Service April 05, 2024 Assessment & Plan (1) Septic shock: (2) Acute respiratory failure with hypoxia: (3) Pneumonia involving left lung: (4) Acute kidney injury: (5) Rhinovirus infection: (6) Admitted to intensive care unit: (7) Required emergency intubation: Plan The patient is a 73-year-old male with a past medical history including paroxysmal atrial fibrillation, tachybradycardia syndrome, COPD, KURT, hypertension, chronic respiratory failure with hypoxia, convulsions, dementia, diabetes mellitus, osteoarthritis, hyperlipidemia, anemia, on chronic anticoagulation with Eliquis. The patient had been found unresponsive and hypoxic at [facility], EMS was called emergently, the patient required intubation in the field, and mechanical ventilation. #Acute respiratory failure with hypoxia/pneumonia involving left lung/required emergency intubation in the field- Admitted to intensive care unit Poster initially involved for ventilator management Tracheostomy done on 04/04 Now off of vent Positive for enterovirus/rhinovirus On Zosyn. MRSA negative. Vancomycin discontinued #Septic shock- Off of pressors Off of hydrocortisone On midodrine #Leukocytosis Resolved Likely steroid-induced, on hydrocortisone Cultures negative #Atrial fibrillation/chronic anticoagulation with Eliquis- Holding Eliquis Placed on heparin drip standard dosing #Demand ischemia Troponin elevated due to combination of hypotension, hypoxia, pneumonia, sepsis Echocardiogram reviewed #Acute kidney injury- Initial creatinine 1.57, with base 0.62 Improved to normal Was hydrated #Seizure disorder-on oral divalproex 250 p.o. 3 times daily. Currently on IV D epacon #UTI Zosyn will cover Urine culture negative wishes full code and to continue "everything". Tracheostomy done 04/04. GI involved to consider PEG tube placement. Will continue tube feeds for now. Patient recently had trach and PEG. GI concerned about scar tissue from prior PEG tube placement. GI wishes to monitor for now. Admission and Anticipated Discharge Date Admission Date: April 01, 2024 Subjective Patient was seen and examined at 10:40 AM. HAYDEN Carmen was present in the room. Patient is now off of pressors, off of sedation, trached. NG tube feeds ongoing. He seems to be restless, wanting to say something but struggling to bring words out. Review of Systems Review of Systems: Unobtainable due to cognitive status Physical Exam Physical Exam: General: Trached. Awake, trying to say something but unable to bring out words. Getting restless. Heart: S1, S2/regular rate and rhythm, no murmur rubs or gallops Lungs: Diminished breath sounds bilaterally. Normal effort Abdomen: Soft/nontender/nondistended. No hepatosplenomegaly Extremities: No clubbing/cyanosis. No edema Behavior: Unable to assess Results & Data Results & Data Vital Signs (Past 12 Hours) Vital Signs Temp Pulse Pulse Resp BP BP BP 04/05/24 12:03 36.9 C 71 30 H 04/05/24 12:01 138/65 04/05/24 12:01 36.9 C 77 24 138/65 04/05/24 11:03 79 38 H 109/54 L 04/05/24 11:00 36.7 C 75 22 109/54 L 04/05/24 10:34 36.6 C 43 L 99/44 L 04/05/24 10:21 36.7 C 42 L 18 04/05/24 10:08 36.6 C 65 107/69 04/05/24 10:00 36.5 C 57 L 04/05/24 09:45 36.5 C 88 04/05/24 09:30 36.7 C 42 L 04/05/24 09:15 36.6 C 60 04/05/24 09:03 36.7 C 38 L 18 113/51 L 04/05/24 09:00 36.7 C 53 L 22 113/51 L 04/05/24 08:39 36.7 C 51 L 22 04/05/24 08:01 36.8 C 37 L 17 109/52 L 04/05/24 08:00 04/05/24 08:00 04/05/24 07:35 53 L 34 H 04/05/24 07:33 36.4 C L 40 L 22 122/59 L 04/05/24 07:21 36.7 C 42 L 14 115/59 L 04/05/24 06:00 36.7 C 55 L 14 118/50 L 101/50 L 04/05/24 05:09 36.6 C 43 L 14 04/05/24 04:39 36.6 C 45 L 16 04/05/24 04:24 36.5 C 22 04/05/24 04:17 48 L 16 04/05/24 04:01 129/70 01/24/25 04:00 04/05/24 03:54 36.5 C 35 L 14 04/05/24 03:30 36.6 C 42 L 22 04/05/24 03:01 106/58 L 04/05/24 03:00 36.6 C 43 L 14 04/05/24 02:57 36.6 C 53 L 14 04/05/24 02:06 36.6 C 42 L 14 04/05/24 02:00 126/65 04/05/24 01:54 36.7 C 36 L 14 04/05/24 01:33 36.7 C 33 L 14 04/05/24 01:08 36.7 C 47 L 14 Pulse Ox O2 Del Method O2 Flow Rate FiO2 04/05/24 12:03 91 04/05/24 12:01 04/05/24 12:01 94 Trach Collar 9 60 04/05/24 11:03 94 04/05/24 11:00 95 Trach Collar 9 60 04/05/24 10:34 95 Trach Collar 9 60 04/05/24 10:21 96 Trach Collar 9 60 04/05/24 10:08 04/05/24 10:00 04/05/24 09:45 04/05/24 09:30 04/05/24 09:15 04/05/24 09:03 94 04/05/24 09:00 93 Trach Collar 9 50 04/05/24 08:39 94 Trach Collar 9 50 04/05/24 08:01 97 Mechanical Vent 40 04/05/24 08:00 Mechanical Vent 40 04/05/24 08:00 40 04/05/24 07:35 95 40 04/05/24 07:33 92 Mechanical Vent 40 04/05/24 07:21 96 Mechanical Vent 40 04/05/24 06:00 95 Mechanical Vent 40 04/05/24 05:09 95 Mechanical Vent 04/05/24 04:39 92 04/05/24 04:24 96 04/05/24 04:17 94 40 04/05/24 04:01 04/05/24 04:00 40 04/05/24 03:54 92 04/05/24 03:30 92 Mechanical Vent 04/05/24 03:01 04/05/24 03:00 91 04/05/24 02:57 92 04/05/24 02:06 90 Mechanical Vent 04/05/24 02:00 04/05/24 01:54 90 04/05/24 01:33 93 Mechanical Vent 04/05/24 01:08 92 Mechanical Vent Laboratory Results Abnormal lab results 04/04/24 04/04/24 04/04/24 Range/Units 12:41 16:11 20:20 RBC (4.70-6.10) M/uL Hgb (14.0-18.0) g/dl Hct (42.0-52.0) % Bulloch # (Auto) (0.11-0.59) K/uL Chloride (98-107) mmol/L BUN (6-23) mg/dl BUN/Creatinine Ratio (10-20) Glucose (70-99(Fasting)) mg/dl POC Glucose 116 H (70-99) mg/dl POC Glucose (other) 140 H 154 H (70-99) mg/dl Calcium (8.6-10.3) mg/dl Phosphorus (2.5-4.9) mg/dl 04/05/24 04/05/24 04/05/24 Range/Units 00:06 03:31 04:25 RBC 3.58 L (4.70-6.10) M/uL Hgb 10.9 L (14.0-18.0) g/dl Hct 32.2 L (42.0-52.0) % Bulloch # (Auto) 0.69 H (0.11-0.59) K/uL Chloride 110 H (98-107) mmol/L BUN 26 H (6-23) mg/dl BUN/Creatinine Ratio 37.7 H (10-20) Glucose 137 H (70-99(Fasting)) mg/dl POC Glucose 157 H 132 H (70-99) mg/dl POC Glucose (other) (70-99) mg/dl Calcium 7.5 L (8.6-10.3) mg/dl Phosphorus 1.9 L (2.5-4.9) mg/dl 04/05/24 Range/Units 08:10 RBC (4.70-6.10) M/uL Hgb (14.0-18.0) g/dl Hct (42.0-52.0) % Bulloch # (Auto) (0.11-0.59) K/uL Chloride (98-107) mmol/L BUN (6-23) mg/dl BUN/Creatinine Ratio (10-20) Glucose (70-99(Fasting)) mg/dl POC Glucose (70-99) mg/dl POC Glucose (other) 146 H (70-99) mg/dl Calcium (8.6-10.3) mg/dl Phosphorus (2.5-4.9) mg/dl PG Care Time/CCT Total # of Minutes Spent Total Time Spent with Patient: Total time spent is greater than 50% in coordination of care (as documented) at patient's floor/unit and/or counseling patient: Coding Level of Care Code 33710 SUB INP/OBS CARE 2/35MIN Diagnoses Septic shock A41.9; R65.21 Acute respiratory failure with hypoxia J96.01 Pneumonia involving left lung J18.9 Acute kidney injury N17.9 Rhinovirus infection B34.8 Admitted to intensive care unit Z78.9 Required emergency intubation Z98.890
[2024-04-05] MEDS: VALPROIC ACID SOLN 250 MG/5 ML UDC PO SCH (14:34)
[2024-04-05 15:09] LABS: ANTI-Xa, UFH(UnfractionatedHep 0.22 IU/ml (0.3-0.7)
[2024-04-05] MEDS: traZODone HCL 100 MG TAB PO SCH (20:41)
[2024-04-05] MEDS ORDERED: QUEtiapine FUMARATE 100 MG TABLET PO SCH (21:00)
[2024-04-06 05:18] LABS: BUN Creatinine Ratio 31.3 (10-20); Calcium 8.5 mg/dl (8.6-10.3); Creatinine Clr Calc Pharmacy 111.1 ml/min; Magnesium 1.9 mg/dl (1.7-2.4); Phosphorus 2.3 mg/dl (2.5-4.9); Potassium 4.4 mmol/L (3.5-5.1)
[2024-04-06 05:19] LABS: ANTI-Xa, UFH(UnfractionatedHep 0.31 IU/ml (0.3-0.7)
[2024-04-06 06:25] LABS: Hematocrit (blood only) 38.5 % (42.0-52.0); Hemoglobin 12.5 g/dl (14.0-18.0); Mean Corpuscular Hemoglobin 30.5 pg (25.0-34.0); Mean Corpuscular Hgb Conc 32.5 g/dL (32.0-36.0); Mean Corpuscular Volume 93.9 fL (80.0-100.0); Mean Platelet Volume 11.5 fL (9.4-12.4); Platelet Count 110 K/uL (130-400); RDW Coefficient of Variation 13.2 % (11.5-14.5); RDW Standard Deviation 44.5 fL (36.4-46.3)
[2024-04-06 06:26] LABS: Echinocytes 1+; Eosinophils # (auto) 0.05 K/uL (0.00-0.50); Eosinophils % (auto) 0.7 %; Immature Granulocytes # (auto) 0.25 K/uL (0.01-0.20); Immature Granulocytes % (auto) 3.3 %; Lymphocytes % (auto) 32.9 %; Monocytes # (auto) 1.35 K/uL (0.11-0.59); Monocytes % (auto) 17.8 %; Neutrophils # (auto) 3.45 K/uL (1.40-6.50); Neutrophils % (auto) 45.3 %; Platelet Estimate Decreased (Normal)
[2024-04-06] MEDS: CALCIUM CITRATE 950 MG TAB PO SCH (07:46)
--- NOTE | 2024-04-06 08:53 | Critical Care Progress Note ---
Date of Service April 06, 2024 Assessment & Plan (1) Septic shock: (2) Respiratory failure: (3) Atrial fibrillation with rapid ventricular response: (4) Respiratory failure: Plan Reason Critically Ill: 74 YOM resident of correction found unresponsive and hypoxic requiring intubation in the field, ICU due to being on vasopressors and mechanically ventilated Recommendations: Neuro - improving alertness and mental status, weaning sedation as he is s/p extubation w/ repeat perc trach intubation day 2. Continue Seroquel and trazodone. Significant delirium. Try and maintain sleep-wake cycles. Avoid medications potentially associated with increasing delirium including benzodiazepines Cardiovascular - Shock unspecified, afib, on chronic anticoagulation; 04/02/24 12pm EKG showing junctional rhythm per database reporting consultant interpretation when BP was in upper 30s-40s; appears to have improved -> currently mainly in 50s-60s. - Hypotension and bradycardia have improved but with transient declines, Midodrine TID started 04/04/24 evening to maintain MAP off Levo - Echocardiogram 04/01/24 AM: LV systolic function normal, RV moderately dilated, RV systolic function mildly reduced, LA mildly dilated; RV systolic pressure elevated at 30-40mmHg, IVC mildly dilated - CTA of chest negative for PE/obstructive shock - Bedside POCUS negative for pericardial effusion - high-sensitivity troponin downtrending as of 04/02/24 - 108.4 -> 64.8 -Discontinue midodrine. Off norepinephrine. Respiratory - Hypoxic respiratory failure requiring emergent intubation and mechanical ventilation, COPD, KURT - 04/04/24 liberate from endotracheal intubation via tracheostomy -> tracheal intubation - Respiratory failure requiring intubation- at this time likely secondary to viral infection and possible mucous plugging vs. aspiration vs. viral and bacterial pneumonia or combination of these. - [facility] records between June and August 2022 obtained, where Kian underwent tracheostomy in order to liberate from ET intubation - L lung opacities improved from today's cxr 04/03/24; sputum yellow mondragon, WBC elevation, elevated PCT- can't exclude bacterial pneumonia - CTA negative for PE - Respiratory viral panel + for Enter/Rhinovirus - Continue trach collar trials as tolerated. Continue pulmonary toilet and suctioning. - Nebulizers scheduled- MAE and ICS GI - OG -> NG tube post-extubation 04/04/24 - continue NG feeds RENAL/LYTES - Respiratory acidosis, JASON - both have improved - Maintain MAPS >65, currently midodrine in lieu of Levophed - continue following urine output and volume assessments - ICU electrolyte protocol - UA 04/01/24 with 2+ bacteria, trace leuk, 11-20 RBCs, trace blood - Urine cx still negative - Andrade while intubated / sedated ENDO - DMII - ICU hyperglycemic protocol: today 137 - hydrocortisone IV complete HEME - On chronic anticoagulation - Hold Eliquis - Heparin infusion ID - Sepsis likely pulmonary source. Completed 6 days empiric Zosyn. Also received vancomycin. Cultures negative to date. Discontinue antibiotics and follow-up. LINES/IV ACCESS - PIV, CVL, Left radial A-line, NGT - Continue use of these lines DVT PROPHYLAXIS - SCDS, Heparin infusion DISPO: ICU Patient's overall prognosis is guarded. Reportedly the patient's who is the decision-maker has not seen the patient physically in over a year. She is dictating his care by phone. Palliative care consultation has been ordered which appears appropriate. Continue current level of care Admission and Anticipated Discharge Date Admission Date: April 01, 2024 Subjective Patient seen and examined. EMR reviewed. Discussed with bedside critical care nurse as well as on multidisciplinary rounds. The patient remains demented. He is agitated. He is required restraints. Review of Systems Review of Systems: Unobtainable due to cognitive status Physical Exam Physical Exam: Constitutional: alert but not able to gauge orientation, trach collar with O2 9L/min with NGT in place, normocephalic and atraumatic, lying in bed and in no acute distress. HEENT: b/l pupils constricted, pupils equal and slightly reactive to light. EOM intact, mucous membranes and oropharynx dry. Neck: RIJ line in place, no signs of inflammation. CV: regular rate and regular rhythm at this time. +s1/s2, No murmurs, rubs or gallops heard on auscultation. - 2+ carotid pulses b/l, 2+ radial pulse s b/l Respiratory: mildly coarse breath sounds throughout, no wheezes heard on auscultation GI/Abdomen: normal bowel sounds, abdomen soft. 1x1cm indentation in epigastric r egion where PEG was previously located. Abdomen nondistended, nontender to palpation, no ecchymosis seen. Extremities: No edema appreciated. 2+ radial pulses b/l, 2+ posterior tibial pulses b/l. No cyanosis or clubbing seen. Dermatologic: normal skin turgor, normal color, no abnormal lymph nodes, no rashes. Neurologic: no facial droop seen, unable to asses speech as pt is intubated Results & Data Results & Data Vital Signs (Past 12 Hours) Vital Signs Temp Pulse Pulse Resp BP Pulse Ox O2 Del Method 04/06/24 07:25 77 24 95 Trach Collar 04/06/24 06:00 37.1 C 67 22 104/63 92 Trach Collar 04/06/24 04:00 36.9 C 70 23 121/81 92 Trach Collar 04/06/24 03:00 36.6 C 60 18 97/49 L 98 Trach Collar 04/06/24 02:00 36.6 C 63 21 93/58 L 98 Trach Collar 04/06/24 01:00 36.6 C 66 21 110/59 L 95 Trach Collar 04/06/24 00:00 36.7 C 70 22 116/69 99 Trach Collar 04/05/24 23:48 74 04/05/24 23:00 36.7 C 99 H 24 126/81 97 Trach Collar 04/05/24 22:00 37.0 C 82 24 132/72 97 Trach Collar 04/05/24 21:00 37 C 77 20 96/57 L 95 Trach Collar FiO2 04/06/24 07:25 70 04/06/24 06:00 70 04/06/24 04:00 70 04/06/24 03:00 70 04/06/24 02:00 70 04/06/24 01:00 70 04/06/24 00:00 70 04/05/24 23:48 04/05/24 23:00 70 04/05/24 22:00 70 04/05/24 21:00 70 Critical Care Results & Data Vital Signs (Past 12 Hours) Vital Signs Temp Pulse Pulse Resp BP Pulse Ox O2 Del Method 04/06/24 07:25 77 24 95 Trach Collar 04/06/24 06:00 37.1 C 67 22 104/63 92 Trach Collar 04/06/24 04:00 36.9 C 70 23 121/81 92 Trach Collar 04/06/24 03:00 36.6 C 60 18 97/49 L 98 Trach Collar 04/06/24 02:00 36.6 C 63 21 93/58 L 98 Trach Collar 04/06/24 01:00 36.6 C 66 21 110/59 L 95 Trach Collar 04/06/24 00:00 36.7 C 70 22 116/69 99 Trach Collar 04/05/24 23:48 74 04/05/24 23:00 36.7 C 99 H 24 126/81 97 Trach Collar 04/05/24 22:00 37.0 C 82 24 132/72 97 Trach Collar 04/05/24 21:00 37 C 77 20 96/57 L 95 Trach Collar FiO2 04/06/24 07:25 70 04/06/24 06:00 70 04/06/24 04:00 70 04/06/24 03:00 70 04/06/24 02:00 70 04/06/24 01:00 70 04/06/24 00:00 70 04/05/24 23:48 04/05/24 23:00 70 04/05/24 22:00 70 04/05/24 21:00 70 Lab & Micro Results (Past 24 Hours) RBC 4.10 M/uL (4.70-6.10) L 04/06/24 WBC 7.60 K/ul (4.8-10.8) 04/06/24 Hgb 12.5 g/dl (14.0-18.0) L 04/06/24 Hct 38.5 % (42.0-52.0) L 04/06/24 MCV 93.9 fL (80.0-100.0) 04/06/24 MCH 30.5 pg (25.0-34.0) 04/06/24 MCHC 32.5 g/dL (32.0-36.0) 04/06/24 RDW Standard Deviation 44.5 fL (36.4-46.3) 04/06/24 RDW Coefficient of Variation 13.2 % (11.5-14.5) 04/06/24 Plt Count 110 K/uL (130-400) L 04/06/24 MPV 11.5 fL (9.4-12.4) 04/06/24 Neutrophils (%) (Auto) 45.3 % 04/06/24 Lymphocytes (%) (Auto) 32.9 % 04/06/24 Monocytes # (Auto) 1.35 K/uL (0.11-0.59) H 04/06/24 Eosinophils # (Auto) 0.05 K/uL (0.00-0.50) 04/06/24 Immature Granulocyte % (Auto) 3.3 % 04/06/24 Neutrophils # (Auto) 3.45 K/uL (1.40-6.50) 04/06/24 Lymphocytes # (Auto) 2.50 K/uL (1.20-3.40) 04/06/24 Monocytes # (Auto) 1.35 K/uL (0.11-0.59) H 04/06/24 Eosinophils # (Auto) 0.05 K/uL (0.00-0.50) 04/06/24 Basophils # (Auto) 0.00 K/uL (0.00-0.20) 04/06/24 Immature Granulocyte # (Auto) 0.25 K/uL (0.01-0.20) H 04/06 Echinocytes 1+ 04/06/24 Na 141 mmol/L (136-145) 04/06/24 K 4.4 mmol/L (3.5-5.1) 04/06/24 Cl 109 mmol/L (98-107) H 04/06/24 CO2 28 mmol/L (21-32) 04/06/24 Anion Gap 4 (3-11) 04/06/24 BUN 20 mg/dl (6-23) 04/06/24 Creatinine 0.64 mg/dl (0.6-1.4) 04/06/24 BUN/Creatinine Ratio 31.3 (10-20) H 04/06/24 Glu 101 mg/dl (70-99(Fasting)) H 04/06/24 Ca 8.5 mg/dl (8.6-10.3) L 04/06/24 Phosphorus Level 2.3 mg/dl (2.5-4.9) L 04/06/24 Mg 1.9 mg/dl (1.7-2.4) 04/06/24 04:34 Calcium Level 8.5 mg/dl (8.6-10.3) L 04/06/24 04:34 Microbiology 04/01/24 01:42 Aerobic Blood Culture - Final Blood No growth in Aerobic bottle after 5 days. Anaerobic Blood Culture - Final No growth in Anaerobic bottle after 5 days. 04/01/24 01:44 Aerobic Blood Culture - Final Blood No growth in Aerobic bottle after 5 days. Anaerobic Blood Culture - Final No growth in Anaerobic bottle after 5 days. 04/03/24 Unknown Gram Stain - Final Sputum,Vent Suction Sputum Culture - Final Leslie albicans I & O Totals 24 Hours 04/05/24 04/06/24 04/07/24 06:59 06:59 06:59 Intake Total 2007.902 / 2007.902 2557.790 / 2557.790 28.817 / 28.817 Output Total 1130 / 1130 1355 / 1355 Balance 878.902 / 183.667 2747.790 / 1202.790 28.817 / 28.817 Cumulative 04/01/24 01:05 thru 04/06/24 07:01 Intake Total 35472.463 Output Total 7315 Balance 6985.463 RT Ventilator Mngmt (Last Documented) Ventilator Ordered Settings Ventilator Support Mode Assist Control 04/05/24 08:00 Respiratory Rate 24 04/06/24 07:25 Ventilator Tidal Volume 480 04/05/24 08:00 Setting Minute Ventilation 17.1 04/05/24 07:35 Positive End Expiratory 8 04/05/24 08:00 Pressure Fraction of Inspired Oxygen 70 04/06/24 07:25 Ventilator - PT Measurements Respiratory Rate 24 Exhaled Tidal Volume 561 Minute Ventilation 17.1 Peak Inspiratory Airway 27 Pressure Plateau Pressure 15 Respiratory Cycle Inspiratory: 1:2.1 Expiratory Ratio Inspiratory Phase Time 0.80 End-Tidal CO2 23 Static Lung Compliance 80.14 Dynamic Lung Compliance 29.53 Normal Static Lung Compliance 47.00 Patient Measurements Comment Patient on 50%O2 ATC and SPO2 94% Coding Level of Care Code 25756 SUB INP/OBS CARE 3/50MIN Diagnoses Septic shock A41.9; R65.21 Acute respiratory failure with hypoxia J96.01 Chronicity: acute Respiratory failure complication: hypoxia Atrial fibrillation with rapid ventricular response I48.91 (2) Respiratory failure Chronicity: acute Respiratory failure complication: hypoxia Qualified Co de(s): J96.01 - Acute respiratory failure with hypoxia
--- NOTE | 2024-04-06 11:27 | Hospitalist Progress Note ---
Date of Service April 06, 2024 Assessment & Plan (1) Septic shock: (2) Acute respiratory failure with hypoxia: (3) Pneumonia involving left lung: (4) Acute kidney injury: (5) Rhinovirus infection: (6) Admitted to intensive care unit: (7) Required emergency intubation: Plan The patient is a 73-year-old male with a past medical history including paroxysmal atrial fibrillation, tachybradycardia syndrome, COPD, KURT, hypertension, chronic respiratory failure with hypoxia, convulsions, dementia, diabetes mellitus, osteoarthritis, hyperlipidemia, anemia, on chronic anticoagulation with Eliquis. The patient had been found unresponsive and hypoxic at [facility], EMS was called emergently, the patient required intubation in the field, and mechanical ventilation. #Acute respiratory failure with hypoxia/pneumonia involving left lung/required emergency intubation in the field- Admitted to intensive care unit [employer] initially involved for ventilator management Tracheostomy done on 04/04 Now off of vent Positive for enterovirus/rhinovirus Zosyn discontinued after 6 days of treatment #Septic shock- Off of pressors Off of hydrocortisone Midodrine discontinued #Leukocytosis Resolved Likely steroid-induced, on hydrocortisone Cultures negative #Atrial fibrillation/chronic anticoagulation with Eliquis- Holding Eliquis Placed on heparin drip standard dosing #Demand ischemia Troponin elevated due to combination of hypotension, hypoxia, pneumonia, sepsis Echocardiogram reviewed #Acute kidney injury- Initial creatinine 1.57, with base 0.62 Improved to normal Was hydrated #Seizure disorder-on oral divalproex 250 p.o. 3 times daily. Currently on IV Depacon #UTI Zosyn will cover Urine culture negative wishes full code and to continue "everything". has not seen the patient in 1 year. Tracheostomy done 04/04. GI involved to consider PEG tube placement. Will continue tube feeds for now. Patient recently had trach and PEG. GI concerned about scar tissue from prior PEG tube placement. GI wishes to monitor for now. Consulted palliative care. Admission and Anticipated Discharge Date Admission Date: April 01, 2024 Subjective Patient was seen and examined at 10:15 AM. Patient is not able to communicate with me. He seems like he wants to say something but is not able to bring out words. Instead he is getting restless. Review of Systems Review of Systems: All systems reviewed & are unremarkable except as noted in Subjective Physical Exam Physical Exam: General: Trached. Awake, trying to say something but unable to bring out words. Getting restless. Unable to follow all commands. NG tube in place Heart: S1, S2/regular rate and rhythm, no murmur rubs or gallops Lungs: Diminished breath sounds bilaterally. Normal effort Abdomen: Soft/nontender/nondistended. No hepatosplenomegaly Extremities: No clubbing/cyanosis. No edema Behavior: Unable to assess Results & Data Results & Data Vital Signs (Past 12 Hours) Vital Signs Temp Pulse Pulse Resp BP Pulse Ox O2 Del Method 04/06/24 09:01 131/98 04/06/24 09:00 37.4 C 75 31 H 96 04/06/24 08:34 115/76 04/06/24 08:30 37.3 C 67 26 H 95 04/06/24 08:03 37.2 C 93 H 34 H 94 04/06/24 08:00 140/70 04/06/24 08:00 Trach Collar 04/06/24 07:57 37.1 C 82 26 H 95 04/06/24 07:43 138/83 04/06/24 07:36 37.0 C 71 21 94 04/06/24 07:25 77 24 95 Trach Collar 04/06/24 07:00 131/66 04/06/24 07:00 37.0 C 87 21 95 04/06/24 06:00 37.1 C 67 22 104/63 92 Trach Collar 04/06/24 04:00 36.9 C 70 23 121/81 92 Trach Collar 04/06/24 03:00 36.6 C 60 18 97/49 L 98 Trach Collar 04/06/24 02:00 36.6 C 63 21 93/58 L 98 Trach Collar 04/06/24 01:00 36.6 C 66 21 110/59 L 95 Trach Collar 04/06/24 00:00 36.7 C 70 22 116/69 99 Trach Collar 04/05/24 23:48 74 FiO2 04/06/24 09:01 04/06/24 09:00 04/06/24 08:34 04/06/24 08:30 04/06/24 08:03 04/06/24 08:00 04/06/24 08:00 70 04/06/24 07:57 04/06/24 07:43 04/06/24 07:36 04/06/24 07:25 04/06/24 07:00 04/06/24 07:00 04/06/24 06:00 04/06/24 04:00 04/06/24 03:00 04/06/24 02:00 04/06/24 01:00 04/06/24 00:00 04/05/24 23:48 Laboratory Results Abnormal lab results 04/05/24 04/05/24 04/06/24 Range/Units 14:25 21:45 00:07 RBC (4.70-6.10) M/uL Hgb (14.0-18.0) g/dl Hct (42.0-52.0) % Plt Count (130-400) K/uL Quay # (Auto) (0.11-0.59) K/uL Immature Gran # (Auto) (0.01-0.20) K/uL Platelet Estimate (Normal) Heparin Anti-Xa, Unfract 0.22 L 0.20 L (0.3-0.7) IU/ml Chloride (98-107) mmol/L BUN/Creatinine Ratio (10-20) Glucose (70-99(Fasting)) mg/dl POC Glucose 133 H (70-99) mg/dl Calcium (8.6-10.3) mg/dl Phosphorus (2.5-4.9) mg/dl 04/06/24 04/06/24 04/06/24 Range/Units 03:56 04:34 07:39 RBC 4.10 L (4.70-6.10) M/uL Hgb 12.5 L (14.0-18.0) g/dl Hct 38.5 L (42.0-52.0) % Plt Count 110 L (130-400) K/uL Quay # (Auto) 1.35 H (0.11-0.59) K/uL Immature Gran # (Auto) 0.25 H (0.01-0.20) K/uL Platelet Estimate Decreased L (Normal) Heparin Anti-Xa, Unfract (0.3-0.7) IU/ml Chloride 109 H (98-107) mmol/L BUN/Creatinine Ratio 31.3 H (10-20) Glucose 101 H (70-99(Fasting)) mg/dl POC Glucose 131 H 105 H (70-99) mg/dl Calcium 8.5 L (8.6-10.3) mg/dl Phosphorus 2.3 L (2.5-4.9) mg/dl PG Care Time/CCT Total # of Minutes Spent Total Time Spent with Patient: Total time spent is greater than 50% in coordination of care (as documented) at patient's floor/unit and/or counseling patient: Coding Level of Care Code 22367 SUB INP/OBS CARE 2/35MIN Diagnoses Septic shock A41.9; R65.21 Acute respiratory failure with hypoxia J96.01 Pneumonia involving left lung J18.9 Acute kidney injury N17.9 Rhinovirus infection B34.8 Admitted to intensive care unit Z78.9 Required emergency intubation Z98.890
[2024-04-06] MEDS ORDERED: Nursing to Pharmacy Communication SCH (22:45)
[2024-04-07 05:15] LABS: Hematocrit (blood only) 37.5 % (42.0-52.0); Hemoglobin 12.3 g/dl (14.0-18.0); Mean Corpuscular Hemoglobin 30.7 pg (25.0-34.0); Mean Corpuscular Hgb Conc 32.8 g/dL (32.0-36.0); Mean Corpuscular Volume 93.5 fL (80.0-100.0); Mean Platelet Volume 9.8 fL (9.4-12.4); Platelet Count 147 K/uL (130-400); RDW Coefficient of Variation 13.2 % (11.5-14.5); RDW Standard Deviation 44.7 fL (36.4-46.3); Red Blood Count 4.01 M/uL (4.70-6.10); White Blood Count 7.24 K/ul (4.8-10.8)
[2024-04-07 05:25] LABS: BUN Creatinine Ratio 23.4 (10-20); Calcium 7.9 mg/dl (8.6-10.3); Creatinine Clr Calc Pharmacy 111.1 ml/min; Magnesium 1.9 mg/dl (1.7-2.4); Phosphorus 3.6 mg/dl (2.5-4.9); Potassium 4.3 mmol/L (3.5-5.1)
[2024-04-07] MEDS: ACETAMINOPHEN SUSP 325 MG/10.15 ML UDC PO PRN (05:30)
[2024-04-07 05:35] LABS: Basophils # (auto) 0.06 K/uL (0.00-0.20); Basophils % (auto) 0.8 %; Echinocytes 2+; Eosinophils # (auto) 0.19 K/uL (0.00-0.50); Eosinophils % (auto) 2.6 %; Immature Granulocytes # (auto) 0.49 K/uL (0.01-0.20); Immature Granulocytes % (auto) 6.8 %; Lymphocytes # (auto) 2.25 K/uL (1.20-3.40); Lymphocytes % (auto) 31.1 %; Neutrophils # (auto) 2.95 K/uL (1.40-6.50); Neutrophils % (auto) 40.7 %; Polychromasia 1+
--- NOTE | 2024-04-07 10:34 | Critical Care Progress Note ---
Date of Service April 07, 2024 Assessment & Plan (1) Septic shock: (2) Respiratory failure: (3) Atrial fibrillation with rapid ventricular response: Plan Reason Critically Ill: 74 YOM resident of [facility] found unresponsive and hypoxic requiring intubation in the field, ICU due to being on vasopressors and mechanically ventilated Recommendations: Neuro -day 3 status post repeat trach, off mechanical ventilation for 48 hours. Continue Seroquel and trazodone. Significant delirium. Try and maintain sleep- wake cycles. Avoid medications potentially associated with increasing delirium including benzodiazepines Cardiovascular - Shock unspecified: Resolved: Off midodrine Permanent afib, on chronic anticoagulation; Respiratory - Hypoxic respiratory failure requiring emergent intubation and mechanical ventilation, COPD, KURT -Still significant secretions patient is able to clear independently -Would not decannulate at this time secondary to ease of secretion clearance and risk of subsequent respiratory failure secondary to possible airway obs truction GI - OG -> NG tube - continue NG feeds -Strongly advocate for PEG tube placement, pre-existing dementia likely precludes ability to facilitate swallow training to eat while tracheostomy in place Diarrhea -Add fiber to tube feeds, C. difficile negative RENAL/LYTES -JASON resolved - UA can transition to [place] catheter versus diapering ENDO - DMII - ICU hyperglycemic protocol: today 137 HEME - On chronic anticoagulation -Would consider restarting Eliquis once PEG tube placed ID -completed 7-day empiric course of Zosyn for possible pulmonary pathogens. LINES/IV ACCESS - PIV, discontinue CVL DVT PROPHYLAXIS - SCDS, Heparin infusion DISPO: Critical care needs have resolved. Stable for downgrade out of ICU. Critical care will follow for tracheostomy change anticipate change to occur around approximately 04/12 or thereafter. Not withstanding critical care will sign off. Admission and Anticipated Discharge Date Admission Date: April 01, 2024 Subjective Difficult to obtain history given tracheostomy and significant baseline dementia. Physical Exam Physical Exam: General: Alert. nontoxic. Skin: Warm, dry, Head: Atraumatic Ears, nose, mouth and throat: airway patent, tracheostomy in place, no bleeding, strong cough Cardiovascular: Normal peripheral perfusionm atrial fibrillation noted on bedside monitor Respiratory: no respiratory distress, scattered rhonchi Gastrointestinal: Non distended, no pain with palpation Musculoskeletal: No deformity Results & Data Results & Data Vital Signs (Past 12 Hours) Vital Signs Temp Pulse Pulse Resp BP Pulse Ox O2 Del Method 04/07/24 08:15 106/57 L 04/07/24 08:03 36.4 C L 55 L 19 94 04/07/24 08:00 86/51 L 04/07/24 08:00 Trach Collar 04/07/24 07:57 36.4 C L 58 L 20 95 04/07/24 07:42 64 18 98 Trach Collar 04/07/24 07:06 36.5 C 62 19 94 04/07/24 06:00 34.4 C L 70 20 114/70 94 Trach Collar 04/07/24 05:00 36.2 C L 72 24 125/77 94 Trach Collar 04/07/24 04:00 36.3 C L 64 17 110/68 95 Trach Collar 04/07/24 03:00 65 18 103/68 96 Trach Collar 04/07/24 02:00 36.6 C 68 18 104/62 97 Trach Collar 04/07/24 00:00 36.9 C 76 20 95/58 L 93 Trach Collar 04/07/24 00:00 88 FiO2 04/07/24 08:15 04/07/24 08:03 04/07/24 08:00 04/07/24 08:00 40 04/07/24 07:57 04/07/24 07:42 40 04/07/24 07:06 04/07/24 06:00 50 04/07/24 05:00 50 04/07/24 04:00 50 04/07/24 03:00 50 04/07/24 02:00 50 04/07/24 00:00 50 04/07/24 00:00 Critical Care Results & Data Vital Signs (Past 12 Hours) Vital Signs Temp Pulse Pulse Resp BP Pulse Ox O2 Del Method 04/07/24 08:15 106/57 L 04/07/24 08:03 36.4 C L 55 L 19 94 04/07/24 08:00 86/51 L 04/07/24 08:00 Trach Collar 04/07/24 07:57 36.4 C L 58 L 20 95 04/07/24 07:42 64 18 98 Trach Collar 04/07/24 07:06 36.5 C 62 19 94 04/07/24 06:00 34.4 C L 70 20 114/70 94 Trach Collar 04/07/24 05:00 36.2 C L 72 24 125/77 94 Trach Collar 04/07/24 04:00 36.3 C L 64 17 110/68 95 Trach Collar 04/07/24 03:00 65 18 103/68 96 Trach Collar 04/07/24 02:00 36.6 C 68 18 104/62 97 Trach Collar 04/07/24 00:00 36.9 C 76 20 95/58 L 93 Trach Collar 04/07/24 00:00 88 FiO2 04/07/24 08:15 04/07/24 08:03 04/07/24 08:00 04/07/24 08:00 40 04/07/24 07:57 04/07/24 07:42 40 04/07/24 07:06 04/07/24 06:00 50 04/07/24 05:00 50 04/07/24 04:00 50 04/07/24 03:00 50 04/07/24 02:00 50 04/07/24 00:00 50 04/07/24 00:00 Lab & Micro Results (Past 24 Hours) RBC 4.01 M/uL (4.70-6.10) L 04/07/24 WBC 7.24 K/ul (4.8-10.8) 04/07/24 Hgb 12.3 g/dl (14.0-18.0) L 04/07/24 Hct 37.5 % (42.0-52.0) L 04/07/24 MCV 93.5 fL (80.0-100.0) 04/07/24 MCH 30.7 pg (25.0-34.0) 04/07/24 MCHC 32.8 g/dL (32.0-36.0) 04/07/24 RDW Standard Deviation 44.7 fL (36.4-46.3) 04/07/24 RDW Coefficient of Variation 13.2 % (11.5-14.5) 04/07/24 Plt Count 147 K/uL (130-400) 04/07/24 MPV 9.8 fL (9.4-12.4) 04/07/24 Neutrophils (%) (Auto) 40.7 % 04/07/24 Lymphocytes (%) (Auto) 31.1 % 04/07/24 Monocytes # (Auto) 1.30 K/uL (0.11-0.59) H 04/07/24 Eosinophils # (Auto) 0.19 K/uL (0.00-0.50) 04/07/24 Immature Granulocyte % (Auto) 6.8 % 04/07/24 Neutrophils # (Auto) 2.95 K/uL (1.40-6.50) 04/07/24 Lymphocytes # (Auto) 2.25 K/uL (1.20-3.40) 04/07/24 Monocytes # (Auto) 1.30 K/uL (0.11-0.59) H 04/07/24 Eosinophils # (Auto) 0.19 K/uL (0.00-0.50) 04/07/24 Basophils # (Auto) 0.06 K/uL (0.00-0.20) 04/07/24 Immature Granulocyte # (Auto) 0.49 K/uL (0.01-0.20) H 04/07 Polychromasia 1+ 04/07/24 Echinocytes 2+ 04/07/24 Na 139 mmol/L (136-145) 04/07/24 K 4.3 mmol/L (3.5-5.1) 04/07/24 Cl 106 mmol/L (98-107) 04/07/24 CO2 30 mmol/L (21-32) 04/07/24 Anion Gap 3 (3-11) 04/07/24 BUN 15 mg/dl (6-23) 04/07/24 Creatinine 0.64 mg/dl (0.6-1.4) 04/07/24 BUN/Creatinine Ratio 23.4 (10-20) H 04/07/24 Glu 126 mg/dl (70-99(Fasting)) H 04/07/24 Ca 7.9 mg/dl (8.6-10.3) L 04/07/24 Phosphorus Level 3.6 mg/dl (2.5-4.9) 04/07/24 Mg 1.9 mg/dl (1.7-2.4) 04/07/24 04:15 Calcium Level 7.9 mg/dl (8.6-10.3) L 04/07/24 04:15 Microbiology 04/01/24 01:42 Aerobic Blood Culture - Final Blood No growth in Aerobic bottle after 5 days. Anaerobic Blood Culture - Final No growth in Anaerobic bottle after 5 days. 04/01/24 01:44 Aerobic Blood Culture - Final Blood No growth in Aerobic bottle after 5 days. Anaerobic Blood Culture - Final No growth in Anaerobic bottle after 5 days. I & O Totals 24 Hours 04/06/24 04/07/24 04/08/24 06:59 06:59 06:59 Intake Total 2557.790 / 2557.790 1483.934 / 1483.934 29.767 / 29.767 Output Total 1355 / 1355 3807 / 3807 Balance 1202.790 / 1202.790 -2323.066 / -2323.066 29.767 / 29.767 Cumulative 04/01/24 01:05 thru 04/07/24 08:00 Intake Total 32419.347 Output Total 98016 Balance 4663.347 RT Ventilator Mngmt (Last Documented) Ventilator Ordered Settings Ventilator Support Mode Assist Control 04/05/24 08:00 Respiratory Rate 19 04/07/24 08:03 Ventilator Tidal Volume 480 04/05/24 08:00 Setting Minute Ventilation 17.1 04/05/24 07:35 Positive End Expiratory 8 04/05/24 08:00 Pressure Fraction of Inspired Oxygen 40 04/07/24 08:00 Ventilator - PT Measurements Respiratory Rate 19 Exhaled Tidal Volume 561 Minute Ventilation 17.1 Peak Inspiratory Airway 27 Pressure Plateau Pressure 15 Respiratory Cycle Inspiratory: 1:2.1 Expiratory Ratio Inspiratory Phase Time 0.80 End-Tidal CO2 23 Static Lung Compliance 80.14 Dynamic Lung Compliance 29.53 Normal Static Lung Compliance 47.00 Patient Measurements Comment Patient on 50%O2 ATC and SPO2 94% Coding Level of Care Code 04444 SUB INP/OBS CARE 3/50MIN Diagnoses Septic shock A41.9; R65.21 Acute respiratory failure with hypoxia J96.01 Chronicity: acute Respiratory failure complication: hypoxia Atrial fibrillation with rapid ventricular response I48.91 (2) Respiratory failure Chronicity: acute Respiratory failure complication: hypoxia Qualified Code(s): J96.01 - Acute respiratory failure with hypoxia
--- NOTE | 2024-04-07 11:02 | Hospitalist Progress Note ---
Date of Service April 07, 2024 Assessment & Plan (1) Septic shock: (2) Acute respiratory failure with hypoxia: (3) Pneumonia involving left lung: (4) Acute kidney injury: (5) Rhinovirus infection: (6) Admitted to intensive care unit: (7) Required emergency intubation: Plan The patient is a 73-year-old male with a past medical history including paroxysmal atrial fibrillation, tachybradycardia syndrome, COPD, KURT, hypertension, chronic respiratory failure with hypoxia, convulsions, dementia, diabetes mellitus, osteoarthritis, hyperlipidemia, anemia, on chronic anticoagulation with Eliquis. The patient had been found unresponsive and hypoxic at [facility], EMS was called emergently, the patient required intubation in the field, and mechanical ventilation. #Acute respiratory failure with hypoxia/pneumonia involving left lung/required emergency intubation in the field- Admitted to intensive care unit Targeting Acquisition Officer initially involved for ventilator management Tracheostomy done on 04/04 Now off of vent Positive for enterovirus/rhinovirus Zosyn discontinued after 6 days of treatment #Septic shock- Off of pressors Off of hydrocortisone Midodrine discontinued #Leukocytosis Resolved Likely steroid-induced, on hydrocortisone Cultures negative #Atrial fibrillation/chronic anticoagulation with Eliquis- Holding Eliquis Placed on heparin drip standard dosing #Demand ischemia Troponin elevated due to combination of hypotension, hypoxia, pneumonia, sepsis Echocardiogram reviewed #Acute kidney injury- Initial creatinine 1.57, with base 0.62 Improved to normal Was hydrated #Seizure disorder-on oral divalproex 250 p.o. 3 times daily. Currently on IV Depacon #UTI Urine culture negative Off of antibiotics wishes full code and to continue "everything" although she has not seen the patient in 1 year. Tracheostomy done 04/04. GI involved to consider PEG tube placement. Will continue tube feeds for now. Patient recently had trach and PEG. GI concerned about scar tissue from prior PEG tube placement. GI wishes to monitor for now. Consulted palliative care. Admission and Anticipated Discharge Date Admission Date: April 01, 2024 Subjective Patient was seen and examined at 9:35 AM. No change in mental status. He remains nonconversational. Making meaningless movements. Still trying to say something but cannot get the words out. Review of Systems Review of Systems: Unobtainable due to cognitive status Physical Exam Physical Exam: General: Trached. Sleeping, arousable. Trying to say something but unable to bring out words. Getting restless. Unable to follow all commands. NG tube in place Heart: S1, S2/regular rate and rhythm, no murmur rubs or gallops Lungs: Diminished breath sounds bilaterally. Normal effort Abdomen: Soft/nontender/nondistended. No hepatosplenomegaly Extremities: No clubbing/cyanosis. No edema Behavior: Unable to assess Results & Data Results & Data Vital Signs (Past 12 Hours) Vital Signs Temp Pulse Pulse Resp BP Pulse Ox O2 Del Method 04/07/24 08:15 106/57 L 04/07/24 08:03 36.4 C L 55 L 19 94 04/07/24 08:00 86/51 L 04/07/24 08:00 Trach Collar 04/07/24 07:57 36.4 C L 58 L 20 95 04/07/24 07:42 64 18 98 Trach Collar 04/07/24 07:06 36.5 C 62 19 94 04/07/24 06:00 34.4 C L 70 20 114/70 94 Trach Collar 04/07/24 05:00 36.2 C L 72 24 125/77 94 Trach Collar 04/07/24 04:00 36.3 C L 64 17 110/68 95 Trach Collar 04/07/24 03:00 65 18 103/68 96 Trach Collar 04/07/24 02:00 36.6 C 68 18 104/62 97 Trach Collar 04/07/24 00:00 36.9 C 76 20 95/58 L 93 Trach Collar 04/07/24 00:00 88 FiO2 04/07/24 08:15 04/07/24 08:03 04/07/24 08:00 04/07/24 08:00 40 04/07/24 07:57 04/07/24 07:42 40 04/07/24 07:06 04/07/24 06:00 50 04/07/24 05:00 50 04/07/24 04:00 50 04/07/24 03:00 50 04/07/24 02:00 50 04/07/24 00:00 50 04/07/24 00:00 Laboratory Results Abnormal lab results 04/06/24 04/06/24 04/06/24 Range/Units 11:39 16:25 19:11 RBC (4.70-6.10) M/uL Hgb (14.0-18.0) g/dl Hct (42.0-52.0) % [place] # (Auto) (0.11-0.59) K/uL Immature Gran # (Auto) (0.01-0.20) K/uL BUN/Creatinine Ratio (10-20) Glucose (70-99(Fasting)) mg/dl POC Glucose 118 H 121 H 102 H (70-99) mg/dl Calcium (8.6-10.3) mg/dl 04/07/24 04/07/24 04/07/24 Range/Units 00:05 04:07 04:15 RBC 4.01 L (4.70-6.10) M/uL Hgb 12.3 L (14.0-18.0) g/dl Hct 37.5 L (42.0-52.0) % [place] # (Auto) 1.30 H (0.11-0.59) K/uL Immature Gran # (Auto) 0.49 H (0.01-0.20) K/uL BUN/Creatinine Ratio 23.4 H (10-20) Glucose 126 H (70-99(Fasting)) mg/dl POC Glucose 125 H 114 H (70-99) mg/dl Calcium 7.9 L (8.6-10.3) mg/dl 04/07/24 Range/Units 08:06 RBC (4.70-6.10) M/uL Hgb (14.0-18.0) g/dl Hct (42.0-52.0) % [place] # (Auto) (0.11-0.59) K/uL Immature Gran # (Auto) (0.01-0.20) K/uL BUN/Creatinine Ratio (10-20) Glucose (70-99(Fasting)) mg/dl POC Glucose 105 H (70-99) mg/dl Calcium (8.6-10.3) mg/dl PG Care Time/CCT Total # of Minutes Spent Total Time Spent with Patient: Total time spent is greater than 50% in coordination of care (as documented) at patient's floor/unit and/or counseling patient: Coding Level of Care Code 34513 SUB INP/OBS CARE 2/35MIN Diagnoses Septic shock A41.9; R65.21 Acute respiratory failure with hypoxia J96.01 Pneumonia involving left lung J18.9 Acute kidney injury N17.9 Rhinovirus infection B34.8 Admitted to intensive care unit Z78.9 Required emergency intubation Z98.890
[2024-04-07] MEDS: APIXABAN 5 MG TABLET PO ONE (11:59)
[2024-04-07] MEDS: METHYLCELLULOSE POWDER 454 GM JAR PO SCH (13:12)
[2024-04-08 05:17] LABS: Hematocrit (blood only) 36.7 % (42.0-52.0); Hemoglobin 12.2 g/dl (14.0-18.0); Mean Corpuscular Hgb Conc 33.2 g/dL (32.0-36.0); Mean Corpuscular Volume 93.1 fL (80.0-100.0); Mean Platelet Volume 9.8 fL (9.4-12.4); Platelet Count 164 K/uL (130-400); RDW Coefficient of Variation 13.4 % (11.5-14.5); RDW Standard Deviation 45.5 fL (36.4-46.3); Red Blood Count 3.94 M/uL (4.70-6.10)
[2024-04-08 05:29] LABS: BUN Creatinine Ratio 27.6 (10-20); Calcium 8.1 mg/dl (8.6-10.3); Creatinine Clr Calc Pharmacy 122.6 ml/min; Magnesium 1.9 mg/dl (1.7-2.4); Phosphorus 3.4 mg/dl (2.5-4.9); Potassium 4.5 mmol/L (3.5-5.1)
[2024-04-08 05:36] LABS: ANTI-Xa, UFH(UnfractionatedHep 0.25 IU/ml (0.3-0.7)
[2024-04-08 06:15] LABS: Basophils # (auto) 0.04 K/uL (0.00-0.20); Basophils % (auto) 0.5 %; Echinocytes 1+; Eosinophils # (auto) 0.45 K/uL (0.00-0.50); Eosinophils % (auto) 5.8 %; Immature Granulocytes # (auto) 0.46 K/uL (0.01-0.20); Lymphocytes # (auto) 2.51 K/uL (1.20-3.40); Lymphocytes % (auto) 32.6 %; Monocytes # (auto) 1.01 K/uL (0.11-0.59); Monocytes % (auto) 13.1 %; Neutrophils # (auto) 3.23 K/uL (1.40-6.50); Polychromasia 1+
--- NOTE | 2024-04-08 07:40 | Critical Care Progress Note ---
Date of Service April 08, 2024 Assessment & Plan (1) Septic shock: (2) Respiratory failure: (3) Atrial fibrillation with rapid ventricular response: (4) Rhinovirus infection: (5) Acute respiratory failure with hypoxia: (6) Diabetes mellitus: (7) Dementia: (8) Tracheostomy dependent: Plan Reason Critically Ill: 74 [facility] un[facility] and hypoxic requiring intubation in the field, ICU due to being on vasopressors and mechanically ventilated - [facility] records between June and August 2022 obtained, where Kian underwent tracheostomy in order to liberate from ET intubation Recommendations: Neuro - -- Acute delirium Continue Seroquel and trazodone. Try and maintain sleep-wake cycles. Avoid medications potentially associated with increasing delirium including benzodiazepines Cardiovascular - Shock unspecified, afib, on chronic anticoagulation -Periodic hypotension and bradycardia Midodrine was started started 04/04/24 evening to maintain MAP off Levo, discontinued on 04/07/2024 Will again put midodrine 5 mg to keep MAP greater than 65 2D echo 04/01/24: LV systolic function normal, RV moderately dilated, RV systolic function mildly reduced, LA mildly dilated; RV systolic pressure elevated at 30- 40mmHg, IVC mildly dilated - CTA of chest negative for PE/obstructive shock - high-sensitivity troponin downtrending as of 04/02/24 - 108.4 -> 64.8 Respiratory - Hypoxic respiratory failure requiring emergent intubation and mechanical ventilation, COPD, KURT --S/p VDRF, currently trached - Respiratory failure requiring intubation- at this time likely secondary to viral infection and possible mucous plugging vs. aspiration vs. viral and bacterial pneumonia or combination of these. - 04/04/24 tracheostomy - Elevated PCT- can't exclude bacterial pneumonia - Respiratory viral panel + for Enter/Rhinovirus - Continue trach collar trials as tolerated. Continue pulmonary toilet and suctioning. - Nebulizers scheduled- MAE and ICS GI - OG -> NG tube post-extubation 04/04/24 - continue NG feeds RENAL/LYTES - -- Monitor BUNs/creatinine Avoid nephrotoxic medication - UA 04/01/24 with 2+ bacteria, trace leukocytosis, 11-20 RBCs, trace blood - Urine culture negative to date ENDO - DMII - ICU hyperglycemic protocol -Patient got 2 days of IV hydrocortisone 50 mg every 8 hours for low random cortisol. It was discontinued following that HEME - -- Chronic anticoagulation On Eliquis at home ID - Sepsis likely pulmonary source. Completed 6 days empiric Zosyn. Also received vancomycin. Cultures negative to date. Discontinue antibiotics and follow-up. --Prophylaxis VTE: Heparin drip GI: None Lines:PIV, NGT Diet: Tube feeds Plan: In/out: -777, urine output 2271, +3.8 L since coming to the hospital Patient systolic blood pressure in the mid 80s with MAP in the mid 50s. I will add midodrine to his regimen, if there is no improvement in the blood pressure than norepi will be added Patient did get hydrocortisone for only 2 days for low random cortisol. If the patient's blood pressure continues to stay on the lower side then I will give another taper dose of hydrocortisone Magnesium being replaced Plan is for PEG tube placement today. Patient's overall prognosis is guarded. Reportedly the patient's who is the decision-maker has not seen the patient physically in over a year. She is dictating his care by phone. Palliative care on board I have personally spent 38 minutes of critical care time in the direct management of this patient. This is a life/limb threatening event. This includes time spent evaluating patient, direct bedside care, chart review, placing orders, interpretation of diagnostic studies, discussion with consultants, patient, and family members, as well as other required patient management activities. This time is exclusive of all separately billable procedures, and teaching time and separate from and in addition to any other critical care service time. Please note the above document was generated using voice recognition software. It may contain grammatical, syntax or spelling errors. Admission and Anticipated Discharge Date Admission Date: April 01, 2024 Subjective Patient seen and examined at bedside. No acute distress, no adverse events overnight His blood pressure when I came into the room was MAP in the mid 50s. On waking up, he was following commands. I repeated the blood pressure and his MAP was in the high 60s to low 70s. Denied any headache, no chest pain, no belly pain. Has been afebrile. Review of Systems 2 Review of Systems: All systems reviewed & are unremarkable except as noted in Subjective and Unobtainable due to cognitive status Physical Exam 2 Physical Exam: Constitutional: No acute distress HEENT: EOMI, PERRLA, positive NGT, positive trach Respiratory system: Decreased air entry bilaterally, no wheeze, rhonchi, mild crackles bilateral lower lobes CVS: S1-S2 positive, no murmurs or gallops Abdomen: Soft, nontender, nondistended, positive bowel sounds x4 Extremities: +2 pulses bilaterally radialis/ dorsalis pedis, no cyanosis, minimal pitting edema bilateral lower extremity Neuro: Awake alert, following simple commands Psych: Normal mood and affect G/U: Positive [place] Skin: no rashes, warm and dry Lymphatic: no cervical or axillary lymphadenopathy Results & Data Results & Data Vital Signs (Past 12 Hours) Vital Signs Temp Pulse Pulse Resp BP Pulse Ox O2 Del Method 04/08/24 07:20 49 L 16 99 Trach Collar 04/08/24 06:00 36.2 C L 69 20 116/74 96 Trach Collar 04/08/24 05:00 36.2 C L 76 24 113/74 97 Trach Collar 04/08/24 04:00 36 C L 66 21 91/55 L 90 Trach Collar 04/08/24 03:00 79 20 121/79 Trach Collar 04/08/24 02:00 81 19 94/57 L 97 Trach Collar 04/08/24 01:00 36.5 C 78 18 102/62 99 Trach Collar 04/08/24 00:00 79 20 108/63 94 Trach Collar 04/07/24 23:45 77 04/07/24 23:00 85 22 112/73 94 Trach Collar 04/07/24 22:00 96 H 22 115/69 95 Trach Collar 04/07/24 21:00 37.3 C 75 22 143/70 H 96 Trach Collar 04/07/24 20:00 Trach Collar 04/07/24 20:00 37.3 C 76 24 139/73 95 Trach Collar O2 Flow Rate FiO2 04/08/24 07:20 7 40 04/08/24 06:00 40 04/08/24 05:00 40 04/08/24 04:00 40 04/08/24 03:00 40 04/08/24 02:00 40 04/08/24 01:00 40 04/08/24 00:00 40 04/07/24 23:45 04/07/24 23:00 40 04/07/24 22:00 40 04/07/24 21:00 50 04/07/24 20:00 50 04/07/24 20:00 50 Laboratory Results 04/08/24 04:47 04/08/24 04:47 Coding Level of Care Code 76568 CRITICAL CARE 1ST 30-74M Diagnoses Septic shock A41.9; R65.21 Acute respiratory failure with hypoxia J96.01 Chronicity: acute Respiratory failure complication: hypoxia Atrial fibrillation with rapid ventricular response I48.91 Rhinovirus infection B34.8 Acute respiratory failure with hypoxia J96.01 Diabetes mellitus E11.9 Dementia F03.90 Tracheostomy dependent Z93.0 (2) Respiratory failure Chronicity: acute Respiratory failure complication: hypoxia Qualified Code(s): J96.01 - Acute respiratory failure with hypoxia
[2024-04-08] MEDS: MIDODRINE HCL 2.5 MG TAB PO SCH (08:37)
--- NOTE | 2024-04-08 08:54 | XRay Report ---
EXAM: XR chest 1V portable CLINICAL HISTORY: null TECHNIQUE: An X-ray image of the chest was obtained in AP projection. COMPARISON: X-ray dated 04/04/2024. FINDINGS: Tracheostomy tube is seen in situ. Pulmonary Parenchyma: Homogeneous opacification of left mid and lower zone obscuring the costophrenic angle. Bilateral prominent bronchovascular markings. Mild to moderate pleural effusion with underlying collapse and consolidation. Heart and Mediastinum: Cardiac shadow is enlarged in size. No mediastinal widening or masses. No hilar or mediastinal lymphadenopathy. Bony Thorax: Bony thorax appears intact without fractures or deformities. Soft Tissues: Soft tissues overlying the chest wall are unremarkable. Multiple indeterminant leads/tubes are projecting over the chest IMPRESSION: 1. Tracheostomy tube is seen in situ. 2. Homogeneous opacification of left mid and lower zones. Mild to moderate pleural effusion with underlying collapse and consolidation. 3. Cardiomegaly. 4. When compared with the previous X-ray dated 04/04/2024 findings remain stable. Electronically signed by Melvin Farris 04-08-2024 08:54 AM
[2024-04-08] MEDS: MAGNESIUM OXIDE 400 MG TAB PO SCH (09:17)
[2024-04-08 12:27] LABS: ANTI-Xa, UFH(UnfractionatedHep 0.24 IU/ml (0.3-0.7)
--- NOTE | 2024-04-08 13:07 | Hospitalist Progress Note ---
Date of Service April 08, 2024 Assessment & Plan (1) Septic shock: (2) Acute respiratory failure with hypoxia: (3) Pneumonia involving left lung: (4) Acute kidney injury: (5) Rhinovirus infection: (6) Admitted to intensive care unit: (7) Required emergency intubation: Plan The patient is a 73-year-old male with a past medical history including paroxysmal atrial fibrillation, tachybradycardia syndrome, COPD, KURT, hypertension, chronic respiratory failure with hypoxia, convulsions, dementia, diabetes mellitus, osteoarthritis, hyperlipidemia, anemia, on chronic anticoagulation with Eliquis. The patient had been found unresponsive and hypoxic at [facility], EMS was called emergently, the patient required intubation in the field, and mechanical ventilation. #Acute respiratory failure with hypoxia/pneumonia involving left lung/required emergency intubation in the field- Admitted to intensive care unit Injection Molding Machine Tender initially involved for ventilator management Tracheostomy done on 04/04 Now off of vent Positive for enterovirus/rhinovirus Zosyn discontinued after 6 days of treatment #Septic shock- Off of pressors Off of hydrocortisone Midodrine #Leukocytosis Resolved Likely steroid-induced, on hydrocortisone Cultures negative #Atrial fibrillation/chronic anticoagulation with Eliquis- Holding Eliquis Placed on heparin drip standard dosing #Demand ischemia Troponin elevated due to combination of hypotension, hypoxia, pneumonia, sepsis Echocardiogram reviewed #Acute kidney injury- Initial creatinine 1.57, with base 0.62 Improved to normal Was hydrated #Seizure disorder-on oral divalproex 250 p.o. 3 times daily. #UTI Urine culture negative Off of antibiotics wishes full code and to continue "everything" although she has not seen the patient in 1 year. Tracheostomy done 04/04. GI involved to consider PEG tube placement. Will continue tube feeds for now. Patient recently had trach and PEG. GI concerned about scar tissue from prior PEG tube placement. GI wishes to monitor for now. Consulted palliative care, awaiting recommendations. Admission and Anticipated Discharge Date Admission Date: April 01, 2024 Subjective Patient was seen and examined at 10:40 AM. Per nurse, patient was a little more alert and was following most commands today. Still unable to speak Review of Systems Review of Systems: Unobtainable due to cognitive status Physical Exam Physical Exam: General: Trached. Sleeping, arousable. Trying to say something but unable to bring out words. Getting restless. Able to follow more commands today. NG tub e in place Heart: S1, S2/regular rate and rhythm, no murmur rubs or gallops Lungs: Diminished breath sounds bilaterally. Normal effort Abdomen: Soft/nontender/nondistended. No hepatosplenomegaly Extremities: No clubbing/cyanosis. No edema Behavior: Unable to assess Results & Data Results & Data Vital Signs (Past 12 Hours) Vital Signs Temp Pulse Pulse Resp BP Pulse Ox O2 Del Method 04/08/24 10:06 36.5 C 83 29 H 95 04/08/24 10:00 130/72 04/08/24 09:54 36.5 C 86 28 H 99 04/08/24 09:12 36.3 C L 64 20 98 04/08/24 09:00 98/58 L 04/08/24 08:12 85/46 L 04/08/24 08:04 72/46 L 04/08/24 08:00 36.4 C L 69 19 95 04/08/24 08:00 69 04/08/24 08:00 Trach Collar 04/08/24 07:38 94/52 L 04/08/24 07:36 36.4 C L 56 L 20 98 Trach Collar 04/08/24 07:20 49 L 16 99 Trach Collar 04/08/24 06:00 36.2 C L 69 20 116/74 96 Trach Collar 04/08/24 05:00 36.2 C L 76 24 113/74 97 Trach Collar 04/08/24 04:00 36 C L 66 21 91/55 L 90 Trach Collar 04/08/24 03:00 79 20 121/79 Trach Collar 04/08/24 02:00 81 19 94/57 L 97 Trach Collar O2 Flow Rate FiO2 04/08/24 10:06 04/08/24 10:00 04/08/24 09:54 04/08/24 09:12 04/08/24 09:00 04/08/24 08:12 04/08/24 08:04 04/08/24 08:00 04/08/24 08:00 04/08/24 08:00 40 04/08/24 07:38 04/08/24 07:36 40 04/08/24 07:20 7 40 04/08/24 06:00 40 04/08/24 05:00 40 04/08/24 04:00 40 04/08/24 03:00 40 04/08/24 02:00 40 Laboratory Results Abnormal lab results 04/07/24 04/07/24 04/07/24 Range/Units 16:18 19:35 23:56 RBC (4.70-6.10) M/uL Hgb (14.0-18.0) g/dl Hct (42.0-52.0) % [place] # (Auto) (0.11-0.59) K/uL Immature Gran # (Auto) (0.01-0.20) K/uL Heparin Anti-Xa, Unfract (0.3-0.7) IU/ml Chloride (98-107) mmol/L Anion Gap (3-11) Creatinine (0.6-1.4) mg/dl BUN/Creatinine Ratio (10-20) Glucose (70-99(Fasting)) mg/dl POC Glucose 128 H 126 H 124 H (70-99) mg/dl Calcium (8.6-10.3) mg/dl 04/08/24 04/08/24 04/08/24 Range/Units 03:53 04:47 08:11 RBC 3.94 L (4.70-6.10) M/uL Hgb 12.2 L (14.0-18.0) g/dl Hct 36.7 L (42.0-52.0) % [place] # (Auto) 1.01 H (0.11-0.59) K/uL Immature Gran # (Auto) 0.46 H (0.01-0.20) K/uL Heparin Anti-Xa, Unfract 0.25 L (0.3-0.7) IU/ml Chloride 109 H (98-107) mmol/L Anion Gap 2 L (3-11) Creatinine 0.58 L (0.6-1.4) mg/dl BUN/Creatinine Ratio 27.6 H (10-20) Glucose 115 H (70-99(Fasting)) mg/dl POC Glucose 118 H 124 H (70-99) mg/dl Calcium 8.1 L (8.6-10.3) mg/dl 04/08/24 Range/Units 11:33 RBC (4.70-6.10) M/uL Hgb (14.0-18.0) g/dl Hct (42.0-52.0) % [place] # (Auto) (0.11-0.59) K/uL Immature Gran # (Auto) (0.01-0.20) K/uL Heparin Anti-Xa, Unfract 0.24 L (0.3-0.7) IU/ml Chloride (98-107) mmol/L Anion Gap (3-11) Creatinine (0.6-1.4) mg/dl BUN/Creatinine Ratio (10-20) Glucose (70-99(Fasting)) mg/dl POC Glucose (70-99) mg/dl Calcium (8.6-10.3) mg/dl Diagnostic Findings Chest X-Ray 04/08/24 07:38 EXAM: XR chest 1V portable CLINICAL HISTORY: null TECHNIQUE: An X-ray image of the chest was obtained in AP projection. COMPARISON: X-ray dated 04/04/2024. FINDINGS: Tracheostomy tube is seen in situ. Pulmonary Parenchyma: Homogeneous opacification of left mid and lower zone obscuring the costophrenic angle. Bilateral prominent bronchovascular markings. Mild to moderate pleural effusion with underlying collapse and consolidation. Heart and Mediastinum: Cardiac shadow is enlarged in size. No mediastinal widening or masses. No hilar or mediastinal lymphadenopathy. Bony Thorax: Bony thorax appears intact without fractures or deformities. Soft Tissues: Soft tissues overlying the chest wall are unremarkable. Multiple indeterminant leads/tubes are projecting over the chest IMPRESSION: 1. Tracheostomy tube is seen in situ. 2. Homogeneous opacification of left mid and lower zones. Mild to moderate pleural effusion with underlying collapse and consolidation. 3. Cardiomegaly. 4. When compared with the previous X-ray dated 04/04/2024 findings remain stable. Electronically signed by Melvin Farris 04-08-2024 08:54 AM PG Care Time/CCT Total # of Minutes Spent Total Time Spent with Patient: Total time spent is greater than 50% in coordination of care (as documented) at patient's floor/unit and/or counseling patient: Coding Level of Care Code 47339 SUB INP/OBS CARE 2/35MIN Diagnoses Septic shock A41.9; R65.21 Acute respiratory failure with hypoxia J96.01 Pneumonia involving left lung J18.9 Acute kidney injury N17.9 Rhinovirus infection B34.8 Admitted to intensive care unit Z78.9 Required emergency intubation Z98.890
--- NOTE | 2024-04-08 13:23 | Electrocardiogram Report ---
Test Reason : Blood Pressure : */* mmHG Vent. Rate : 68 BPM Atrial Rate : 68 BPM P-R Int : 130 ms QRS Dur : 120 ms QT Int : 408 ms P-R-T Axes : 26 -34 -42 degrees QTcB Int : 433 ms Sinus rhythm with Premature atrial complexes Left axis deviation Right bundle branch block Possible Lateral infarct , age undetermined Abnormal ECG When compared with ECG of 05-Apr-2024 06:55, Premature atrial complexes are now Present Vent. rate has increased by 34 bpm QT has lengthened Confirmed by Ritchie Adams ([id number]) on 04/08/2024 1:23:03 PM Referred By: Jae Mars Confirmed By: Ritchie Adams
--- NOTE | 2024-04-08 15:10 | Palliative Care Consultation ---
Date of Consultation April 08, 2024 Assessment & Plan (1) Discussion about advance care planning held with family member: A telephonic 45min ACP was held with Kian's of 35yr, Renee Mae. She understands he is not going to improve neurologically is adamant she wants a feeding tube placed. We spoke at length about the risks and complications and she accepted them. Engaged in a compassionate and empathetic discussion with Renee regarding the escalating progression of dementia and the challenges associated with continued medical interventions. Emphasized the shift in care goals towards palliative measures, prioritizing comfort and dignity over prolonging life, while acknowledging the emotional weight and profound caregiving burden this decision imposes on her. I then opened a discussion about what if the PEG fails, does not work or complications arise. We discussed that if the potential comp lications noted by SHANNAN occur, there are not other feeding tube options that can be offered which can be allowed in a senior living and she is not capable of caring for him in her home by herself. She does not have the means to hire private/[facility] caregivers. I provided a sensitive, patient-centered conversation about the potential futility of a feeding tube at this stage, highlighting the importance of honoring Avery dignity and the emotional complexity of decision- making. I acknowledged with empathy her emotional distress and validated her concerns, ensuring support for her in navigating this difficult process, She was able to agree that if he reaches a point where the escalated intervention fails, then she would be more amenable to comfort. I asked her to think about what he would want for himself - this made her very tearful and she was able to admit that she is unsure he would want to live like this but she is not ready to "let him go and be alone." She lives in [place] and has not visited he becomes very agitated every time she did visit and it became harder to manage. When I asked Renee what Kian would say if he was having this conversation with us, she said "I want to say he would tell you to do everything bc he knows I don't want to be alone and he would not want to leave me." Then she said she knew that was more her wishes than his wishes. Renee is very honest that she is not ready to live in a world without Kian, no matter what state of "living" he is in. I acknowledged the emotional weight of the situation, noting how difficult and painful this must be for her, fanny since his dementia "came out of the blue, we weren't ready for it and our whole lives changed so fast." I emphasized the medical teams' commitment to honor her wishes and also assure QOL/comfort and peace for out patient. We know her primary concern is likely the comfort and dignity of her spouse, even if that means having to make very difficult decisions about care. We spoke about the concept of palliative care and the goal of care is not to prolong life at all costs but to ensure the patient is comfortable and free from unnecessary suffering by focusing on comfort, dignity, and easing any pain or distress, rather than trying to keep him alive when its clear that further medical interventions may not bring any real benefit. We spoke about how the feeding tube is an intervention which is unlikely to improve quality of life and may even cause more distress - inc secretions, GI issues, tube placement complications over a re-do site and we specifically discussed AGS reccs for avoiding feeding tubes in adv dementia patients with recommended shift of focus about comfort and QOL, fanny since Kian no longer able to engage with the world around him in the ways that give him erlinda or meaning. I told Renee I recognize her emotional conflict, fanny her fear of loneliness and loss, understanding that her attachment to her after 35 years of marriage makes the prospect of his passing overwhelmingly painful, and again offered reassurance that she will not be alone in this journey and that continued support will be provided to help her through this difficult transition. I advised Renee she is not alone in making these decisions and that there is support from our teams, to help guide her through this difficult process. I reinforced she does not have to make these decisions alone and our team can help support with whatever guidance she may need. I offered to revisit the conversation and suggested perhaps waiting a few days while she contemplated what Kian would truly want for himself at this adv stage of dementia and provided reassurance that it is ok to take some time to process it all. However she remained adamant she wants the PEG placed and she will handle issues of PEG complications/further decline etc as they arise in the future, Psychosocial support and reassurance were provided, specifically I noted she is carrying a high emotional burden, and we see she is coming from the perspective of and feelings of love and care for her spouse. (2) Palliative care by specialist: Introduced Palliative Medicine and explained our role in patient's care. Patient and/or family were receptive to palliative services for goals of care discussions. Reviewed we are different from hospice, a home health nurse visiting service. (3) Weakness generalized: (4) Dyspnea and respiratory abnormalities: (5) Dysphagia: (6) Dementia: Plan ACP discussion as noted above Thank you for allowing us to participate in the ongoing care of this patient. Please page with any additional concerns. Marilee Hathaway DNP Director, Palliative Medicine History of Present Illness Reason for Consultation: [facility] Attending Physician: Sterling Veloz MD History of Present Illness 73yo dementia /adva resp failure s/p trach decision re PEG Renee is NOK SDM patient not able to participate Allergies Allergy/AdvReac Type Severity Reaction Status Date / Time No Known Allergies Allergy Verified 12/20/23 19:27 Home Medications Medication Instructions Recorded Confirmed Type acetaminophen 325 mg tablet 650 mg PO Q6 PRN PAIN 1-10 12/20/23 12/20/23 History acetaminophen 325 mg tablet 650 mg PO QID PRN TEMP > 101 12/20/23 12/20/23 History apixaban 5 mg tablet (Eliquis) 5 mg PO BID 12/20/23 12/20/23 History atorvastatin 40 mg tablet 40 mg PO DAILY 12/20/23 12/20/23 History buspirone 10 mg tablet 10 mg PO TID 12/20/23 12/20/23 History chlorhexidine gluconate 0.12 % 15 ml buccal Q12 12/20/23 12/20/23 History mouthwash (Peridex) divalproex 250 mg tablet,delayed 250 mg PO TID 12/20/23 12/20/23 History release ferrous sulfate 325 mg (65 mg 325 mg PO DAILY 12/20/23 12/20/23 History iron) tablet (FeroSul) folic acid 400 mcg tablet 0.4 mg PO DAILY 12/20/23 12/20/23 History ipratropium 20 mcg-albuterol 100 1 puff inhalation Q6 PRN Wheezing 12/20/23 12/20/23 History mcg/actuation mist for inhalation (Combivent Respimat) menthol 0.1 % lotion (Eucerin Itch 1 ea topical BID 12/20/23 12/20/23 History Relief) metoprolol tartrate 25 mg tablet 25 mg PO BID 12/20/23 12/20/23 History quetiapine 100 mg tablet 100 mg PO HS 12/20/23 12/20/23 History quetiapine 25 mg tablet (Seroquel) 50 mg PO DAILY 12/20/23 12/20/23 History sennosides 8.6 mg-docusate sodium 1 tab-cap PO HS 12/20/23 12/20/23 History 50 mg tablet (Senna-S) trazodone 50 mg tablet 75 mg PO HS 12/20/23 12/20/23 History Patient History Medical History Complication of tracheostomy tube Social History Smoking Status: Never smoker Hx Alcohol Use: No Hx Substance Use: No Preferred Language: [place] Communication Ability: Impaired Paramedical Aide Required: No Beliefs That Will Affect Care: None Current Living Situation: [facility] Current Living Situation Comment: [facility] Feels Safe at Home: Declines to Answer Assistive Devices: Wheelchair Review of Systems Review of Systems: Unobtainable due to cognitive status Physical Exam Physical Exam: deferred, family meeting urgently needed for medical decision making Results & Data Vital Signs (Past 12 Hours) Vital Signs Temp Pulse Pulse Resp BP Pulse Ox O2 Del Method 04/08/24 14:03 36.7 C 69 21 95 04/08/24 14:00 130/61 04/08/24 13:06 36.9 C 67 23 100 04/08/24 13:00 104/52 L 04/08/24 12:24 36.9 C 66 28 H 96 04/08/24 11:01 98/73 L 04/08/24 10:57 36.6 C 71 23 94 04/08/24 10:06 36.5 C 83 29 H 95 04/08/24 10:00 130/72 04/08/24 09:54 36.5 C 86 28 H 99 04/08/24 09:12 36.3 C L 64 20 98 04/08/24 09:00 98/58 L 04/08/24 08:12 85/46 L 04/08/24 08:04 72/46 L 04/08/24 08:00 36.4 C L 69 19 95 04/08/24 08:00 69 04/08/24 08:00 Trach Collar 04/08/24 07:38 94/52 L 04/08/24 07:36 36.4 C L 56 L 20 98 Trach Collar 04/08/24 07:20 49 L 16 99 Trach Collar 04/08/24 06:00 36.2 C L 69 20 116/74 96 Trach Collar 04/08/24 05:00 36.2 C L 76 24 113/74 97 Trach Collar 04/08/24 04:00 36 C L 66 21 91/55 L 90 Trach Collar O2 Flow Rate FiO2 04/08/24 14:03 04/08/24 14:00 04/08/24 13:06 04/08/24 13:00 04/08/24 12:24 04/08/24 11:01 04/08/24 10:57 04/08/24 10:06 04/08/24 10:00 04/08/24 09:54 04/08/24 09:12 04/08/24 09:00 04/08/24 08:12 04/08/24 08:04 04/08/24 08:00 04/08/24 08:00 04/08/24 08:00 40 04/08/24 07:38 04/08/24 07:36 40 04/08/24 07:20 7 40 04/08/24 06:00 40 04/08/24 05:00 40 04/08/24 04:00 40 PG Care Time/CCT Total # of Minutes Spent Total Time Spent with Patient: Total time spent is greater than 50% in coordination of care (as documented) at patient's floor/unit and/or counseling patient: I spent 85 minutes overall addressing this case: 15 min in medical data review/discussion with referring provider(s) and/or preparation for the visit 00 min in direct interaction with the patient/exam 45 min in Advance Care Planning/Goals of Care discussions as detailed above in note (must be >16min) 10 min in subsequent review and synthesis of assessment and plan 15 min communicating with other providers regarding the patient's case: GI, primary team, care mgt Advanced Care Planning 37875 Advanced Care Planning 30 Min 67122 Advanced Care Planning Additional 30 [place] [address] IN/OBS CONSULT LVL 3,45M (25 - SIGNIFICANT, SEPARATELY IDENTIFIABLE ) Patient Type New Medical Decision Making High Complexity Diagnoses Discussion about advance care planning held with family member Z71.0 Palliative care by specialist Z51.5 Weakness generalized R53.1 Dyspnea and respiratory abnormalities R06.00; R06.89 Dysphagia R13.10 Dementia F03.90 Additional Codes Advanced Care Planning - 89185 Advanced Care Planning 30 Min: 64500 Advanced Care Planning 30 Min ([id number]) Advanced Care Planning - 59181 Advanced Care Planning Additional 30 Min: 79065 Advanced Care Planning Additional 30 Min ([id number])
--- NOTE | 2024-04-08 15:59 | Communication Note ---
Date of Service: April 08, 2024 GI made aware of family desire to pursue PEG tube placement. Tentative schedule for EGD w/ PEG on Monday04/10/24. Please hold heparin gtt in anticipation for PEG placement at 2355 on 04/09/24. Please turn off tube feeds at 2355 on 04/09/24. Will need prophylactic ABX prior to EGD w/ PEG placement. Thank you for allowing us to participate in the care of this patient. Please call with any acute changes, questions or concerns. Please see addendum below with additional recommendation from my supervising physician.
[2024-04-08 20:18] LABS: ANTI-Xa, UFH(UnfractionatedHep 0.27 IU/ml (0.3-0.7)
[2024-04-09 03:19] LABS: ANTI-Xa, UFH(UnfractionatedHep 0.45 IU/ml (0.3-0.7)
--- NOTE | 2024-04-09 07:27 | Critical Care Progress Note ---
Date of Service April 09, 2024 Assessment & Plan (1) Septic shock: (2) Respiratory failure: (3) Atrial fibrillation with rapid ventricular response: (4) Rhinovirus infection: (5) Acute respiratory failure with hypoxia: (6) Diabetes mellitus: (7) Dementia: (8) Tracheostomy dependent: Plan Reason Critically Ill: 74 YOM resident of correction found unresponsive and hypoxic requiring intubation in the field, ICU due to being on vasopressors and mechanically ventilated - [facility] records between June and August 2022 obtained, where Kian underwent tracheostomy in order to liberate from ET intubation Recommendations: Neuro - -- Acute delirium Continue Seroquel and trazodone. Try and maintain sleep-wake cycles. Avoid medications potentially associated with increasing delirium including benzodiazepines Cardiovascular - Shock unspecified, afib, on chronic anticoagulation -Periodic hypotension and bradycardia Midodrine was started started 04/04/24 evening to maintain MAP off Levo, discontinued on 04/07/2024 Will again put midodrine 5 mg to keep MAP greater than 65 2D echo 04/01/24: LV systolic function normal, RV moderately dilated, RV systolic function mildly reduced, LA mildly dilated; RV systolic pressure elevated at 30- 40mmHg, IVC mildly dilated - CTA of chest negative for PE/obstructive shock - high-sensitivity troponin downtrending as of 04/02/24 - 108.4 -> 64.8 Respiratory - Hypoxic respiratory failure requiring emergent intubation and mechanical ventilation, COPD, KURT --S/p VDRF, currently trached - Respiratory failure requiring intubation- at this time likely secondary to viral infection and possible mucous plugging vs. aspiration vs. viral and bacterial pneumonia or combination of these. - 04/04/24 tracheostomy - Elevated PCT- can't exclude bacterial pneumonia - Respiratory viral panel + for Enter/Rhinovirus - Continue trach collar trials as tolerated. Continue pulmonary toilet and suctioning. - Nebulizers scheduled- MAE and ICS GI - OG -> NG tube post-extubation 04/04/24 - continue NG feeds RENAL/LYTES - -- Monitor BUNs/creatinine Avoid nephrotoxic medication - UA 04/01/24 with 2+ bacteria, trace leukocytosis, 11-20 RBCs, trace blood - Urine culture negative to date ENDO - DMII - ICU hyperglycemic protocol -Patient got 2 days of IV hydrocortisone 50 mg every 8 hours for low random cortisol. It was discontinued following that HEME - -- Chronic anticoagulation On Eliquis at home ID - Sepsis likely pulmonary source. Completed 6 days empiric Zosyn. Also received vancomycin. Cultures negative to date. Discontinue antibiotics and follow-up. --Prophylaxis VTE: Heparin drip GI: None Lines:PIV, NGT Diet: Tube feeds Plan: In/out: - 1.7 L, urine output 2300 mL, + 2.1 L since coming to the hospital Patient is on p.o. potassium chloride standing dose. Will stop it given the potassium being 4.9 Will try to DC Andrade Given that he had was having a little bit of rhonchi today. Will start him on nebulized Perforomist as well as chest PT Blood pressure has been stable, change midodrine to as needed Magnesium being replaced Plan is for PEG tube placement tomorrow if the patient failed swallow eval today Patient's overall prognosis is guarded. Reportedly the patient's who is the decision-maker has not seen the patient physically in over a year. She is dictating his care by phone. Palliative care on board Please note the above document was generated using voice recognition software. It may contain grammatical, syntax or spelling errors.Any formal questions or concerns about the content, text or information contained within the body of this dictation should be directly addressed to the provider for clarification. Admission and Anticipated Discharge Date Admission Date: April 01, 2024 Subjective Patient seen and examined at bedside. No acute distress, no adverse events overnight He was awake alert, answering questions appropriately Denied any headache, no chest pain, no abdominal pain. Was thankful for taking care of him. His systolic blood pressure was in the 150s with heart rate in the 80s. Review of Systems 2 Review of Systems: All systems reviewed & are unremarkable except as noted in Subjective Physical Exam 2 Physical Exam: Constitutional: No acute distress HEENT: EOMI, PERRLA, positive NGT, positive trach Respiratory system: Decreased air entry bilaterally, no wheeze, mild rhonchi especially on the right side, mild crackles bilateral lower lobes CVS: S1-S2 positive, no murmurs or gallops Abdomen: Soft, nontender, nondistended, positive bowel sounds x4 Extremities: +2 pulses bilaterally radialis/ dorsalis pedis, no cyanosis, minimal pitting edema bilateral lower extremity Neuro: Awake alert, following simple commands Psych: Normal mood and affect G/U: Positive [place] Skin: no rashes, warm and dry Lymphatic: no cervical or axillary lymphadenopathy Results & Data Results & Data Vital Signs (Past 12 Hours) Vital Signs Temp Pulse Resp BP Pulse Ox O2 Del Method FiO2 04/09/24 04:15 36.4 C L 76 19 96 04/09/24 04:00 131/68 04/09/24 03:57 36.3 C L 82 19 94 04/09/24 03:03 36.5 C 82 19 92 04/09/24 03:00 99/61 L 04/09/24 03:00 99/61 L 04/09/24 02:45 36.5 C 87 20 93 04/09/24 02:15 36.6 C 88 20 96 04/09/24 02:00 132/83 04/09/24 01:57 36.7 C 109 H 34 H 96 04/09/24 01:15 36.7 C 102 H 24 94 04/09/24 01:00 127/81 04/09/24 00:42 36.7 C 108 H 27 H 93 04/09/24 00:01 109/67 04/09/24 00:01 109/67 04/09/24 00:00 36.8 C 107 H 25 H 93 04/08/24 23:00 149/89 H 04/08/24 23:00 36.9 C 116 H 29 H 87 L 04/08/24 22:01 135/76 04/08/24 22:01 135/76 04/08/24 22:00 37.3 C 72 24 92 04/08/24 21:09 37.4 C 75 36 H 97 04/08/24 21:01 140/78 04/08/24 20:51 37.4 C 79 28 H 96 04/08/24 20:01 143/68 H 04/08/24 20:01 143/68 H 04/08/24 20:00 37.4 C 75 25 H 95 04/08/24 20:00 Trach Collar 40 Laboratory Results 04/08/24 04:47 04/08/24 04:47 Coding Level of Care Code 45936 SUB INP/OBS CARE 3/50MIN Diagnoses Septic shock A41.9; R65.21 Acute respiratory failure with hypoxia J96.01 Chronicity: acute Respiratory failure complication: hypoxia Atrial fibrillation with rapid ventricular response I48.91 Rhinovirus infection B34.8 Acute respiratory failure with hypoxia J96.01 Diabetes mellitus E11.9 Dementia F03.90 Tracheostomy dependent Z93.0 (2) Respiratory failure Chronicity: acute Respiratory failure complication: hypoxia Qualified Code(s): J96.01 - Acute respiratory failure with hypoxia
[2024-04-09 08:03] LABS: Basophils # (auto) 0.03 K/uL (0.00-0.20); Basophils % (auto) 0.3 %; Eosinophils # (auto) 0.45 K/uL (0.00-0.50); Eosinophils % (auto) 4.8 %; Hematocrit (blood only) 37.5 % (42.0-52.0); Hemoglobin 12.4 g/dl (14.0-18.0); Immature Granulocytes # (auto) 0.36 K/uL (0.01-0.20); Immature Granulocytes % (auto) 3.9 %; Lymphocytes # (auto) 2.37 K/uL (1.20-3.40); Lymphocytes % (auto) 25.4 %; Mean Corpuscular Hemoglobin 30.9 pg (25.0-34.0); Mean Corpuscular Hgb Conc 33.1 g/dL (32.0-36.0); Mean Corpuscular Volume 93.5 fL (80.0-100.0); Mean Platelet Volume 10.1 fL (9.4-12.4); Monocytes # (auto) 1.36 K/uL (0.11-0.59); Monocytes % (auto) 14.6 %; Neutrophils # (auto) 4.76 K/uL (1.40-6.50); Platelet Count 210 K/uL (130-400); RDW Coefficient of Variation 13.8 % (11.5-14.5); RDW Standard Deviation 45.9 fL (36.4-46.3); Red Blood Count 4.01 M/uL (4.70-6.10); White Blood Count 9.33 K/ul (4.8-10.8)
[2024-04-09 08:11] LABS: BUN Creatinine Ratio 27.7 (10-20); Calcium 9.2 mg/dl (8.6-10.3); Creatinine Clr Calc Pharmacy 109.4 ml/min; Phosphorus 2.9 mg/dl (2.5-4.9); Potassium 4.9 mmol/L (3.5-5.1)
[2024-04-09] MEDS ORDERED: MIDODRINE HCL 2.5 MG TAB PO PRN (09:53)
[2024-04-09] MEDS: FORMOTEROL 20 MCG/2 ML VIAL NEB SCH (10:05)
--- NOTE | 2024-04-09 12:00 | Hospitalist Progress Note ---
Date of Service April 09, 2024 Assessment & Plan (1) Septic shock: (2) Acute respiratory failure with hypoxia: (3) Pneumonia involving left lung: (4) Acute kidney injury: (5) Rhinovirus infection: (6) Admitted to intensive care unit: (7) Required emergency intubation: Plan The patient is a 73-year-old male with a past medical history including paroxysmal atrial fibrillation, tachybradycardia syndrome, COPD, KURT, hypertension, chronic respiratory failure with hypoxia, convulsions, dementia, diabetes mellitus, osteoarthritis, hyperlipidemia, anemia, on chronic anticoagulation with Eliquis. The patient had been found unresponsive and hypoxic at [facility], EMS was called emergently, the patient required intubation in the field, and mechanical ventilation. #Acute respiratory failure with hypoxia/pneumonia involving left lung/required emergency intubation in the field- Admitted to intensive care unit Chief Nursing Officer initially involved for ventilator management Tracheostomy done on 04/04 Now off of vent Positive for enterovirus/rhinovirus Zosyn discontinued after 6 days of treatment Palliative care was spoke to the patient's was adamant about PEG tube placement. Plan for PEG tube placement tomorrow 04/10. Hold heparin drip at 11:55 PM tonight. Orders placed Hold tube feeds at 11:55 PM tonight. Orders placed. GI on board #Septic shock- Off of pressors Off of hydrocortisone Midodrine #Leukocytosis Resolved Likely steroid-induced, on hydrocortisone Cultures negative #Atrial fibrillation/chronic anticoagulation with Eliquis- Holding Eliquis Placed on heparin drip standard dosing Holding heparin drip at 11:55 PM tonight for PEG tube placement tomorrow 04/01 #Demand ischemia Troponin elevated due to combination of hypotension, hypoxia, pneumonia, sepsis Echocardiogram reviewed #Acute kidney injury- Initial creatinine 1.57, with base 0.62 Improved to normal Was hydrated #Seizure disorder-on oral divalproex 250 p.o. 3 times daily. #UTI Urine culture negative Off of antibiotics wishes full code and to continue "everything" although she has not seen the patient in 1 year. Tracheostomy done 04/04. GI involved to consider PEG tube placement. Palliative care spoke to the patient's who is adamant about PEG tube placement. The plan is for PEG tube placement 04/10. Admission and Anticipated Discharge Date Admission Date: April 01, 2024 Subjective Patient was seen and examined at 11:15 AM. Nurse did not raise any issues. Review of Systems Review of Systems: Unobtainable due to cognitive status Physical Exam Physical Exam: General: Trached. Sleeping, arousable. Appears calm today. NG tube in place Heart: S1, S2/regular rate and rhythm, no murmur rubs or gallops Lungs: Diminished breath sounds bilaterally. Normal effort Abdomen: Soft/nontender/nondistended. No hepatosplenomegaly Extremities: No clubbing/cyanosis. No edema Behavior: Unable to assess Results & Data Results & Data Vital Signs (Past 12 Hours) Vital Signs Temp Pulse Pulse Resp BP Pulse Ox O2 Del Method 04/09/24 11:00 36.8 C 75 24 95 Trach Collar 04/09/24 11:00 121/83 04/09/24 10:15 78 22 94 Trach Collar 04/09/24 10:12 36.7 C 86 22 97 04/09/24 10:00 125/80 04/09/24 09:57 36.7 C 81 23 96 04/09/24 09:00 132/75 04/09/24 09:00 36.7 C 77 23 04/09/24 08:25 150/74 H 04/09/24 08:21 36.6 C 74 23 96 04/09/24 08:03 36.5 C 83 23 95 04/09/24 08:00 Trach Collar 04/09/24 08:00 136/82 04/09/24 07:55 86 20 96 Trach Collar 04/09/24 07:27 36.4 C L 89 24 95 04/09/24 07:12 36.3 C L 77 21 95 04/09/24 07:00 133/87 04/09/24 04:15 36.4 C L 76 19 96 04/09/24 04:00 131/68 04/09/24 03:57 36.3 C L 82 19 94 04/09/24 03:03 36.5 C 82 19 92 04/09/24 03:00 99/61 L 04/09/24 03:00 99/61 L 04/09/24 02:45 36.5 C 87 20 93 04/09/24 02:15 36.6 C 88 20 96 04/09/24 02:00 132/83 04/09/24 01:57 36.7 C 109 H 34 H 96 01/28/25 01:15 36.7 C 102 H 24 94 04/09/24 01:00 127/81 04/09/24 00:42 36.7 C 108 H 27 H 93 04/09/24 00:01 109/67 04/09/24 00:01 109/67 04/09/24 00:00 36.8 C 107 H 25 H 93 O2 Flow Rate FiO2 04/09/24 11:00 40 04/09/24 11:00 04/09/24 10:15 7 30 04/09/24 10:12 04/09/24 10:00 04/09/24 09:57 04/09/24 09:00 04/09/24 09:00 04/09/24 08:25 04/09/24 08:21 04/09/24 08:03 04/09/24 08:00 40 04/09/24 08:00 04/09/24 07:55 04/09/24 07:27 04/09/24 07:12 04/09/24 07:00 04/09/24 04:15 04/09/24 04:00 04/09/24 03:57 04/09/24 03:03 04/09/24 03:00 04/09/24 03:00 04/09/24 02:45 04/09/24 02:15 04/09/24 02:00 04/09/24 01:57 04/09/24 01:15 04/09/24 01:00 04/09/24 00:42 04/09/24 00:01 04/09/24 00:01 04/09/24 00:00 Laboratory Results Abnormal lab results 04/08/24 04/08/24 04/08/24 Range/Units 11:33 16:29 19:25 RBC (4.70-6.10) M/uL Hgb (14.0-18.0) g/dl Hct (42.0-52.0) % [place] # (Auto) (0.11-0.59) K/uL Immature Gran # (Auto) (0.01-0.20) K/uL Heparin Anti-Xa, Unfract 0.24 L 0.27 L (0.3-0.7) IU/ml Chloride (98-107) mmol/L BUN/Creatinine Ratio (10-20) Glucose (70-99(Fasting)) mg/dl POC Glucose 114 H (70-99) mg/dl 04/08/24 04/09/24 04/09/24 Range/Units 19:28 00:31 02:21 RBC (4.70-6.10) M/uL Hgb (14.0-18.0) g/dl Hct (42.0-52.0) % [place] # (Auto) (0.11-0.59) K/uL Immature Gran # (Auto) (0.01-0.20) K/uL Heparin Anti-Xa, Unfract (0.3-0.7) IU/ml Chloride 110 H (98-107) mmol/L BUN/Creatinine Ratio 27.7 H (10-20) Glucose 116 H (70-99(Fasting)) mg/dl POC Glucose 119 H 130 H (70-99) mg/dl 04/09/24 04/09/24 Range/Units 02:26 02:28 RBC 4.01 L (4.70-6.10) M/uL Hgb 12.4 L (14.0-18.0) g/dl Hct 37.5 L (42.0-52.0) % [place] # (Auto) 1.36 H (0.11-0.59) K/uL Immature Gran # (Auto) 0.36 H (0.01-0.20) K/uL Heparin Anti-Xa, Unfract (0.3-0.7) IU/ml Chloride (98-107) mmol/L BUN/Creatinine Ratio (10-20) Glucose (70-99(Fasting)) mg/dl POC Glucose 110 H (70-99) mg/dl PG Care Time/CCT Total # of Minutes Spent Total Time Spent with Patient: Total time spent is greater than 50% in coordination of care (as documented) at patient's floor/unit and/or counseling patient: Coding Level of Care Code 17518 SUB INP/OBS CARE 2/35MIN Diagnoses Septic shock A41.9; R65.21 Acute respiratory failure with hypoxia J96.01 Pneumonia involving left lung J18.9 Acute kidney injury N17.9 Rhinovirus infection B34.8 Admitted to intensive care unit Z78.9 Required emergency intubation Z98.890
[2024-04-09] MEDS: TUBE FEEDING WATER FLUSH OG SCH (12:16)
[2024-04-10 04:54] LABS: Basophils # (auto) 0.04 K/uL (0.00-0.20); Basophils % (auto) 0.4 %; Eosinophils # (auto) 0.31 K/uL (0.00-0.50); Eosinophils % (auto) 3.2 %; Hematocrit (blood only) 37.7 % (42.0-52.0); Hemoglobin 12.6 g/dl (14.0-18.0); Immature Granulocytes # (auto) 0.27 K/uL (0.01-0.20); Immature Granulocytes % (auto) 2.8 %; Lymphocytes # (auto) 2.37 K/uL (1.20-3.40); Lymphocytes % (auto) 24.3 %; Mean Corpuscular Hgb Conc 33.4 g/dL (32.0-36.0); Mean Corpuscular Volume 92.9 fL (80.0-100.0); Monocytes % (auto) 15.4 %; Neutrophils # (auto) 5.28 K/uL (1.40-6.50); Neutrophils % (auto) 53.9 %; Platelet Count 212 K/uL (130-400); RDW Coefficient of Variation 13.9 % (11.5-14.5); RDW Standard Deviation 46.4 fL (36.4-46.3); Red Blood Count 4.06 M/uL (4.70-6.10); White Blood Count 9.77 K/ul (4.8-10.8)
[2024-04-10 05:13] LABS: BUN Creatinine Ratio 32.8 (10-20); Calcium 8.5 mg/dl (8.6-10.3); Creatinine Clr Calc Pharmacy 116.6 ml/min; Magnesium 2.1 mg/dl (1.7-2.4); Phosphorus 4.1 mg/dl (2.5-4.9); Potassium 4.8 mmol/L (3.5-5.1)
--- NOTE | 2024-04-10 08:38 | Critical Care Progress Note ---
Date of Service April 10, 2024 Assessment & Plan (1) Septic shock: (2) Respiratory failure: (3) Atrial fibrillation with rapid ventricular response: (4) Rhinovirus infection: (5) Acute respiratory failure with hypoxia: (6) Diabetes mellitus: (7) Dementia: (8) Tracheostomy dependent: Plan Reason Critically Ill: 74 Y[facility] found unresponsive and hypoxic requiring intubation in the field, ICU due to being on vasopressors and mechanically ventilated - [facility] records between June and August 2022 obtained, where Kian underwent tracheostomy in order to liberate from ET intubation Recommendations: Neuro - -- S/p acute delirium Continue Seroquel and trazodone. Try and maintain sleep-wake cycles. Avoid medications potentially associated with increasing delirium including benzodiazepines Cardiovascular - Shock unspecified, afib, on chronic anticoagulation -Periodic hypotension and bradycardia --> resolved Midodrine was started started 04/04/24 evening to maintain MAP off Levo, discontinued on 04/07/2024 2D echo 04/01/24: LV systolic function normal, RV moderately dilated, RV systolic function mildly reduced, LA mildly dilated; RV systolic pressure elevated at 30- 40mmHg, IVC mildly dilated - CTA of chest negative for PE/obstructive shock - high-sensitivity troponin downtrending as of 04/02/24 - 108.4 -> 64.8 Respiratory - Hypoxic respiratory failure requiring emergent intubation and mechanical ventilation, COPD, KURT --S/p VDRF, currently trached - Respiratory failure requiring intubation- at this time likely secondary to viral infection and possible mucous plugging vs. aspiration vs. viral and bacterial pneumonia or combination of these. - 04/04/24 tracheostomy - Elevated PCT- can't exclude bacterial pneumonia - Respiratory viral panel + for Enter/Rhinovirus - Continue trach collar trials as tolerated. Continue pulmonary toilet and suctioning. - Nebulizers scheduled- MAE and ICS GI - OG -> NG tube post-extubation 04/04/24 -- Swallow eval was positive for aspirations on 04/09/2024 RENAL/LYTES - -- Monitor BUNs/creatinine Avoid nephrotoxic medication - UA 04/01/24 with 2+ bacteria, trace leukocytosis, 11-20 RBCs, trace blood - Urine culture negative to date Sputum culture growing Leslie which is a colonizer ENDO - DMII - ICU hyperglycemic protocol -Patient got 2 days of IV hydrocortisone 50 mg every 8 hours for low random cortisol. It was discontinued following that HEME - -- Chronic anticoagulation On Eliquis at home ID - Sepsis likely pulmonary source. Completed 6 days empiric Zosyn. Also received vancomycin. Cultures negative to date. Discontinue antibiotics and follow-up. --Prophylaxis VTE: Heparin drip GI: None Lines:PIV, NGT Diet: Tube feeds Plan: In/out: - 1 L, urine output 2350mL, + 1 L since coming to the hospital For PEG tube placement today, heparin drip on hold Change valproic acid to IV as patient will not be able to use the PEG tube till tomorrow. Case management has been involved regarding placement after the PEG tube. Please note the above document was generated using voice recognition software. It may contain grammatical, syntax or spelling errors.Any formal questions or concerns about the content, text or information contained within the body of this dictation should be directly addressed to the provider for clarification. Admission and Anticipated Discharge Date Admission Date: April 01, 2024 Subjective Patient seen and examined at bedside. No acute distress, notable symptoms overnight He was alert and oriented answering all the questions appropriately Also asking if he can remove the NG tube. Denies any headache, no chest pain, complain of mild abdominal discomfort. Review of Systems 2 Review of Systems: All systems reviewed & are unremarkable except as noted in Subjective Physical Exam 2 Physical Exam: Constitutional: No acute distress HEENT: EOMI, PERRLA, positive trach Respiratory system: Decreased air entry bilaterally, no wheeze, no rhonchi, mild crackles bilateral lower lobes CVS: S1-S2 positive, no murmurs or gallops Abdomen: Soft, nontender, nondistended, positive bowel sounds x4 Extremities: +2 pulses bilaterally radialis/ dorsalis pedis, no cyanosis, minimal pitting edema bilateral lower extremity Neuro: Awake alert, following simple commands Psych: Normal mood and affect G/U: [place] Andrade Skin: no rashes, warm and dry Lymphatic: no cervical or axillary lymphadenopathy Results & Data Results & Data Vital Signs (Past 12 Hours) Vital Signs Temp Pulse Pulse Resp BP Pulse Ox O2 Del Method 04/10/24 07:53 Trach Collar 04/10/24 07:27 62 04/10/24 07:27 36.3 C L 04/10/24 07:21 66 17 94 Trach Collar 04/10/24 07:21 64 18 95 Trach Collar 04/10/24 07:00 91/61 L 04/10/24 05:06 69 18 97 04/10/24 04:03 63 17 93 04/10/24 04:00 108/75 04/10/24 04:00 108/75 04/10/24 03:57 69 18 95 04/10/24 03:03 72 23 94 04/10/24 03:00 130/75 04/10/24 03:00 130/75 04/10/24 02:39 61 18 97 04/10/24 02:00 71 19 95 04/10/24 02:00 101/60 04/10/24 02:00 101/60 04/10/24 01:06 74 19 95 04/10/24 01:00 91/61 L 04/10/24 01:00 91/61 L 04/10/24 00:48 65 22 95 04/10/24 00:06 85 20 92 04/10/24 00:01 71/44 L 04/09/24 23:54 86 19 92 04/09/24 23:03 94 H 23 92 04/09/24 23:01 69/43 L 04/09/24 23:01 90/44 L 04/09/24 23:01 90/44 L 04/09/24 22:48 98 H 23 90 04/09/24 22:03 116 H 27 H 93 04/09/24 22:00 139/84 04/09/24 21:57 115 H 27 H 93 04/09/24 21:09 106 H 26 H 90 04/09/24 21:00 143/75 H 04/09/24 20:49 83 20 95 Trach Collar 04/09/24 20:45 81 34 H 95 O2 Flow Rate FiO2 04/10/24 07:53 30 04/10/24 07:27 04/10/24 07:27 04/10/24 07:21 35 04/10/24 07:21 35 04/10/24 07:00 04/10/24 05:06 04/10/24 04:03 04/10/24 04:00 04/10/24 04:00 04/10/24 03:57 04/10/24 03:03 04/10/24 03:00 04/10/24 03:00 04/10/24 02:39 04/10/24 02:00 04/10/24 02:00 04/10/24 02:00 04/10/24 01:06 04/10/24 01:00 04/10/24 01:00 04/10/24 00:48 04/10/24 00:06 04/10/24 00:01 04/09/24 23:54 04/09/24 23:03 04/09/24 23:01 04/09/24 23:01 04/09/24 23:01 04/09/24 22:48 04/09/24 22:03 04/09/24 22:00 04/09/24 21:57 04/09/24 21:09 04/09/24 21:00 04/09/24 20:49 7 28 04/09/24 20:45 Diagnostic Findings 04/10/24 04:05 04/10/24 04:05 Coding Level of Care Code 37845 SUB INP/OBS CARE 2/35MIN Diagnoses Septic shock A41.9; R65.21 Acute respiratory failure with hypoxia J96.01 Chronicity: acute Respiratory failure complication: hypoxia Atrial fibrillation with rapid ventricular response I48.91 Rhinovirus infection B34.8 Acute respiratory failure with hypoxia J96.01 Diabetes mellitus E11.9 Dementia F03.90 Tracheostomy dependent Z93.0 (2) Respiratory failure Chronicity: acute Respiratory failure complication: hypoxia Qualified Code(s): J96.01 - Acute respiratory failure with hypoxia
--- NOTE | 2024-04-10 10:22 | Gastroenterology Progress Note ---
Date of Service April 10, 2024 Assessment & Plan (1) Rhinovirus infection: Plan: 73 year old male w/ history of COPD, KURT, HTN, Dementia, DM, Afib (on Eliquis), HLD presenting through the ED after being found unresponsive and hypoxic at his retirement admitted to the ICU w/ acute respiratory failure with hypoxia/pneumonia involving left lung/required emergency intubation in the field positive for enterovirus/rhinovirus. S/P tracheostomy 04/04 off vent, failed swallow evaluation yesterday. He is NPO w/ tube feeds and heparin gtt held in anticipation for EGD w/ PEG placement today. to consent via phone. Will need Ancef 1 g production service manager to endo. We appreciate assistance in the management of any serological abnormality and corrections to include: hemoglobin >7, INR <2, platelets >50,000, potassium levels >3.5 but <5.3, and sodium levels within 5 points of the reference range prior to endoscopic evaluation. Thank you for allowing us to participate in the care of this patient. Please call with any acute changes, questions or concerns. Please see addendum below with additional recommendation from my supervising physician. Admission and Anticipated Discharge Date Admission Date: April 01, 2024 Supervising Physician Co-Signing Physician Notes I personally saw and examined the patient. I have reviewed the chart and agree with the documentation provided by the FLASHER ADJUSTER including discussion about the assessment, treatment and plan. Plan for an EGD today will give 2 g IV Ancef perioperatively. He is already off his heparin and tube feeds. Went over risks and benefits with and patient who agreed to getting a PEG tube. He did fail a speech and swallow and cannot get nutrition with a core back at a retirement. Subjective Pt was seen, chart reviewed. Tube feeds held in anticipation of EGD w/ PEG. Heparin help in anticipaiton of EGD w/ PEG. to consent via phone. Review of Systems Review of Systems: Unobtainable due to cognitive status Physical Exam Constitutional: Chronically ill appearing male w/ trach, corsafe in place. Gastrointestinal (Abdomen): normal bowel sounds, soft, nontender, no hepatosplenomegaly Results & Data Results & Data Vital Signs (Past 12 Hours) Vital Signs Temp Pulse Pulse Resp BP Pulse Ox O2 Del Method 04/10/24 09:03 72 20 94 Trach Collar 04/10/24 09:00 111/58 L 04/10/24 08:54 67 24 92 04/10/24 08:00 120/73 04/10/24 08:00 65 25 H 93 04/10/24 07:53 Trach Collar 04/10/24 07:27 62 04/10/24 07:27 97.3 F L 04/10/24 07:21 66 17 94 Trach Collar 04/10/24 07:21 64 18 95 Trach Collar 04/10/24 07:00 91/61 L 04/10/24 05:06 69 18 97 04/10/24 04:03 63 17 93 04/10/24 04:00 108/75 04/10/24 04:00 108/75 04/10/24 03:57 69 18 95 04/10/24 03:03 72 23 94 04/10/24 03:00 130/75 04/10/24 03:00 130/75 04/10/24 02:39 61 18 97 04/10/24 02:00 71 19 95 04/10/24 02:00 101/60 04/10/24 02:00 101/60 04/10/24 01:06 74 19 95 04/10/24 01:00 91/61 L 04/10/24 01:00 91/61 L 04/10/24 00:48 65 22 95 04/10/24 00:06 85 20 92 04/10/24 00:01 71/44 L 04/09/24 23:54 86 19 92 04/09/24 23:03 94 H 23 92 04/09/24 23:01 69/43 L 04/09/24 23:01 90/44 L 04/09/24 23:01 90/44 L 04/09/24 22:48 98 H 23 90 FiO2 04/10/24 09:03 30 04/10/24 09:00 04/10/24 08:54 04/10/24 08:00 04/10/24 08:00 04/10/24 07:53 30 04/10/24 07:27 04/10/24 07:27 04/10/24 07:21 35 04/10/24 07:21 35 04/10/24 07:00 04/10/24 05:06 04/10/24 04:03 04/10/24 04:00 04/10/24 04:00 04/10/24 03:57 04/10/24 03:03 04/10/24 03:00 04/10/24 03:00 04/10/24 02:39 04/10/24 02:00 04/10/24 02:00 04/10/24 02:00 04/10/24 01:06 04/10/24 01:00 04/10/24 01:00 04/10/24 00:48 04/10/24 00:06 04/10/24 00:01 04/09/24 23:54 04/09/24 23:03 04/09/24 23:01 04/09/24 23:01 04/09/24 23:01 04/09/24 22:48 Laboratory Results 04/10/24 04/10/24 04/10/24 Range/Units 08:37 04:12 04:05 WBC 9.77 (4.8-10.8) K/ul RBC 4.06 L (4.70-6.10) M/uL Hgb 12.6 L (14.0-18.0) g/dl Hct 37.7 L (42.0-52.0) % MCV 92.9 (80.0-100.0) fL MCH 31.0 (25.0-34.0) pg MCHC 33.4 (32.0-36.0) g/dL RDW Std Deviation 46.4 H (36.4-46.3) fL RDW Coeff of Johana 13.9 (11.5-14.5) % Plt Count 212 (130-400) K/uL MPV 9.0 L (9.4-12.4) fL Immature Gran % (Auto) 2.8 % Neut % (Auto) 53.9 % Lymph % (Auto) 24.3 % [place] % (Auto) 15.4 % Eos % (Auto) 3.2 % Baso % (Auto) 0.4 % Neut # (Auto) 5.28 (1.40-6.50) K/uL Lymph # (Auto) 2.37 (1.20-3.40) K/uL [place] # (Auto) 1.50 H (0.11-0.59) K/uL Eos # (Auto) 0.31 (0.00-0.50) K/uL Baso # (Auto) 0.04 (0.00-0.20) K/uL Immature Gran # (Auto) 0.27 H (0.01-0.20) K/uL Sodium 137 (136-145) mmol/L Potassium 4.8 (3.5-5.1) mmol/L Chloride 105 (98-107) mmol/L Carbon Dioxide 28 (21-32) mmol/L Anion Gap 4 (3-11) BUN 20 (6-23) mg/dl Creatinine 0.61 (0.6-1.4) mg/dl Est Cr Clr Drug Dosing 116.6 ml/min eGFR 100.79 BUN/Creatinine Ratio 32.8 H (10-20) Glucose 91 (70-99(Fasting)) mg/dl POC Glucose 77 103 H (70-99) mg/dl Calcium 8.5 L (8.6-10.3) mg/dl Phosphorus 4.1 D (2.5-4.9) mg/dl Magnesium 2.1 (1.7-2.4) mg/dl 04/09/24 04/09/24 Range/Units 15:09 12:17 WBC (4.8-10.8) K/ul RBC (4.70-6.10) M/uL Hgb (14.0-18.0) g/dl Hct (42.0-52.0) % MCV (80.0-100.0) fL MCH (25.0-34.0) pg MCHC (32.0-36.0) g/dL RDW Std Deviation (36.4-46.3) fL RDW Coeff of Johana (11.5-14.5) % Plt Count (130-400) K/uL MPV (9.4-12.4) fL Immature Gran % (Auto) % Neut % (Auto) % Lymph % (Auto) % [place] % (Auto) % Eos % (Auto) % Baso % (Auto) % Neut # (Auto) (1.40-6.50) K/uL Lymph # (Auto) (1.20-3.40) K/uL [place] # (Auto) (0.11-0.59) K/uL Eos # (Auto) (0.00-0.50) K/uL Baso # (Auto) (0.00-0.20) K/uL Immature Gran # (Auto) (0.01-0.20) K/uL Sodium (136-145) mmol/L Potassium (3.5-5.1) mmol/L Chloride (98-107) mmol/L Carbon Dioxide (21-32) mmol/L Anion Gap (3-11) BUN (6-23) mg/dl Creatinine (0.6-1.4) mg/dl Est Cr Clr Drug Dosing ml/min eGFR BUN/Creatinine Ratio (10-20) Glucose (70-99(Fasting)) mg/dl POC Glucose 126 H 90 (70-99) mg/dl Calcium (8.6-10.3) mg/dl Phosphorus (2.5-4.9) mg/dl Magnesium (1.7-2.4) mg/dl PG Care Time/CCT Total # of Minutes Spent Total Time Spent with Patient: Total time spent is greater than 50% in coordination of care (as documented) at patient's floor/unit and/or counseling patient: Coding Level of Care Code None Diagnoses Rhinovirus infection B34.8
--- NOTE | 2024-04-10 11:19 | Hospitalist Progress Note ---
Date of Service April 10, 2024 Assessment & Plan (1) Septic shock: (2) Acute respiratory failure with hypoxia: (3) Pneumonia involving left lung: (4) Acute kidney injury: (5) Rhinovirus infection: (6) Admitted to intensive care unit: (7) Required emergency intubation: Plan The patient is a 73-year-old male with a past medical history including paroxysmal atrial fibrillation, tachybradycardia syndrome, COPD, KURT, hypertension, chronic respiratory failure with hypoxia, convulsions, dementia, diabetes mellitus, osteoarthritis, hyperlipidemia, anemia, on chronic anticoagulation with Eliquis. The patient had been found unresponsive and hypoxic at [facility], EMS was called emergently, the patient required intubation in the field, and mechanical ventilation. #Acute respiratory failure with hypoxia/pneumonia involving left lung/required emergency intubation in the field- Admitted to intensive care unit Freight Broker Agent initially involved for ventilator management Tracheostomy done on 04/04 Now off of vent Positive for enterovirus/rhinovirus Zosyn discontinued after 6 days of treatment Palliative care was spoke to the patient's was adamant about PEG tube placement. Plan for PEG tube placement today 04/10. Heparin and tube feeds held GI on board #Septic shock- Off of pressors Off of hydrocortisone Midodrine as needed #Leukocytosis Resolved Likely steroid-induced, on hydrocortisone Cultures negative #Atrial fibrillation/chronic anticoagulation with Eliquis- Holding Eliquis Placed on heparin drip standard dosing Heparin on hold for PEG tube placement today #Demand ischemia Troponin elevated due to combination of hypotension, hypoxia, pneumonia, sepsis Echocardiogram reviewed #Acute kidney injury- Initial creatinine 1.57, with base 0.62 Improved to normal Was hydrated #Seizure disorder-on oral divalproex 250 p.o. 3 times daily. #UTI Urine culture negative Off of antibiotics wishes full code and to continue "everything" although she has not seen the patient in 1 year. Tracheostomy done 04/04. GI involved to consider PEG tube placement. Palliative care spoke to the patient's who is adamant about PEG tube placement. The plan is for PEG tube placement 04/10. Admission and Anticipated Discharge Date Admission Date: April 01, 2024 Subjective Patient was seen and examined at 10:40 AM. Per nurse, he is going to have a PEG tube placed today at noon. Review of Systems Review of Systems: Unobtainable due to cognitive status Physical Exam Physical Exam: General: Trached. Sleeping, arousable. Appears calm today. NG tube in place Heart: S1, S2/regular rate and rhythm, no murmur rubs or gallops Lungs: Diminished breath sounds bilaterally. Normal effort Abdomen: Soft/nontender/nondistended. No hepatosplenomegaly Extremities: No clubbing/cyanosis. No edema Behavior: Unable to assess Results & Data Results & Data Vital Signs (Past 12 Hours) Vital Signs Temp Pulse Pulse Resp BP Pulse Ox O2 Del Method 04/10/24 09:03 72 20 94 Trach Collar 04/10/24 09:00 111/58 L 04/10/24 08:54 67 24 92 04/10/24 08:00 120/73 04/10/24 08:00 65 25 H 93 04/10/24 07:53 Trach Collar 04/10/24 07:27 62 04/10/24 07:27 36.3 C L 04/10/24 07:21 66 17 94 Trach Collar 04/10/24 07:21 64 18 95 Trach Collar 04/10/24 07:00 91/61 L 04/10/24 05:06 69 18 97 04/10/24 04:03 63 17 93 04/10/24 04:00 108/75 04/10/24 04:00 108/75 04/10/24 03:57 69 18 95 04/10/24 03:03 72 23 94 04/10/24 03:00 130/75 04/10/24 03:00 130/75 04/10/24 02:39 61 18 97 04/10/24 02:00 71 19 95 04/10/24 02:00 101/60 04/10/24 02:00 101/60 04/10/24 01:06 74 19 95 04/10/24 01:00 91/61 L 04/10/24 01:00 91/61 L 04/10/24 00:48 65 22 95 04/10/24 00:06 85 20 92 04/10/24 00:01 71/44 L 04/09/24 23:54 86 19 92 FiO2 04/10/24 09:03 30 04/10/24 09:00 04/10/24 08:54 04/10/24 08:00 04/10/24 08:00 04/10/24 07:53 30 04/10/24 07:27 04/10/24 07:27 04/10/24 07:21 35 04/10/24 07:21 35 04/10/24 07:00 04/10/24 05:06 04/10/24 04:03 04/10/24 04:00 04/10/24 04:00 04/10/24 03:57 04/10/24 03:03 04/10/24 03:00 04/10/24 03:00 04/10/24 02:39 04/10/24 02:00 04/10/24 02:00 04/10/24 02:00 04/10/24 01:06 04/10/24 01:00 04/10/24 01:00 04/10/24 00:48 04/10/24 00:06 04/10/24 00:01 04/09/24 23:54 Laboratory Results Abnormal lab results 04/09/24 04/10/24 04/10/24 Range/Units 15:09 04:05 04:12 RBC 4.06 L (4.70-6.10) M/uL Hgb 12.6 L (14.0-18.0) g/dl Hct 37.7 L (42.0-52.0) % RDW Std Deviation 46.4 H (36.4-46.3) fL MPV 9.0 L (9.4-12.4) fL [place] # (Auto) 1.50 H (0.11-0.59) K/uL Immature Gran # (Auto) 0.27 H (0.01-0.20) K/uL BUN/Creatinine Ratio 32.8 H (10-20) POC Glucose 126 H 103 H (70-99) mg/dl Calcium 8.5 L (8.6-10.3) mg/dl PG Care Time/CCT Total # of Minutes Spent Total Time Spent with Patient: Total time spent is greater than 50% in coordination of care (as documented) at patient's floor/unit and/or counseling patient: Coding Level of Care Code 11712 SUB INP/OBS CARE 2/35MIN Diagnoses Septic shock A41.9; R65.21 Acute respiratory failure with hypoxia J96.01 Pneumonia involving left lung J18.9 Acute kidney injury N17.9 Rhinovirus infection B34.8 Admitted to intensive care unit Z78.9 Required emergency intubation Z98.890
--- NOTE | 2024-04-10 11:56 | Anesthesiology Consultation ---
Date of Service April 10, 2024 Assessment & Plan Consults Requested medical & cardiac Pulmonary ASA ASA4 Proposed Anesthesia Anesthesia Type: MAC Risk / Benefits Reviewed With: PT / POA / Parent / Guardian, Accepts Plan and Informed Consent Obtained History Surgery Operation Date: 04/10/24 16:30 Proposed Procedures p Esophagogastroduodenoscopy wih Gastric Tube Placement Nery Gabriel MD Height/Weight Height: 6 ft Weight: 81.5 kg Allergies Allergy/AdvReac Type Severity Reaction Status Date / Time No Known Allergies Allergy Verified 12/20/23 19:27 Medications Home Medications Medication Instructions Recorded Confirmed Last Taken acetaminophen 325 mg tablet 650 mg PO Q6 PRN PAIN 1-10 12/20/23 12/20/23 Unknown acetaminophen 325 mg tablet 650 mg PO QID PRN TEMP > 101 12/20/23 12/20/23 Unknown apixaban 5 mg tablet (Eliquis) 5 mg PO BID 12/20/23 12/20/23 Unknown atorvastatin 40 mg tablet 40 mg PO DAILY 12/20/23 12/20/23 Unknown buspirone 10 mg tablet 10 mg PO TID 12/20/23 12/20/23 Unknown chlorhexidine gluconate 0.12 % 15 ml buccal Q12 12/20/23 12/20/23 Unknown mouthwash (Peridex) divalproex 250 mg tablet,delayed 250 mg PO TID 12/20/23 12/20/23 Unknown release ferrous sulfate 325 mg (65 mg 325 mg PO DAILY 12/20/23 12/20/23 Unknown iron) tablet (FeroSul) folic acid 400 mcg tablet 0.4 mg PO DAILY 12/20/23 12/20/23 Unknown ipratropium 20 mcg-albuterol 100 1 puff inhalation Q6 PRN Wheezing 12/20/23 12/20/23 Unknown mcg/actuation mist for inhalation (Combivent Respimat) menthol 0.1 % lotion (Eucerin Itch 1 ea topical BID 12/20/23 12/20/23 Unknown Relief) metoprolol tartrate 25 mg tablet 25 mg PO BID 12/20/23 12/20/23 Unknown quetiapine 100 mg tablet 100 mg PO HS 12/20/23 12/20/23 Unknown quetiapine 25 mg tablet (Seroquel) 50 mg PO DAILY 12/20/23 12/20/23 Unknown sennosides 8.6 mg-docusate sodium 1 tab-cap PO HS 12/20/23 12/20/23 Unknown 50 mg tablet (Senna-S) trazodone 50 mg tablet 75 mg PO HS 12/20/23 12/20/23 Unknown Active Medications Generic Name Dose Route Start Last Admin Trade Name Freq PRN Reason Stop Dose Admin Acetaminophen 650 mg 04/06/24 23:00 04/08/24 11:39 Acetaminophen Susp 325 Mg/10.15 Ml Udc PO 05/06/24 22:59 650 mg Q6H PRN Administration Pain or Fever Albuterol 3 ml 04/01/24 05:41 04/08/24 07:01 Albut/Ipratrop 3mg/0.5mg Neb 3 Ml Vial [facility] 05/01/24 05:40 3 ml Q2H PRN Administration dyspnea Protocol Budesonide 0.25 mg 04/01/24 08:00 04/10/24 07:15 Budesonide 0.25 Mg/2 Ml Vial (Pulmicort) [facility] 05/01/24 07:59 0.25 mg QDR QUINCY Administration Enteral Nutritional Formula 1,000 ml 04/04/24 11:45 04/09/24 12:11 Peptamen 1.5 Primo 1,000 Ml Bag NG 05/04/24 11:44 1,000 ml UD QUINCY Administration Protocol Formoterol Fumarate 20 mcg 04/09/24 10:00 04/10/24 07:15 Formoterol 20 Mcg/2 Ml Vial NEB 05/09/24 09:59 20 mcg BID QUINCY Administration Heparin Sodium/Dextrose 25,000 units in 500 mls @ 25 mls/hr 04/01/24 04:00 04/10/24 00:01 Heparin 62179 Unit/500 Ml IV 05/01/24 03:59 Infused .Q20H QUINCY Titration Protocol 1,250 UNITS/HR Insulin Aspart 0 units 04/02/24 12:00 04/10/24 11:51 Insulin Aspart Per Unit Charge SC 05/01/24 11:59 Not Given Q4 QUINCY Magnesium Oxide 400 mg 04/08/24 09:00 04/10/24 08:47 Magnesium Oxide 400 Mg Tab PO 04/11/24 08:59 400 mg BID QUINCY Administration Methylcellulose 2 gm 04/07/24 14:00 04/10/24 08:45 Methylcellulose Powder 454 Gm Jar PO 05/07/24 13:59 2 gm TID QUINCY Administration Multivitamins/Minerals 15 ml 04/03/24 09:00 04/10/24 08:44 Multi Vit W/Minerals Liquid 15 Ml Udc NG 05/03/24 08:59 15 ml QAM QUINCY Administration Nutritional Formula 30 ml 04/04/24 16:00 04/09/24 15:08 Prosource No Carb 30 Ml/Pkt NG 05/04/24 15:59 30 ml QD@16 QUINCY Administration Quetiapine Fumarate 100 mg 04/04/24 21:30 04/09/24 20:38 Quetiapine Fumarate 100 Mg Tablet PO 05/04/24 21:29 100 mg HS QUINCY Administration Sterile Water 175 ml 04/09/24 11:09 04/09/24 23:30 Tube Feeding Water Flush OG 05/09/24 11:08 Not Given Q4H QUINCY Trazodone HCl 75 mg 04/05/24 21:00 04/09/24 20:39 Trazodone Hcl 100 Mg Tab PO 05/05/24 20:59 75 mg HS QUINCY Administration Valproic Acid 250 mg 04/05/24 14:00 04/10/24 08:44 Valproic Acid Soln 250 Mg/5 Ml Udc PO 05/05/24 13:59 250 mg TID QUINCY Administration NPO Date Last Intake of Fluids: 04/09/24 Time Last Intake of Fluids: 23:59 Last Intake of Fluids Comment: tube feeds stopped at midnight Date Last Intake of Solids: 04/09/24 Time Last Intake of Solids: 23:59 Past Medical History Medical History Complication of tracheostomy tube Exercise / Class Metabolic Activity II 4-5 Yardwork/Stairs/Walk up hill Past Anesthesia History No Hx of Anesthesia Complications and No Family Hx of Anesthesia Complications History of PONV No Hx of PONV and No Hx of Motion Sickness Social History Smoking Status: Never smoker Hx Alcohol Use: No Hx Substance Use: No substance use type: does not use Physical Exam Vital Signs Last Vital Signs Temp 36.3 C L 04/10/24 07:27 Pulse 72 04/10/24 09:03 Resp 20 04/10/24 09:03 BP 111/58 L 01/29/25 09:00 Pulse Ox 94 04/10/24 09:03 O2 Del Method Trach Collar 04/10/24 09:03 O2 Flow Rate 7 04/09/24 20:49 FiO2 30 04/10/24 09:03 Constitutional + altered mental status; no acute distress ENMT Mouth: + dentition abnormality and + edentulous Thyromental Distance: > or= 3.5 Finger Breadths Mallampati Class: III Neck normal visual inspection Respiratory normal respiratory effort; no respiratory distress Auscultation: lungs clear to auscultation bilaterally Cardiovascular Rate/Rhythm: regular rate and regular rhythm Heart Sounds: no murmur Musculoskeletal Spine: normal cervical ROM Psychiatric Orientation: alert; + not oriented x 3 Testing Laboratory Results 04/10/24 04:05 04/10/24 04:05 PT 11.8 Seconds (9.0-12.0) 04/04/24 04:35 INR 1.1 (0.9-1.1) 04/04/24 04:35 APTT 32 Seconds (21-31) H 04/04/24 04:35 Urine Color Dark Yellow 04/01/24 01:42 Urine Appearance Cloudy (Clear) A 04/01/24 01:42 Urine pH 6.0 (4.5-7.5) 04/01/24 01:42 Ur Specific [place] 1.020 (1.000-1.030) 04/01/24 01:42 Urine Protein 2+ (Negative) H 04/01/24 01:42 Urine Glucose (UA) Negative (Negative) 04/01/24 01:42 Urine Ketones 1+ (Negative) H 04/01/24 01:42 Urine Nitrite Negative (Negative) 04/01/24 01:42 Ur Leukocyte Esterase Trace (Negative) H 04/01/24 01:42 Urine WBC (Auto) 6-10 /hpf (0-5) H 04/01/24 01:42 Urine RBC (Auto) 11-20 /hpf (0-2) H 04/01/24 01:42 U Hyaline Cast (Auto) >20 /lpf (0-2) H 04/01/24 01:42 U Epithel Cells (Auto) 11-20 /hpf (0-2) H 04/01/24 01:42 Urine Bacteria (Auto) 2+ (None Seen) H 04/01/24 01:42 04/01/24 01:42 Aerobic Blood Culture - Final Blood No growth in Aerobic bottle after 5 days. Anaerobic Blood Culture - Final No growth in Anaerobic bottle after 5 days. 04/01/24 01:44 Aerobic Blood Culture - Final Blood No growth in Aerobic bottle after 5 days. Anaerobic Blood Culture - Final No growth in Anaerobic bottle after 5 days. 04/03/24 Unknown Gram Stain - Final Sputum,Vent Suction Sputum Culture - Final Leslie albicans 04/01/24 01:42 Urine Culture - Final Urine,Clean Catch No growth - less than 1,000 colonies/mL. 04/01/24 03:25 Gram Stain - Final Sputum,Vent Suction Sputum Culture - Final Moderate normal glenda. 04/10/24 04/10/24 04/10/24 11:26 08:37 04:12 POC Glucose 94 77 103 H Day of Procedure Evaluation. Date of Surgery April 10, 2024 Height/Weight Height: 6 ft Weight: 81.5 kg Vital Signs Last Vital Signs Temp 36.3 C L 04/10/24 07:27 Pulse 72 04/10/24 09:03 Resp 20 04/10/24 09:03 BP 111/58 L 04/10/24 09:00 Pulse Ox 94 04/10/24 09:03 O2 Del Method Trach Collar 04/10/24 09:03 O2 Flow Rate 7 04/09/24 20:49 FiO2 30 04/10/24 09:03 Allergies Allergy/AdvReac Type Severity Reaction Status Date / Time No Known Allergies Allergy Verified 12/20/23 19:27 Medications Home Medications Medication Instructions Recorded Confirmed Last Taken acetaminophen 325 mg tablet 650 mg PO Q6 PRN PAIN 1-10 12/20/23 12/20/23 Unknown acetaminophen 325 mg tablet 650 mg PO QID PRN TEMP > 101 12/20/23 12/20/23 Unknown apixaban 5 mg tablet (Eliquis) 5 mg PO BID 12/20/23 12/20/23 Unknown atorvastatin 40 mg tablet 40 mg PO DAILY 12/20/23 12/20/23 Unknown buspirone 10 mg tablet 10 mg PO TID 12/20/23 12/20/23 Unknown chlorhexidine gluconate 0.12 % 15 ml buccal Q12 12/20/23 12/20/23 Unknown mouthwash (Peridex) divalproex 250 mg tablet,delayed 250 mg PO TID 12/20/23 12/20/23 Unknown release ferrous sulfate 325 mg (65 mg 325 mg PO DAILY 12/20/23 12/20/23 Unknown iron) tablet (FeroSul) folic acid 400 mcg tablet 0.4 mg PO DAILY 12/20/23 12/20/23 Unknown ipratropium 20 mcg-albuterol 100 1 puff inhalation Q6 PRN Wheezing 12/20/23 12/20/23 Unknown mcg/actuation mist for inhalation (Combivent Respimat) menthol 0.1 % lotion (Eucerin Itch 1 ea topical BID 12/20/23 12/20/23 Unknown Relief) metoprolol tartrate 25 mg tablet 25 mg PO BID 12/20/23 12/20/23 Unknown quetiapine 100 mg tablet 100 mg PO HS 12/20/23 12/20/23 Unknown quetiapine 25 mg tablet (Seroquel) 50 mg PO DAILY 12/20/23 12/20/23 Unknown sennosides 8.6 mg-docusate sodium 1 tab-cap PO HS 12/20/23 12/20/23 Unknown 50 mg tablet (Senna-S) trazodone 50 mg tablet 75 mg PO HS 12/20/23 12/20/23 Unknown Active Medications Generic Name Dose Route Start Last Admin Trade Name Freq PRN Reason Stop Dose Admin Acetaminophen 650 mg 04/06/24 23:00 04/08/24 11:39 Acetaminophen Susp 325 Mg/10.15 Ml Udc PO 05/06/24 22:59 650 mg Q6H PRN Administration Pain or Fever Albuterol 3 ml 04/01/24 05:41 04/08/24 07:01 Albut/Ipratrop 3mg/0.5mg Neb 3 Ml Vial NEB 05/01/24 05:40 3 ml Q2H PRN Administration dyspnea Protocol Budesonide 0.25 mg 04/01/24 08:00 04/10/24 07:15 Budesonide 0.25 Mg/2 Ml Vial (Pulmicort) [facility] 05/01/24 07:59 0.25 mg QDR QUINCY Administration Enteral Nutritional Formula 1,000 ml 04/04/24 11:45 04/09/24 12:11 Peptamen 1.5 Primo 1,000 Ml Bag NG 05/04/24 11:44 1,000 ml UD QUINCY Administration Protocol Formoterol Fumarate 20 mcg 04/09/24 10:00 04/10/24 07:15 Formoterol 20 Mcg/2 Ml Vial NEB 05/09/24 09:59 20 mcg BID QUINCY Administration Heparin Sodium/Dextrose 25,000 units in 500 mls @ 25 mls/hr 04/01/24 04:00 04/10/24 00:01 Heparin 92078 Unit/500 Ml IV 05/01/24 03:59 Infused .Q20H QUINCY Titration Protocol 1,250 UNITS/HR Insulin Aspart 0 units 04/02/24 12:00 04/10/24 11:51 Insulin Aspart Per Unit Charge SC 05/01/24 11:59 Not Given Q4 QUINCY Magnesium Oxide 400 mg 04/08/24 09:00 04/10/24 08:47 Magnesium Oxide 400 Mg Tab PO 04/11/24 08:59 400 mg BID QUINCY Administration Methylcellulose 2 gm 04/07/24 14:00 04/10/24 08:45 Methylcellulose Powder 454 Gm Jar PO 05/07/24 13:59 2 gm TID QUINCY Administration Multivitamins/Minerals 15 ml 04/03/24 09:00 04/10/24 08:44 Multi Vit W/Minerals Liquid 15 Ml Udc NG 05/03/24 08:59 15 ml QAM QUINCY Administration Nutritional Formula 30 ml 04/04/24 16:00 04/09/24 15:08 Prosource No Carb 30 Ml/Pkt NG 05/04/24 15:59 30 ml QD@16 QUINCY Administration Quetiapine Fumarate 100 mg 04/04/24 21:30 04/09/24 20:38 Quetiapine Fumarate 100 Mg Tablet PO 05/04/24 21:29 100 mg HS QUINCY Administration Sterile Water 175 ml 04/09/24 11:09 04/09/24 23:30 Tube Feeding Water Flush OG 05/09/24 11:08 Not Given Q4H QUINCY Trazodone HCl 75 mg 04/05/24 21:00 04/09/24 20:39 Trazodone Hcl 100 Mg Tab PO 05/05/24 20:59 75 mg HS QUINCY Administration Valproic Acid 250 mg 04/05/24 14:00 04/10/24 08:44 Valproic Acid Soln 250 Mg/5 Ml Udc PO 05/05/24 13:59 250 mg TID QUINCY Administration Past Anesthesia History No Hx of Anesthesia Complications and No Family Hx of Anesthesia Complications History of PONV No Hx of PONV and No Hx of Motion Sickness NPO Date Last Intake of Fluids: 04/09/24 Time Last Intake of Fluids: 23:59 Last Intake of Fluids Comment: tube feeds stopped at midnight Date Last Intake of Solids: 04/09/24 Time Last Intake of Solids: 23:59 HCG & FBG Results 04/10/24 04/10/24 04/10/24 11:26 08:37 04:12 POC Glucose 94 77 103 H Home Medications Home Medications Medication Instructions Recorded Confirmed Last Taken acetaminophen 325 mg tablet 650 mg PO Q6 PRN PAIN 1-10 12/20/23 12/20/23 Unknown acetaminophen 325 mg tablet 650 mg PO QID PRN TEMP > 101 12/20/23 12/20/23 Unknown apixaban 5 mg tablet (Eliquis) 5 mg PO BID 12/20/23 12/20/23 Unknown atorvastatin 40 mg tablet 40 mg PO DAILY 12/20/23 12/20/23 Unknown buspirone 10 mg tablet 10 mg PO TID 12/20/23 12/20/23 Unknown chlorhexidine gluconate 0.12 % 15 ml buccal Q12 12/20/23 12/20/23 Unknown mouthwash (Peridex) divalproex 250 mg tablet,delayed 250 mg PO TID 12/20/23 12/20/23 Unknown release ferrous sulfate 325 mg (65 mg 325 mg PO DAILY 12/20/23 12/20/23 Unknown iron) tablet (FeroSul) folic acid 400 mcg tablet 0.4 mg PO DAILY 12/20/23 12/20/23 Unknown ipratropium 20 mcg-albuterol 100 1 puff inhalation Q6 PRN Wheezing 12/20/23 12/20/23 Unknown mcg/actuation mist for inhalation (Combivent Respimat) menthol 0.1 % lotion (Eucerin Itch 1 ea topical BID 12/20/23 12/20/23 Unknown Relief) metoprolol tartrate 25 mg tablet 25 mg PO BID 12/20/23 12/20/23 Unknown quetiapine 100 mg tablet 100 mg PO HS 12/20/23 12/20/23 Unknown quetiapine 25 mg tablet (Seroquel) 50 mg PO DAILY 12/20/23 12/20/23 Unknown sennosides 8.6 mg-docusate sodium 1 tab-cap PO HS 12/20/23 12/20/23 Unknown 50 mg tablet (Senna-S) trazodone 50 mg tablet 75 mg PO HS 12/20/23 12/20/23 Unknown Active Medications Generic Name Dose Route Start Last Admin Trade Name Freq PRN Reason Stop Dose Admin Acetaminophen 650 mg 04/06/24 23:00 04/08/24 11:39 Acetaminophen Susp 325 Mg/10.15 Ml Udc PO 05/06/24 22:59 650 mg Q6H PRN Administration Pain or Fever Albuterol 3 ml 04/01/24 05:41 04/08/24 07:01 Albut/Ipratrop 3mg/0.5mg Neb 3 Ml Vial NEB 05/01/24 05:40 3 ml Q2H PRN Administration dyspnea Protocol Budesonide 0.25 mg 04/01/24 08:00 04/10/24 07:15 Budesonide 0.25 Mg/2 Ml Vial (Pulmicort) [facility] 05/01/24 07:59 0.25 mg QDR QUINCY Administration Enteral Nutritional Formula 1,000 ml 04/04/24 11:45 04/09/24 12:11 Peptamen 1.5 Primo 1,000 Ml Bag NG 05/04/24 11:44 1,000 ml UD QUINCY Administration Protocol Formoterol Fumarate 20 mcg 04/09/24 10:00 04/10/24 07:15 Formoterol 20 Mcg/2 Ml Vial NEB 05/09/24 09:59 20 mcg BID QUINCY Administration Heparin Sodium/Dextrose 25,000 units in 500 mls @ 25 mls/hr 04/01/24 04:00 04/10/24 00:01 Heparin 25214 Unit/500 Ml IV 05/01/24 03:59 Infused .Q20H QUINCY Titration Protocol 1,250 UNITS/HR Insulin Aspart 0 units 04/02/24 12:00 04/10/24 11:51 Insulin Aspart Per Unit Charge SC 05/01/24 11:59 Not Given Q4 QUINCY Magnesium Oxide 400 mg 04/08/24 09:00 04/10/24 08:47 Magnesium Oxide 400 Mg Tab PO 04/11/24 08:59 400 mg BID QUINCY Administration Methylcellulose 2 gm 04/07/24 14:00 04/10/24 08:45 Methylcellulose Powder 454 Gm Jar PO 05/07/24 13:59 2 gm TID QUINCY Administration Multivitamins/Minerals 15 ml 04/03/24 09:00 04/10/24 08:44 Multi Vit W/Minerals Liquid 15 Ml Udc NG 05/03/24 08:59 15 ml QAM QUINCY Administration Nutritional Formula 30 ml 04/04/24 16:00 04/09/24 15:08 Prosource No Carb 30 Ml/Pkt NG 05/04/24 15:59 30 ml QD@16 QUINCY Administration Quetiapine Fumarate 100 mg 04/04/24 21:30 04/09/24 20:38 Quetiapine Fumarate 100 Mg Tablet PO 05/04/24 21:29 100 mg HS QUINCY Administration Sterile Water 175 ml 04/09/24 11:09 04/09/24 23:30 Tube Feeding Water Flush OG 05/09/24 11:08 Not Given Q4H QUINCY Trazodone HCl 75 mg 04/05/24 21:00 04/09/24 20:39 Trazodone Hcl 100 Mg Tab PO 05/05/24 20:59 75 mg HS QUINCY Administration Valproic Acid 250 mg 04/05/24 14:00 04/10/24 08:44 Valproic Acid Soln 250 Mg/5 Ml Udc PO 05/05/24 13:59 250 mg TID QUINCY Administration Exercise / Class Metabolic Activity Metabolic Activity: II 4-5 Yardwork/Stairs/Walk up hill Physical Exam Constitutional: + altered mental status; no acute distress Mouth: + dentition abnormality and + edentulous Thyromental Distance: > or= 3.5 Finger Breadths Mallampati Class: III Neck: + visual inspection normal Respiratory: + respiratory effort normal and + clear to auscultation bilaterally; no respiratory distress Cardiovascular: + regular rate and + regular rhythm; no murmur Musculoskeletal: no limited cervical ROM Psychiatric: + alert; no oriented x 3 ASA ASA4 Proposed Anesthesia Proposed Anesthesia: MAC Risk / Benefits Reviewed With: PT / POA / Parent / Guardian, Accepts Plan and Informed Consent Obtained
[2024-04-10] MEDS: ceFAZolin 2000MG 2,000 MG/15 ML SYR IV ONE (12:32)
--- NOTE | 2024-04-10 12:44 | GI REPORT ---
[facility] Patient: PORFIRIO JUAN : 1950 Sex at : Male Age: 73 Years Procedure: Upper GI endoscopy Date: 04/10/2024 Attending Physician: Anders Gabriel MD Referring MD: Sterling Veloz Md Indications: - Dysphagia - weight loss. Medications: - Monitored Anesthesia Care Complications: - No immediate complications. Estimated Blood Loss: - Estimated blood loss: None. - Estimated blood loss was minimal. Procedure: - Prior to the procedure, a History and Physical was performed, and patient medications and allergies were reviewed. The patient's tolerance of previous anesthesia was also reviewed. The risks and benefits of the procedure and the sedation options and risks were discussed with the patient. All questions were answered, and informed consent was obtained. Prior Anticoagulants: The patient has taken heparin, last dose was 1 day prior to procedure. After reviewing the risks and benefits, the patient was deemed in satisfactory condition to undergo the procedure. - The egd scope was introduced through the mouth and advanced to the third part of the duodenum. - The upper GI endoscopy was accomplished without difficulty. - The patient tolerated the procedure well. Findings: - The examined esophagus was normal. - The entire examined stomach was normal. The patient was placed in the supine position for PEG placement. The stomach was insufflated to appose gastric and abdominal lombardi. A site was located in the body of the stomach with excellent transillumination for placement. The abdominal wall was marked and prepped in a sterile manner. The area was anesthetized with 5 mL of 0.5% lidocaine. The trocar needle was introduced through the abdominal wall and into the stomach under direct endoscopic view. A snare was introduced through the endoscope and opened in the gastric lumen. The guide wire was passed through the trocar and into the open snare. The snare was closed around the guide wire. The endoscope and snare were removed, pulling the wire out through the mouth. A skin incision was made at the site of needle insertion. The externally removable 20 Fr Bard gastrostomy tube was lubricated. The G-tube was tied to the guide wire and pulled through the mouth and into the stomach. The trocar needle was removed, and the gastrostomy tube was pulled out from the stomach through the skin. The external bumper was attached to the gastrostomy tube, and the tube was cut to remove the guide wire. The final position of the gastrostomy tube was confirmed by relook endoscopy, and skin marking noted to be 3.5 cm at the external bumper. The final tension and compression of the abdominal wall by the PEG tube and external bumper were checked and revealed that the bumper was moderately tight and mildly deforming the skin. The feeding tube was capped, and the tube site cleaned and dressed. - The examined duodenum was normal. Impression: - Normal esophagus. - Normal stomach. - An externally removable PEG placement was successfully completed. - Normal examined duodenum. - No specimens collected. Recommendation: - Discharge patient to home (ambulatory). - Continue present medications. - Await pathology results. - Return to primary care physician as previously scheduled. - Patient has a contact number available for emergencies. The signs and symptoms of potential delayed complications were discussed with the patient. Return to normal activities tomorrow. Written discharge instructions were provided to the patient. - Can start tube feeds in 12 hours. peg to gravity till then. can restart heparin tomorrow. GI will followup in am. Procedure Code(s): - 76822, Esophagogastroduodenoscopy, flexible, transoral; with directed placement of percutaneous gastrostomy tube Diagnosis Code(s): - R13.10, Dysphagia, unspecified CPT(R) - 2022 copyright [employer]. All Rights Reserved. The CPT codes, CCI edits and ICD codes generated are intended as suggestions and were generated based on input data. These codes are preliminary and upon professional fee coder review may be revised to meet current compliance and payer requirements. The provider is responsible for the final determination of appropriate codes, and modifiers. Anders Gabriel MD This document has been electronically signed. Note Initiated:04/10/2024 Note Completed:04/10/2024 12:44 PM \\[email or web address]\[id number]
[2024-04-10] MEDS: SODIUM CHLORIDE 0.9% 500 ML IV SCH (13:13)
[2024-04-10] MEDS: LIDOCAINE 2% 2 ML VIAL/AMP(20MG/ML) INFIL ONE (13:24)
[2024-04-10] MEDS: PROPOFOL IV EMULSION 10 MG/ML 20 ML VIAL IV ONE (13:24)
[2024-04-10] MEDS: KETAMINE HCL 10MG/ML SYR ONE (13:24)
[2024-04-10] MEDS: ePHEDrine sulfate 50 MG/5 ML SYR ONE (13:25)
[2024-04-10] MEDS: PHENYLEPHRINE HCL 10 MG/ML VIAL ONE (13:25)
[2024-04-10] MEDS ORDERED: Nursing to Pharmacy Communication SCH (13:45)
[2024-04-10] MEDS: VALPROATE SOD 250 MG in DEXTROSE 5% 50 ML IV SCH (14:50)
--- NOTE | 2024-04-10 15:32 | Anesthesiology Progress Note ---
Date of Service April 10, 2024 Anesthesia Post Procedure Vital Signs Vital Signs: Temp Pulse Pulse Resp BP BP Pulse Ox 04/10/24 13:32 92 H 22 93 04/10/24 13:28 102/63 04/10/24 13:11 79 18 92/57 L 98 04/10/24 13:00 89 15 90/55 L 92 04/10/24 12:41 75 16 104/56 L 92 04/10/24 11:55 36.2 C L 63 20 102/63 93 04/10/24 11:33 57 L 23 94 04/10/24 11:01 116/58 L 04/10/24 11:00 58 L 17 04/10/24 10:12 62 17 95 04/10/24 10:00 97/58 L 04/10/24 09:57 62 18 95 04/10/24 09:03 72 20 94 04/10/24 09:00 111/58 L 04/10/24 08:54 67 24 92 04/10/24 08:00 120/73 04/10/24 08:00 65 25 H 93 04/10/24 07:53 04/10/24 07:27 62 04/10/24 07:27 36.3 C L 04/10/24 07:21 66 17 94 04/10/24 07:21 64 18 95 04/10/24 07:00 91/61 L 04/10/24 05:06 69 18 97 04/10/24 04:03 63 17 93 04/10/24 04:00 108/75 04/10/24 04:00 108/75 04/10/24 03:57 69 18 95 04/10/24 03:03 72 23 94 04/10/24 03:00 130/75 04/10/24 03:00 130/75 04/10/24 02:39 61 18 97 04/10/24 02:00 71 19 95 04/10/24 02:00 101/60 04/10/24 02:00 101/60 04/10/24 01:06 74 19 95 04/10/24 01:00 91/61 L 04/10/24 01:00 91/61 L 04/10/24 00:48 65 22 95 04/10/24 00:06 85 20 92 04/10/24 00:01 71/44 L 04/09/24 23:54 86 19 92 04/09/24 23:03 94 H 23 92 04/09/24 23:01 69/43 L 04/09/24 23:01 90/44 L 04/09/24 23:01 90/44 L 04/09/24 22:48 98 H 23 90 04/09/24 22:03 116 H 27 H 93 04/09/24 22:00 139/84 04/09/24 21:57 115 H 27 H 93 04/09/24 21:09 106 H 26 H 90 04/09/24 21:00 143/75 H 04/09/24 20:49 83 20 95 04/09/24 20:45 81 34 H 95 04/09/24 20:09 101 H 30 H 94 04/09/24 20:01 155/79 H 04/09/24 20:00 04/09/24 19:57 89 23 95 04/09/24 19:00 89 30 H 90 04/09/24 19:00 127/85 04/09/24 19:00 127/85 04/09/24 18:00 137/72 04/09/24 17:54 94 H 23 96 04/09/24 17:03 100 H 32 H 96 04/09/24 17:00 147/85 H 04/09/24 16:57 102 H 28 H 96 04/09/24 16:18 110 H 19 92 04/09/24 16:07 O2 Del Method O2 Flow Rate FiO2 04/10/24 13:32 Trach Collar 40 04/10/24 13:28 04/10/24 13:11 Trach Collar 35 04/10/24 13:00 Trach Collar 40 04/10/24 12:41 Trach Collar 40 04/10/24 11:55 Trach Collar 30 04/10/24 11:33 04/10/24 11:01 04/10/24 11:00 04/10/24 10:12 04/10/24 10:00 04/10/24 09:57 04/10/24 09:03 Trach Collar 30 04/10/24 09:00 04/10/24 08:54 04/10/24 08:00 04/10/24 08:00 04/10/24 07:53 Trach Collar 30 04/10/24 07:27 04/10/24 07:27 04/10/24 07:21 Trach Collar 35 04/10/24 07:21 Trach Collar 35 04/10/24 07:00 04/10/24 05:06 04/10/24 04:03 04/10/24 04:00 04/10/24 04:00 04/10/24 03:57 04/10/24 03:03 04/10/24 03:00 04/10/24 03:00 04/10/24 02:39 04/10/24 02:00 04/10/24 02:00 04/10/24 02:00 04/10/24 01:06 04/10/24 01:00 04/10/24 01:00 04/10/24 00:48 04/10/24 00:06 04/10/24 00:01 04/09/24 23:54 04/09/24 23:03 04/09/24 23:01 04/09/24 23:01 04/09/24 23:01 04/09/24 22:48 04/09/24 22:03 04/09/24 22:00 04/09/24 21:57 04/09/24 21:09 04/09/24 21:00 04/09/24 20:49 Trach Collar 7 28 04/09/24 20:45 04/09/24 20:09 04/09/24 20:01 04/09/24 20:00 Trach Collar 35 04/09/24 19:57 04/09/24 19:00 04/09/24 19:00 04/09/24 19:00 04/09/24 18:00 04/09/24 17:54 04/09/24 17:03 04/09/24 17:00 04/09/24 16:57 04/09/24 16:18 04/09/24 16:07 Trach Collar 30 Transfer of Care Handoff Completed per policy Notes Mental Status: alert / awake / arousable and participated in evaluation Patient Amnestic to Procedure: Yes Nausea / Vomiting: adequately controlled Pain: adequately controlled Airway Patency, RR, SpO2: stable & adequate BP & HR: stable & adequate Hydration State: stable & adequate Anesthetic Complications: no major complications apparent and Pt Satisfied with anesthetic care
[2024-04-10] MEDS: BUDESONIDE 0.25 MG/2 ML VIAL (PULMICORT) NEB SCH (19:49)
[2024-04-10] MEDS: HALOPERIDOL LACTATE 5 MG/ML 1 ML VIAL IM ONE (20:06)
[2024-04-10] MEDS ORDERED: HALOPERIDOL DECANOATE INJ 50 MG/ML VIAL IM SCH (22:00)
[2024-04-10] MEDS: VALPROIC ACID SOLN 250 MG/5 ML UDC PEG SCH (23:48)
[2024-04-11] MEDS ORDERED: VALPROIC ACID SOLN 250 MG/5 ML UDC PO SCH (06:00)
[2024-04-11 06:32] LABS: Basophils # (auto) 0.03 K/uL (0.00-0.20); Basophils % (auto) 0.2 %; Eosinophils # (auto) 0.15 K/uL (0.00-0.50); Hemoglobin 12.7 g/dl (14.0-18.0); Immature Granulocytes # (auto) 0.11 K/uL (0.01-0.20); Immature Granulocytes % (auto) 0.8 %; Lymphocytes # (auto) 1.73 K/uL (1.20-3.40); Lymphocytes % (auto) 11.9 %; Mean Corpuscular Hemoglobin 30.8 pg (25.0-34.0); Mean Corpuscular Hgb Conc 34.3 g/dL (32.0-36.0); Mean Corpuscular Volume 89.8 fL (80.0-100.0); Mean Platelet Volume 8.6 fL (9.4-12.4); Monocytes # (auto) 1.65 K/uL (0.11-0.59); Monocytes % (auto) 11.4 %; Neutrophils # (auto) 10.85 K/uL (1.40-6.50); Neutrophils % (auto) 74.7 %; Platelet Count 221 K/uL (130-400); RDW Coefficient of Variation 13.8 % (11.5-14.5); Red Blood Count 4.12 M/uL (4.70-6.10); White Blood Count 14.52 K/ul (4.8-10.8)
[2024-04-11 06:42] LABS: Calcium 9.4 mg/dl (8.6-10.3); Creatinine Clr Calc Pharmacy 114.3 ml/min; Magnesium 1.8 mg/dl (1.7-2.4); Phosphorus 3.7 mg/dl (2.5-4.9)
--- NOTE | 2024-04-11 08:58 | Gastroenterology Progress Note ---
Date of Service April 11, 2024 Assessment & Plan (1) Rhinovirus infection: Plan: 73 year old male w/ history of COPD, KURT, HTN, Dementia, DM, Afib (on Eliquis), HLD presenting through the ED after being found unresponsive and hypoxic at his [facility] admitted to the ICU w/ acute respiratory failure with hypoxia/pneumonia involving left lung/required emergency intubation in the field positive for enterovirus/rhinovirus. S/P tracheostomy 04/04 off vent, failed swallow evaluation yesterday. S/P EGD w/ PEG placement on 04/10. May use PEG today. May restart heparin if medically indicted today. GI sign off - Please recall if needed. Thank you for allowing us to participate in the care of this patient. Please call with any acute changes, questions or concerns. Please see addendum below with additional recommendation from my supervising physician. I spent a total of [] minutes on the date of service in review of patient's record, and previously obtained information in person and appropriate medical visit, discussion and education of plan, with patient and/or caregiver, placing orders for tests/referral/procedures as medically necessary and documentation of pertinent clinical information in patient's medical records for their visit today. Admission and Anticipated Discharge Date Admission Date: April 01, 2024 Supervising Physician Co-Signing Physician Notes I personally saw and examined the patient. I have reviewed the chart and agree with the documentation provided by the VICE PRESIDENT & GENERAL MANAGER [employer] [place] including discussion about the assessment, treatment and plan. PEG is clean dry and intact. He is getting feeding today from it. No issues at this point. GI will sign off please call us back with any questions. Subjective Pt was seen and evaluated, chart reviewed. Awake, oriented to self. Denies abd pain. No discomfort w/ evaluation of PEG tube and manipulation of PEG. Review of Systems Review of Systems: All other findings negative except as noted in HPI. Physical Exam Constitutional: WD/WN, vitals as above Gastrointestinal (Abdomen): Inspection/Auscultation: abdomen normal to inspection Percussion/Palpation: abdomen soft; abdomen nontender, no guarding and abdomen not rigid PEG still dressed, assessed, dressing removed, gauze removed, PEG intact. No pain or discomfort w/ manipulation of PEG. Skin: no rashes, warm and dry Results & Data Results & Data Vital Signs (Past 12 Hours) Vital Signs Temp Pulse Pulse Resp BP BP Pulse Ox 04/11/24 08:00 85 04/11/24 08:00 04/11/24 07:32 93 H 20 95 04/11/24 07:00 97.9 F 90 20 151/47 H 92 04/11/24 06:03 85 25 H 92 04/11/24 06:00 157/80 H 04/11/24 06:00 157/80 H 04/11/24 06:00 157/80 H 04/11/24 06:00 157/80 H 04/11/24 06:00 157/80 H 04/11/24 05:54 89 30 H 92 04/11/24 05:03 85 23 91 04/11/24 05:00 137/84 04/11/24 05:00 137/84 04/11/24 05:00 137/84 04/11/24 05:00 137/84 04/11/24 04:48 89 24 93 04/11/24 04:00 137/91 04/11/24 04:00 137/91 04/11/24 04:00 137/91 04/11/24 04:00 89 23 94 04/11/24 03:12 93 H 16 94 04/11/24 03:00 134/89 04/11/24 02:54 95 H 18 94 04/11/24 02:00 85 22 92 04/11/24 01:03 81 23 90 04/11/24 01:01 143/93 H 04/11/24 01:01 143/93 H 04/11/24 01:01 143/93 H 04/11/24 00:57 81 23 90 04/11/24 00:12 86 27 H 93 04/11/24 00:00 127/84 04/10/24 23:57 89 19 92 04/10/24 23:00 85 36 H 92 04/10/24 23:00 146/84 H 04/10/24 23:00 146/84 H 04/10/24 22:02 138/93 04/10/24 22:02 138/93 04/10/24 22:00 90 32 H 95 04/10/24 21:00 93 H 27 H 94 04/10/24 21:00 138/84 04/10/24 21:00 138/84 04/10/24 21:00 138/84 O2 Del Method O2 Flow Rate FiO2 04/11/24 08:00 04/11/24 08:00 Trach Collar 35 04/11/24 07:32 Trach Collar 7 35 04/11/24 07:00 Trach Collar 35 04/11/24 06:03 04/11/24 06:00 04/11/24 06:00 04/11/24 06:00 04/11/24 06:00 04/11/24 06:00 04/11/24 05:54 04/11/24 05:03 04/11/24 05:00 04/11/24 05:00 04/11/24 05:00 04/11/24 05:00 04/11/24 04:48 04/11/24 04:00 04/11/24 04:00 04/11/24 04:00 04/11/24 04:00 04/11/24 03:12 04/11/24 03:00 04/11/24 02:54 04/11/24 02:00 04/11/24 01:03 04/11/24 01:01 04/11/24 01:01 04/11/24 01:01 04/11/24 00:57 04/11/24 00:12 04/11/24 00:00 04/10/24 23:57 04/10/24 23:00 04/10/24 23:00 04/10/24 23:00 04/10/24 22:02 04/10/24 22:02 04/10/24 22:00 04/10/24 21:00 04/10/24 21:00 04/10/24 21:00 04/10/24 21:00 Laboratory Results 04/11/24 04/11/24 04/11/24 Range/Units 08:44 06:06 04:27 WBC 14.52 H (4.8-10.8) K/ul RBC 4.12 L (4.70-6.10) M/uL Hgb 12.7 L (14.0-18.0) g/dl Hct 37.0 L (42.0-52.0) % MCV 89.8 (80.0-100.0) fL MCH 30.8 (25.0-34.0) pg MCHC 34.3 (32.0-36.0) g/dL RDW Std Deviation 44.0 (36.4-46.3) fL RDW Coeff of Johana 13.8 (11.5-14.5) % Plt Count 221 (130-400) K/uL MPV 8.6 L (9.4-12.4) fL Immature Gran % (Auto) 0.8 % Neut % (Auto) 74.7 % Lymph % (Auto) 11.9 % [place] % (Auto) 11.4 % Eos % (Auto) 1.0 % Baso % (Auto) 0.2 % Neut # (Auto) 10.85 H (1.40-6.50) K/uL Lymph # (Auto) 1.73 (1.20-3.40) K/uL [place] # (Auto) 1.65 H (0.11-0.59) K/uL Eos # (Auto) 0.15 (0.00-0.50) K/uL Baso # (Auto) 0.03 (0.00-0.20) K/uL Immature Gran # (Auto) 0.11 (0.01-0.20) K/uL Sodium 136 (136-145) mmol/L Potassium 4.0 (3.5-5.1) mmol/L Chloride 104 (98-107) mmol/L Carbon Dioxide 25 (21-32) mmol/L Anion Gap 7 (3-11) BUN 21 (6-23) mg/dl Creatinine 0.60 (0.6-1.4) mg/dl Est Cr Clr Drug Dosing 114.3 ml/min eGFR 101.30 BUN/Creatinine Ratio 35.0 H (10-20) Glucose 115 H (70-99(Fasting)) mg/dl POC Glucose 116 H 105 H (70-99) mg/dl Calcium 9.4 (8.6-10.3) mg/dl Phosphorus 3.7 (2.5-4.9) mg/dl Magnesium 1.8 (1.7-2.4) mg/dl 04/10/24 04/10/24 Range/Units 16:13 11:26 WBC (4.8-10.8) K/ul RBC (4.70-6.10) M/uL Hgb (14.0-18.0) g/dl Hct (42.0-52.0) % MCV (80.0-100.0) fL MCH (25.0-34.0) pg MCHC (32.0-36.0) g/dL RDW Std Deviation (36.4-46.3) fL RDW Coeff of Johana (11.5-14.5) % Plt Count (130-400) K/uL MPV (9.4-12.4) fL Immature Gran % (Auto) % Neut % (Auto) % Lymph % (Auto) % [place] % (Auto) % Eos % (Auto) % Baso % (Auto) % Neut # (Auto) (1.40-6.50) K/uL Lymph # (Auto) (1.20-3.40) K/uL [place] # (Auto) (0.11-0.59) K/uL Eos # (Auto) (0.00-0.50) K/uL Baso # (Auto) (0.00-0.20) K/uL Immature Gran # (Auto) (0.01-0.20) K/uL Sodium (136-145) mmol/L Potassium (3.5-5.1) mmol/L Chloride (98-107) mmol/L Carbon Dioxide (21-32) mmol/L Anion Gap (3-11) BUN (6-23) mg/dl Creatinine (0.6-1.4) mg/dl Est Cr Clr Drug Dosing ml/min eGFR BUN/Creatinine Ratio (10-20) Glucose (70-99(Fasting)) mg/dl POC Glucose 109 H 94 (70-99) mg/dl Calcium (8.6-10.3) mg/dl Phosphorus (2.5-4.9) mg/dl Magnesium (1.7-2.4) mg/dl PG Care Time/CCT Total # of Minutes Spent Total Time Spent with Patient: Total time spent is greater than 50% in coordination of care (as documented) at patient's floor/unit and/or counseling patient: Coding Level of Care Code None Diagnoses Rhinovirus infection B34.8
--- NOTE | 2024-04-11 10:19 | Critical Care Progress Note ---
Date of Service April 11, 2024 Assessment & Plan (1) Septic shock: (2) Respiratory failure: (3) Atrial fibrillation with rapid ventricular response: (4) Rhinovirus infection: (5) Acute respiratory failure with hypoxia: (6) Diabetes mellitus: (7) Dementia: (8) Tracheostomy dependent: Plan Reason Critically Ill: 74 YOM resident of shelter found unresponsive and hypoxic requiring intubation in the field, ICU due to being on vasopressors and mechanically ventilated - [facility] records between June and August 2022 obtained, where Kian underwent tracheostomy in order to liberate from ET intubation Recommendations: Neuro - -- S/p acute delirium Continue Seroquel and trazodone. Try and maintain sleep-wake cycles. Avoid medications potentially associated with increasing delirium including benzodiazepines Cardiovascular - Shock unspecified, afib, on chronic anticoagulation -Periodic hypotension and bradycardia --> resolved Midodrine was started started 04/04/24 evening to maintain MAP off Levo, discontinued on 04/07/2024 2D echo 04/01/24: LV systolic function normal, RV moderately dilated, RV systolic function mildly reduced, LA mildly dilated; RV systolic pressure elevated at 30- 40mmHg, IVC mildly dilated - CTA of chest negative for PE/obstructive shock - high-sensitivity troponin downtrending as of 04/02/24 - 108.4 -> 64.8 Respiratory - Hypoxic respiratory failure requiring emergent intubation and mechanical ventilation, COPD, KURT --S/p VDRF, currently trached - Respiratory failure requiring intubation- at this time likely secondary to viral infection and possible mucous plugging vs. aspiration vs. viral and bacterial pneumonia or combination of these. - 04/04/24 tracheostomy, tracheostomy can be changed 04/15/2024 - Elevated PCT- can't exclude bacterial pneumonia - Respiratory viral panel + for Enter/Rhinovirus - Continue trach collar trials as tolerated. Continue pulmonary toilet and suctioning. - Nebulizers scheduled- MAE and ICS GI - OG -> NG tube post-extubation 04/04/24 -- Swallow eval was positive for aspirations on 04/09/2024 RENAL/LYTES - -- Monitor BUNs/creatinine Avoid nephrotoxic medication - UA 04/01/24 with 2+ bacteria, trace leukocytosis, 11-20 RBCs, trace blood - Urine culture negative to date Sputum culture growing Leslie which is a colonizer ENDO - DMII - ICU hyperglycemic protocol -Patient got 2 days of IV hydrocortisone 50 mg every 8 hours for low random cortisol. It was discontinued following that HEME - -- Chronic anticoagulation On Eliquis at home ID - Sepsis likely pulmonary source. Completed 6 days empiric Zosyn. Also received vancomycin. Cultures negative to date. Discontinue antibiotics and follow-up. --Prophylaxis VTE: Heparin drip GI: None Lines:PIV, PEG Diet: Tube feeds Plan: In/out: -820 mL, urine output 1425, + 1 L since coming to the hospital Magnesium being replaced Leukocytosis likely reactive to PEG tube placement yesterday which Will change patient Seroquel to 50 mg in a.m. and 100 mg at bedtime Resume tube feeds via PEG at a lower rate Resume heparin drip, can also consider changing it to Eliquis Okay to downgrade the patient to medical. Case was discussed with primary team Please note the above document was generated using voice recognition software. It may contain grammatical, syntax or spelling errors.Any formal questions or concerns about the content, text or information contained within the body of this dictation should be directly addressed to the provider for clarification. Admission and Anticipated Discharge Date Admission Date: April 01, 2024 Subjective Patient seen and examined at bedside. No acute distress, no adverse events overnight Systolic blood pressure was in the 140s at the time of examination He was awake alert, answering questions appropriately by nodding yes or no Denied any headache, no chest pain, no abdominal pain Was asking for me to call his . He does have clear secretions. Review of Systems 2 Review of Systems: All systems reviewed & are unremarkable except as noted in Subjective Physical Exam 2 Physical Exam: Constitutional: No acute distress HEENT: EOMI, PERRLA, positive trach Respiratory system: Decreased air entry bilaterally, no wheeze, no rhonchi, mild crackles bilateral lower lobes CVS: S1-S2 positive, no murmurs or gallops Abdomen: Soft, nontender, nondistended, positive bowel sounds x4, positive PEG Extremities: +2 pulses bilaterally radialis/ dorsalis pedis, no cyanosis, minimal pitting edema bilateral lower extremity Neuro: Awake alert, following simple commands Psych: Normal mood and affect G/U: [place] Skin: no rashes, warm and dry Lymphatic: no cervical or axillary lymphadenopathy Results & Data Results & Data Vital Signs (Past 12 Hours) Vital Signs Temp Pulse Pulse Resp BP BP Pulse Ox 04/11/24 09:01 142/90 H 04/11/24 09:00 82 20 92 04/11/24 08:09 78 19 92 04/11/24 08:01 135/78 04/11/24 08:00 85 04/11/24 08:00 04/11/24 07:45 91 H 27 H 95 04/11/24 07:32 93 H 20 95 04/11/24 07:21 96 H 31 H 87 L 04/11/24 07:00 151/97 H 04/11/24 07:00 151/97 H 04/11/24 07:00 36.6 C 90 20 151/47 H 92 04/11/24 06:57 87 27 H 96 04/11/24 06:03 85 25 H 92 04/11/24 06:00 157/80 H 04/11/24 06:00 157/80 H 04/11/24 06:00 157/80 H 04/11/24 06:00 157/80 H 04/11/24 06:00 157/80 H 04/11/24 05:54 89 30 H 92 04/11/24 05:03 85 23 91 04/11/24 05:00 137/84 04/11/24 05:00 137/84 04/11/24 05:00 137/84 04/11/24 05:00 137/84 04/11/24 04:48 89 24 93 04/11/24 04:00 137/91 04/11/24 04:00 137/91 04/11/24 04:00 137/91 04/11/24 04:00 89 23 94 04/11/24 03:12 93 H 16 94 04/11/24 03:00 134/89 04/11/24 02:54 95 H 18 94 04/11/24 02:00 85 22 92 04/11/24 01:03 81 23 90 04/11/24 01:01 143/93 H 04/11/24 01:01 143/93 H 04/11/24 01:01 143/93 H 04/11/24 00:57 81 23 90 04/11/24 00:12 86 27 H 93 04/11/24 00:00 127/84 04/10/24 23:57 89 19 92 04/10/24 23:00 85 36 H 92 04/10/24 23:00 146/84 H 04/10/24 23:00 146/84 H O2 Del Method O2 Flow Rate FiO2 04/11/24 09:01 04/11/24 09:00 04/11/24 08:09 04/11/24 08:01 04/11/24 08:00 04/11/24 08:00 Trach Collar 35 04/11/24 07:45 04/11/24 07:32 Trach Collar 7 35 04/11/24 07:21 04/11/24 07:00 04/11/24 07:00 04/11/24 07:00 Trach Collar 35 04/11/24 06:57 04/11/24 06:03 04/11/24 06:00 04/11/24 06:00 04/11/24 06:00 04/11/24 06:00 04/11/24 06:00 04/11/24 05:54 04/11/24 05:03 04/11/24 05:00 04/11/24 05:00 04/11/24 05:00 04/11/24 05:00 04/11/24 04:48 04/11/24 04:00 04/11/24 04:00 04/11/24 04:00 04/11/24 04:00 04/11/24 03:12 04/11/24 03:00 04/11/24 02:54 04/11/24 02:00 04/11/24 01:03 04/11/24 01:01 04/11/24 01:01 04/11/24 01:01 04/11/24 00:57 04/11/24 00:12 04/11/24 00:00 04/10/24 23:57 04/10/24 23:00 04/10/24 23:00 04/10/24 23:00 Laboratory Results 04/11/24 06:06 04/11/24 06:06 Coding Level of Care Code 26484 SUB INP/OBS CARE 3/50MIN Diagnoses Septic shock A41.9; R65.21 Acute respiratory failure with hypoxia J96.01 Chronicity: acute Respiratory failure complication: hypoxia Atrial fibrillation with rapid ventricular response I48.91 Rhinovirus infection B34.8 Acute respiratory failure with hypoxia J96.01 Diabetes mellitus E11.9 Dementia F03.90 Tracheostomy dependent Z93.0 (2) Respiratory failure Chronicity: acute Respiratory failure complication: hypoxia Qualified Code(s): J96.01 - Acute respiratory failure with hypoxia
--- NOTE | 2024-04-11 11:29 | Hospitalist Progress Note ---
Date of Service April 11, 2024 Assessment & Plan (1) Septic shock: (2) Acute respiratory failure with hypoxia: (3) Pneumonia involving left lung: (4) Acute kidney injury: (5) Rhinovirus infection: (6) Admitted to intensive care unit: (7) Required emergency intubation: Plan The patient is a 73-year-old male with a past medical history including paroxysmal atrial fibrillation, tachybradycardia syndrome, COPD, KURT, hypertension, chronic respiratory failure with hypoxia, convulsions, dementia, diabetes mellitus, osteoarthritis, hyperlipidemia, anemia, on chronic anticoagulation with Eliquis. The patient had been found unresponsive and hypoxic at [facility], EMS was called emergently, the patient required intubation in the field, and mechanical ventilation. #Acute respiratory failure with hypoxia/pneumonia involving left lung/required emergency intubation in the field- Admitted to intensive care unit Erp Engineer initially involved for ventilator management Tracheostomy done on 04/04 Now off of vent Positive for enterovirus/rhinovirus Zosyn discontinued after 6 days of treatment Palliative care was spoke to the patient's was adamant about PEG tube placement. PEG tube placed 04/10 Tube feeds will be started soon IV heparin drip resumed. #Septic shock- Off of pressors Off of hydrocortisone Midodrine as needed #Leukocytosis Resolved Likely steroid-induced, on hydrocortisone Cultures negative #Atrial fibrillation/chronic anticoagulation with Eliquis- Holding Eliquis Heparin drip resumed, post PEG tube placement #Demand ischemia Troponin elevated due to combination of hypotension, hypoxia, pneumonia, sepsis Echocardiogram reviewed #Acute kidney injury- Initial creatinine 1.57, with base 0.62 Improved to normal Was hydrated #Seizure disorder-on oral divalproex 250 p.o. 3 times daily. #UTI Urine culture negative Off of antibiotics wishes full code and to continue "everything" although she has not seen the patient in 1 year. Tracheostomy done 04/04. PEG tube placed 04/10. Tube feeding will be initiated soon. Admission and Anticipated Discharge Date Admission Date: April 01, 2024 Subjective Patient had a PEG tube placed 04/10. Per nurse, no new concerns. PEG tube feeds will be started soon. Review of Systems Review of Systems: All systems reviewed & are unremarkable except as noted in Subjective Physical Exam Physical Exam: General: Trached. Now has a PEG tube in place. Heart: S1, S2/regular rate and rhythm, no murmur rubs or gallops Lungs: Diminished breath sounds bilaterally. Normal effort Abdomen: Soft/nontender/nondistended. No hepatosplenomegaly. PEG tube in place. Extremities: No clubbing/cyanosis. No edema Behavior: Unable to assess Results & Data Results & Data Vital Signs (Past 12 Hours) Vital Signs Temp Pulse Pulse Resp BP BP Pulse Ox 04/11/24 09:01 142/90 H 04/11/24 09:00 82 20 92 04/11/24 08:09 78 19 92 04/11/24 08:01 135/78 04/11/24 08:00 85 04/11/24 08:00 04/11/24 07:45 91 H 27 H 95 04/11/24 07:32 93 H 20 95 04/11/24 07:21 96 H 31 H 87 L 04/11/24 07:00 151/97 H 04/11/24 07:00 151/97 H 04/11/24 07:00 36.6 C 90 20 151/47 H 92 04/11/24 06:57 87 27 H 96 04/11/24 06:03 85 25 H 92 04/11/24 06:00 157/80 H 04/11/24 06:00 157/80 H 04/11/24 06:00 157/80 H 04/11/24 06:00 157/80 H 04/11/24 06:00 157/80 H 04/11/24 05:54 89 30 H 92 04/11/24 05:03 85 23 91 04/11/24 05:00 137/84 04/11/24 05:00 137/84 04/11/24 05:00 137/84 04/11/24 05:00 137/84 04/11/24 04:48 89 24 93 04/11/24 04:00 137/91 04/11/24 04:00 137/91 04/11/24 04:00 137/91 04/11/24 04:00 89 23 94 04/11/24 03:12 93 H 16 94 04/11/24 03:00 134/89 04/11/24 02:54 95 H 18 94 04/11/24 02:00 85 22 92 04/11/24 01:03 81 23 90 04/11/24 01:01 143/93 H 04/11/24 01:01 143/93 H 04/11/24 01:01 143/93 H 04/11/24 00:57 81 23 90 04/11/24 00:12 86 27 H 93 04/11/24 00:00 127/84 04/10/24 23:57 89 19 92 O2 Del Method O2 Flow Rate FiO2 04/11/24 09:01 04/11/24 09:00 04/11/24 08:09 04/11/24 08:01 04/11/24 08:00 04/11/24 08:00 Trach Collar 35 04/11/24 07:45 04/11/24 07:32 Trach Collar 7 35 04/11/24 07:21 04/11/24 07:00 04/11/24 07:00 04/11/24 07:00 Trach Collar 35 04/11/24 06:57 04/11/24 06:03 04/11/24 06:00 04/11/24 06:00 04/11/24 06:00 04/11/24 06:00 04/11/24 06:00 04/11/24 05:54 04/11/24 05:03 04/11/24 05:00 04/11/24 05:00 04/11/24 05:00 04/11/24 05:00 04/11/24 04:48 04/11/24 04:00 04/11/24 04:00 04/11/24 04:00 04/11/24 04:00 04/11/24 03:12 04/11/24 03:00 04/11/24 02:54 04/11/24 02:00 04/11/24 01:03 04/11/24 01:01 04/11/24 01:01 04/11/24 01:01 04/11/24 00:57 04/11/24 00:12 04/11/24 00:00 04/10/24 23:57 Laboratory Results Abnormal lab results 04/10/24 04/11/24 04/11/24 Range/Units 16:13 04:27 06:06 WBC 14.52 H (4.8-10.8) K/ul RBC 4.12 L (4.70-6.10) M/uL Hgb 12.7 L (14.0-18.0) g/dl Hct 37.0 L (42.0-52.0) % MPV 8.6 L (9.4-12.4) fL Neut # (Auto) 10.85 H (1.40-6.50) K/uL [place] # (Auto) 1.65 H (0.11-0.59) K/uL BUN/Creatinine Ratio 35.0 H (10-20) Glucose 115 H (70-99(Fasting)) mg/dl POC Glucose 109 H 105 H (70-99) mg/dl 04/11/24 Range/Units 08:44 WBC (4.8-10.8) K/ul RBC (4.70-6.10) M/uL Hgb (14.0-18.0) g/dl Hct (42.0-52.0) % MPV (9.4-12.4) fL Neut # (Auto) (1.40-6.50) K/uL [place] # (Auto) (0.11-0.59) K/uL BUN/Creatinine Ratio (10-20) Glucose (70-99(Fasting)) mg/dl POC Glucose 116 H (70-99) mg/dl PG Care Time/CCT Total # of Minutes Spent Total Time Spent with Patient: Total time spent is greater than 50% in coordination of care (as documented) at patient's floor/unit and/or counseling patient: Coding Level of Care Code 48169 SUB INP/OBS CARE 2/35MIN Diagnoses Septic shock A41.9; R65.21 Acute respiratory failure with hypoxia J96.01 Pneumonia involving left lung J18.9 Acute kidney injury N17.9 Rhinovirus infection B34.8 Admitted to intensive care unit Z78.9 Required emergency intubation Z98.890
[2024-04-11] MEDS: MAGNESIUM SULFATE / D5W 1 GM/100 ML BAG IV SCH (11:33)
[2024-04-11] MEDS: INSULIN ASPART PER UNIT CHARGE SC SCH (11:34)
[2024-04-11] MEDS: traZODone HCL 50 MG TAB PO ONE (12:11)
[2024-04-11] MEDS: QUEtiapine FUMARATE 25 MG TABLET NG SCH (12:12)
[2024-04-11] MEDS: QUEtiapine FUMARATE 100 MG TABLET PO SCH (21:57)
[2024-04-12 07:35] LABS: ANTI-Xa, UFH(UnfractionatedHep 0.49 IU/ml (0.3-0.7)
--- NOTE | 2024-04-12 13:55 | Hospitalist Progress Note ---
Date of Service April 12, 2024 Assessment & Plan (1) Septic shock: (2) Acute respiratory failure with hypoxia: (3) Pneumonia involving left lung: (4) Acute kidney injury: (5) Rhinovirus infection: (6) Admitted to intensive care unit: (7) Required emergency intubation: Plan The patient is a 73-year-old male with a past medical history including paroxysmal atrial fibrillation, tachybradycardia syndrome, COPD, KURT, hypertension, chronic respiratory failure with hypoxia, convulsions, dementia, diabetes mellitus, osteoarthritis, hyperlipidemia, anemia, on chronic anticoagulation with Eliquis. The patient had been found unresponsive and hypoxic at [facility], EMS was called emergently, the patient required intubation in the field, and mechanical ventilation. #Acute respiratory failure with hypoxia/pneumonia involving left lung/required emergency intubation in the field- Initially admitted to intensive care unit Humidifier Attendant initially involved for ventilator management Tracheostomy done on 04/04 Now off of vent Positive for enterovirus/rhinovirus Zosyn discontinued after 6 days of treatment Palliative care spoke to the patient's was adamant about PEG tube placement. PEG tube placed 04/10 Tube feeds started IV heparin drip resumed. Will switch to Eliquis tonight Trach change planned for 2 #Septic shock- Off of pressors Off of hydrocortisone Midodrine as needed #Leukocytosis Resolved Likely steroid-induced, on hydrocortisone Cultures negative #Atrial fibrillation/chronic anticoagulation with Eliquis- Was holding Eliquis Heparin drip resumed, post PEG tube placement Now switch back from heparin drip to Eliquis tonight #Demand ischemia Troponin elevated due to combination of hypotension, hypoxia, pneumonia, sepsis Echocardiogram reviewed #Acute kidney injury- Initial creatinine 1.57, with base 0.62 Improved to normal Was hydrated #Seizure disorder-on oral divalproex 250 p.o. 3 times daily. #UTI Urine culture negative Off of antibiotics wishes full code and to continue "everything" although she has not seen the patient in 1 year. Tracheostomy done 04/04. PEG tube placed 04/10. Tube feeds started. Trach change planned for 2. Patient will be medically stable for discharge after trach changed next week. Admission and Anticipated Discharge Date Admission Date: April 01, 2024 Subjective Patient was seen and examined at 10:15 AM. No new concerns. Review of Systems Review of Systems: All systems reviewed & are unremarkable except as noted in Subjective Physical Exam Physical Exam: General: Trached. Now has a PEG tube in place. Heart: S1, S2/regular rate and rhythm, no murmur rubs or gallops Lungs: Diminished breath sounds bilaterally. Normal effort Abdomen: Soft/nontender/nondistended. No hepatosplenomegaly. PEG tube in place. Extremities: No clubbing/cyanosis. No edema Behavior: Unable to assess Results & Data Results & Data Vital Signs (Past 12 Hours) Vital Signs Temp Pulse Resp BP Pulse Ox O2 Del Method FiO2 04/12/24 08:59 Trach Collar 04/12/24 08:00 36.4 C L 74 20 118/74 91 Trach Collar 04/12/24 07:29 78 19 90 Trach Collar 30 Laboratory Results Abnormal lab results 04/11/24 04/11/24 04/12/24 Range/Units 15:45 20:36 00:49 POC Glucose 120 H 112 H 120 H (70-99) mg/dl 04/12/24 04/12/24 Range/Units 06:04 11:42 POC Glucose 111 H 108 H (70-99) mg/dl PG Care Time/CCT Total # of Minutes Spent Total Time Spent with Patient: Total time spent is greater than 50% in coordination of care (as documented) at patient's floor/unit and/or counseling patient: Coding Level of Care Code 64171 SUB INP/OBS CARE 2/35MIN Diagnoses Septic shock A41.9; R65.21 Acute respiratory failure with hypoxia J96.01 Pneumonia involving left lung J18.9 Acute kidney injury N17.9 Rhinovirus infection B34.8 Admitted to intensive care unit Z78.9 Required emergency intubation Z98.890
[2024-04-12] MEDS: APIXABAN 5 MG TABLET PO SCH (22:16)
[2024-04-13] MEDS: LORazepam 2 MG/1 ML VIAL IV STA (06:26)
--- NOTE | 2024-04-13 07:17 | Electrocardiogram Report ---
Test Reason : Blood Pressure : */* mmHG Vent. Rate : 87 BPM Atrial Rate : 87 BPM P-R Int : 136 ms QRS Dur : 128 ms QT Int : 394 ms P-R-T Axes : 74 -48 -6 degrees QTcB Int : 474 ms Poor data quality, interpretation may be adversely affected Sinus rhythm with Premature supraventricular complexes and with occasional Premature ventricular comp lexes Right bundle branch block Left anterior fascicular block Nondiagnostic lateral Q waves Abnormal ECG When compared with ECG of 08-Apr-2024 12:15, Premature ventricular complexes are now Present Confirmed by Roshan Narvaez ([id number]) on 04/13/2024 7:17:13 AM Referred By: Jae Mars Confirmed By: Roshan Narvaez
--- NOTE | 2024-04-13 13:42 | Hospitalist Progress Note ---
Date of Service April 13, 2024 Assessment & Plan (1) Septic shock: (2) Acute respiratory failure with hypoxia: (3) Pneumonia involving left lung: (4) Acute kidney injury: (5) Rhinovirus infection: (6) Admitted to intensive care unit: (7) Required emergency intubation: Plan The patient is a 73-year-old male with a past medical history including paroxysmal atrial fibrillation, tachybradycardia syndrome, COPD, KURT, hypertension, chronic respiratory failure with hypoxia, convulsions, dementia, diabetes mellitus, osteoarthritis, hyperlipidemia, anemia, on chronic anticoagulation with Eliquis. The patient had been found unresponsive and hypoxic at [facility], EMS was called emergently, the patient required intubation in the field, and mechanical ventilation. #Acute respiratory failure with hypoxia/pneumonia involving left lung/required emergency intubation in the field- Initially admitted to intensive care unit Fleet Sales Associate initially involved for ventilator management Tracheostomy done on 04/04 Now off of vent Positive for enterovirus/rhinovirus Zosyn discontinued after 6 days of treatment Palliative care spoke to the patient's was adamant about PEG tube placement. PEG tube placed 04/10 Tube feeds started Switched from IV heparin drip to Eliquis Trach change planned for 2/3 #Septic shock- Off of pressors Off of hydrocortisone Midodrine as needed #Leukocytosis Resolved Likely steroid-induced, on hydrocortisone Cultures negative #Atrial fibrillation/chronic anticoagulation with Eliquis- Was holding Eliquis Heparin drip resumed, post PEG tube placement Now switch back from heparin drip to Eliquis tonight #Demand ischemia Troponin elevated due to combination of hypotension, hypoxia, pneumonia, sepsis Echocardiogram reviewed #Acute kidney injury- Initial creatinine 1.57, with base 0.62 Improved to normal Was hydrated #Seizure disorder-on oral divalproex 250 p.o. 3 times daily. #UTI Urine culture negative Off of antibiotics wishes full code and to continue "everything" although she has not seen the patient in 1 year. Tracheostomy done 04/04. PEG tube placed 04/10. Tube feeds started. Trach change planned for 23. Patient will be medically stable for discharge after trach changed next week. Asked RN to remove restraints in preparation for placement early next week Admission and Anticipated Discharge Date Admission Date: April 01, 2024 Subjective Patient was seen and examined at 10:15 AM. No nursing concerns. Review of Systems Review of Systems: Unobtainable due to cognitive status Physical Exam Physical Exam: General: Trached. Now has a PEG tube in place. Heart: S1, S2/regular rate and rhythm, no murmur rubs or gallops Lungs: Diminished breath sounds bilaterally. Normal effort Abdomen: Soft/nontender/nondistended. No hepatosplenomegaly. PEG tube in place. Extremities: No clubbing/cyanosis. No edema Behavior: Unable to assess Results & Data Results & Data Vital Signs (Past 12 Hours) Vital Signs Temp Pulse Resp BP BP Pulse Ox O2 Del Method 04/13/24 07:46 36.5 C 71 16 108/71 96 Trach Collar 04/13/24 07:37 Trach Collar 04/13/24 07:34 101 H 20 98 Trach Collar 04/13/24 05:59 36.7 C 77 137/61 96 Trach Collar O2 Flow Rate FiO2 04/13/24 07:46 28 04/13/24 07:37 8 04/13/24 07:34 8 30 04/13/24 05:59 8 30 Laboratory Results Abnormal lab results 04/12/24 04/13/24 04/13/24 Range/Units 17:51 00:20 05:56 POC Glucose 103 H 110 H 125 H (70-99) mg/dl 04/13/24 Range/Units 12:26 POC Glucose 103 H (70-99) mg/dl PG Care Time/CCT Total # of Minutes Spent Total Time Spent with Patient: Total time spent is greater than 50% in coordination of care (as documented) at patient's floor/unit and/or counseling patient: Coding Level of Care Code 73246 SUB INP/OBS CARE 2/35MIN Diagnoses Septic shock A41.9; R65.21 Acute respiratory failure with hypoxia J96.01 Pneumonia involving left lung J18.9 Acute kidney injury N17.9 Rhinovirus infection B34.8 Admitted to intensive care unit Z78.9 Required emergency intubation Z98.890
[2024-04-13] MEDS ORDERED: HALOPERIDOL LACTATE 5 MG/ML 1 ML VIAL IV STA (17:12)
[2024-04-13] MEDS: HALOPERIDOL LACTATE 5 MG/ML 1 ML VIAL IM PRN (17:38)
--- NOTE | 2024-04-14 13:51 | Hospitalist Progress Note ---
Date of Service April 14, 2024 Assessment & Plan (1) Septic shock: (2) Acute respiratory failure with hypoxia: (3) Pneumonia involving left lung: (4) Acute kidney injury: (5) Rhinovirus infection: (6) Admitted to intensive care unit: (7) Required emergency intubation: Plan The patient is a 73-year-old male with a past medical history including paroxysmal atrial fibrillation, tachybradycardia syndrome, COPD, KURT, hypertension, chronic respiratory failure with hypoxia, convulsions, dementia, diabetes mellitus, osteoarthritis, hyperlipidemia, anemia, on chronic anticoagulation with Eliquis. The patient had been found unresponsive and hypoxic at [facility], EMS was called emergently, the patient required intubation in the field, and mechanical ventilation. #Acute respiratory failure with hypoxia/pneumonia involving left lung/required emergency intubation in the field- Initially admitted to intensive care unit Public Transit Trolley Driver initially involved for ventilator management Tracheostomy done on 04/04 Now off of vent Positive for enterovirus/rhinovirus Zosyn discontinued after 6 days of treatment Palliative care spoke to the patient's was adamant about PEG tube placement. PEG tube placed 04/10 Tube feeds started Switched from IV heparin drip to Eliquis Trach change planned for 04/15 #Septic shock- Off of pressors Off of hydrocortisone Midodrine as needed #Leukocytosis Resolved Likely steroid-induced, on hydrocortisone Cultures negative #Atrial fibrillation/chronic anticoagulation with Eliquis- Was holding Eliquis Heparin drip resumed, post PEG tube placement Now switch back from heparin drip to Eliquis tonight #Demand ischemia Troponin elevated due to combination of hypotension, hypoxia, pneumonia, sepsis Echocardiogram reviewed #Acute kidney injury- Initial creatinine 1.57, with base 0.62 Improved to normal Was hydrated #Seizure disorder-on oral divalproex 250 p.o. 3 times daily. #UTI Urine culture negative Off of antibiotics wishes full code and to continue "everything" although she has not seen the patient in 1 year. Tracheostomy done 04/04. PEG tube placed 04/10. Tube feeds started. Trach change planned for 04/15. On 04/13, patient seemed to be able to communicate quite a bit. He raised questions about why he has all these tubes. He was upset about having the tubes in. It seemed like he was upset to know that his had made this decision. He stated "I have had enough". He was seen attempting to remove the trach collar. It was extremely difficult to understand what the patient was saying. But some of it was clear. He was getting increasingly agitated and we had to give him Haldol. Goals of care will need to be readdressed on Saturday 04/15 in presence of palliative care and his . Admission and Anticipated Discharge Date Admission Date: April 01, 2024 Subjective Patient was seen and examined at 9:30 AM. Per nurse, he slept through the night and is still sleeping. Has not been agitated since he got the Haldol yesterday. Review of Systems Review of Systems: All systems reviewed & are unremarkable except as noted in Subjective Physical Exam Physical Exam: General: Trached. Now has a PEG tube in place. Heart: S1, S2/regular rate and rhythm, no murmur rubs or gallops Lungs: Diminished breath sounds bilaterally. Normal effort Abdomen: Soft/nontender/nondistended. No hepatosplenomegaly. PEG tube in place. Extremities: No clubbing/cyanosis. No edema Behavior: Unable to assess Results & Data Results & Data Vital Signs (Past 12 Hours) Vital Signs Pulse Resp Pulse Ox O2 Del Method O2 Flow Rate FiO2 04/14/24 07:38 80 20 90 Trach Collar 7 28 04/14/24 07:30 Trach Collar Laboratory Results Abnormal lab results 04/14/24 04/14/24 Range/Units 00:05 06:00 POC Glucose 119 H 100 H (70-99) mg/dl PG Care Time/CCT Total # of Minutes Spent Total Time Spent with Patient: Total time spent is greater than 50% in coordination of care (as documented) at patient's floor/unit and/or counseling patient: Coding Level of Care Code 05071 SUB INP/OBS CARE 2/35MIN Diagnoses Septic shock A41.9; R65.21 Acute respiratory failure with hypoxia J96.01 Pneumonia involving left lung J18.9 Acute kidney injury N17.9 Rhinovirus infection B34.8 Admitted to intensive care unit Z78.9 Required emergency intubation Z98.890
--- NOTE | 2024-04-15 11:59 | Palliative Family Discussion ---
Date of Service April 15, 2024 Patient Directed Conference Time of [id number] Participants: Lizbet Hathaway DNP Patient participation: no Patient Support System: Renee, Other Healthcare Provider Participation: None Meeting Location: telephonic; Renee is elderly/lives in [place]/does not drive and does not have someone to bring her to [facility] Advanced Directive available: NO The patient's surrogate medical decision maker participated: Yes, Renee, his of 35 years This telephonic ACP meeting of 30 min was held with Renee Juan, of KIAN JUAN. This meeting was necessary for determining the appropriate course of treatment. Topics of Discussion Topics of Discussion: 1. Reviewed with Renee that Kian has been more agitated and restless since feeding tube was placed, he is trying to remove both his trach and PEG, saying to staff he does not want wither and he is now requiring restraints. He has also been a little more awake and alert, so where he has vocalized being unhappy with a feeding tube and stated "I have had enough." This was documented in Dr Veloz's note yesterday. 2. Renee states "I know, I know, he's not happy about that tube. But that's too bad. I'm going to override him here - I know he doesn't like that tube but I'm sorry, I'm overriding him on this and as long as I am still alive and I love him, he's going to have that feeding tube and stay alive for me too." 3. I suggested a bedside visit and meeting, she said she has not transportation apart from the [employer] service in [place]. I offered a zoom meeting with bedside ipad, and warned her I am not sure that is best modality for Kian with his dementia, but it might be the only option we have to maybe ask Kian in front of her and see what he says. Renee agreed and provided her email address [email or web address] for [facility] link to be sent. We agreed on a 1pm meeting by zoom tomorrow. 4. I did try to give Renee some early warning that if he requires restraints in a routine/ongoing manner then the snf may not be able to take him back and we are not able to keep someone restrained ATC just to allow tube feedings. I also advised her it would be unethical to sedate him for the purpose of continuing tube feeds. Other Content of Meetin. Opportunity given for participants to speak and ask questions. 2. Participants were assured of attention to patient comfort. 3. Reassurance provided. 4. Support was provided for informed, good-lorenza decisions. 5. Emotions expressed by family were acknowledged and addressed. 6.Plan of Care: TBD. Will schedule a family meeting at bedside with iPad and via Zoom for tomorrow at 1pm Meeting details: Tanya Hathaway is inviting you to a scheduled Zoom meeting. Topic: Kian Juan Family Meeting Time: Apr 15, 2024 01:00 PM Join Zoom Meeting by clicking this link: [email or web address] Meeting ID: [id number] Thank you for allowing us to participate in the ongoing care of this patient. Please page with any additional concerns. Marliee Hathaway DNP Director, Palliative Medicine
--- NOTE | 2024-04-15 12:21 | Palliative Family Discussion ---
Date of Service April 15, 2024 Patient Directed Conference Time of Meetin-1220pm Participants: Lizbet Hathaway DNP Topics of Discussion Renee Mae called me urgently to share the following: After our conversation earlier this morning, she has since spoken with her Mother, her 2 sons and her bahai. She states she is now willing to move Kian to comfort care. She states she cannot and does not want him home with hospice and she cannot meet his needs/does not have help from family. She is aware he has been trying to remove his trach and PEG and she states "I know he doesn't want those things, but I did them for me, because I wanted him around for me." She then added "My family, my friends, I have good support, they all todl me I gave him 3 more years than he would have had but now it is time to let him go comfortably. We can talk about that some more tomorrow." Thank you for allowing us to participate in the ongoing care of this patient. Please page with any additional concerns. Marilee Hathaway DNP Director, Palliative Medicine
--- NOTE | 2024-04-15 12:58 | Hospitalist Progress Note ---
Date of Service April 15, 2024 Assessment & Plan (1) Septic shock: (2) Acute respiratory failure with hypoxia: (3) Pneumonia involving left lung: (4) Rhinovirus infection: Plan The patient is a 73-year-old male with a H/O PAF on Eliquis, tachybradycardia syndrome, COPD, KURT, HTN, chronic respiratory failure with hypoxia, seizure disorder, dementia, DM2, osteoarthritis, HLD, and anemia presents after being found unresponsive and hypoxic at [facility]. EMS was called emergently, the patient required intubation in the field, and mechanical ventilation. He was found to be positive for entero-/rhinovirus and had pneumonia and septic shock requiring vasopressors. He had a tracheostomy tube and PEG tube placed and is now recovering but continues with ongoing encephalopathy in the setting of significant dementia. #Acute respiratory failure with hypoxia/pneumonia involving left lung/entero/rhinovirus infection/septic shock-intubated on arrival,Tracheostomy done on 04/04 to help liberate from the vent given difficulties with labile p ressures and teachers' aide felt extubation would fail otherwise. CT angiogram of the chest negative for PE, showed LLL collapse with mediastinal shift to left side and L UL patchy groundglass opacities. With hypotension, leukocytosis, pneumonia and entero/rhinovirus-now off of pressors and IV hydrocortisone. Midodrine is ordered as needed but has not been used. Blood cultures, sputum culture no growth, second sputum culture with Leslie albicans likely colonizer-no treatment needed. Urine culture no growth He completed 6 days of antibiotic therapy with Zosyn. PEG tube placed 04/10 and tube feeds started. Continues on trach collar 7-8 L of flow. Trach exchange performed on 04/15. Patient continues to try to remove his tracheostomy tube and is in soft limb restraints -Continue supportive care, inhaled corticosteroids and bronchodilators -Continue restraints and Haldol as needed to prevent agitation and pulling of tubes -Continue tube feeds and nutritional formula supplements, sterile water flushes -Follow CBC, CMP, magnesium, phosphorus in the morning -Check chest x-ray in the morning -Discontinue midodrine #Atrial fibrillation/chronic anticoagulation with Eliquis/demand ischemia- initially presented with rapid atrial fibrillation and later converted to marked sinus bradycardia with RBBB and anterior T wave inversions, also had some junctional rhythm. Troponin peaked at 108 after admission and echocardiogram showed preserved LV function, RV moderately dilated with mild reduction in RV function, RVSP elevated at 30-40 mmHg and mildly dilated IVC. Troponin elevated due to demand ischemia from hypotension/hypoxia/sepsis -He is now back on Eliquis after all his procedures have been completed -Not on AV jabari blockers here-Home metoprolol on hold due to previous bradycardia #Acute kidney injury-Initial creatinine 1.57, with base 0.62-improved to normal after blood pressure support and IV fluid hydration -Follow BMP #Seizure disorder-no acute issues -Continue on oral divalproex 250 per PEG 3 times daily #Dementia/encephalopathy-remains in soft restraints to prevent him from pulling out tracheostomy tube and PEG tube. Had speaking valve placed on 04/15 which is helping him to better communicate. He tells me he does not want to but he does not want the tracheostomy tube in place. He does not fully understand his medical situation. Palliative medicine is involved and plans on having a video conference family meeting with the patient, and his at 1300 on 04/16 to further define goals of care. -Continue Seroquel, trazodone, and IM Haldol as needed -Continue restraints to keep him safe from pulling out his tracheostomy and PEG tube DVT prophylaxis-Eliquis Disposition-continued stay on medical/surgical unit-he will not be able to go to SNF until he is out of restraints Admission and Anticipated Discharge Date Admission Date: April 01, 2024 Subjective Patient remains in soft restraints due to trying to pull out trach collar. He had a speaking valve today and seems more oriented now that he is able to speak. He does tell me that he is not ready to but does not seem happy to have the trach and the PEG tube. I discussed his care with palliative medicine. Physical Exam Constitutional: + ill appearing (Chronically ill-appeari ng); no acute distress Neck: + abnormal visual inspection (Tracheosto my tube in place) Respiratory: no respiratory distress, no cough and not tachypneic Auscultation: + diminished lung sounds (At left base); no crackles, no rhonchi and no wheezes Cardiovascular: RRR, no murmur, no edema Gastrointestinal (Abdomen): Inspection/Auscultation: normal bowel sounds; + abdomen abnormal to inspection (PEG tube in place with no surrounding erythema or drainage) and abdomen not distended Percussion/Palpation: abdomen soft; abdomen nontender Neurologic: + not awake (Drifts in and out of sleep while on talking to him) Psychiatric: Orientation: oriented to person, oriented to place ("Hospital" but does not know the name of the hospital) and cooperative Is a CAM-ICU negative on screening-able to squeeze my hand for all A's of the word CASA AMANDA Results & Data Results & Data Vital Signs (Past 12 Hours) Vital Signs Temp Pulse Resp BP Pulse Ox O2 Del Method O2 Flow Rate 04/15/24 08:30 Trach Collar 8 04/15/24 07:14 36.5 C 78 20 111/70 94 Trach Collar 04/15/24 06:16 96 H 18 95 Trach Collar 7 FiO2 04/15/24 08:30 04/15/24 07:14 04/15/24 06:16 28 Laboratory Results No labs to review since 04/11 PG Care Time/CCT Total # of Minutes Spent Total Time Spent with Patient: Total time spent is greater than 50% in coordination of care (as documented) at patient's floor/unit and/or counseling patient: Coding Level of Care Code 43718 SUB INP/OBS CARE 3/50MIN Diagnoses Septic shock A41.9; R65.21 Acute respiratory failure with hypoxia J96.01 Pneumonia involving left lung J18.9 Rhinovirus infection B34.8
--- NOTE | 2024-04-15 14:40 | Communication Note ---
Date of Service: April 15, 2024 Met with pt today to assess decisional capacity. He is awake and alert and pleasantly communicative with [place] valve on. He is in NAD on trach collar and denies any discomfort. NO visitors present. Pt was A&O to person and place, although he did have difficulty with word finding and referred to place as "building where people with medical problems go". He expressed that he is unaware why he is here, but that "the bandage is making me feel much better". When asked what bandage, he pointed to the pulse ox sensor. He then denied need for oxygen and thanked me for helping both him and his to "feel better". Repeatedly discussed his current hospital course and options of care as continuing with current course and discharge to [facility] with PEG/trach and ongoing life prolonging treatments vs transition to comfort directed care and allowing for natural peaceful . He could not coney understanding of these options nor retain information after discussing options three times. He did however consitently point at me and say "that's what I want" when discussing [employer] and peaceful without life prolonging therapy. Patient has exhibited current lack of decisional capacity based on the inability to convey understanding of personal PMHx, current medical condition, treatment options nor the risks / benefits of those options, and lack of ability to make decisions based on such knowledge. Hospital does not have written documentation of patient wishes concerning his chosen proxy for medical decisio ns. Per PA [id number], in absence of written documentation of patient wishes, pt's proxy for medical decisions would be his Renee Mae ([phone]). Pt does require a proxy for medical decisions at this time. Plan at this time is for virtual [facility] meeting with the pt's on 04/16/24.
[2024-04-16 05:56] LABS: Basophils # (auto) 0.04 K/uL (0.00-0.20); Basophils % (auto) 0.4 %; Eosinophils # (auto) 0.07 K/uL (0.00-0.50); Eosinophils % (auto) 0.7 %; Hematocrit (blood only) 33.1 % (42.0-52.0); Hemoglobin 11.3 g/dl (14.0-18.0); Immature Granulocytes # (auto) 0.03 K/uL (0.01-0.20); Immature Granulocytes % (auto) 0.3 %; Lymphocytes % (auto) 16.1 %; Mean Corpuscular Hemoglobin 31.1 pg (25.0-34.0); Mean Corpuscular Hgb Conc 34.1 g/dL (32.0-36.0); Mean Corpuscular Volume 91.2 fL (80.0-100.0); Mean Platelet Volume 8.7 fL (9.4-12.4); Monocytes # (auto) 1.06 K/uL (0.11-0.59); Monocytes % (auto) 10.7 %; Neutrophils # (auto) 7.13 K/uL (1.40-6.50); Neutrophils % (auto) 71.8 %; Platelet Count 200 K/uL (130-400); RDW Coefficient of Variation 13.7 % (11.5-14.5); RDW Standard Deviation 44.4 fL (36.4-46.3); Red Blood Count 3.63 M/uL (4.70-6.10); White Blood Count 9.93 K/ul (4.8-10.8)
[2024-04-16 06:09] LABS: Albumin Globulin Ratio 0.9 (0.9-2); Albumin Level 3.1 gm/dl (3.4-5.0); BUN Creatinine Ratio 41.1 (10-20); Bilirubin,Total 0.4 mg/dl (0.2-1.0); Calcium 9.2 mg/dl (8.6-10.3); Creatinine Clr Calc Pharmacy 122.4 ml/min; Globulin 3.4 gm/dl (2.5-4.0); Magnesium 1.6 mg/dl (1.7-2.4); Phosphorus 3.5 mg/dl (2.5-4.9); Potassium 4.4 mmol/L (3.5-5.1); Total Protein 6.5 gm/dl (6.0-8.3)
[2024-04-16 06:23] LABS: Thyroid Stimulating Hormone 2.005 uIu/ml (0.300-4.500)
--- NOTE | 2024-04-16 08:25 | XRay Report ---
EXAM: XR chest 1V portable CLINICAL HISTORY: Follow-up pneumonia. TECHNIQUE: An X-ray image of the chest was obtained in AP projection. COMPARISON: Prior X-ray study dated 04/08/2024. FINDINGS: A tracheostomy tube is seen in situ. Pulmonary Parenchyma: Homogeneous opacification of left lower zone. Bilateral prominent bronchovascular markings. Obliterated left costophrenic angle suggesting pleural effusion. Heart and Mediastinum: Cardiac shadow is enlarged in size. No mediastinal widening or masses. No hilar or mediastinal lymphadenopathy. Bony Thorax: Bony thorax appears intact without fractures or deformities. Soft Tissues: Soft tissues overlying the chest wall are unremarkable. IMPRESSION: A tracheostomy tube is seen in situ. Homogeneous opacification of left lower zone Bilateral prominent bronchovascular markings. Obliterated left costophrenic angle suggesting pleural effusion. No interval changes. Electronically signed by Melvin Farris 04-16-2024 08:24 AM
[2024-04-16] MEDS: MAGNESIUM OXIDE 400 MG TAB PEG SCH (11:36)
--- NOTE | 2024-04-16 13:49 | Palliative Care Progress Note ---
Date of Service April 16, 2024 Assessment & Plan (1) Dyspnea and respiratory abnormalities: Plan: Stable on trach collar uses and tolerate speaking valve very well but continues to 'fuss' with it and constantly trying to remove it/pull it off without supervision (2) Discussion about advance care planning held with family member: Plan: I met with and Mrs Renee Mae using a telemed format with audio & visual for 45min over secure [facility] Zoom via hospital iPad Kian was alert but confused. Clinical events to date were reviewed, Kian is unable to comprehend other than to say he does not want these "tubes and nonsense" in and he wants to go home. He repeatedly stated he needed to visit his mother. he states he is 32yo and was surprised to hear he is now 73yo. We agreed to a comfort focused, quality of life focused plan of care. Mrs Mae would like a swallow study to see what could be best way to allow him to eat for comfort/enjoying life as much as he can. leave trach in and use speaking valve but work to decannulation if possible. We will use PEG for meds and continue tube feeds until the oral intake / swallow issue is clarified further - I advised of [employer]TER findings and reccs, he may have a recoverable swallow and video will better elucidate -she is in agreement we discussed code status and she agreed to DNR/DNI - she knows we are dealing with a terminal dyspnea and therefore we will aim to treat what is treatable and fix what is fixable with QOL as the overarching mission and we will not escalate care. Please call her if he is acutely worsening and move to comfort care if that happens. of note: Renee is very anxious, and it has taken a lot to get her to accept where Kian is. Communication that works best with her is direct/blunt and she will need frequent reorientation. She may be developing some dementia vs cognitive impairment. She is unable to come visit-she does not transportation and says both sons do not have cars either. If there is a way to get her a ride here and back to visit him once, that would be good/deferred to care mgt for assistance. She wants him to go back to [facility], does not want a new facility. She feels he has been there for a few years now and knows his caregivers and has a level of comfort she wishes to maintain for him for as long as possible. Also, i have spoken with nursing to suggest a daily video visit with his around noontime bc he is at his most clear around mid day and he was able to have a good visit with her. and I added a BID Zyprexa Zydis ODT to help with his BPD dementia symptoms. (3) Weakness generalized: (4) Palliative care by specialist: (5) Tracheostomy dependent: (6) Behavioural, emotional, and social difficulties (BESD): Plan: See ACP discussion (7) Dementia with behavioral disturbance: Plan: trial of zyprexa to try and improve and reduce agitation and help improve his ability to leave the trach and peg alone; if we can better control this restless/fidgeting behavior and he can leave the trach and valve alone, then he can have it in place for longer periods of time and this improves his QOL as Kian is a very social person who enjoys conversing with others and engaging socially. (8) Dysphagia: Plan: Speech eval reviewed and appreciated. A video swallow has been requested, suggest this be done during the times when he is most alert ie 11am to 1/2pm and before his begins Plan As above Thank you for allowing us to participate in the ongoing care of this patient. Please page with any additional concerns. Marilee Hathaway DNP Director, Palliative Medicine Admission and Anticipated Discharge Date Admission Date: April 01, 2024 Subjective Kian is seen at 1pm this afternoon Awake and more alert than in the past seen earlier by speech - rayray loo, has a functional swallow and a video swallow would be useful Seems that his best times of alertness are mid morning to early afternoon, after which he begins owning he needs a lot of reminders and redirection to keep him from removing/fussing with trach, PM valve and PEG he has a bronchitic cough intermittently he denies acute pain he is pleasantly confused and easily wanders off topic he tells me he is 32yo and he wants to know if he can go visit his Mother Review of Systems Review of Systems: All systems reviewed & are unremarkable except as noted in Subjective Physical Exam Physical Exam: elderly male, resting semi recline in bed Trach with PM valve in place, speaking clearly with intermittent throat clearing and bronchitic cough bitemp wasting perrla MMM, dentition poor mild thrush noted on tongue neck supple, no stridor resp effort WAL, no stridor or dyspnea, mild conversational dyspnea, +trach collar bilat moderate rhonchi, no overt wheeze S1S2 abd soft, NTP, BS+ gen weakness skin is pale, cool, papery alert to self confused but pleasant unable to consistently follow commands Results & Data Vital Signs (Past 12 Hours) Vital Signs Temp Pulse Resp BP Pulse Ox O2 Del Method O2 Flow Rate 04/16/24 08:30 Trach Collar 7 04/16/24 07:51 36.8 C 79 18 104/68 92 Room Air 04/16/24 07:29 76 20 91 Trach Collar 7 FiO2 04/16/24 08:30 04/16/24 07:51 04/16/24 07:29 28 Laboratory Results 04/16/24 04/16/24 04/16/24 Range/Units 18:30 11:35 05:52 WBC (4.8-10.8) K/ul RBC (4.70-6.10) M/uL Hgb (14.0-18.0) g/dl Hct (42.0-52.0) % MCV (80.0-100.0) fL MCH (25.0-34.0) pg MCHC (32.0-36.0) g/dL RDW Std Deviation (36.4-46.3) fL RDW Coeff of Johana (11.5-14.5) % Plt Count (130-400) K/uL MPV (9.4-12.4) fL Immature Gran % (Auto) % Neut % (Auto) % Lymph % (Auto) % Baker % (Auto) % Eos % (Auto) % Baso % (Auto) % Neut # (Auto) (1.40-6.50) K/uL Lymph # (Auto) (1.20-3.40) K/uL Baker # (Auto) (0.11-0.59) K/uL Eos # (Auto) (0.00-0.50) K/uL Baso # (Auto) (0.00-0.20) K/uL Immature Gran # (Auto) (0.01-0.20) K/uL Heparin Anti-Xa, Unfract (0.3-0.7) IU/ml Sodium (136-145) mmol/L Potassium (3.5-5.1) mmol/L Chloride (98-107) mmol/L Carbon Dioxide (21-32) mmol/L Anion Gap (3-11) BUN (6-23) mg/dl Creatinine (0.6-1.4) mg/dl Est Cr Clr Drug Dosing ml/min eGFR BUN/Creatinine Ratio (10-20) Glucose (70-99(Fasting)) mg/dl POC Glucose 113 H 108 H 130 H (70-99) mg/dl Calcium (8.6-10.3) mg/dl Phosphorus (2.5-4.9) mg/dl Magnesium (1.7-2.4) mg/dl Total Bilirubin (0.2-1.0) mg/dl AST (13-39) U/L ALT (7-52) U/L Alkaline Phosphatase (34-104) U/L Total Protein (6.0-8.3) gm/dl Albumin (3.4-5.0) gm/dl Globulin (2.5-4.0) gm/dl Albumin/Globulin Ratio (0.9-2) TSH (0.300-4.500) uIu/ml 04/16/24 04/16/24 04/15/24 Range/Units 05:35 00:18 18:04 WBC 9.93 (4.8-10.8) K/ul RBC 3.63 L (4.70-6.10) M/uL Hgb 11.3 L (14.0-18.0) g/dl Hct 33.1 L (42.0-52.0) % MCV 91.2 (80.0-100.0) fL MCH 31.1 (25.0-34.0) pg MCHC 34.1 (32.0-36.0) g/dL RDW Std Deviation 44.4 (36.4-46.3) fL RDW Coeff of Johana 13.7 (11.5-14.5) % Plt Count 200 (130-400) K/uL MPV 8.7 L (9.4-12.4) fL Immature Gran % (Auto) 0.3 % Neut % (Auto) 71.8 % Lymph % (Auto) 16.1 % Baker % (Auto) 10.7 % Eos % (Auto) 0.7 % Baso % (Auto) 0.4 % Neut # (Auto) 7.13 H (1.40-6.50) K/uL Lymph # (Auto) 1.60 (1.20-3.40) K/uL Baker # (Auto) 1.06 H (0.11-0.59) K/uL Eos # (Auto) 0.07 (0.00-0.50) K/uL Baso # (Auto) 0.04 (0.00-0.20) K/uL Immature Gran # (Auto) 0.03 (0.01-0.20) K/uL Heparin Anti-Xa, Unfract (0.3-0.7) IU/ml Sodium 131 L (136-145) mmol/L Potassium 4.4 (3.5-5.1) mmol/L Chloride 98 (98-107) mmol/L Carbon Dioxide 28 (21-32) mmol/L Anion Gap 5 (3-11) BUN 23 (6-23) mg/dl Creatinine 0.56 L (0.6-1.4) mg/dl Est Cr Clr Drug Dosing 122.4 ml/min eGFR 103.43 BUN/Creatinine Ratio 41.1 H (10-20) Glucose 105 H (70-99(Fasting)) mg/dl POC Glucose 127 H 103 H (70-99) mg/dl Calcium 9.2 (8.6-10.3) mg/dl Phosphorus 3.5 (2.5-4.9) mg/dl Magnesium 1.6 L (1.7-2.4) mg/dl Total Bilirubin 0.4 (0.2-1.0) mg/dl AST 19 (13-39) U/L ALT 14 (7-52) U/L Alkaline Phosphatase 46 (34-104) U/L Total Protein 6.5 (6.0-8.3) gm/dl Albumin 3.1 L (3.4-5.0) gm/dl Globulin 3.4 (2.5-4.0) gm/dl Albumin/Globulin Ratio 0.9 (0.9-2) TSH 2.005 (0.300-4.500) uIu/ml 02/03/25 02/03/25 02/03/25 Range/Units 11:57 06:18 00:18 WBC (4.8-10.8) K/ul RBC (4.70-6.10) M/uL Hgb (14.0-18.0) g/dl Hct (42.0-52.0) % MCV (80.0-100.0) fL MCH (25.0-34.0) pg MCHC (32.0-36.0) g/dL RDW Std Deviation (36.4-46.3) fL RDW Coeff of Johana (11.5-14.5) % Plt Count (130-400) K/uL MPV (9.4-12.4) fL Immature Gran % (Auto) % Neut % (Auto) % Lymph % (Auto) % Baker % (Auto) % Eos % (Auto) % Baso % (Auto) % Neut # (Auto) (1.40-6.50) K/uL Lymph # (Auto) (1.20-3.40) K/uL Baker # (Auto) (0.11-0.59) K/uL Eos # (Auto) (0.00-0.50) K/uL Baso # (Auto) (0.00-0.20) K/uL Immature Gran # (Auto) (0.01-0.20) K/uL Heparin Anti-Xa, Unfract (0.3-0.7) IU/ml Sodium (136-145) mmol/L Potassium (3.5-5.1) mmol/L Chloride (98-107) mmol/L Carbon Dioxide (21-32) mmol/L Anion Gap (3-11) BUN (6-23) mg/dl Creatinine (0.6-1.4) mg/dl Est Cr Clr Drug Dosing ml/min eGFR BUN/Creatinine Ratio (10-20) Glucose (70-99(Fasting)) mg/dl POC Glucose 108 H 92 117 H (70-99) mg/dl Calcium (8.6-10.3) mg/dl Phosphorus (2.5-4.9) mg/dl Magnesium (1.7-2.4) mg/dl Total Bilirubin (0.2-1.0) mg/dl AST (13-39) U/L ALT (7-52) U/L Alkaline Phosphatase (34-104) U/L Total Protein (6.0-8.3) gm/dl Albumin (3.4-5.0) gm/dl Globulin (2.5-4.0) gm/dl Albumin/Globulin Ratio (0.9-2) TSH (0.300-4.500) uIu/ml 04/14/24 04/14/24 04/14/24 Range/Units 18:24 12:26 06:00 WBC (4.8-10.8) K/ul RBC (4.70-6.10) M/uL Hgb (14.0-18.0) g/dl Hct (42.0-52.0) % MCV (80.0-100.0) fL MCH (25.0-34.0) pg MCHC (32.0-36.0) g/dL RDW Std Deviation (36.4-46.3) fL RDW Coeff of Johana (11.5-14.5) % Plt Count (130-400) K/uL MPV (9.4-12.4) fL Immature Gran % (Auto) % Neut % (Auto) % Lymph % (Auto) % Baker % (Auto) % Eos % (Auto) % Baso % (Auto) % Neut # (Auto) (1.40-6.50) K/uL Lymph # (Auto) (1.20-3.40) K/uL Baker # (Auto) (0.11-0.59) K/uL Eos # (Auto) (0.00-0.50) K/uL Baso # (Auto) (0.00-0.20) K/uL Immature Gran # (Auto) (0.01-0.20) K/uL Heparin Anti-Xa, Unfract (0.3-0.7) IU/ml Sodium (136-145) mmol/L Potassium (3.5-5.1) mmol/L Chloride (98-107) mmol/L Carbon Dioxide (21-32) mmol/L Anion Gap (3-11) BUN (6-23) mg/dl Creatinine (0.6-1.4) mg/dl Est Cr Clr Drug Dosing ml/min eGFR BUN/Creatinine Ratio (10-20) Glucose (70-99(Fasting)) mg/dl POC Glucose 106 H 87 100 H (70-99) mg/dl Calcium (8.6-10.3) mg/dl Phosphorus (2.5-4.9) mg/dl Magnesium (1.7-2.4) mg/dl Total Bilirubin (0.2-1.0) mg/dl AST (13-39) U/L ALT (7-52) U/L Alkaline Phosphatase (34-104) U/L Total Protein (6.0-8.3) gm/dl Albumin (3.4-5.0) gm/dl Globulin (2.5-4.0) gm/dl Albumin/Globulin Ratio (0.9-2) TSH (0.300-4.500) uIu/ml 04/14/24 04/13/24 04/13/24 Range/Units 00:05 18:13 12:26 WBC (4.8-10.8) K/ul RBC (4.70-6.10) M/uL Hgb (14.0-18.0) g/dl Hct (42.0-52.0) % MCV (80.0-100.0) fL MCH (25.0-34.0) pg MCHC (32.0-36.0) g/dL RDW Std Deviation (36.4-46.3) fL RDW Coeff of Johana (11.5-14.5) % Plt Count (130-400) K/uL MPV (9.4-12.4) fL Immature Gran % (Auto) % Neut % (Auto) % Lymph % (Auto) % Baker % (Auto) % Eos % (Auto) % Baso % (Auto) % Neut # (Auto) (1.40-6.50) K/uL Lymph # (Auto) (1.20-3.40) K/uL Baker # (Auto) (0.11-0.59) K/uL Eos # (Auto) (0.00-0.50) K/uL Baso # (Auto) (0.00-0.20) K/uL Immature Gran # (Auto) (0.01-0.20) K/uL Heparin Anti-Xa, Unfract (0.3-0.7) IU/ml Sodium (136-145) mmol/L Potassium (3.5-5.1) mmol/L Chloride (98-107) mmol/L Carbon Dioxide (21-32) mmol/L Anion Gap (3-11) BUN (6-23) mg/dl Creatinine (0.6-1.4) mg/dl Est Cr Clr Drug Dosing ml/min eGFR BUN/Creatinine Ratio (10-20) Glucose (70-99(Fasting)) mg/dl POC Glucose 119 H 85 103 H (70-99) mg/dl Calcium (8.6-10.3) mg/dl Phosphorus (2.5-4.9) mg/dl Magnesium (1.7-2.4) mg/dl Total Bilirubin (0.2-1.0) mg/dl AST (13-39) U/L ALT (7-52) U/L Alkaline Phosphatase (34-104) U/L Total Protein (6.0-8.3) gm/dl Albumin (3.4-5.0) gm/dl Globulin (2.5-4.0) gm/dl Albumin/Globulin Ratio (0.9-2) TSH (0.300-4.500) uIu/ml 04/13/24 04/13/24 04/12/24 Range/Units 05:56 00:20 17:51 WBC (4.8-10.8) K/ul RBC (4.70-6.10) M/uL Hgb (14.0-18.0) g/dl Hct (42.0-52.0) % MCV (80.0-100.0) fL MCH (25.0-34.0) pg MCHC (32.0-36.0) g/dL RDW Std Deviation (36.4-46.3) fL RDW Coeff of Johana (11.5-14.5) % Plt Count (130-400) K/uL MPV (9.4-12.4) fL Immature Gran % (Auto) % Neut % (Auto) % Lymph % (Auto) % Baker % (Auto) % Eos % (Auto) % Baso % (Auto) % Neut # (Auto) (1.40-6.50) K/uL Lymph # (Auto) (1.20-3.40) K/uL Baker # (Auto) (0.11-0.59) K/uL Eos # (Auto) (0.00-0.50) K/uL Baso # (Auto) (0.00-0.20) K/uL Immature Gran # (Auto) (0.01-0.20) K/uL Heparin Anti-Xa, Unfract (0.3-0.7) IU/ml Sodium (136-145) mmol/L Potassium (3.5-5.1) mmol/L Chloride (98-107) mmol/L Carbon Dioxide (21-32) mmol/L Anion Gap (3-11) BUN (6-23) mg/dl Creatinine (0.6-1.4) mg/dl Est Cr Clr Drug Dosing ml/min eGFR BUN/Creatinine Ratio (10-20) Glucose (70-99(Fasting)) mg/dl POC Glucose 125 H 110 H 103 H (70-99) mg/dl Calcium (8.6-10.3) mg/dl Phosphorus (2.5-4.9) mg/dl Magnesium (1.7-2.4) mg/dl Total Bilirubin (0.2-1.0) mg/dl AST (13-39) U/L ALT (7-52) U/L Alkaline Phosphatase (34-104) U/L Total Protein (6.0-8.3) gm/dl Albumin (3.4-5.0) gm/dl Globulin (2.5-4.0) gm/dl Albumin/Globulin Ratio (0.9-2) TSH (0.300-4.500) uIu/ml 04/12/24 04/12/24 04/12/24 Range/Units 11:42 06:42 06:04 WBC (4.8-10.8) K/ul RBC (4.70-6.10) M/uL Hgb (14.0-18.0) g/dl Hct (42.0-52.0) % MCV (80.0-100.0) fL MCH (25.0-34.0) pg MCHC (32.0-36.0) g/dL RDW Std Deviation (36.4-46.3) fL RDW Coeff of Johana (11.5-14.5) % Plt Count (130-400) K/uL MPV (9.4-12.4) fL Immature Gran % (Auto) % Neut % (Auto) % Lymph % (Auto) % Baker % (Auto) % Eos % (Auto) % Baso % (Auto) % Neut # (Auto) (1.40-6.50) K/uL Lymph # (Auto) (1.20-3.40) K/uL Baker # (Auto) (0.11-0.59) K/uL Eos # (Auto) (0.00-0.50) K/uL Baso # (Auto) (0.00-0.20) K/uL Immature Gran # (Auto) (0.01-0.20) K/uL Heparin Anti-Xa, Unfract 0.49 (0.3-0.7) IU/ml Sodium (136-145) mmol/L Potassium (3.5-5.1) mmol/L Chloride (98-107) mmol/L Carbon Dioxide (21-32) mmol/L Anion Gap (3-11) BUN (6-23) mg/dl Creatinine (0.6-1.4) mg/dl Est Cr Clr Drug Dosing ml/min eGFR BUN/Creatinine Ratio (10-20) Glucose (70-99(Fasting)) mg/dl POC Glucose 108 H 111 H (70-99) mg/dl Calcium (8.6-10.3) mg/dl Phosphorus (2.5-4.9) mg/dl Magnesium (1.7-2.4) mg/dl Total Bilirubin (0.2-1.0) mg/dl AST (13-39) U/L ALT (7-52) U/L Alkaline Phosphatase (34-104) U/L Total Protein (6.0-8.3) gm/dl Albumin (3.4-5.0) gm/dl Globulin (2.5-4.0) gm/dl Albumin/Globulin Ratio (0.9-2) TSH (0.300-4.500) uIu/ml 04/12/24 04/11/24 04/11/24 Range/Units 00:49 20:38 20:36 WBC (4.8-10.8) K/ul RBC (4.70-6.10) M/uL Hgb (14.0-18.0) g/dl Hct (42.0-52.0) % MCV (80.0-100.0) fL MCH (25.0-34.0) pg MCHC (32.0-36.0) g/dL RDW Std Deviation (36.4-46.3) fL RDW Coeff of Johana (11.5-14.5) % Plt Count (130-400) K/uL MPV (9.4-12.4) fL Immature Gran % (Auto) % Neut % (Auto) % Lymph % (Auto) % Baker % (Auto) % Eos % (Auto) % Baso % (Auto) % Neut # (Auto) (1.40-6.50) K/uL Lymph # (Auto) (1.20-3.40) K/uL Baker # (Auto) (0.11-0.59) K/uL Eos # (Auto) (0.00-0.50) K/uL Baso # (Auto) (0.00-0.20) K/uL Immature Gran # (Auto) (0.01-0.20) K/uL Heparin Anti-Xa, Unfract 0.30 (0.3-0.7) IU/ml Sodium (136-145) mmol/L Potassium (3.5-5.1) mmol/L Chloride (98-107) mmol/L Carbon Dioxide (21-32) mmol/L Anion Gap (3-11) BUN (6-23) mg/dl Creatinine (0.6-1.4) mg/dl Est Cr Clr Drug Dosing ml/min eGFR BUN/Creatinine Ratio (10-20) Glucose (70-99(Fasting)) mg/dl POC Glucose 120 H 112 H (70-99) mg/dl Calcium (8.6-10.3) mg/dl Phosphorus (2.5-4.9) mg/dl Magnesium (1.7-2.4) mg/dl Total Bilirubin (0.2-1.0) mg/dl AST (13-39) U/L ALT (7-52) U/L Alkaline Phosphatase (34-104) U/L Total Protein (6.0-8.3) gm/dl Albumin (3.4-5.0) gm/dl Globulin (2.5-4.0) gm/dl Albumin/Globulin Ratio (0.9-2) TSH (0.300-4.500) uIu/ml 04/11/24 04/11/24 04/11/24 Range/Units 15:45 11:31 08:44 WBC (4.8-10.8) K/ul RBC (4.70-6.10) M/uL Hgb (14.0-18.0) g/dl Hct (42.0-52.0) % MCV (80.0-100.0) fL MCH (25.0-34.0) pg MCHC (32.0-36.0) g/dL RDW Std Deviation (36.4-46.3) fL RDW Coeff of Johana (11.5-14.5) % Plt Count (130-400) K/uL MPV (9.4-12.4) fL Immature Gran % (Auto) % Neut % (Auto) % Lymph % (Auto) % Baker % (Auto) % Eos % (Auto) % Baso % (Auto) % Neut # (Auto) (1.40-6.50) K/uL Lymph # (Auto) (1.20-3.40) K/uL Baker # (Auto) (0.11-0.59) K/uL Eos # (Auto) (0.00-0.50) K/uL Baso # (Auto) (0.00-0.20) K/uL Immature Gran # (Auto) (0.01-0.20) K/uL Heparin Anti-Xa, Unfract (0.3-0.7) IU/ml Sodium (136-145) mmol/L Potassium (3.5-5.1) mmol/L Chloride (98-107) mmol/L Carbon Dioxide (21-32) mmol/L Anion Gap (3-11) BUN (6-23) mg/dl Creatinine (0.6-1.4) mg/dl Est Cr Clr Drug Dosing ml/min eGFR BUN/Creatinine Ratio (10-20) Glucose (70-99(Fasting)) mg/dl POC Glucose 120 H 132 H 116 H (70-99) mg/dl Calcium (8.6-10.3) mg/dl Phosphorus (2.5-4.9) mg/dl Magnesium (1.7-2.4) mg/dl Total Bilirubin (0.2-1.0) mg/dl AST (13-39) U/L ALT (7-52) U/L Alkaline Phosphatase (34-104) U/L Total Protein (6.0-8.3) gm/dl Albumin (3.4-5.0) gm/dl Globulin (2.5-4.0) gm/dl Albumin/Globulin Ratio (0.9-2) TSH (0.300-4.500) uIu/ml 04/11/24 04/11/24 04/10/24 Range/Units 06:06 04:27 16:13 WBC 14.52 H (4.8-10.8) K/ul RBC 4.12 L (4.70-6.10) M/uL Hgb 12.7 L (14.0-18.0) g/dl Hct 37.0 L (42.0-52.0) % MCV 89.8 (80.0-100.0) fL MCH 30.8 (25.0-34.0) pg MCHC 34.3 (32.0-36.0) g/dL RDW Std Deviation 44.0 (36.4-46.3) fL RDW Coeff of Johana 13.8 (11.5-14.5) % Plt Count 221 (130-400) K/uL MPV 8.6 L (9.4-12.4) fL Immature Gran % (Auto) 0.8 % Neut % (Auto) 74.7 % Lymph % (Auto) 11.9 % Baker % (Auto) 11.4 % Eos % (Auto) 1.0 % Baso % (Auto) 0.2 % Neut # (Auto) 10.85 H (1.40-6.50) K/uL Lymph # (Auto) 1.73 (1.20-3.40) K/uL Baker # (Auto) 1.65 H (0.11-0.59) K/uL Eos # (Auto) 0.15 (0.00-0.50) K/uL Baso # (Auto) 0.03 (0.00-0.20) K/uL Immature Gran # (Auto) 0.11 (0.01-0.20) K/uL Heparin Anti-Xa, Unfract (0.3-0.7) IU/ml Sodium 136 (136-145) mmol/L Potassium 4.0 (3.5-5.1) mmol/L Chloride 104 (98-107) mmol/L Carbon Dioxide 25 (21-32) mmol/L Anion Gap 7 (3-11) BUN 21 (6-23) mg/dl Creatinine 0.60 (0.6-1.4) mg/dl Est Cr Clr Drug Dosing 114.3 ml/min eGFR 101.30 BUN/Creatinine Ratio 35.0 H (10-20) Glucose 115 H (70-99(Fasting)) mg/dl POC Glucose 105 H 109 H (70-99) mg/dl Calcium 9.4 (8.6-10.3) mg/dl Phosphorus 3.7 (2.5-4.9) mg/dl Magnesium 1.8 (1.7-2.4) mg/dl Total Bilirubin (0.2-1.0) mg/dl AST (13-39) U/L ALT (7-52) U/L Alkaline Phosphatase (34-104) U/L Total Protein (6.0-8.3) gm/dl Albumin (3.4-5.0) gm/dl Globulin (2.5-4.0) gm/dl Albumin/Globulin Ratio (0.9-2) TSH (0.300-4.500) uIu/ml 04/10/24 04/10/24 04/10/24 Range/Units 11:26 08:37 04:12 WBC (4.8-10.8) K/ul RBC (4.70-6.10) M/uL Hgb (14.0-18.0) g/dl Hct (42.0-52.0) % MCV (80.0-100.0) fL MCH (25.0-34.0) pg MCHC (32.0-36.0) g/dL RDW Std Deviation (36.4-46.3) fL RDW Coeff of Johana (11.5-14.5) % Plt Count (130-400) K/uL MPV (9.4-12.4) fL Immature Gran % (Auto) % Neut % (Auto) % Lymph % (Auto) % Baker % (Auto) % Eos % (Auto) % Baso % (Auto) % Neut # (Auto) (1.40-6.50) K/uL Lymph # (Auto) (1.20-3.40) K/uL Baker # (Auto) (0.11-0.59) K/uL Eos # (Auto) (0.00-0.50) K/uL Baso # (Auto) (0.00-0.20) K/uL Immature Gran # (Auto) (0.01-0.20) K/uL Heparin Anti-Xa, Unfract (0.3-0.7) IU/ml Sodium (136-145) mmol/L Potassium (3.5-5.1) mmol/L Chloride (98-107) mmol/L Carbon Dioxide (21-32) mmol/L Anion Gap (3-11) BUN (6-23) mg/dl Creatinine (0.6-1.4) mg/dl Est Cr Clr Drug Dosing ml/min eGFR BUN/Creatinine Ratio (10-20) Glucose (70-99(Fasting)) mg/dl POC Glucose 94 77 103 H (70-99) mg/dl Calcium (8.6-10.3) mg/dl Phosphorus (2.5-4.9) mg/dl Magnesium (1.7-2.4) mg/dl Total Bilirubin (0.2-1.0) mg/dl AST (13-39) U/L ALT (7-52) U/L Alkaline Phosphatase (34-104) U/L Total Protein (6.0-8.3) gm/dl Albumin (3.4-5.0) gm/dl Globulin (2.5-4.0) gm/dl Albumin/Globulin Ratio (0.9-2) TSH (0.300-4.500) uIu/ml 04/10/24 Range/Units 04:05 WBC 9.77 (4.8-10.8) K/ul RBC 4.06 L (4.70-6.10) M/uL Hgb 12.6 L (14.0-18.0) g/dl Hct 37.7 L (42.0-52.0) % MCV 92.9 (80.0-100.0) fL MCH 31.0 (25.0-34.0) pg MCHC 33.4 (32.0-36.0) g/dL RDW Std Deviation 46.4 H (36.4-46.3) fL RDW Coeff of Johana 13.9 (11.5-14.5) % Plt Count 212 (130-400) K/uL MPV 9.0 L (9.4-12.4) fL Immature Gran % (Auto) 2.8 % Neut % (Auto) 53.9 % Lymph % (Auto) 24.3 % Baker % (Auto) 15.4 % Eos % (Auto) 3.2 % Baso % (Auto) 0.4 % Neut # (Auto) 5.28 (1.40-6.50) K/uL Lymph # (Auto) 2.37 (1.20-3.40) K/uL Baker # (Auto) 1.50 H (0.11-0.59) K/uL Eos # (Auto) 0.31 (0.00-0.50) K/uL Baso # (Auto) 0.04 (0.00-0.20) K/uL Immature Gran # (Auto) 0.27 H (0.01-0.20) K/uL Heparin Anti-Xa, Unfract (0.3-0.7) IU/ml Sodium 137 (136-145) mmol/L Potassium 4.8 (3.5-5.1) mmol/L Chloride 105 (98-107) mmol/L Carbon Dioxide 28 (21-32) mmol/L Anion Gap 4 (3-11) BUN 20 (6-23) mg/dl Creatinine 0.61 (0.6-1.4) mg/dl Est Cr Clr Drug Dosing 116.6 ml/min eGFR 100.79 BUN/Creatinine Ratio 32.8 H (10-20) Glucose 91 (70-99(Fasting)) mg/dl POC Glucose (70-99) mg/dl Calcium 8.5 L (8.6-10.3) mg/dl Phosphorus 4.1 D (2.5-4.9) mg/dl Magnesium 2.1 (1.7-2.4) mg/dl Total Bilirubin (0.2-1.0) mg/dl AST (13-39) U/L ALT (7-52) U/L Alkaline Phosphatase (34-104) U/L Total Protein (6.0-8.3) gm/dl Albumin (3.4-5.0) gm/dl Globulin (2.5-4.0) gm/dl Albumin/Globulin Ratio (0.9-2) TSH (0.300-4.500) uIu/ml Diagnostic Findings KUB X-Ray 04/01/24 02:21 EXAM: XR KUB/Abdomen 1 view CLINICAL HISTORY: OG PLACEMENT. TECHNIQUE: An X-ray image of the abdomen was obtained in an AP supine position. COMPARISON: No prior studies are available for comparison. FINDINGS: The tip of the NG tube is noted in the stomach. Gas Pattern: The gas pattern within the abdomen is normal. No free air under the diaphragm. Soft Tissues: Visualized soft tissues of the abdomen appear normal. For lungs please refer to chest xray of the same date. IMPRESSION: 1. The tip of the NG tube is noted in the stomach. Optimal position. 2. No free air under the diaphragm. Electronically signed by Melvin Farris 04-01-2024 03:14 AM Chest CTA 04/01/24 02:27 EXAM: CT angio chest PE protocol CLINICAL HISTORY: The chief complaint of respiratory distress occurred tonight. Pt is from the [facility] and staff reported to EMS pt was found blue and unresponsive. TECHNIQUE: Contiguous 3.[address] angiographic images of the chest were acquired with the administration of intravenous contrast. Coronal and sagittal reconstructions were obtained. 118 ML Optiray 320 was administered for post-contrast images. One of these 3D techniques was utilized: Maximum Intensity Pixel (MIP), 3D Reconstructed Images, Volume Rendered Images, Surface Shaded Rendering. One of the following dose reduction techniques was utilized for this exam: Automated exposure control, adjustment of the mA and/or kV according to patient size, and use of iterative reconstruction. DLP: 1485.6 mGy-cm, CTDI: 72.5 mGy. COMPARISON: with the prior study dated 12/21/2023. FINDINGS: Aorta: The thoracic aorta is normal in caliber. No evidence of aneurysm, dissection, or significant atherosclerotic changes. The aortic arch and descending thoracic aorta show scattered calcified atheromatous plaques. Pulmonary Arteries: Pulmonary arteries are normal in size and opacification. No evidence of pulmonary embolism. No stenosis or filling defects. Superior Vena Cava (SVC) and Inferior Vena Cava (IVC): Normal opacification and caliber. No evidence of thrombus or obstruction. Coronary Arteries: Coronary arteries are well-opacified. No significant stenosis or atherosclerotic changes. Mediastinum: No mediastinal mass or lymphadenopathy. Normal appearance of the thymus. Heart: Normal size and morphology of the heart. No pericardial effusion. Lungs: Left lower lung lobe collapse noted with mediastinal shift to the left side. Left upper lung lobe patchy ground glass opacities noted. Mild right lower chest pleural thickening noted. No pleural effusion or thickening. Bones: Mild spondylosis of the thoracic spine was noted. No fractures or lytic/sclerotic lesions of the visualized bony structures. Normal alignment and bone density. Soft Tissues: Normal appearance of the visualized soft tissues. No abnormal masses or fluid collections. ETT is properly inserted reaching 4 cm above the isaiah. NGT is inserted in a proper position. IMPRESSION: 1. No signs of pulmonary embolism were noted. 2. Diffuse aortic atherosclerotic changes were noted. 3. Left lower lung lobe collapse was seen. 4. No evidence of significant vascular abnormalities. 5. When compared to prior CT: Mild right pleural effusion is not seen at this time. Other findings are similar. Electronically signed by Melvin Farris 04-01-2024 05:[address] 04/01/24 02:27 EXAM: CT head/brain wo con CLINICAL HISTORY: the chief complaint of respiratory distress occurred tonight. Pt is from the [facility] and staff reported to EMS pt was found blue and unresponsive. TECHNIQUE: Axial non-contrast CT scan of the brain was performed from the skull base to the high parietal region. One of the following dose reduction techniques was utilized for this exam: Automated exposure control, adjustment of the mA and/or kV according to patient size, use of iterative reconstruction. COMPARISON: None. FINDINGS: Brain Parenchyma: Mild age-related cerebral involutional changes were noted. Patchy periventricular hypodense areas related to small vessel disease. Normal attenuation of the cerebral hemispheres, cerebellum, and brainstem. No evidence of acute infarct, hemorrhage, or mass effect. Diffuse scattered atherosclerotic clarifications within the ICA cavernous portions and both vertebral arteries. Ventricular System: Ventricles are normal in size and configuration. No evidence of hydrocephalus or ventricular enlargement. Subarachnoid Spaces: Normal sulci and cisterns. No evidence of subarachnoid hemorrhage or extra-axial fluid collections. Cerebellum and Brainstem: Normal size and signal. No masses, lesions, or areas of abnormal density. Orbits: Normal appearance of the globes, optic nerves, and extraocular muscles. No evidence of orbital masses or abnormal density. Sinuses: Clear paranasal sinuses. No evidence of sinusitis or mucosal thickening. Mastoid Air Cells: Clear mastoid air cells. No evidence of mastoiditis. Skull: Normal skull morphology. IMPRESSION: 1. Mild age-related cerebral involutional changes were noted. 2. Patchy periventricular hypodense areas related to small vessel disease. 3. Diffuse scattered atherosclerotic clarifications within the ICA cavernous portions and both vertebral arteries. 4. No recent ischemic or hemorrhagic insult was depicted. Electronically signed by Melvin Farris 04-01-2024 04:36 AM Chest X-Ray 04/16/24 07:00 EXAM: XR chest 1V portable CLINICAL HISTORY: Follow-up pneumonia. TECHNIQUE: An X-ray image of the chest was obtained in AP projection. COMPARISON: Prior X-ray study dated 04/08/2024. FINDINGS: A tracheostomy tube is seen in situ. Pulmonary Parenchyma: Homogeneous opacification of left lower zone. Bilateral prominent bronchovascular markings. Obliterated left costophrenic angle suggesting pleural effusion. Heart and Mediastinum: Cardiac shadow is enlarged in size. No mediastinal widening or masses. No hilar or mediastinal lymphadenopathy. Bony Thorax: Bony thorax appears intact without fractures or deformities. Soft Tissues: Soft tissues overlying the chest wall are unremarkable. IMPRESSION: A tracheostomy tube is seen in situ. Homogeneous opacification of left lower zone Bilateral prominent bronchovascular markings. Obliterated left costophrenic angle suggesting pleural effusion. No interval changes. Electronically signed by Melvin Farris 04-16-2024 08:24 AM PG Care Time/CCT Total # of Minutes Spent Total Time Spent with Patient: Total time spent is greater than 50% in coordination of care (as documented) at patient's floor/unit and/or counseling patient: I spent 120 minutes overall addressing this case: 15 min in medical data review/discussion with referring provider(s) and/or preparation for the visit 20 min in direct interaction with the patient/exam 45 min in Advance Care Planning/Goals of Care discussions as detailed above in note (must be >16min) 15 min in subsequent review and synthesis of assessment and plan 25 min communicating with other providers regarding the patient's case: nursing, primary team, [employer] Advanced Care Planning 37721 Advanced Care Planning 30 Min 55584 Advanced Care Planning Additional 30 Min [place] [address] SUB INP/OBS CARE 3/50MIN (25 - SIGNIFICANT, SEPARATELY IDENTIFIABLE ) Patient Type Established Medical Decision Making High Complexity Diagnoses Dyspnea and respiratory abnormalities R06.00; R06.89 Discussion about advance care planning held with family member Z71.0 Weakness generalized R53.1 Palliative care by specialist Z51.5 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
--- NOTE | 2024-04-16 16:20 | Hospitalist Progress Note ---
Date of Service April 16, 2024 Assessment & Plan (1) Septic shock: Plan: Present on admission. Now resolved. (2) Acute respiratory failure with hypoxia: Plan: Status post ventilator assistance and now with tracheostomy placement and trach collar in place with oxygen at 7 to 8 L/min. (3) Pneumonia involving left lung: Plan: Resolved. Treated with intravenous Zosyn while hospitalized (4) Rhinovirus infection: Plan: Positive testing on admission. Unlikely this was an acute problem (5) Asymptomatic bradycardia: Plan: Metoprolol has been discontinued. Improved and stable. Telemetry (6) Hypomagnesemia: Plan: Magnesium oxide per PEG tube has been ordered. Plan Anticipate the need for SNF placement at discharge. OT and PT assessments have been requested Admission and Anticipated Discharge Date Admission Date: April 01, 2024 Subjective Awake and alert. Unfortunately he has baseline dementia and is confused. He is speaking clearly with a [place] valve on his tracheostomy. He also has a PEG tube in place. Palliative care met today, April 16, with the patient's . He currently is a DNR and will remain so for the time being. Speech therapy consult requested for video swallow evaluation probably this . Magnesium replacement ordered for mild hypomagnesemia. OT and PT assessments will be requested. Review of Systems 2 Review of Systems: Constitutionalno fever or chills ENTno blurred vision, no double vision, no epistaxis, no sore throat Respiratoryno cough, no wheezing, no shortness of breath. Tracheostomy is now in place Cardiacno palpitations, no chest pain, no syncope Shelia nausea, vomiting, diarrhea, melena, hematochezia. PEG tube is now in place GUno urinary retention, no urinary incontinence, no dysuria, no hematuria Musculoskeletalno joint pain, no muscle tenderness Skinno bruising, no rashes, no pruritus Neurono isolated weakness, no paresthesia, no weakness Psychno depression, no anxiety Physical Exam 2 Physical Exam: General-alert but disoriented chronically. No fever HEENT-head atraumatic and normocephalic, pupils equal and reactive to light, extraocular muscles intact Neck-no lymphadenopathy or thyromegaly, trachea midline. Tracheostomy in place Chest-clear to auscultation. No rales, wheezing or rhonchi Cardiac-regular rate and rhythm, normal S1 and S2 Abdomen-normal bowel sounds, no hepatosplenomegaly. PEG tube in place Extremities-no cyanosis, clubbing, or edema Neuro-cranial nerves II through XII intact, motor and sensory function within normal limits, strength symmetrical, no focal deficits Psych-normal affect, normal mood but demented Results & Data Results & Data Vital Signs (Past 12 Hours) Vital Signs Temp Pulse Resp BP Pulse Ox O2 Del Method O2 Flow Rate 04/16/24 14:45 36.8 C 85 18 110/76 92 Trach Collar 04/16/24 08:30 Trach Collar 7 04/16/24 07:51 36.8 C 79 18 104/68 92 Trach Collar 04/16/24 07:29 76 20 91 Trach Collar 7 FiO2 04/16/24 14:45 04/16/24 08:30 04/16/24 07:51 04/16/24 07:29 28 Laboratory Results 04/16/24 05:35 04/16/24 05:35 PG Care Time/CCT Total # of Minutes Spent Total Time Spent with Patient: Total time spent is greater than 50% in coordination of care (as documented) at patient's floor/unit and/or counseling patient: Coding Level of Care Code 90961 SUB INP/OBS CARE 3/50MIN Diagnoses Septic shock A41.9; R65.21 Acute respiratory failure with hypoxia J96.01 Pneumonia involving left lung J18.9 Rhinovirus infection B34.8 Asymptomatic bradycardia R00.1 Hypomagnesemia E83.42
[2024-04-16] MEDS: OLANZapine ZYDIS 5 MG ORALLY DIS. TAB PO SCH (21:00)
[2024-04-17] MEDS: POLYETHYLENE (MIRALAX) 17 GM PACK PEG SCH (14:00)
[2024-04-17] MEDS: DOCUSATE SODIUM SYRUP 100 MG/10 ML UDC PEG SCH (14:01)
--- NOTE | 2024-04-17 16:44 | Hospitalist Progress Note ---
Date of Service April 17, 2024 Assessment & Plan (1) Septic shock: Plan: Present on admission. Now resolved. (2) Acute respiratory failure with hypoxia: Plan: Status post ventilator assistance and now with tracheostomy placement and trach collar in place with oxygen at 7 to 8 L/min. (3) Pneumonia involving left lung: Plan: Resolved. Treated with intravenous Zosyn while hospitalized (4) Rhinovirus infection: Plan: Positive testing on admission. Unlikely this was an acute problem (5) Asymptomatic bradycardia: Plan: Metoprolol has been discontinued. Improved and stable. Telemetry (6) Hypomagnesemia: Plan: Magnesium oxide per PEG tube has been ordered. Plan [facility] will be able to accept the patient back to their facility at the time of discharge. Video swallow scheduled for tomorrowApril 18. Admission and Anticipated Discharge Date Admission Date: April 01, 2024 Subjective No new problems. Video swallow scheduled for tomorrowApril 18, at 11:30 AM. MiraLAX and Colace started for constipation. Last BM was apparently April 08. I [place] texted ICU team regarding removal of tracheostomy sutures. Heart rate is now normal after discontinuation of metoprolol. Review of Systems 2 Review of Systems: Constitutionalno fever or chills ENTno blurred vision, no double vision, no epistaxis, no sore throat Respiratoryno cough, no wheezing, no shortness of breath. Tracheostomy is now in place Cardiacno palpitations, no chest pain, no syncope Shelia nausea, vomiting, diarrhea, melena, hematochezia. PEG tube is now in place GUno urinary retention, no urinary incontinence, no dysuria, no hematuria Musculoskeletalno joint pain, no muscle tenderness Skinno bruising, no rashes, no pruritus Neurono isolated weakness, no paresthesia, no weakness Psychno depression, no anxiety Physical Exam 2 Physical Exam: General-alert but disoriented chronically. No fever HEENT-head atraumatic and normocephalic, pupils equal and reactive to light, extraocular muscles intact Neck-no lymphadenopathy or thyromegaly, trachea midline. Tracheostomy in place Chest-clear to auscultation. No rales, wheezing or rhonchi Cardiac-regular rate and rhythm, normal S1 and S2 Abdomen-normal bowel sounds, no hepatosplenomegaly. PEG tube in place Extremities-no cyanosis, clubbing, or edema Neuro-cranial nerves II through XII intact, motor and sensory function within normal limits, strength symmetrical, no focal deficits Psych-normal affect, normal mood but demented Results & Data Results & Data Vital Signs (Past 12 Hours) Vital Signs Temp Pulse Resp BP Pulse Ox O2 Del Method O2 Flow Rate 04/17/24 16:04 36.5 C 74 16 102/62 98 Trach Collar 7 04/17/24 07:40 83 20 93 Trach Collar 8 04/17/24 07:31 36.4 C L 77 16 143/82 H 96 Trach Collar 7 04/17/24 07:20 Trach Collar 7 FiO2 04/17/24 16:04 04/17/24 07:40 28 04/17/24 07:31 04/17/24 07:20 Laboratory Results 04/16/24 05:35 04/16/24 05:35 PG Care Time/CCT Total # of Minutes Spent Total Time Spent with Patient: Total time spent is greater than 50% in coordination of care (as documented) at patient's floor/unit and/or counseling patient: Coding Level of Care Code 21098 SUB INP/OBS CARE 2/35MIN Diagnoses Septic shock A41.9; R65.21 Acute respiratory failure with hypoxia J96.01 Pneumonia involving left lung J18.9 Rhinovirus infection B34.8 Asymptomatic bradycardia R00.1 Hypomagnesemia E83.42
[2024-04-18 07:07] LABS: Basophils # (auto) 0.03 K/uL (0.00-0.20); Basophils % (auto) 0.4 %; Eosinophils # (auto) 0.07 K/uL (0.00-0.50); Hematocrit (blood only) 33.4 % (42.0-52.0); Hemoglobin 11.4 g/dl (14.0-18.0); Immature Granulocytes # (auto) 0.02 K/uL (0.01-0.20); Immature Granulocytes % (auto) 0.3 %; Lymphocytes % (auto) 19.6 %; Mean Corpuscular Hemoglobin 30.8 pg (25.0-34.0); Mean Corpuscular Hgb Conc 34.1 g/dL (32.0-36.0); Mean Corpuscular Volume 90.3 fL (80.0-100.0); Mean Platelet Volume 8.8 fL (9.4-12.4); Monocytes # (auto) 0.71 K/uL (0.11-0.59); Monocytes % (auto) 9.9 %; Neutrophils # (auto) 4.92 K/uL (1.40-6.50); Neutrophils % (auto) 68.8 %; Platelet Count 205 K/uL (130-400); RDW Coefficient of Variation 13.6 % (11.5-14.5); RDW Standard Deviation 44.2 fL (36.4-46.3); White Blood Count 7.15 K/ul (4.8-10.8)
[2024-04-18 07:35] LABS: Calcium 9.4 mg/dl (8.6-10.3); Creatinine Clr Calc Pharmacy 137.1 ml/min; Magnesium 1.7 mg/dl (1.7-2.4); Potassium 4.3 mmol/L (3.5-5.1)
--- NOTE | 2024-04-18 13:02 | Hospitalist Progress Note ---
Date of Service April 18, 2024 Assessment & Plan (1) Septic shock: Plan: Present on admission. Now resolved. (2) Acute respiratory failure with hypoxia: Plan: Status post ventilator assistance and now with tracheostomy placement and trach collar in place with oxygen at 7 to 8 L/min. Pulmonary medicine to see the patient again today, April 18, to see if the tracheostomy can be either capped off or removed. He passed his video swallow aspiration and is now on a minced/moist diet with nectar thick liquids. TPN will be discontinued later today, April 19. (3) Pneumonia involving left lung: Plan: Resolved. Treated with intravenous Zosyn while hospitalized (4) Rhinovirus infection: Plan: Positive testing on admission. Unlikely this was an acute problem (5) Asymptomatic bradycardia: Plan: Metoprolol has been discontinued. Improved and stable. Telemetry (6) Hypomagnesemia: Plan: Magnesium oxide per PEG tube has been ordered. Plan Hopefully he can return to [facility] within the next day or 2 Admission and Anticipated Discharge Date Admission Date: April 01, 2024 Subjective Alert and oriented. He underwent video swallow testing today and although he had some aspiration of thin liquids overall he passed the test. A diet of minced moist food with nectar thick liquids has been ordered. Will discontinue TPN today. I spoke to pulmonary medicine regarding the tracheostomy. This will either be today or removed. Soft wrist restraints will be discontinued once the tracheostomy is capped off or removed. Hopefully he can return to [facility] within the next day or 2 Review of Systems 2 Review of Systems: Constitutionalno fever or chills ENTno blurred vision, no double vision, no epistaxis, no sore throat Respiratoryno cough, no wheezing, no shortness of breath. Tracheostomy is now in place Cardiacno palpitations, no chest pain, no syncope Shelia nausea, vomiting, diarrhea, melena, hematochezia. PEG tube is now in place GUno urinary retention, no urinary incontinence, no dysuria, no hematuria Musculoskeletalno joint pain, no muscle tenderness Skinno bruising, no rashes, no pruritus Neurono isolated weakness, no paresthesia, no weakness Psychno depression, no anxiety Physical Exam 2 Physical Exam: General-alert but disoriented chronically. No fever HEENT-head atraumatic and normocephalic, pupils equal and reactive to light, extraocular muscles intact Neck-no lymphadenopathy or thyromegaly, trachea midline. Tracheostomy in place Chest-clear to auscultation. No rales, wheezing or rhonchi Cardiac-regular rate and rhythm, normal S1 and S2 Abdomen-normal bowel sounds, no hepatosplenomegaly. PEG tube in place Extremities-no cyanosis, clubbing, or edema Neuro-cranial nerves II through XII intact, motor and sensory function within normal limits, strength symmetrical, no focal deficits Psych-normal affect, normal mood but demented Results & Data Results & Data Vital Signs (Past 12 Hours) Vital Signs Temp Pulse Resp BP Pulse Ox O2 Del Method O2 Flow Rate 04/18/24 09:00 Trach Collar 7 04/18/24 07:35 77 18 96 Trach Collar 7 04/18/24 06:41 36.4 C L 77 18 133/76 95 Trach Collar 7 FiO2 04/18/24 09:00 04/18/24 07:35 28 04/18/24 06:41 Laboratory Results 04/18/24 06:30 04/18/24 06:30 PG Care Time/CCT Total # of Minutes Spent Total Time Spent with Patient: Total time spent is greater than 50% in coordination of care (as documented) at patient's floor/unit and/or counseling patient: Coding Level of Care Code 41830 SUB INP/OBS CARE 3/50MIN Diagnoses Septic shock A41.9; R65.21 Acute respiratory failure with hypoxia J96.01 Pneumonia involving left lung J18.9 Rhinovirus infection B34.8 Asymptomatic bradycardia R00.1 Hypomagnesemia E83.42
--- NOTE | 2024-04-18 13:08 | Fluoroscopy Report ---
FL video swallow CLINICAL HISTORY: r/o aspiration. TECHNIQUE: Video fluoroscopic evaluation of swallowing was performed in the AP and lateral projection s by the speech pathology staff. The patient is fed nectar-thick and thin liquid barium, a barium coa jax wafer, and barium pudding. FLUOROSCOPY TIME: 1.6 minutes. COMPARISON: None FINDINGS: There is aspiration with thin liquid. IMPRESSION: Aspiration with thin liquid. ACT 112: Negative or not required by law. Electronically signed by: Diogo Lacy M.D. 04/18/2024 1:06 PM
--- NOTE | 2024-04-18 14:03 | Pulmonology Progress Note ---
Date of Service April 18, 2024 Assessment & Plan (1) Tracheostomy dependent: Plan: Tracheostomy sutures were removed. Continue routine trach care including Pass[place]- [place] valve. Suggest capping the tracheostomy to see if he can be decannulated. Admission and Anticipated Discharge Date Admission Date: April 01, 2024 Subjective Patient minimally responsive. Lethargic. Trach collar in place. Review of Systems Review of Systems: All systems reviewed & are unremarkable except as noted in HPI & below Physical Exam Physical Exam: Constitutional: Patient appears to be of their stated age. Frail and elderly appearing male with tracheostomy. Eyes: Pupils are equal round and reactive to light. Conjunctivae are normal. Anicteric sclera. Ears nose, mouth and throat: Tracheostomy in place. Trach collar present. Sutures noted. Neck: Trachea is midline. Visual inspection is normal. Respiratory: Diffuse rhonchi with mild tachypnea. Cardiovascular: Regular rate and rhythm. No murmurs. No edema. Gastrointestinal: Normal bowel sounds, soft, nontender and nondistended. No hepatosplenomegaly noted. Musculoskeletal: No cyanosis. Patient is able to move all extremities. Skin: No rashes, warm dry and intact. Neurologic: No obvious focal neurological deficits seen. Psychiatric: Lethargic and disoriented. 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
[2024-04-18] MEDS: ACETAMINOPHEN SUSP 325 MG/10.15 ML UDC PEG PRN (14:52)
--- NOTE | 2024-04-18 15:05 | XRay Report ---
XR chest 1V portable CLINICAL HISTORY: Trach exchange COMPARISON STUDY: 04/16/2024 FINDINGS: Tracheostomy tube tip is in good position at the thoracic inlet. Stable mild cardiomegaly w ithout pulmonary vascular congestion. Stable hazy opacity at the left base with obscuration of left h emidiaphragm. No pneumothorax. IMPRESSION: Well-positioned tracheostomy tube. ACT 112: Negative or not required by law. Electronically signed by: Diogo Lacy M.D. 04/18/2024 3:04 PM
--- NOTE | 2024-04-18 15:43 | Procedure Note ---
Procedure Note Date of Service April 18, 2024 Tracheostomy exchange Sutures were removed from the old tracheostomy. Trach ties removed. Old tracheostomy was removed and new fenestrated cuffed tracheostomy was placed with the obturator. Patient had some mild discomfort during the procedure but tolerated well. After the patient settled down, the tracheostomy was capped which the patient is tolerating well now. Will leave the patient left overnight and consider decannulation of the tracheostomy in the next 24 to 48 hours depending on clinical course. [facility] Procedure Codes (Charges) Pulmonary/Thoracic Procedure 1: Pulmonary and Thoracic: 17341 Tracheotomy tube change prior to Fistula Coding CPT Codes Pulmonary/Thoracic - Pulmonary and Thoracic: 08793 Tracheotomy tube change prior to Fistula ([id number]) Additional Codes Date of Service (PG.SURGERY)
[2024-04-19 07:12] LABS: Basophils # (auto) 0.05 K/uL (0.00-0.20); Basophils % (auto) 0.7 %; Eosinophils # (auto) 0.12 K/uL (0.00-0.50); Eosinophils % (auto) 1.7 %; Hematocrit (blood only) 34.3 % (42.0-52.0); Hemoglobin 11.5 g/dl (14.0-18.0); Immature Granulocytes % (auto) 1.4 %; Lymphocytes # (auto) 1.27 K/uL (1.20-3.40); Mean Corpuscular Hemoglobin 30.5 pg (25.0-34.0); Mean Corpuscular Hgb Conc 33.5 g/dL (32.0-36.0); Mean Platelet Volume 8.6 fL (9.4-12.4); Monocytes # (auto) 0.77 K/uL (0.11-0.59); Monocytes % (auto) 10.9 %; Neutrophils # (auto) 4.73 K/uL (1.40-6.50); Neutrophils % (auto) 67.3 %; Platelet Count 219 K/uL (130-400); RDW Coefficient of Variation 13.5 % (11.5-14.5); RDW Standard Deviation 44.5 fL (36.4-46.3); Red Blood Count 3.77 M/uL (4.70-6.10); White Blood Count 7.04 K/ul (4.8-10.8)
[2024-04-19 07:18] LABS: BUN Creatinine Ratio 45.8 (10-20); Calcium 9.4 mg/dl (8.6-10.3); Creatinine Clr Calc Pharmacy 142.8 ml/min; Potassium 4.3 mmol/L (3.5-5.1)
[2024-04-19] MEDS: NYSTATIN SUSP 500,000 U/5 ML UDC PO SCH (09:34)
--- NOTE | 2024-04-19 12:42 | Pulmonology Progress Note ---
Date of Service April 19, 2024 Assessment & Plan (1) Tracheostomy dependent: Plan: Patient did very well with tracheostomy being capped off overnight. 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 This was taped in place. Patient is tolerating the removal of the trach well and is able to speak. 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 Recommend daily dressing changes with petroleum gauze and 4 x 4 gauze. Admission and Anticipated Discharge Date Admission Date: April 01, 2024 Subjective Patient did well with capped trach overnight. Complains of some soreness at the tracheostomy site. No fevers, chills or night sweats. Review of Systems Review of Systems: All systems reviewed & are unremarkable except as noted in HPI & below Physical Exam Physical Exam: Constitutional: Patient appears to be of their stated age. Frail and elderly appearing male with tracheostomy. Eyes: Pupils are equal round and reactive to light. Conjunctivae are normal. Anicteric sclera. Ears nose, mouth and throat: No perioral cyanosis. Neck: Trachea is midline. Visual inspection is normal. Tracheostomy in place. Respiratory: Diffuse rhonchi with mild tachypnea. Cardiovascular: Regular rate and rhythm. No murmurs. No edema. Gastrointestinal: Normal bowel sounds, soft, nontender and nondistended. No hepatosplenomegaly noted. Musculoskeletal: No cyanosis. Patient is able to move all extremities. Skin: No rashes, warm dry and intact. Neurologic: No obvious focal neurological deficits seen. Psychiatric: Lethargic and disoriented. 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
--- NOTE | 2024-04-19 15:31 | Hospitalist Progress Note ---
Date of Service April 19, 2024 Assessment & Plan (1) Septic shock: Plan: Present on admission. Now resolved. (2) Acute respiratory failure with hypoxia: Plan: Status post ventilator assistance and subsequent tracheostomy placement. The tracheostomy was removed today, April 19. He is on room air and doing well. He passed his video swallow test and is now on a minced/moist diet with nectar thick liquids. TPN was discontinued yesterday, April 18. (3) Pneumonia involving left lung: Plan: Resolved. Treated with intravenous Zosyn while hospitalized (4) Rhinovirus infection: Plan: Positive testing on admission. Unlikely this was an acute problem (5) Asymptomatic bradycardia: Plan: Metoprolol has been discontinued. Improved and stable. Telemetry (6) Hypomagnesemia: Plan: Magnesium oxide per PEG tube has been ordered. Plan Case management pursuing other placement options since [facility] is unwilling to accept the patient back with a PEG tube in place. He will remain here until of the arrangements are finalized. Admission and Anticipated Discharge Date Admission Date: April 01, 2024 Subjective Alert. No distress. Hemodynamically stable. Tracheostomy has been removed. PEG tube has been clamped off. He is tolerating oral intake. Apparently the [facility] dementia unit will not accept patient with a PEG tube. Case management notified and searching for other options. Heart rate is stable and acceptable since the metoprolol was discontinued. Review of Systems 2 Review of Systems: Constitutionalno fever or chills ENTno blurred vision, no double vision, no epistaxis, no sore throat Respiratoryno cough, no wheezing, no shortness of breath. Tracheostomy is now in place Cardiacno palpitations, no chest pain, no syncope Shelia nausea, vomiting, diarrhea, melena, hematochezia. PEG tube is now in place GUno urinary retention, no urinary incontinence, no dysuria, no hematuria Musculoskeletalno joint pain, no muscle tenderness Skinno bruising, no rashes, no pruritus Neurono isolated weakness, no paresthesia, no weakness Psychno depression, no anxiety Physical Exam 2 Physical Exam: General-alert but disoriented chronically. No fever HEENT-head atraumatic and normocephalic, pupils equal and reactive to light, extraocular muscles intact Neck-no lymphadenopathy or thyromegaly, trachea midline. Tracheostomy has been removed Chest-clear to auscultation. No rales, wheezing or rhonchi Cardiac-regular rate and rhythm, normal S1 and S2 Abdomen-normal bowel sounds, no hepatosplenomegaly. PEG tube in place and clamped off Extremities-no cyanosis, clubbing, or edema Neuro-cranial nerves II through XII intact, motor and sensory function within normal limits, strength symmetrical, no focal deficits Psych-normal affect, normal mood but demented Results & Data Results & Data Vital Signs (Past 12 Hours) Vital Signs Temp Pulse Resp BP Pulse Ox O2 Del Method 04/19/24 14:50 36.4 C L 68 18 133/78 94 Room Air 04/19/24 08:00 Room Air 04/19/24 07:47 36.4 C L 68 18 128/75 92 Room Air 04/19/24 07:07 74 18 94 Room Air Laboratory Results 04/19/24 06:46 04/19/24 06:46 PG Care Time/CCT Total # of Minutes Spent Total Time Spent with Patient: Total time spent is greater than 50% in coordination of care (as documented) at patient's floor/unit and/or counseling patient: Coding Level of Care Code 29282 SUB INP/OBS CARE 2/35MIN Diagnoses Septic shock A41.9; R65.21 Acute respiratory failure with hypoxia J96.01 Pneumonia involving left lung J18.9 Rhinovirus infection B34.8 Asymptomatic bradycardia R00.1 Hypomagnesemia E83.42
[2024-04-20 06:13] LABS: Basophils # (auto) 0.05 K/uL (0.00-0.20); Basophils % (auto) 0.8 %; Eosinophils # (auto) 0.18 K/uL (0.00-0.50); Eosinophils % (auto) 2.8 %; Hemoglobin 10.9 g/dl (14.0-18.0); Immature Granulocytes # (auto) 0.08 K/uL (0.01-0.20); Immature Granulocytes % (auto) 1.2 %; Lymphocytes # (auto) 1.71 K/uL (1.20-3.40); Lymphocytes % (auto) 26.7 %; Mean Corpuscular Hemoglobin 31.1 pg (25.0-34.0); Mean Corpuscular Hgb Conc 34.1 g/dL (32.0-36.0); Mean Corpuscular Volume 91.4 fL (80.0-100.0); Mean Platelet Volume 8.5 fL (9.4-12.4); Monocytes # (auto) 0.83 K/uL (0.11-0.59); Monocytes % (auto) 12.9 %; Neutrophils # (auto) 3.56 K/uL (1.40-6.50); Neutrophils % (auto) 55.6 %; Platelet Count 214 K/uL (130-400); RDW Coefficient of Variation 13.3 % (11.5-14.5); RDW Standard Deviation 43.6 fL (36.4-46.3); White Blood Count 6.41 K/ul (4.8-10.8)
[2024-04-20 06:21] LABS: BUN Creatinine Ratio 40.4 (10-20); Calcium 9.2 mg/dl (8.6-10.3); Creatinine Clr Calc Pharmacy 131.9 ml/min; Potassium 4.4 mmol/L (3.5-5.1)
--- NOTE | 2024-04-20 13:32 | Pulmonology Progress Note ---
Date of Service April 20, 2024 Assessment & Plan (1) Tracheocutaneous fistula following tracheostomy: Plan: Patient doing well after tracheostomy decannulation 04/19/2024. Continue daily tracheocutaneous fistula dressing changes. Recommend follow-up with ENT as an outpatient to monitor his tracheocutaneous fistula. No further recommendations from a pulmonary perspective at this time. Please call with questions. Pulmonary sign off. Thank you for the consult. Admission and Anticipated Discharge Date Admission Date: April 01, 2024 Subjective Patient denies any significant complaints. Coughing up sputum at times. No fevers, chills or night sweats. Review of Systems Review of Systems: All systems reviewed & are unremarkable except as noted in HPI & below Physical Exam Physical Exam: Constitutional: Patient appears to be of their stated age. Frail and elderly appearing male with tracheostomy. Eyes: Pupils are equal round and reactive to light. Conjunctivae are normal. Anicteric sclera. Ears nose, mouth and throat: No perioral cyanosis. Neck: Trachea is midline. Visual inspection is normal. Tracheocutaneous fistula present and covered with gauze. Respiratory: Diminished at the bases. Prolonged phase of exhalation. No wheezes. Cardiovascular: Regular rate and rhythm. No murmurs. No edema. Gastrointestinal: Normal bowel sounds, soft, nontender and nondistended. No hepatosplenomegaly noted. Musculoskeletal: No cyanosis. Patient is able to move all extremities. Skin: No rashes, warm dry and intact. Neurologic: No obvious focal neurological deficits seen. Psychiatric: Lethargic and disoriented. Results & Data Results & Data Vital Signs (Past 12 Hours) Vital Signs Temp Pulse Resp BP Pulse Ox O2 Del Method 04/20/24 08:32 75 17 94 Room Air 04/20/24 08:00 Room Air 04/20/24 07:33 36.4 C L 71 18 134/68 96 Room Air PG Care Time/CCT Total # of Minutes Spent Total Time Spent with Patient: Total time spent is greater than 50% in coordination of care (as documented) at patient's floor/unit and/or counseling patient: Coding Level of Care Code 31280 SUB INP/OBS CARE 04/06MIN Diagnoses Tracheocutaneous fistula following tracheostomy J95.04
--- NOTE | 2024-04-20 14:06 | Hospitalist Progress Note ---
Date of Service April 20, 2024 Assessment & Plan (1) Septic shock: Plan: Present on admission. Now resolved. (2) Acute respiratory failure with hypoxia: Plan: Status post ventilator assistance and subsequent tracheostomy placement. The tracheostomy was remove on April 19. He remains on room air and doing well. He passed his video swallow test and is now on a minced/moist diet with nectar thick liquids. TPN was discontinued on April 18. (3) Pneumonia involving left lung: Plan: Resolved. Treated with intravenous Zosyn while hospitalized (4) Rhinovirus infection: Plan: Positive testing on admission. Unlikely this was an acute problem (5) Asymptomatic bradycardia: Plan: Metoprolol has been discontinued. Improved and stable. Telemetry (6) Hypomagnesemia: Plan: Corrected with oral supplementation. Plan Case management pursuing other placement options since [facility] is unwilling to accept the patient back with a PEG tube in place. He will remain here until of the arrangements are finalized. Admission and Anticipated Discharge Date Admission Date: April 01, 2024 Subjective Awake and stable. No distress. Tracheostomy has been removed. He is tolerating oral intake. I spoke to his , Renee, by phone and updated her. [facility] is hesitant to accept the patient back to a dementia unit with PEG tube in place. However, the PEG tube needs to remain in place because it is likely to be needed in the future. Case management is pursuing other destinations. Review of Systems 2 Review of Systems: Constitutionalno fever or chills ENTno blurred vision, no double vision, no epistaxis, no sore throat Respiratoryno cough, no wheezing, no shortness of breath. Tracheostomy is now in place Cardiacno palpitations, no chest pain, no syncope Shelia nausea, vomiting, diarrhea, melena, hematochezia. PEG tube is now in place and clamped off GUno urinary retention, no urinary incontinence, no dysuria, no hematuria Musculoskeletalno joint pain, no muscle tenderness Skinno bruising, no rashes, no pruritus Neurono isolated weakness, no paresthesia, no weakness Psychno depression, no anxiety Physical Exam 2 Physical Exam: General-alert but disoriented chronically. No fever HEENT-head atraumatic and normocephalic, pupils equal and reactive to light, extraocular muscles intact Neck-no lymphadenopathy or thyromegaly, trachea midline. Tracheostomy has been removed Chest-clear to auscultation. No rales, wheezing or rhonchi Cardiac-regular rate and rhythm, normal S1 and S2 Abdomen-normal bowel sounds, no hepatosplenomegaly. PEG tube in place and clamped off Extremities-no cyanosis, clubbing, or edema Neuro-cranial nerves II through XII intact, motor and sensory function within normal limits, strength symmetrical, no focal deficits Psych-normal affect, normal mood but demented Results & Data Results & Data Vital Signs (Past 12 Hours) Vital Signs Temp Pulse Resp BP Pulse Ox O2 Del Method 04/20/24 08:32 75 17 94 Room Air 04/20/24 08:00 Room Air 04/20/24 07:33 36.4 C L 71 18 134/68 96 Room Air Laboratory Results 04/20/24 05:36 04/20/24 05:36 PG Care Time/CCT Total # of Minutes Spent Total Time Spent with Patient: Total time spent is greater than 50% in coordination of care (as documented) at patient's floor/unit and/or counseling patient: Coding Level of Care Code 13349 SUB INP/OBS CARE 2/35MIN Diagnoses Septic shock A41.9; R65.21 Acute respiratory failure with hypoxia J96.01 Pneumonia involving left lung J18.9 Rhinovirus infection B34.8 Asymptomatic bradycardia R00.1 Hypomagnesemia E83.42
[2024-04-20] MEDS ORDERED: ACETAMINOPHEN SUSP 325 MG/10.15 ML UDC PO PRN (19:58)
[2024-04-20] MEDS: DOCUSATE SODIUM SYRUP 100 MG/10 ML UDC PO SCH (21:26)
[2024-04-20] MEDS: VALPROIC ACID SOLN 250 MG/5 ML UDC PO SCH (21:26)
[2024-04-20] MEDS: POLYETHYLENE (MIRALAX) 17 GM PACK PO SCH (21:27)
[2024-04-20] MEDS: MAGNESIUM OXIDE 400 MG TAB PO SCH (21:27)
--- NOTE | 2024-04-21 14:17 | Hospitalist Progress Note ---
Date of Service April 21, 2024 Assessment & Plan (1) Septic shock: Plan: Present on admission. Now resolved. (2) Acute respiratory failure with hypoxia: Plan: Status post ventilator assistance and subsequent tracheostomy placement. The tracheostomy was remove on April 19. He remains on room air and doing well. He passed his video swallow test and is now on a minced/moist diet with nectar thick liquids. TPN was discontinued on April 18. (3) Pneumonia involving left lung: Plan: Resolved. Treated with intravenous Zosyn while hospitalized (4) Rhinovirus infection: Plan: Positive testing on admission. Unlikely this was an acute problem (5) Asymptomatic bradycardia: Plan: Metoprolol has been discontinued. Improved and stable. Telemetry (6) Hypomagnesemia: Plan: Corrected with oral supplementation. Plan Case management pursuing other placement options since [facility] is unwilling to accept the patient back with a PEG tube in place. He will remain here until of the arrangements are finalized. Admission and Anticipated Discharge Date Admission Date: April 01, 2024 Subjective Alert with chronic baseline confusion. No new problems. Review of Systems 2 Review of Systems: Constitutionalno fever or chills ENTno blurred vision, no double vision, no epistaxis, no sore throat Respiratoryno cough, no wheezing, no shortness of breath. Tracheostomy is now in place Cardiacno palpitations, no chest pain, no syncope Shelia nausea, vomiting, diarrhea, melena, hematochezia. PEG tube is now in place and clamped off GUno urinary retention, no urinary incontinence, no dysuria, no hematuria Musculoskeletalno joint pain, no muscle tenderness Skinno bruising, no rashes, no pruritus Neurono isolated weakness, no paresthesia, no weakness Psychno depression, no anxiety Physical Exam 2 Physical Exam: General-alert but disoriented chronically. No fever HEENT-head atraumatic and normocephalic, pupils equal and reactive to light, extraocular muscles intact Neck-no lymphadenopathy or thyromegaly, trachea midline. Tracheostomy has been removed Chest-clear to auscultation. No rales, wheezing or rhonchi Cardiac-regular rate and rhythm, normal S1 and S2 Abdomen-normal bowel sounds, no hepatosplenomegaly. PEG tube in place and clamped off Extremities-no cyanosis, clubbing, or edema Neuro-cranial nerves II through XII intact, motor and sensory function within normal limits, strength symmetrical, no focal deficits Psych-normal affect, normal mood but demented Results & Data Results & Data Vital Signs (Past 12 Hours) Vital Signs Temp Pulse Resp BP Pulse Ox O2 Del Method 04/21/24 07:48 77 18 95 Room Air 04/21/24 07:29 36.4 C L 68 20 124/75 94 Room Air Laboratory Results 04/20/24 05:36 04/20/24 05:36 PG Care Time/CCT Total # of Minutes Spent Total Time Spent with Patient: Total time spent is greater than 50% in coordination of care (as documented) at patient's floor/unit and/or counseling patient: Coding Level of Care Code 00010 SUB INP/OBS CARE 2/35MIN Diagnoses Septic shock A41.9; R65.21 Acute respiratory failure with hypoxia J96.01 Pneumonia involving left lung J18.9 Rhinovirus infection B34.8 Asymptomatic bradycardia R00.1 Hypomagnesemia E83.42
[2024-04-22 08:01] VITALS: RESP 16
[2024-04-22] MEDS ORDERED: TUBE FEEDING WATER FLUSH PEG SCH (13:00)
[2024-04-22 13:02] VITALS: BP 110/68; PULSE 89; TEMP 98.1; O2SAT 95
--- NOTE | 2024-04-22 13:19 | Discharge Summary ---
Discharge Summary Date of Service April 22, 2024 Principal Dx & Hospital Course #1 = Principal Diagnosis (1) Septic shock: Present on admission. Now resolved. (2) Acute respiratory failure with hypoxia: Status post ventilator assistance and subsequent tracheostomy placement. The tracheostomy was remove on April 19. He remains on room air and doing well. He passed his video swallow test and is now on a minced/moist diet with nectar thick liquids. TPN was discontinued on April 18. (3) Pneumonia involving left lung: Resolved. Treated with intravenous Zosyn while hospitalized (4) Rhinovirus infection: Positive testing on admission. Unlikely this was an acute problem (5) Asymptomatic bradycardia: Metoprolol has been discontinued. Improved and stable. Telemetry (6) Hypomagnesemia: Corrected with oral supplementation. Plan Return to [facility] today, April 22 Admission HPI Per Admitting Provider The patient is a 73-year-old male with a past medical history including paroxysmal atrial fibrillation, tachybradycardia syndrome, COPD, KURT, hypertension, chronic respiratory failure with hypoxia, convulsions, dementia, diabetes mellitus, osteoarthritis, hyperlipidemia, anemia, on chronic anticoagulation with Eliquis. The patient had been found unresponsive and hypoxic at [facility], EMS was called emergently, the patient required intubation in the field, and mechanical ventilation. Upon arrival to the emergency department and prior my examination, patient is unresponsive, on the ventilator, and on pressure support and IV sedation. Discharge Exam General-alert but disoriented chronically. No fever HEENT-head atraumatic and normocephalic, pupils equal and reactive to light, extraocular muscles intact Neck-no lymphadenopathy or thyromegaly, trachea midline. Tracheostomy has been removed Chest-clear to auscultation. No rales, wheezing or rhonchi Cardiac-regular rate and rhythm, normal S1 and S2 Abdomen-normal bowel sounds, no hepatosplenomegaly. PEG tube in place and clamped off Extremities-no cyanosis, clubbing, or edema Neuro-cranial nerves II through XII intact, motor and sensory function within normal limits, strength symmetrical, no focal deficits Psych-normal affect, normal mood but demented Discharge Plan Discharge Items Patient Disposition: Transfer Residential Fac Reason For Visit: SEPTIC SHOCK, PNEUMONIA Discharge Diagnosis: Septic shock, left pneumonia, acute hypoxic respiratory failure, bradycardia Activity: Resume your previous activity Non-emergency contact: Primary Care Provider Call non-emergency contact if: your symptoms worsen Follow-up/Referrals: Adonay Yost [Primary Care Provider] - Dietitian Info: Minced and moist with nectar thick liquids Diet: Carb Consistent or DM2 Diet Texture: Mechanical soft (ground) Liquid Consistency: [place] thick Addtl Attending Provider Instructions: Metoprolol has been discontinued. PEG tube should remain clamped and flushed once a shift. Local care to tracheostomy site until healed Pending Studies at Discharge: No Stand-Alone Forms: My [facility] Skilled Items Patient informed of condition?: Yes DNR: Yes Discharge Level of Care: Skilled Communicable Disease: No Discharge Prognosis: Stable Lines: None Urinary Catheter: No Medications and DC Order Prescriptions: New olanzapine 5 mg Tablet,Disintegrating 5 mg PO BID Qty: 30 0RF polyethylene glycol 3350 [Miralax] 17 gram Powder In Packet 17 g PO BID Qty: 60 0RF magnesium oxide 400 mg (241.3 mg magnesium) Tablet 400 mg PO BID Qty: 60 0RF Fiber Therapy (m-cell/sugar) 2 gram/19 gram Powder 2 g PO TID Qty: 100 0RF Tube Feeding Water Flush 50 ml PEG Q8H Qty: 0 0RF Continued quetiapine [Seroquel] 25 mg Tablet 50 mg PO DAILY trazodone 50 mg Tablet 75 mg PO HS atorvastatin 40 mg Tablet 40 mg PO DAILY acetaminophen 325 mg Tablet 650 mg PO Q6 MDD 3G/24HR PRN (Reason: PAIN 1-10) acetaminophen 325 mg Tablet 650 mg PO QID MDD 3GM/24 HRS PRN (Reason: TEMP > 101) divalproex 250 mg tablet,delayed release (DR/EC) 250 mg PO TID buspirone 10 mg tablet 10 mg PO TID Combivent Respimat 20-100 mcg/actuation mist 1 puff INHALATION Q6 PRN (Reason: Wheezing) ferrous sulfate [FeroSul] 325 mg (65 mg iron) tablet 325 mg PO DAILY Eliquis 5 mg tablet 5 mg PO BID Eucerin Itch Relief 0.1 % Lotion 1 ea TOPICAL BID Rx Instructions: APPLY TO ITCHY AREAS EVERY DAY AND EVENING SHIFT folic acid 400 mcg Tablet 0.4 mg PO DAILY quetiapine 100 mg tablet 100 mg PO HS metoprolol tartrate 25 mg tablet 25 mg PO BID Hold Instructions: Held due to bradycardia; could consider reduced dose (12.5mg BID) if sustained episodes of tachycardia sennosides-docusate sodium [Senna-S] 8.6-50 mg Tablet 1 tab-cap PO HS chlorhexidine gluconate [Peridex] 0.12 % Mouthwash 15 ml BUCCAL Q12 Discharge Orders: Discharge Order (Routine); Ordered 04/22/24 Ordered By: Elton Pate Admission Data Admit Date/Time: 04/01/24 03:38 Attending Provider: Elton Pate Admit Provider: Jeancarlos Woodard Primary Care Provider: Adonay Yost Other Providers: Priyank,; Jeancarlos Woodard; Mc Dawn; Ryan Urbina; Lizbet Hathaway Hospital Stay Data Consultations 04/01/24 03:16 ED Decision to Admit Stat 04/01/24 05:41 Consult Credit Operations Specialist Routine 04/03/24 13:27 Consult Gastroenterology Routine 04/06/24 07:59 Consult Palliative Care Routine Procedures Performed Operation Date: 04/10/24 16:30 Actual Procedures p PEG Tube Placement - Anders Gabriel MD Diagnostic Imagining Performed 04/01/24 02:27 CT Brain [CT head/brain wo con] Stat CT angio chest PE protocol Stat 04/18/24 11:30 FL video swallow Routine Pending Results Patient Have Any Pending Studies at Discharge: No Discharge Instructions Given to Patient (Per Discharging Provider) Metoprolol has been discontinued. PEG tube should remain clamped and flushed once a shift. Local care to tracheostomy site until healed Total Time Total Time Spent Total Time Spent (In Minutes): 50-minute Coding Level of Care Code 43459 INP/OBS DISCH >30 MIN Diagnoses Septic shock A41.9; R65.21 Acute respiratory failure with hypoxia J96.01 Pneumonia involving left lung J18.9 Rhinovirus infection B34.8 Asymptomatic bradycardia R00.1 Hypomagnesemia E83.42
[2024-04-22] MEDS: TUBE FEEDING WATER FLUSH PEG SCH (13:39)
== END 2024-04-22 15:34 | DRG 4 ==
LOC: SUATTDRO → ED 01:27 → SUATTDRO 03:38 → 1E 03:38 → 3E 04-11 17:44

== ENCOUNTER 2024-05-24 16:27 | Inpatient (IN) ==
[2024-05-24] MEDS: SODIUM CHLORIDE 0.9% 1,000 ML IV SCH ×2 (16:40→19:35)
--- NOTE | 2024-05-24 16:51 | Emergency Department Note ---
Impression & Plan Sepsis, Atrial fibrillation with rapid ventricular response, Hypotension, Pneumonia, Hypoxia, Leukocytosis, Elevated lactic acid level, Infection due to human metapneumovirus (hMPV), Acute UTI ED Provider Note NAME: PORFIRIO JUAN AGE: 73 SEX: M : 1950 ARRIVES VIA: Ambulance INFORMANT: [ems, nursing] ED PROVIDER(S): [Navin Johnson MD] CHIEF COMPLAINT: Shortness of breath, hypoxia HISTORY OF PRESENT ILLNESS: The patient is a 73-year-old male who resides at [facility]. Today, his O2 saturation was low in the 80s, he seemed short of breath and was noted to have a mild temperature elevation. He was tachycardic. He was referred to the hospital. The patient is a full code. He does have dementia. He was in the hospital about a month ago for severe pneumonia, during that timeframe, he required IV pressor support and a tracheostomy. His tracheostomy has been removed. The patient can give no history. As per the EMS crew, he has been tachycardic during the trip here. They did give a 300 cc saline bolus prior to arrival as well as a DuoNeb. No antipyretics given. PMHx/PSHx/Social Hx: See Below PHYSICAL EXAM: GENERAL: Patient is in no acute distress. HEENT: No acute trauma, normocephalic atraumatic, mucous membranes dry, no nasal congestion. NECK: No stridor, no adenopathy, no meningismus, trachea is midline. LUNGS: Coarse breath sounds bilaterally, no wheezing or obvious respiratory distress. HEART: Heart tones quite distant but, the patient is tachycardic with an irregular rhythm. ABDOMEN: Soft, nontender, no peritonitis. EXTREMITIES: No cyanosis, full range of motion of all the joints without pain or difficulty. NEUROLOGIC: Awake, groans and moans at times. Does move all extremities. SKIN: No jaundice, no diaphoresis. DIFFERENTIAL DIAGNOSIS: Bacteremia or sepsis, UTI, dehydration, viral illness, electrolyte imbalance, pneumonia, among others. EMERGENCY DEPARTMENT PROCEDURES: MEDICAL DECISION MAKING: There is a mild leukocytosis, this certainly could be consistent with infection. A mild anemia was seen with a hemoglobin of 12. The anemia is a baseline finding. There was a normal platelet count. INR was slightly high at 1.2, likely from his Eliquis use. VBG did not show acidosis. Some very subtle CO2 retention was seen. There was no renal failure or significant electrolyte abnormality. Initial lactic acid level was quite high at over 4 consistent with dehydration and/or sepsis. No worrisome liver enzyme elevation. ECG showed atrial fibrillation with a rapid response. Significant artifact was present. No ST elevation. Cardiac enzyme testing was slightly elevated, likely secondary to mismatch from his hypoxia and tachycardia. Urinalysis did suggest infection with white cells present. Respiratory bio fire was positive for human metapneumovirus. Chest x-ray shows a left lower lung pneumonia. The patient was aggressively managed. He presented hypoxic, tachycardic and was somewhat hypotensive. Patient is septic, likely from not only his pneumonia and metapneumovirus but also his UTI. A Andrade catheter was placed. The patient received 2.5 L of IV saline. This should meet criteria for 30 cc/kg of saline per sepsis protocol based on actual body weight. He received IV cefepime as empiric antibiotic coverage. He was given a DuoNeb. He was given IV Tylenol and IV Toradol. The patient did seem to improve with the above treatment. His heart rate decreased. His blood pressure seemed to increase at least initially. He seemed more comfortable. With some additional time, the patient spontaneously converted from an atrial fibrillation to a normal sinus rhythm. Repeat ECG confirmed sinus rhythm. The heart rate was noted to be under 100. Despite the IV hydration, on repeat assessment, the patient was at times hypotensive. He was placed on IV Levophed as vasopressor therapy. The patient is in need of a hospital stay. I did speak with case management. The on-call hospitalist has been consulted. Prior/Outside records/notes reviewed: Today's EMS notes describing his presentation and transport to this hospital. ECG per my interpretation: Indication was tachycardia. The ECG shows atrial fibrillation with significant baseline artifact making rhythm interpretation quite difficult. There was a right bundle branch block. The rate was 143. There was no obvious acute ST elevation, no PVCs. The QTc was 490. Repeat ECG per my interpretation: Indication was tachycardia. The ECG shows a normal sinus rhythm with a rate of 98. There is a right bundle branch block. There is potential old lateral infarct seen. No obvious ST elevation, no PVCs. QTc was 482. Compared to the earlier ECG, the atrial fibrillation has resolved. Continuous Cardiac Monitoring per my interpretation: An order was placed for continuous cardiac monitoring. The monitor shows a rate of 141 with atrial fibrillation. Imaging/x-ray results per my interpretation: Chest x-ray shows a left lower lung consolidation/pneumonia. No CHF. Chronic Medical/Social conditions affecting care: Dementia, halfway resident. Care/Management discussed with: Case management, the on-call hospitalist. Level of care consideration(s): After review of the information above and other included data: --I believe the patient requires escalation of care to admission Critical Care Note: I have personally spent 61 minutes of critical care time in the direct management of this patient. This includes bedside care, interpretation of diagnostic studies, and testing, discussion with consultants, patient, and family members, and other required patient management activities. This 61 minutes is in excess of all separately billable procedures. DISPOSITION: Admission Past Med/Surg History Problem List (Updated 05/24/24 @ 23:48 by Navin Johnson MD) Acute UTI (Acute) Pneumonitis Infection due to human metapneumovirus (hMPV) (Acute) Elevated lactic acid level (Acute) Leukocytosis (Acute) Hypoxia (Acute) Pneumonia (Acute) Hypotension (Acute) Atrial fibrillation with rapid ventricular response (Acute) Sepsis (Acute) Tracheocutaneous fistula following tracheostomy Hypomagnesemia Asymptomatic bradycardia Atrial fibrillation with rapid ventricular response (Acute) Left lower lobe pneumonia (Acute) Septic shock (Acute) Respiratory failure (Acute) Acute kidney injury Septic shock Shock Tachy-rosi syndrome Acute respiratory failure with hypoxia Supplemental oxygen dependent (Acute) 2 L n/c COPD (chronic obstructive pulmonary disease) (Acute) KURT (obstructive sleep apnea) Hypokalemia Respiratory failure with hypoxia Convulsions Atrial fibrillation Osteoarthritis Anemia Medical History Dementia with behavioral disturbance Behavioural, emotional, and social difficulties (BESD) Dysphagia Paroxysmal A-fib Hypertension Dementia Diabetes mellitus Hyperlipidemia Rhinovirus infection Left lower lobe pneumonia Complication of tracheostomy tube Social History Smoking Status: Never smoker Hx Alcohol Use: No Hx Substance Use: No Preferred Language: [place]al[place] Communication Ability: Impaired Computing Machine Operator Required: No Beliefs That Will Affect Care: None Current Living Situation: Retirement Current Living Situation Comment: [facility] Feels Safe at Home: Yes Assistive Devices: Denture - Upper Allergies Allergies Allergy/AdvReac Type Severity Reaction Status Date / Time No Known Allergies Allergy Verified 12/20/23 19:27 Home Meds Home Medications Medication Instructions Recorded Confirmed acetaminophen 325 mg tablet 650 mg PO Q6 PRN PAIN 1-10 12/20/23 05/24/24 acetaminophen 325 mg tablet 650 mg PO QID PRN TEMP > 101 12/20/23 05/24/24 apixaban 5 mg tablet (Eliquis) 5 mg PO BID 12/20/23 05/24/24 atorvastatin 40 mg tablet 40 mg PO DAILY 12/20/23 05/24/24 buspirone 10 mg tablet 10 mg PO TID 12/20/23 05/24/24 chlorhexidine gluconate 0.12 % 15 ml buccal Q12 12/20/23 05/24/24 mouthwash (Peridex) divalproex 250 mg tablet,delayed 250 mg PO TID 12/20/23 05/24/24 release ferrous sulfate 325 mg (65 mg 325 mg PO DAILY 12/20/23 05/24/24 iron) tablet (FeroSul) folic acid 400 mcg tablet 0.4 mg PO DAILY 12/20/23 05/24/24 ipratropium 20 mcg-albuterol 100 1 puff inhalation Q6 PRN Wheezing 12/20/23 05/24/24 mcg/actuation mist for inhalation (Combivent Respimat) menthol 0.1 % lotion (Eucerin Itch 1 ea topical BID 12/20/23 05/24/24 Relief) quetiapine 100 mg tablet 100 mg PO HS 12/20/23 05/24/24 quetiapine 25 mg tablet (Seroquel) 50 mg PO DAILY 12/20/23 05/24/24 sennosides 8.6 mg-docusate sodium 1 tab-cap PO HS 12/20/23 05/24/24 50 mg tablet (Senna-S) trazodone 50 mg tablet 75 mg PO HS 12/20/23 05/24/24 Previous Rx's Medication Instructions Recorded Tube Feeding Water Flush 50 ml PEG Q8H ##0 04/22/24 magnesium oxide 400 mg (241.3 mg 400 mg PO BID #60 tabs 04/22/24 magnesium) tablet methylcellulose (with sugar) 2 2 g PO TID #100 grams 04/22/24 gram/19 gram oral powder (Fiber Therapy (methylcellulose-sugar)) olanzapine 5 mg disintegrating 5 mg PO BID #30 tabs 04/22/24 tablet polyethylene glycol 3350 17 gram 17 g PO BID #60 ea 04/22/24 oral powder packet (Miralax) Results & Data (ED) Vital Signs Vital Signs - 24 hr 05/24/24 16:36 05/24/24 16:36 05/24/24 16:36 Temperature 38.9 C H Temperature Source Oral Pulse Rate 144 H Pulse Rate [Apical] Pulse Rate from SpO2 Sensor Pulse Rhythm [Apical] Respiratory Rate 22 Respiratory Effort / Characteristics Non-Labored Spontaneous Non-Labored Spontaneous Respiratory Depth Normal Normal Respiratory Pattern Regular Blood Pressure 111/75 Blood Pressure [Left Arm] Blood Pressure Mean 87 Blood Pressure Mean [Left Arm] Blood Pressure Position Semi-fowlers Blood Pressure Position [Left Arm] Pulse Oximetry 81 L 81 L Oxygen Delivery Method Room Air Room Air Room Air Oxygen Flow Rate Sepsis Recent Fever Within 48 Hours Yes Sepsis New/Unexplained Change in Mental Status No Sepsis Action Taken by Nursing Physician Notified Oxygen Flow Rate - Titration 6 Pulse Oximetry Post Tiitration 95 05/24/24 16:36 05/24/24 16:45 05/24/24 16:55 Temperature Temperature Source Pulse Rate 150 H Pulse Rate [Apical] 145 H 135 H Pulse Rate from SpO2 Sensor Pulse Rhythm [Apical] Respiratory Rate 28 H 30 H 28 H Respiratory Effort / Characteristics Spontaneous Short of Breath Spontaneous Short of Breath Respiratory Depth Respiratory Pattern Regular Tachypnea Blood Pressure Blood Pressure [Left Arm] 111/75 97/76 L Blood Pressure Mean Blood Pressure Mean [Left Arm] 87 83 Blood Pressure Position Blood Pressure Position [Left Arm] Semi-fowlers Semi-fowlers Pulse Oximetry 93 89 L 88 L Oxygen Delivery Method Nasal Cannula Nasal Cannula Nasal Cannula Oxygen Flow Rate 6 6 6 Sepsis Recent Fever Within 48 Hours Sepsis New/Unexplained Change in Mental Status Sepsis Action Taken by Nursing Oxygen Flow Rate - Titration Pulse Oximetry Post Tiitration 05/24/24 16:55 05/24/24 17:00 05/24/24 17:04 Temperature Temperature Source Pulse Rate Pulse Rate [Apical] 155 H 121 H Pulse Rate from SpO2 Sensor Pulse Rhythm [Apical] Irregular Irregular Respiratory Rate 28 H 18 Respiratory Effort / Characteristics Non-Labored Spontaneous Short of Breath Respiratory Depth Normal Respiratory Pattern Regular Regular Blood Pressure 129/101 H Blood Pressure [Left Arm] 129/101 H Blood Pressure Mean 110 Blood Pressure Mean [Left Arm] 110 Blood Pressure Position Blood Pressure Position [Left Arm] Pulse Oximetry 96 97 Oxygen Delivery Method Non-rebreather Non-rebreather Oxygen Flow Rate 15 15 Sepsis Recent Fever Within 48 Hours Sepsis New/Unexplained Change in Mental Status Sepsis Action Taken by Nursing Oxygen Flow Rate - Titration Pulse Oximetry Post Tiitration 05/24/24 17:15 05/24/24 17:15 05/24/24 17:21 Temperature Temperature Source Pulse Rate 157 H Pulse Rate [Apical] 125 H Pulse Rate from SpO2 Sensor 156 H Pulse Rhythm [Apical] Respiratory Rate 23 25 H Respiratory Effort / Characteristics Respiratory Depth Respiratory Pattern Blood Pressure 99/75 L Blood Pressure [Left Arm] 99/75 L Blood Pressure Mean 85 Blood Pressure Mean [Left Arm] 83 Blood Pressure Position Blood Pressure Position [Left Arm] Semi-fowlers Pulse Oximetry 99 92 Oxygen Delivery Method Non-rebreather Oxygen Flow Rate 15 Sepsis Recent Fever Within 48 Hours Sepsis New/Unexplained Change in Mental Status Sepsis Action Taken by Nursing Oxygen Flow Rate - Titration Pulse Oximetry Post Tiitration 05/24/24 17:30 05/24/24 17:30 05/24/24 17:45 Temperature 38.6 C H 38.8 C H Temperature Source Andrade Cath ( Temp Sensing) Andrade Cath ( Temp Sensing) Pulse Rate 143 H Pulse Rate [Apical] 157 H 121 H Pulse Rate from SpO2 Sensor 144 H Pulse Rhythm [Apical] Irregular Respiratory Rate 27 H 18 25 H Respiratory Effort / Characteristics Respiratory Depth Respiratory Pattern Blood Pressure 144/88 H Blood Pressure [Left Arm] 144/88 H 106/73 Blood Pressure Mean 106 Blood Pressure Mean [Left Arm] 106 84 Blood Pressure Position Blood Pressure Position [Left Arm] Semi-fowlers Semi-fowlers Pulse Oximetry 92 88 L 95 Oxygen Delivery Method Nasal Cannula Nasal Cannula Oxygen Flow Rate 6 6 Sepsis Recent Fever Within 48 Hours Sepsis New/Unexplained Change in Mental Status Sepsis Action Taken by Nursing Oxygen Flow Rate - Titration Pulse Oximetry Post Tiitration 05/24/24 17:45 05/24/24 17:51 05/24/24 18:00 Temperature 38.7 C H 38.8 C H 38.8 C H Temperature Source Andrade Cath ( Temp Sensing) Pulse Rate 128 H 120 H Pulse Rate [Apical] 120 H Pulse Rate from SpO2 Sensor 121 H 122 H Pulse Rhythm [Apical] Respiratory Rate 23 20 25 H Respiratory Effort / Characteristics Respiratory Depth Respiratory Pattern Blood Pressure 106/73 Blood Pressure [Left Arm] 88/67 L Blood Pressure Mean 76 Blood Pressure Mean [Left Arm] 74 Blood Pressure Position Blood Pressure Position [Left Arm] Semi-fowlers Pulse Oximetry 95 94 91 Oxygen Delivery Method Nasal Cannula Oxygen Flow Rate 6 Sepsis Recent Fever Within 48 Hours Sepsis New/Unexplained Change in Mental Status Sepsis Action Taken by Nursing Oxygen Flow Rate - Titration Pulse Oximetry Post Tiitration 05/24/24 18:02 05/24/24 18:03 05/24/24 18:15 Temperature 38.8 C H 38.5 C H Temperature Source Pulse Rate 125 H 123 H Pulse Rate [Apical] Pulse Rate from SpO2 Sensor 124 H 117 H Pulse Rhythm [Apical] Respiratory Rate 24 24 Respiratory Effort / Characteristics Respiratory Depth Respiratory Pattern Blood Pressure 88/67 L 110/77 Blood Pressure [Left Arm] Blood Pressure Mean 73 88 Blood Pressure Mean [Left Arm] Blood Pressure Position Blood Pressure Position [Left Arm] Pulse Oximetry 90 94 Oxygen Delivery Method Oxygen Flow Rate Sepsis Recent Fever Within 48 Hours Sepsis New/Unexplained Change in Mental Status Sepsis Action Taken by Nursing Oxygen Flow Rate - Titration Pulse Oximetry Post Tiitration 05/24/24 18:30 05/24/24 18:30 05/24/24 18:42 Temperature 38.2 C H 38.3 C H 38.2 C H Temperature Source Andrade Cath ( Temp Sensing) Pulse Rate 102 H 102 H Pulse Rate [Apical] 98 H Pulse Rate from SpO2 Sensor 102 H 102 H Pulse Rhythm [Apical] Respiratory Rate 18 17 22 Respiratory Effort / Characteristics Non-Labored Spontaneous Respiratory Depth Normal Respiratory Pattern Regular Blood Pressure 98/68 L Blood Pressure [Left Arm] 98/68 L Blood Pressure Mean 78 Blood Pressure Mean [Left Arm] 78 Blood Pressure Position Blood Pressure Position [Left Arm] Pulse Oximetry 94 95 93 Oxygen Delivery Method Room Air Oxygen Flow Rate Sepsis Recent Fever Within 48 Hours Sepsis New/Unexplained Change in Mental Status Sepsis Action Taken by Nursing Oxygen Flow Rate - Titration Pulse Oximetry Post Tiitration 05/24/24 18:45 05/24/24 18:45 05/24/24 18:47 Temperature 38.1 C H Temperature Source Andrade Cath ( Temp Sensing) Pulse Rate 102 H Pulse Rate [Apical] 102 H Pulse Rate from SpO2 Sensor Pulse Rhythm [Apical] Respiratory Rate 18 Respiratory Effort / Characteristics Non-Labored Spontaneous Respiratory Depth Normal Respiratory Pattern Regular Blood Pressure 98/58 L Blood Pressure [Left Arm] 98/58 L Blood Pressure Mean 63 Blood Pressure Mean [Left Arm] 71 Blood Pressure Position Blood Pressure Position [Left Arm] Semi-fowlers Pulse Oximetry 94 Oxygen Delivery Method Aerosol Mask Oxygen Flow Rate 10 Sepsis Recent Fever Within 48 Hours Sepsis New/Unexplained Change in Mental Status Sepsis Action Taken by Nursing Oxygen Flow Rate - Titration Pulse Oximetry Post Tiitration 05/24/24 18:54 Temperature 38.1 C H Temperature Source Pulse Rate 99 H Pulse Rate [Apical] Pulse Rate from SpO2 Sensor 99 H Pulse Rhythm [Apical] Respiratory Rate 18 Respiratory Effort / Characteristics Respiratory Depth Respiratory Pattern Blood Pressure Blood Pressure [Left Arm] Blood Pressure Mean Blood Pressure Mean [Left Arm] Blood Pressure Position Blood Pressure Position [Left Arm] Pulse Oximetry 93 Oxygen Delivery Method Oxygen Flow Rate Sepsis Recent Fever Within 48 Hours Sepsis New/Unexplained Change in Mental Status Sepsis Action Taken by Nursing Oxygen Flow Rate - Titration Pulse Oximetry Post Tiitration Home Medications Current Medication List: was personally reviewed by me Laboratory Data Attestation: I reviewed the patient's lab results. 05/24/24 16:40 05/24/24 16:40 Lab Results 05/24/24 05/24/24 05/24/24 Range/Units 16:40 17:36 18:43 WBC 12.02 H (4.8-10.8) K/ul RBC 3.94 L (4.70-6.10) M/uL Hgb 12.0 L (14.0-18.0) g/dl Hct 37.3 L (42.0-52.0) % MCV 94.7 (80.0-100.0) fL MCH 30.5 (25.0-34.0) pg MCHC 32.2 (32.0-36.0) g/dL RDW Std Deviation 50.7 H (36.4-46.3) fL RDW Coeff of Johana 14.6 H (11.5-14.5) % Plt Count 188 (130-400) K/uL MPV 9.0 L (9.4-12.4) fL Immature Gran % (Auto) 0.4 % Neut % (Auto) 83.6 % Lymph % (Auto) 4.4 % Ralls % (Auto) 11.4 % Eos % (Auto) 0.0 % Baso % (Auto) 0.2 % Neut # (Auto) 10.05 H (1.40-6.50) K/uL Lymph # (Auto) 0.53 L (1.20-3.40) K/uL Ralls # (Auto) 1.37 H (0.11-0.59) K/uL Eos # (Auto) 0.00 (0.00-0.50) K/uL Baso # (Auto) 0.02 (0.00-0.20) K/uL Immature Gran # (Auto) 0.05 (0.01-0.20) K/uL PT 13.2 H (9.0-12.0) Seconds INR 1.2 H (0.9-1.1) APTT 35 H (21-31) Seconds PTT Ratio 1.3 VBG pH 7.36 (7.36-7.41) VBG pCO2 54 H (38-50) mmHg VBG pO2 29 mmHg VBG HCO3 31 mmol/L VBG O2 Saturation < 60.0 % VBG Base Excess 3.7 mEq/L Sodium 140 (136-145) mmol/L Potassium 4.6 (3.5-5.1) mmol/L Chloride 101 (98-107) mmol/L Carbon Dioxide 31 (21-32) mmol/L Anion Gap 8 (3-11) BUN 24 H (6-23) mg/dl Creatinine 1.19 (0.6-1.4) mg/dl Est Cr Clr Drug Dosing 59.8 ml/min eGFR 64.10 BUN/Creatinine Ratio 20.2 H (10-20) Glucose 143 H (70-99(Fasting)) mg/dl Lactate 4.8 H* 1.6 (0.4-2.0) mmol/L Calcium 9.1 (8.6-10.3) mg/dl Magnesium 2.1 (1.7-2.4) mg/dl Total Bilirubin 0.4 (0.2-1.0) mg/dl Direct Bilirubin 0.1 (0-0.2) mg/dl AST 25 (13-39) U/L ALT 11 (7-52) U/L Alkaline Phosphatase 46 (34-104) U/L Troponin I High Sens 29.6 H 46.8 H D (0-20) pg/ml Total Protein 7.6 (6.0-8.3) gm/dl Albumin 3.5 (3.4-5.0) gm/dl Procalcitonin 0.28 (0-0.5) ng/ml Urine Color Dark Yellow Urine Appearance Cloudy A (Clear) Urine pH 6.5 (4.5-7.5) Ur Specific Sherwood 1.020 (1.000-1.030) Urine Protein 1+ H (Negative) Urine Glucose (UA) Negative (Negative) Urine Ketones Trace H (Negative) Urine Blood Trace H (Negative) Urine Nitrite Positive A (Negative) Urine Bilirubin Negative (Negative) Urine Urobilinogen Negative (Negative) Ur Leukocyte Esterase 2+ H (Negative) Urine WBC (Auto) >50 H (0-5) /hpf Urine RBC (Auto) 0-2 (0-2) /hpf U Hyaline Cast (Auto) >20 H (0-2) /lpf U Epithel Cells (Auto) 0-2 (0-2) /hpf Urine Bacteria (Auto) None Seen (None Seen) Hyaline Casts Present A (None Presnt) /lpf Urine Mucus Present A (None Prsent) Adenovirus (PCR) Not Detected (NotDetected) B. pertussis DNA (PCR) Not Detected (NotDetected) B.parapertussis DNA PCR Not Detected (NotDetected) C. pneumoniae DNA (PCR) Not Detected (NotDetected) Coronavirus OC43 (PCR) Not Detected (NotDetected) Coronavirus HKU1 (PCR) Not Detected (NotDetected) Coronavirus 229E (PCR) Not Detected (NotDetected) SARS-CoV-2 (PCR) Not Detected (NotDetected) Coronavirus NL63 (PCR) Not Detected (NotDetected) Human Metapneumovir PCR DETECTED A (NotDetected) Influenza Type A (PCR) Not Detected (NotDetected) Influenza Type B (PCR) Not Detected (NotDetected) M. pneumoniae (PCR) Not Detected (NotDetected) Parainfluenza 1 (PCR) Not Detected (NotDetected) Parainfluenza 2 (PCR) Not Detected (NotDetected) Parainfluenza 3 (PCR) Not Detected (NotDetected) Parainfluenza 4 (PCR) Not Detected (NotDetected) RSV (PCR) Not Detected (NotDetected) Entero/Rhino (PCR) Not Detected (NotDetected) Administered Medications Albuterol (Albut/Ipratrop 3mg/0.5mg Neb 3 Ml Vial) 3 ml NEB Q6H QUINCY; Protocol Stop: 06/23/24 20:59 Last Admin: 05/24/24 21:22 Dose: 3 ml Documented By: LGB Norepinephrine Bitartrate (Levophed/D5w) 4 mg in 250 mls @ 26.393 mls/hr IV .Q9H29M QUINCY; Protocol Stop: 06/23/24 18:59 Last Titration: 05/24/24 20:47 Dose: 0.09 mcg/kg/min, 26.4 mls/hr Documented By: RUSSELL Co-signed By: CT Titration: 05/24/24 19:28 Dose: 0.09 mcg/kg/min, 26.4 mls/hr Documented By: CT Co-signed By: NATHAN Titration: 05/24/24 19:09 Dose: 0.07 mcg/kg/min, 20.5 mls/hr Documented By: CT Co-signed By: GUY Admin: 05/24/24 19:06 Dose: 0.05 mcg/kg/min, 14.7 mls/hr Documented By: CT Co-signed By: NRB Pantoprazole Sodium (Protonix) 40 mg in 10 mls @ 5 mls/min IV BID QUINCY Stop: 06/23/24 21:14 Last Admin: 05/24/24 21:50 Dose: 5 mls/min Documented By: ESG Lactated Ringer's (Lr) 1,000 mls @ 115 mls/hr IV .Q8H42M ONE Stop: 05/25/24 05:57 Last Admin: 05/24/24 22:13 Dose: 115 mls/hr Documented By: ESG Insulin Aspart (Insulin Aspart Per Unit Charge) 0 units SC Q6 QUINCY Stop: 06/23/24 22:14 Last Admin: 05/24/24 22:20 Dose: 2 units Documented By: THEE Co-signed By: KALYN Miscellaneous (Icu Protocol For Hyperglycemia) 1 each N/A ACHS [facility] Stop: 05/26/24 20:59 Last Admin: 05/24/24 22:12 Dose: 1 each Documented By: THEE Sterile Water (Tube Feeding Water Flush) 30 ml PEG Q6H QUINCY Stop: 06/23/24 21:29 Last Admin: 05/24/24 22:21 Dose: 30 ml Documented By: THEE Discontinued Medications Albuterol (Albut/Ipratrop 3mg/0.5mg Neb 3 Ml Vial) 3 ml NEB NOW STA; Protocol Stop: 05/24/24 18:17 Last Admin: 05/24/24 18:32 Dose: 3 ml Documented By: CT Hydrocortisone Sodium Succinate (Hydrocortisone Sod Succinate 100 Mg/2 Ml Vial) 100 mg IV ONE ONE Stop: 05/24/24 19:31 Last Admin: 05/24/24 20:21 Dose: 100 mg Documented By: CT Sodium Chloride (Nss) 1,000 mls @ 999 mls/hr IV .Q1H1M QUINCY Stop: 05/24/24 17:45 Last Infusion: 05/24/24 17:15 Dose: Infused Documented By: Admin: 05/24/24 16:40 Dose: 999 mls/hr Documented By: CT Cefepime HCl (Maxipime 2000mg) 2,000 mg in 20 mls @ 5 mls/min IV NOW STA; Protocol Stop: 05/24/24 16:42 Last Admin: 05/24/24 17:17 Dose: 5 mls/min Documented By: CT Acetaminophen (Ofirmev) 1,000 mg in 100 mls @ 400 mls/hr IV NOW STA Stop: 05/24/24 16:53 Last Infusion: 05/24/24 17:14 Dose: Infused Documented By: Admin: 05/24/24 16:58 Dose: 400 mls/hr Documented By: CT Sodium Chloride (Nss) 1,000 mls @ 999 mls/hr IV .Q1H1M ONE Stop: 05/24/24 17:59 Last Infusion: 05/24/24 18:06 Dose: Infused Documented By: Admin: 05/24/24 17:16 Dose: 999 mls/hr Documented By: CT Sodium Chloride (Nss) 500 mls @ 999 mls/hr IV .Q31M ONE Stop: 05/24/24 17:29 Last Infusion: 05/24/24 18:49 Dose: Infused Documented By: Admin: 05/24/24 18:08 Dose: 999 mls/hr Documented By: CT Vancomycin HCl 2,000 mg/ (Sodium Chloride) 540 mls @ 200 mls/hr IV NOW ONE Stop: 05/24/24 21:41 Last Infusion: 05/24/24 22:58 Dose: Infused Documented By: Admin: 05/24/24 20:07 Dose: 200 mls/hr Documented By: CT Piperacillin Sod/Tazobactam Sod (Zosyn) 4.5 gm in 100 mls @ 200 mls/hr IV ONE ONE; Protocol Stop: 05/24/24 19:29 Last Infusion: 05/24/24 20:05 Dose: Infused Documented By: Admin: 05/24/24 19:30 Dose: 200 mls/hr Documented By: CT Pantoprazole Sodium 40 mg/ (Dextrose) 100 mls @ 20 mls/hr IV Q5H [facility] Stop: 06/23/24 19:44 Last Infusion: 05/24/24 21:55 Dose: Infused Documented By: Admin: 05/24/24 20:23 Dose: 8 mg/hr, 20 mls/hr Documented By: CT Pantoprazole Sodium 80 mg/ (Dextrose) 120 mls @ 480 mls/hr IV NOW ONE Stop: 05/24/24 19:32 Last Infusion: 05/24/24 20:16 Dose: Infused Documented By: Admin: 05/24/24 19:56 Dose: 480 mls/hr Documented By: CT Sodium Chloride (Nss) 1,000 mls @ 150 mls/hr IV .Q6H40M [facility] Stop: 05/25/24 19:29 Last Infusion: 05/24/24 21:55 Dose: Infused Documented By: Admin: 05/24/24 19:35 Dose: 150 mls/hr Documented By: CT Hydrocortisone Sodium (Succinate 50 mg/ Syringe) 1 mls @ 4 mls/min IV Q6H [facility] Stop: 05/24/24 21:16 Last Admin: 05/24/24 21:50 Dose: 4 mls/min Documented By: THEE Valproic Acid 250 mg/ Dextrose 52.5 mls @ 55 mls/hr IV ONE ONE Stop: 05/24/24 22:12 Last Infusion: 05/24/24 22:58 Dose: Infused Documented By: Admin: 05/24/24 22:06 Dose: 55 mls/hr Documented By: THEE Lactated Ringer's (Lr) 500 mls @ 999 mls/hr IV .Q31M ONE Stop: 05/24/24 22:18 Last Infusion: 05/24/24 22:26 Dose: Infused Documented By: Admin: 05/24/24 21:55 Dose: 999 mls/hr Documented By: ESDashawn Lactated Ringer's (Lr) 500 mls @ 999 mls/hr IV .Q31M ONE Stop: 05/24/24 22:24 Last Admin: 05/24/24 22:51 Dose: Not Given Documented By: THEE Ketorolac Tromethamine (Ketorolac Tromethamine 15 Mg/Ml Vial) 10 mg IV NOW ONE Stop: 05/24/24 18:15 Last Admin: 05/24/24 18:33 Dose: 10 mg Documented By: CT Miscellaneous (Stat Iv Infusion Titration Per Protocol) 1 each N/A NOW STA Stop: 05/24/24 18:57 Last Admin: 05/24/24 19:12 Dose: Not Given Documented By: CT Imaging Data Radiologist's Impression: Chest X-Ray 05/24/24 16:39 EXAM: Radiograph of the Chest 1 View INDICATION: Sepsis TECHNIQUE: Frontal view of the chest. COMPARISON: 04/18/2024 FINDINGS: Lungs and pleural spaces: Increased consolidation in the left lung base and small left pleural effusion. There is new diffuse bronchovascular thickening. No visible pneumothorax although the left apex is obscured. Heart: Stable large cardiac shadow. Mediastinum: Normal contour. Bones/joints: No fracture, erosion or dislocation. Soft tissues: No abnormality noted. No radiopaque foreign body noted. Upper abdomen: No abnormality noted. IMPRESSION: 1. Increased consolidation in the left lung base and small left pleural effusion. 2. Worsening left basilar pneumonia and small pleural effusion. Consider component of mucous plugging. 3. New generalized bronchovascular thickening. Consider infectious bronchitis and chemical pneumonitis from aspiration. ACT 112: N/A Electronically signed by Amalia Ordaz 05-24-2024 5:45 PM Discharge Plan Visit Data Chief Complaint: Shortness of Breath/Dyspnea Stated Complaint: AMS,SOB ED Provider: Navin Johnson Discharge Problem: Sepsis, Atrial fibrillation with rapid ventricular response, Hypotension, Pneumonia, Hypoxia, Leukocytosis, Elevated lactic acid level, Infection due to human metapneumovirus (hMPV), Acute UTI Patient Disposition: Admitted As Inpatient Condition: Serious Discharge Instructions Interventions: ED Discharge Assessment Last Done: 05/24/24 20:18 Discharge Problem: Sepsis Qualifiers: Sepsis type: sepsis due to unspecified organism Sepsis acute organ dysfunction status: with acute organ dysfunction Severe sepsis acute organ dysfunction type: acute respiratory failure Acute respiratory failure type: with hypoxia Severe sepsis shock status: with septic shock Qualified Code(s): A41.9 - Sepsis, unspecified organism Hypotension Qualifiers: Hypotension type: unspecified hypotension type Qualified Code(s): I95.9 - Hypotension, unspecified Pneumonia Qualifiers: Pneumonia type: due to unspecified organism Laterality: left Lung location: l ower lobe of lung Qualified Code(s): J18.9 - Pneumonia, unspecified organism Leukocytosis Qualifiers: Leukocytosis type: unspecified Qualified Code(s): D72.829 - Elevated white blood cell count, unspecified
[2024-05-24 16:55] LABS: Base Excess VBG 3.7 mEq/L; HCO3 VBG 31 mmol/L; Oxygen Saturation VBG < 60.0 %; PCO2 VBG 54 mmHg (38-50); PO2 VBG 29 mmHg; pH VBG 7.36 (7.36-7.41)
[2024-05-24] MEDS: ACETAMINOPHEN 1,000 MG/100 ML VIAL IV STA (16:58)
[2024-05-24 17:07] LABS: Basophils # (auto) 0.02 K/uL (0.00-0.20); Basophils % (auto) 0.2 %; Hematocrit (blood only) 37.3 % (42.0-52.0); Immature Granulocytes # (auto) 0.05 K/uL (0.01-0.20); Immature Granulocytes % (auto) 0.4 %; Lymphocytes # (auto) 0.53 K/uL (1.20-3.40); Lymphocytes % (auto) 4.4 %; Mean Corpuscular Hemoglobin 30.5 pg (25.0-34.0); Mean Corpuscular Hgb Conc 32.2 g/dL (32.0-36.0); Mean Corpuscular Volume 94.7 fL (80.0-100.0); Monocytes # (auto) 1.37 K/uL (0.11-0.59); Monocytes % (auto) 11.4 %; Neutrophils # (auto) 10.05 K/uL (1.40-6.50); Neutrophils % (auto) 83.6 %; Platelet Count 188 K/uL (130-400); RDW Coefficient of Variation 14.6 % (11.5-14.5); RDW Standard Deviation 50.7 fL (36.4-46.3); Red Blood Count 3.94 M/uL (4.70-6.10); White Blood Count 12.02 K/ul (4.8-10.8)
[2024-05-24] MEDS: SODIUM CHLORIDE 0.9% 1,000 ML IV ONE (17:16)
[2024-05-24] MEDS: CEFEPIME 2000MG 2,000 MG/20 ML SYR IV STA (17:17)
[2024-05-24 17:18] LABS: Albumin Level 3.5 gm/dl (3.4-5.0); BUN Creatinine Ratio 20.2 (10-20); Bilirubin Direct 0.1 mg/dl (0-0.2); Bilirubin,Total 0.4 mg/dl (0.2-1.0); Calcium 9.1 mg/dl (8.6-10.3); Creatinine Clr Calc Pharmacy 59.8 ml/min; Magnesium 2.1 mg/dl (1.7-2.4); Potassium 4.6 mmol/L (3.5-5.1); Total Protein 7.6 gm/dl (6.0-8.3)
[2024-05-24 17:25] LABS: Troponin I High Sensitivity 29.6 pg/ml (0-20)
--- NOTE | 2024-05-24 17:46 | XRay Report ---
EXAM: Radiograph of the Chest 1 View INDICATION: Sepsis TECHNIQUE: Frontal view of the chest. COMPARISON: 04/18/2024 FINDINGS: Lungs and pleural spaces: Increased consolidation in the left lung base and small left pleural effusion. There is new diffuse bronchovascular thickening. No visible pneumothorax although the left apex is obscured. Heart: Stable large cardiac shadow. Mediastinum: Normal contour. Bones/joints: No fracture, erosion or dislocation. Soft tissues: No abnormality noted. No radiopaque foreign body noted. Upper abdomen: No abnormality noted. IMPRESSION: 1. Increased consolidation in the left lung base and small left pleural effusion. 2. Worsening left basilar pneumonia and small pleural effusion. Consider component of mucous plugging. 3. New generalized bronchovascular thickening. Consider infectious bronchitis and chemical pneumonitis from aspiration. ACT 112: N/A Electronically signed by Amalia Ordaz 05-24-2024 5:45 PM
[2024-05-24 17:55] LABS: INR 1.2 (0.9-1.1); Partial Thromboplastin Ratio 1.3; Partial Thromboplastin Time 35 Seconds (21-31); Prothrombin Time 13.2 Seconds (9.0-12.0)
[2024-05-24 17:59] LABS: Adenovirus PCR Not Detected (NotDetected); Bordetella parapertussis PCR Not Detected (NotDetected); Bordetella pertussis PCR Not Detected (NotDetected); Chlamydia pneumoniae PCR Not Detected (NotDetected); Coronavirus 229E PCR Not Detected (NotDetected); Coronavirus CoV-2 (COVID19)PCR Not Detected (NotDetected); Coronavirus HKU1 PCR Not Detected (NotDetected); Coronavirus NL63 PCR Not Detected (NotDetected); Coronavirus OC43PCR Not Detected (NotDetected); Human Metapneumovirus PCR DETECTED (NotDetected); Influenza A PCR Not Detected (NotDetected); Influenza B PCR Not Detected (NotDetected); Mycoplasma pneumoniae PCR Not Detected (NotDetected); Parainfluenza Virus 1 PCR Not Detected (NotDetected); Parainfluenza Virus 2 PCR Not Detected (NotDetected); Parainfluenza Virus 3 PCR Not Detected (NotDetected); Parainfluenza Virus 4 PCR Not Detected (NotDetected); Respiratory Syncytial VirusPCR Not Detected (NotDetected); Rhinovirus/Enterovirus PCR Not Detected (NotDetected)
[2024-05-24] MEDS: SODIUM CHLORIDE 0.9% 500 ML IV ONE (18:08)
[2024-05-24 18:31] LABS: Appearance Urine Cloudy (Clear); Bacteria Urine Automated None Seen (None Seen); Bilirubin Urine Negative (Negative); Blood Urine Trace (Negative); Cast Urine Automated >20 /lpf (0-2); Color Urine Dark Yellow; Epithelial Cell Urine Auto 0-2 /hpf (0-2); Glucose Urine UA Negative (Negative); Hyaline Casts Urine Present /lpf (None Presnt); Ketones Urine Trace (Negative); Leukocyte Esterase Urine 2+ (Negative); Mucus Urine Present (None Prsent); Nitrite Urine Positive (Negative); Protein Urine 1+ (Negative); RBC Urine Automated 0-2 /hpf (0-2); Urobilinogen Urine Negative (Negative); WBC Urine Automated >50 /hpf (0-5); pH Urine 6.5 (4.5-7.5)
[2024-05-24] MEDS: ALBUT/IPRATROP 3MG/0.5MG NEB 3 ML VIAL NEB STA (18:32)
[2024-05-24] MEDS: KETOROLAC TROMETHAMINE 15 MG/ML VIAL IV ONE (18:33)
[2024-05-24] MEDS ORDERED: VANCOMYCIN CONSULT ACTIVE PRN (18:42)
--- NOTE | 2024-05-24 19:04 | History & Physical Report ---
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 #Sepsis/Septic Shock/Pneumonia/Respiratory Failure CXR demonstrates LLL pneumonia, probable mucous plugging +human metapneumovirus, suspect ongoing aspiration events Follow BCx, obtain sputum culture if able Will obtain non-con chest CT for better characterization Continue IVF resuscitation, sepsis bolus met prior to admission Pressor support per ICU for MAP>65 Stress dose steroids hydrocortisone 100mg IV x 2 doses Protonix drip Lactate improving after fluid resuscitation Vanc and Zosyn started; check MRSA nares Neb treatments Required intubation at prior admission one month ago NPO w/ sips for meds for now, speech consult ordered #Tachycardia/Tachy-rosi syndrome/Afib Was sinus tach on monitor at time of admission, RBBB Mild troponin elevation, trend to peak Suspect demand ischemia Continue Eliquis, metoprolol, atorvastatin #Seizure disorder Continue divalproex 250mg TID #COPD Continue home inhalers #Dementia/Mental Health Continue Buspar, Zyprexa, trazodone, Seroquel #KURT CPAP if able to tolerate FENGI: NPO w/sips Code status: full DVT prophylaxis: Eliquis Isolation: Droplet Disposition: ICU History of Present Illness Primary Care Provider: Adonay [facility] 73 yo male PMHx afib w/RVR, Bradycardia (tachy-rosi syndrome), COPD, KURT, OA, anemia, seizure disorder, recent hospitalization for LLL pneumonia requiring intubation and tracheostomy. He was subsequently decannulated and discharged to [facility]. Today, per MO report, he was found to be hypoxic to the low 80s on room air, febrile, and tachycardic. The patient has baseline dementia and does not have capacity to make his medical decisions. Confirmed with patient's that he will be full code on admission. ED Course Hypotensive (low of 70s/50s), tachycardic to 150s, T-max 38.9, requiring up to 10L by face mask for O2 sat of low 90s Labs reveal: mild leukocytosis, elevated lactate, mild trop elevation Given cefepime, Tylenol, Toradol, started on Levophed, rec'd 2.5L NSS bolus, neb treatments Allergies Allergy/AdvReac Type Severity Reaction Status Date / Time No Known Allergies Allergy Verified 12/20/23 19:27 Home Medications Medication Instructions Recorded Confirmed Type acetaminophen 325 mg tablet 650 mg PO Q6 PRN PAIN 1-10 12/20/23 12/20/23 History acetaminophen 325 mg tablet 650 mg PO QID PRN TEMP > 101 12/20/23 12/20/23 History apixaban 5 mg tablet (Eliquis) 5 mg PO BID 12/20/23 12/20/23 History atorvastatin 40 mg tablet 40 mg PO DAILY 12/20/23 12/20/23 History buspirone 10 mg tablet 10 mg PO TID 12/20/23 12/20/23 History chlorhexidine gluconate 0.12 % 15 ml buccal Q12 12/20/23 12/20/23 History mouthwash (Peridex) divalproex 250 mg tablet,delayed 250 mg PO TID 12/20/23 12/20/23 History release ferrous sulfate 325 mg (65 mg 325 mg PO DAILY 12/20/23 12/20/23 History iron) tablet (FeroSul) folic acid 400 mcg tablet 0.4 mg PO DAILY 12/20/23 12/20/23 History ipratropium 20 mcg-albuterol 100 1 puff inhalation Q6 PRN Wheezing 12/20/23 12/20/23 History mcg/actuation mist for inhalation (Combivent Respimat) menthol 0.1 % lotion (Eucerin Itch 1 ea topical BID 12/20/23 12/20/23 History Relief) metoprolol tartrate 25 mg tablet 25 mg PO BID 12/20/23 12/20/23 History quetiapine 100 mg tablet 100 mg PO HS 12/20/23 12/20/23 History quetiapine 25 mg tablet (Seroquel) 50 mg PO DAILY 12/20/23 12/20/23 History sennosides 8.6 mg-docusate sodium 1 tab-cap PO HS 12/20/23 12/20/23 History 50 mg tablet (Senna-S) trazodone 50 mg tablet 75 mg PO HS 12/20/23 12/20/23 History Tube Feeding Water Flush 50 ml PEG Q8H ##0 04/22/24 Rx magnesium oxide 400 mg (241.3 mg 400 mg PO BID #60 tabs 04/22/24 Rx magnesium) tablet methylcellulose (with sugar) 2 2 g PO TID #100 grams 04/22/24 Rx gram/19 gram oral powder (Fiber Therapy (methylcellulose-sugar)) olanzapine 5 mg disintegrating 5 mg PO BID #30 tabs 04/22/24 Rx tablet polyethylene glycol 3350 17 gram 17 g PO BID #60 ea 04/22/24 Rx oral powder packet (Miralax) Past Med/Surg History Problem List (Updated 05/24/24 @ 20:12 by ABHIJIT Menjivar) Pneumonitis Infection due to human metapneumovirus (hMPV) (Acute) Elevated lactic acid level (Acute) Leukocytosis (Acute) Hypoxia (Acute) Pneumonia (Acute) Hypotension (Acute) Atrial fibrillation with rapid ventricular response (Acute) Sepsis (Acute) Tracheocutaneous fistula following tracheostomy Hypomagnesemia Asymptomatic bradycardia Atrial fibrillation with rapid ventricular response (Acute) Left lower lobe pneumonia (Acute) Septic shock (Acute) Respiratory failure (Acute) Acute kidney injury Septic shock Shock Tachy-rosi syndrome Acute respiratory failure with hypoxia Supplemental oxygen dependent (Acute) 2 L n/c COPD (chronic obstructive pulmonary disease) (Acute) KURT (obstructive sleep apnea) Hypokalemia Respiratory failure with hypoxia Convulsions Atrial fibrillation Osteoarthritis Anemia Medical History Complication of tracheostomy tube Social History Smoking Status: Unknown if ever smoked Hx Alcohol Use: No Hx Substance Use: No Preferred Language: Serbian Communication Ability: Impaired Traffic Coordinator Required: No Beliefs That Will Affect Care: None Current Living Situation: [facility] Current Living Situation Comment: [facility] Feels Safe at Home: Yes Assistive Devices: Wheelchair Review of Systems Review of Systems: reviewed, per HPI Physical Exam Physical Exam: Constitutional: ill-appearing, no acute distress, contorted to L side HEENT: NCAT, no conjunctival injection CV: tachycardic, no murmur appreciated, extremities well-perfused, no LE edema Resp: lung exam difficult due to patient cooperation, generally lung sounds diminished GI: nondistended MSK: no gross deformities appreciated Skin: warm, dry, no rash appreciated Neuro: confused but answers basic questions Results & Data Results & Data Vital Signs (Past 12 Hours) Vital Signs Temp Pulse Pulse Resp BP BP Pulse Ox 05/24/24 18:47 102 H 05/24/24 18:45 38.1 C H 102 H 18 98/58 L 94 05/24/24 18:30 38.2 C H 98 H 18 98/68 L 94 05/24/24 18:00 38.8 C H 120 H 25 H 88/67 L 91 05/24/24 17:45 38.8 C H 121 H 25 H 106/73 95 05/24/24 17:30 38.6 C H 157 H 27 H 144/88 H 92 05/24/24 17:15 125 H 23 99/75 L 99 05/24/24 17:04 129/101 H 05/24/24 17:00 121 H 18 129/101 H 97 05/24/24 16:55 155 H 28 H 96 05/24/24 16:55 150 H 28 H 88 L 05/24/24 16:45 135 H 30 H 97/76 L 89 L 05/24/24 16:36 145 H 28 H 111/75 93 05/24/24 16:36 81 L 05/24/24 16:36 05/24/24 16:36 38.9 C H 144 H 22 111/75 81 L O2 Del Method O2 Flow Rate 05/24/24 18:47 05/24/24 18:45 Aerosol Mask 10 05/24/24 18:30 Room Air 05/24/24 18:00 Nasal Cannula 6 05/24/24 17:45 Nasal Cannula 6 05/24/24 17:30 Nasal Cannula 6 05/24/24 17:15 Non-rebreather 15 05/24/24 17:04 05/24/24 17:00 Non-rebreather 15 05/24/24 16:55 Non-rebreather 15 05/24/24 16:55 Nasal Cannula 6 05/24/24 16:45 Nasal Cannula 6 05/24/24 16:36 Nasal Cannula 6 05/24/24 16:36 Room Air 05/24/24 16:36 Room Air 05/24/24 16:36 Room Air Supervising Physician Co-Signing Physician Notes I have personally seen, evaluated and examined the patient. I have also personally discussed the management of the patient with the resident physician/TOMA and I agree with the exam findings documented in the history and physical examination and the documented assessment and plan unless otherwise stated below. Brief Exam: In general this is an ill-appearing 73-year-old white male who is alert and oriented essentially x 0. He has advanced dementia he is currently in septic shock. He is laying essentially almost in a left lateral recumbent position which he appears to be that way chronically. He does respond verbally but not intelligibly when I introduced myself and say hello. He does make eye contact when trying to shake his hand he does try to reach out his hand and shake. HEENT: Is normocephalic atraumatic. Neck: Healing decannulated tracheostomy sites noted mild scabbing no surrounding erythema or discharge is noted. Heart: Irregular rate and rhythm with time my exam consistent with atrial fibrillation with rapid ventricular response with a rate approximately 120s. Is a faint 2 out of 6 systolic ejection murmur Francesca sternal border. Lungs: Coarse and diminished bilaterally left much greater than right. Ess entially absent breath sounds laterally anteriorly on the left side. Extremities: Intact with some trace peripheral. Intact neurovascularly. Neurologically: Patient is unable to cooperate with any meaningful neurologic exam at this time. Assessment/plan: As discussed above. I did personally have an extensive conversation with the patient's , Renee. Reviewed the patient's current critical life-threatening condition. We reviewed that he be going to the ICU that he BUN IV pressor support as well as IV fluids as well as IV antibiotics. In addition we reviewed the patient's advance directives she has confirmed that she does wish the patient to be a full code. Therefore this is ordered as such. We did reconfirm with her this because last month when he was here palliative care saw the patient and the patient was made a DNR. She states that she is aware that that happened but she wants the patient to currently be a full code and therefore he is. We did confirm with the patient's that the patient was critical he has life-threatening conditions including but not limited to severe aspiration pneumonia with concomitant viral pneumonia with metapneumovirus as well as acute hypoxemic respiratory failure with clinical sepsis and septic shock. This patient's condition is stable but critical his prognosis is extraordinarily guarded. I do suspect he is going to require repe at tracheostomy and PEG tube placement to prevent ongoing and recurrent life- threatening aspiration. Given the patient's chronically anticoagulated with Eliquis and the patient strict n.p.o. due to ongoing aspiration, we are going to hold off on the Eliquis for now and we will therapeutically treat the patient with Lovenox 1 mg/kg SQ twice daily. If seen by speech therapy and the patient safe to take medication and/or if the patient gets a PEG tube the patient can be transition back to oral anticoagulation therapy. Resident Activity Tracking Resident Involvement: Resident Care Provided Care Provided: Adult Hospital Medicine (1) Sepsis Acute respiratory failure type: with hypoxia Sepsis acute organ dysfunction status: with acute organ dysfunction Sepsis type: sepsis due to unspecified organism Severe sepsis acute organ dysfunction type: acute respiratory failure Severe sepsis shock status: with septic shock Qualified Code(s): A41.9 - Sepsis, unspecified organism; R65.21 - Severe sepsis with septic shock; J96.01 - Acute respiratory failure with hypoxia (2) Pneumonia Laterality: left Lung location: lower lobe of lung Pneumonia type: due to unspecified organism Qualified Code(s): J18.9 - Pneumonia, unspecified organism (9) Respiratory failure Chronicity: acute Respiratory failure complication: hypoxia Qualified Code(s): J96.01 - Acute respiratory failure with hypoxia (13) COPD (chronic obstructive pulmonary disease) COPD type: COPD with acute exacerbation Qualified Code(s): J44.1 - Chronic obstructive pulmonary disease with (acute) exacerbation (15) Leukocytosis Leukocytosis type: unspecified Qualified Code(s): D72.829 - Elevated white blood cell count, unspecified
[2024-05-24] MEDS: NOREPINEPHRINE/D5W 4 MG/250 ML PLCT IV SCH (19:06)
[2024-05-24] MEDS: STAT IV Infusion **Titration per Protocol STA (19:12)
[2024-05-24] MEDS ORDERED: PANTOPRAZOLE BOLUS/DRIP IV STA (19:18)
[2024-05-24] MEDS: PIPERACILLIN/TAZOBACTAM 4.5 GM/100 ML BAG IV ONE (19:30)
[2024-05-24] MEDS: PANTOprazole 80 MG in DEXTROSE 5% 100 ML IV ONE (19:56)
[2024-05-24] MEDS: VANCOMYCIN HCL 2,000 MG in SODIUM CHLORIDE 0.9% 500 ML IV ONE (20:07)
[2024-05-24] MEDS: HYDROCORTISONE SOD SUCCINATE 100 MG/2 ML VIAL IV ONE (20:21)
[2024-05-24] MEDS: PANTOprazole 40 MG in DEXTROSE 5% MINI-B 100 ML IV SCH (20:23)
--- NOTE | 2024-05-24 20:27 | Critical Care Consultation ---
Date of Consultation May 24, 2024 Assessment & Plan (1) Shock: (2) Acute respiratory failure with hypoxia: (3) KURT (obstructive sleep apnea): (4) Respiratory failure with hypoxia: (5) Pneumonitis: Plan Reason Critically Ill: 73 YOM with end stage dementia, chronic hypoxic respiratory failure from chronic aspiration as well as human meta pneumo virus, SIRS criteria on arrival with suspected source pulm/urine- requiring vasopressors in setting of hypovolemia vs. distributive shock. Neuro - Metabolic encephalopathy, dementia- requiring half-way care at skilled facility, hx of seizure disorder CAM ICU: [facility] - Patient with GCS 10 initially in ER- improved on arrival to ICU- GCS 13 - baseline dementia- has had waxing and waning on previous admissions in regards to ability to participate in goals of care- previously deemed that lacked capacity to make own decisions - Palliative consulted - Hold serequel and Olanzapine at this time in regards to encephalopathy - Contineu valproic acid for seizure proph Cardiac - Shock, PAF - Shock at this time - likely a combination of hypovolemia and as he technically met SIRS with possible source of pulm vs. urine - distributive shock from sepsis - Broad spectrum abx at this time- see ID section below - Patient has received 2.8 liters of crystalloid at this time- appears that he was initially volume responsive- following stopping of IVF- he became hypotensive and was placed on LEVOphed for MAPS >65 - Will receive another liter of crystalloid while awaiting transfer to ICU - POCUS in ICU- with collapsable IVC on inspiration, hyperdynamic LV, EF appears preserved and all areas mike, no pericardial effusion appreciated - currently MAPS 77 - Follow hemodynamics with - BP, UO, Organ dysfunction, and repeat POCUS vs. PLR as needed - Lactate had cleared following volume resuscitation - Organ dysfunction- metabolic encephalopathy and elevated HScTNI - Elevated HsCTNi likely demand secondary to hypoxia, tachycardia, and hypotension- ECG reviewed no STEMI- is with RBBB - Will place on stress dose steroids - Hold Metoprolol at this time with hypotension - PAF- Continue Eliquis down PEG as long as no evidence of bleeding - Previous ECHO in [place] with normal EF- elevated RVSP likely secondary to COPD and KURT- consistent with RBBB- TAPSE 1.6 Respiratory - Hypoxic respiratory failure secondary to likely aspiration pneumonitis, Human meta pneumo virus, - Supportive care at this time- no evidence of lobar collapse on radiological exam - CO246 and not overtly wheezing on exam- unlikely a COPD exacerbation- continue MAE/Combivent nebs scheduled - flutter valve/chest percussion to assist with clearing of secretions - Oxygen to keep spo2 88-92%, HFNC, or CPAP/BiPAP if needed- intubation if needed - Patient DNR/DNI status reversed following conversation with and admitting service on admission - Previous trach site appears well healed- no fluctuations or subq air noted GI - PEG in place, aspiration - Hold on feedings at this time- NPO - PEG for meds - Flush q8h with water to maintain patency - Ok for medications - PPI BID with stress steroid dosing RENAL/LYTES - No acute needs at this time - follow BMP - ICU electrolyte protocol - Abnormal UA, mace in place - LE+, Nit + WBC 50- no bacteria- Mace in place ENDO - No acute needs - stress dose steroids initiated - hydrocortisone 100mg now and then 50mg IV q6h HEME - no acute needs ID - septic shock, human meta pneumo virus, - Elevated WBC, elevated NLR, SIRS + with source poss. pulm/urine or both - broad spectrum antibiotics- Zosyn and Vanco- if MRSA negative discontinue Vanco - Volume re-assessment with POCUS, UO, PLR - Lactate cleared - trend troponin and BMPs for organ dysfunction - PCT negative - Urine cx pending - Blood cultures pending - supportive care for viral illness LINES/IV ACCESS - PIV, Mace, PEG Continue use of these lines VTE: SCDS. Eliquis 5mg PEG BID- start on 05/25/24 DISPO: ICU until hemodynamics stable and off vasopressors I have personally spent 40 minutes of critical care time in the direct management of this patient. This is a life/limb threatening event. This includes time spent evaluating patient, direct bedside care, chart review, placing o rders, interpretation of diagnostic studies, discussion with consultants as well as other required patient management activities. This time is exclusive of all separately billable procedures, and separate from and in addition to any other critical care service time. Thank you for allowing us to participate in the care of this patient. Please refer to my attending physician's documentation for any further recommendations. History of Present Illness Reason for Consultation: shock on vaspopressors Requesting Physician: Donald Carlos Attending Physician: Donald Carlos History of Present Illness 73 YOM who recently was admitted to the ICU and [facility] from 04-01-24 to 04-22-24 for septic shock secondary to aspiration, respiratory failure requiring mechanical ventilation with failed extubation requiring percutaneous tracheostomy(04/04/24), and PEG (04/10/24) tube placement. This admission was also complicated with discussions with in regards to medical decision making, goals of care, in setting of patient being deemed to lack capacity to make own medical decisions. Following multiple palliative care conversations and discussions, patient was eventually made DNR/DNI and placed on comfort measures allowing permissive aspiration. He eventually passed a video swallow screen and was recommended minced and moist diet IDDSI 5 with thick liquids and noted that patient is a silent aspiratory. He was also eventually able to be de-cannulated on 04/19/24 with note of tracheocutaneous fistula, which also appears no follow up with ENT was completed. He was discharged with PEG tube in place to custodial facility on 04/22/24 as DNR. Patient returns to the ER today 05/24/24 from [facility] hypoxic, tachycardic, and hypotensive. He was given 300 cc of saline en route via EMS and 2.5 liters of saline by review of ER notes- he initially appeared to be volume responsive, however was then placed on LEVOphed- His tachycardia has resolved. He had routine labs performed- with note of luekocytosis, elevated NLR, lactate of 3.4 that has cleared to 1.6, PCT of 0.28. Organ dysfunction are as follows: metabolic encephalopathy on chronic dementia/delirium, and elevated HsCTNI. CXR with left sided aspiration likely as well as inflammatory changes with human meta-pneumo virus, UA with NE/LE WBC 50 but no bacteria, and blood cultures have been sent. Patient will be admitted to the ICU and will continue with resuscitation with goal of weaning vasopressors. Will initiate stress dose steroids as well. Chronic medical conditions: dementia, PMHx afib w/RVR, Bradycardia (tachy-rosi syndrome), COPD, KURT, OA, anemia, seizure disorder, recent hospitalization for LLL pneumonia CODE: FULL Allergies Allergy/AdvReac Type Severity Reaction Status Date / Time No Known Allergies Allergy Verified 12/20/23 19:27 Home Medications Medication Instructions Recorded Confirmed Type acetaminophen 325 mg tablet 650 mg PO Q6 PRN PAIN 1-10 12/20/23 05/24/24 History acetaminophen 325 mg tablet 650 mg PO QID PRN TEMP > 101 12/20/23 05/24/24 History apixaban 5 mg tablet (Eliquis) 5 mg PO BID 12/20/23 05/24/24 History atorvastatin 40 mg tablet 40 mg PO DAILY 12/20/23 05/24/24 History buspirone 10 mg tablet 10 mg PO TID 12/20/23 05/24/24 History chlorhexidine gluconate 0.12 % 15 ml buccal Q12 12/20/23 05/24/24 History mouthwash (Peridex) divalproex 250 mg tablet,delayed 250 mg PO TID 12/20/23 05/24/24 History release ferrous sulfate 325 mg (65 mg 325 mg PO DAILY 12/20/23 05/24/24 History iron) tablet (FeroSul) folic acid 400 mcg tablet 0.4 mg PO DAILY 12/20/23 05/24/24 History ipratropium 20 mcg-albuterol 100 1 puff inhalation Q6 PRN Wheezing 12/20/23 05/24/24 History mcg/actuation mist for inhalation (Combivent Respimat) menthol 0.1 % lotion (Eucerin Itch 1 ea topical BID 12/20/23 05/24/24 History Relief) quetiapine 100 mg tablet 100 mg PO HS 12/20/23 05/24/24 History quetiapine 25 mg tablet (Seroquel) 50 mg PO DAILY 12/20/23 05/24/24 History sennosides 8.6 mg-docusate sodium 1 tab-cap PO HS 12/20/23 05/24/24 History 50 mg tablet (Senna-S) trazodone 50 mg tablet 75 mg PO HS 12/20/23 05/24/24 History Tube Feeding Water Flush 50 ml PEG Q8H ##0 04/22/24 05/24/24 Rx magnesium oxide 400 mg (241.3 mg 400 mg PO BID #60 tabs 04/22/24 05/24/24 Rx magnesium) tablet methylcellulose (with sugar) 2 2 g PO TID #100 grams 04/22/24 05/24/24 Rx gram/19 gram oral powder (Fiber Therapy (methylcellulose-sugar)) olanzapine 5 mg disintegrating 5 mg PO BID #30 tabs 04/22/24 05/24/24 Rx tablet polyethylene glycol 3350 17 gram 17 g PO BID #60 ea 04/22/24 05/24/24 Rx oral powder packet (Miralax) Patient History Medical History Dementia with behavioral disturbance Behavioural, emotional, and social difficulties (BESD) Dysphagia Paroxysmal A-fib Hypertension Dementia Diabetes mellitus Hyperlipidemia Rhinovirus infection Left lower lobe pneumonia Complication of tracheostomy tube Social History Smoking Status: Never smoker Hx Alcohol Use: No Hx Substance Use: No Preferred Language: Serbian Communication Ability: Impaired Stonecutter Assistant Required: No Beliefs That Will Affect Care: None Current Living Situation: Halfway Current Living Situation Comment: [facility] Feels Safe at Home: Yes Assistive Devices: Wheelchair Review of Systems Review of Systems: unable to perform secondary to mental state/encephalopathy Physical Exam Physical Exam: PHYSICAL EXAM: General: awake, groans to stimuli ENT: PERRLA- staring blinks to stimulus, mouth gaped open and dry mucous membranes, moist voice Neuro: AAO x 1- blinks to name, groans to stimulus, withdrawals to pain- improved on arrival to ICU- GCS 13, left facial droop, tongue midline and moves all extremities Chest: equal rise and fall of the chest, no accessory muscle use, no heaves or thrills, decreased in bases with expiratory wheeze Cardiac: Regular rate and rhythm, telemetry reviewed- NSR no ectopy, skin warm dry, cap refill ~3 seconds, peripheral pusles +2 no JVD, no edema GI: NABS x 4 quadrants, soft, PEG tube in place clamped : Skin: no rash or erythema Results & Data Results & Data Vital Signs (Past 12 Hours) Vital Signs Temp Pulse Pulse Resp BP BP Pulse Ox 05/24/24 19:22 91 H 17 89/60 L 91 05/24/24 19:18 37.9 C H 93 H 19 86/60 L 96 05/24/24 19:15 37.9 C H 90 18 99/70 L 97 05/24/24 19:12 37.9 C H 93 H 16 96 05/24/24 19:10 88/64 L 05/24/24 19:08 76/59 L 05/24/24 19:00 72/57 L 05/24/24 18:54 38.1 C H 99 H 18 93 05/24/24 18:47 102 H 05/24/24 18:45 98/58 L 05/24/24 18:45 38.1 C H 102 H 18 98/58 L 94 05/24/24 18:42 38.2 C H 102 H 22 93 05/24/24 18:30 38.3 C H 102 H 17 98/68 L 95 05/24/24 18:30 38.2 C H 98 H 18 98/68 L 94 05/24/24 18:15 38.5 C H 123 H 24 110/77 94 05/24/24 18:03 38.8 C H 125 H 24 90 05/24/24 18:02 88/67 L 05/24/24 18:00 38.8 C H 120 H 25 H 88/67 L 91 05/24/24 17:51 38.8 C H 120 H 20 94 05/24/24 17:45 38.7 C H 128 H 23 106/73 95 05/24/24 17:45 38.8 C H 121 H 25 H 106/73 95 05/24/24 17:30 143 H 18 144/88 H 88 L 05/24/24 17:30 38.6 C H 157 H 27 H 144/88 H 92 05/24/24 17:21 157 H 25 H 92 05/24/24 17:15 99/75 L 05/24/24 17:15 125 H 23 99/75 L 99 05/24/24 17:04 129/101 H 05/24/24 17:00 121 H 18 129/101 H 97 05/24/24 16:55 155 H 28 H 96 05/24/24 16:55 150 H 28 H 88 L 05/24/24 16:45 135 H 30 H 97/76 L 89 L 05/24/24 16:36 145 H 28 H 111/75 93 05/24/24 16:36 81 L 05/24/24 16:36 05/24/24 16:36 38.9 C H 144 H 22 111/75 81 L O2 Del Method O2 Flow Rate 05/24/24 19:22 Nasal Cannula 4 05/24/24 19:18 Nasal Cannula 4 05/24/24 19:15 Nasal Cannula 6 05/24/24 19:12 05/24/24 19:10 05/24/24 19:08 05/24/24 19:00 05/24/24 18:54 05/24/24 18:47 05/24/24 18:45 05/24/24 18:45 Aerosol Mask 10 05/24/24 18:42 05/24/24 18:30 05/24/24 18:30 Room Air 05/24/24 18:15 05/24/24 18:03 05/24/24 18:02 05/24/24 18:00 Nasal Cannula 6 05/24/24 17:51 05/24/24 17:45 05/24/24 17:45 Nasal Cannula 6 05/24/24 17:30 05/24/24 17:30 Nasal Cannula 6 05/24/24 17:21 05/24/24 17:15 05/24/24 17:15 Non-rebreather 15 05/24/24 17:04 05/24/24 17:00 Non-rebreather 15 05/24/24 16:55 Non-rebreather 15 05/24/24 16:55 Nasal Cannula 6 05/24/24 16:45 Nasal Cannula 6 05/24/24 16:36 Nasal Cannula 6 05/24/24 16:36 Room Air 05/24/24 16:36 Room Air 05/24/24 16:36 Room Air Laboratory Results Abnormal lab results 05/24/24 05/24/24 05/24/24 Range/Units 16:40 17:36 18:43 WBC 12.02 H (4.8-10.8) K/ul RBC 3.94 L (4.70-6.10) M/uL Hgb 12.0 L (14.0-18.0) g/dl Hct 37.3 L (42.0-52.0) % RDW Std Deviation 50.7 H (36.4-46.3) fL RDW Coeff of Johana 14.6 H (11.5-14.5) % MPV 9.0 L (9.4-12.4) fL Neut # (Auto) 10.05 H (1.40-6.50) K/uL Lymph # (Auto) 0.53 L (1.20-3.40) K/uL [place] # (Auto) 1.37 H (0.11-0.59) K/uL PT 13.2 H (9.0-12.0) Seconds INR 1.2 H (0.9-1.1) APTT 35 H (21-31) Seconds VBG pCO2 54 H (38-50) mmHg BUN 24 H (6-23) mg/dl BUN/Creatinine Ratio 20.2 H (10-20) Glucose 143 H (70-99(Fasting)) mg/dl Lactate 4.8 H* (0.4-2.0) mmol/L Troponin I High Sens 29.6 H 46.8 H D (0-20) pg/ml Urine Appearance Cloudy A (Clear) Urine Protein 1+ H (Negative) Urine Ketones Trace H (Negative) Urine Blood Trace H (Negative) Urine Nitrite Positive A (Negative) Ur Leukocyte Esterase 2+ H (Negative) Urine WBC (Auto) >50 H (0-5) /hpf U Hyaline Cast (Auto) >20 H (0-2) /lpf Hyaline Casts Present A (None Presnt) /lpf Urine Mucus Present A (None Prsent) Human Metapneumovir PCR DETECTED A (NotDetected) Diagnostic Findings Chest X-Ray 05/24/24 16:39 EXAM: Radiograph of the Chest 1 View INDICATION: Sepsis TECHNIQUE: Frontal view of the chest. COMPARISON: 04/18/2024 FINDINGS: Lungs and pleural spaces: Increased consolidation in the left lung base and small left pleural effusion. There is new diffuse bronchovascular thickening. No visible pneumothorax although the left apex is obscured. Heart: Stable large cardiac shadow. Mediastinum: Normal contour. Bones/joints: No fracture, erosion or dislocation. Soft tissues: No abnormality noted. No radiopaque foreign body noted. Upper abdomen: No abnormality noted. IMPRESSION: 1. Increased consolidation in the left lung base and small left pleural effusion. 2. Worsening left basilar pneumonia and small pleural effusion. Consider component of mucous plugging. 3. New generalized bronchovascular thickening. Consider infectious bronchitis and chemical pneumonitis from aspiration. ACT 112: N/A Electronically signed by Amalia Ordaz 05-24-2024 5:45 PM Medications Administered Home Medications acetaminophen 325 mg tablet 650 mg PO Q6 PRN PAIN 1-10 12/20/23 [History Confirmed 12/20/23] acetaminophen 325 mg tablet 650 mg PO QID PRN TEMP > 101 12/20/23 [History Confirmed 12/20/23] apixaban 5 mg tablet (Eliquis) 5 mg PO BID 12/20/23 [History Confirmed 12/20/23] atorvastatin 40 mg tablet 40 mg PO DAILY 12/20/23 [History Confirmed 12/20/23] buspirone 10 mg tablet 10 mg PO TID 12/20/23 [History Confirmed 12/20/23] chlorhexidine gluconate 0.12 % mouthwash (Peridex) 15 ml buccal Q12 12/20/23 [History Confirmed 12/20/23] divalproex 250 mg tablet,delayed release 250 mg PO TID 12/20/23 [History Confirmed 12/20/23] ferrous sulfate 325 mg (65 mg iron) tablet (FeroSul) 325 mg PO DAILY 12/20/23 [History Confirmed 12/20/23] folic acid 400 mcg tablet 0.4 mg PO DAILY 12/20/23 [History Confirmed 12/20/23] ipratropium 20 mcg-albuterol 100 mcg/actuation mist for inhalation (Combivent Respimat) 1 puff inhalation Q6 PRN Wheezing 12/20/23 [History Confirmed 12/20/23] menthol 0.1 % lotion (Eucerin Itch Relief) 1 ea topical BID 12/20/23 [History Confirmed 12/20/23] metoprolol tartrate 25 mg tablet 25 mg PO BID 12/20/23 [History Confirmed 12/20/23] quetiapine 100 mg tablet 100 mg PO HS 12/20/23 [History Confirmed 12/20/23] quetiapine 25 mg tablet (Seroquel) 50 mg PO DAILY 12/20/23 [History Confirmed 12/20/23] sennosides 8.6 mg-docusate sodium 50 mg tablet (Senna-S) 1 tab-cap PO HS 12/20/23 [History Confirmed 12/20/23] trazodone 50 mg tablet 75 mg PO HS 12/20/23 [History Confirmed 12/20/23] Tube Feeding Water Flush 50 ml PEG Q8H ##0 02/10/25 [Rx] magnesium oxide 400 mg (241.3 mg magnesium) tablet 400 mg PO BID #60 tabs 04/22/24 [Rx] methylcellulose (with sugar) 2 gram/19 gram oral powder (Fiber Therapy (methylcellulose-sugar)) 2 g PO TID #100 grams 04/22/24 [Rx] olanzapine 5 mg disintegrating tablet 5 mg PO BID #30 tabs 04/22/24 [Rx] polyethylene glycol 3350 17 gram oral powder packet (Miralax) 17 g PO BID #60 ea 04/22/24 [Rx] Active Medications Hydrocortisone Sodium Succinate (Hydrocortisone Sod Succinate 100 Mg/2 Ml Vial) 100 mg IV Q6H QUINCY Stop: 05/25/24 01:31 Piperacillin Sod/Tazobactam Sod (Zosyn) 4.5 gm in 100 mls @ 25 mls/hr IV Q8H QUINCY; Protocol Stop: 06/01/24 00:59 Vancomycin HCl 2,000 mg/ (Sodium Chloride) 540 mls @ 200 mls/hr IV NOW ONE Stop: 05/24/24 21:41 Norepinephrine Bitartrate (Levophed/D5w) 4 mg in 250 mls @ 26.393 mls/hr IV .Q9H29M QUINCY; Protocol Stop: 06/23/24 18:59 Last Titration: 05/24/24 19:28 Dose: 0.09 mcg/kg/min, 26.4 mls/hr Pantoprazole Sodium 40 mg/ (Dextrose) 100 mls @ 20 mls/hr IV Q5H QUINCY Stop: 06/23/24 19:44 Sodium Chloride (Nss) 1,000 mls @ 150 mls/hr IV .Q6H40M QUINCY Stop: 05/25/24 19:29 Last Admin: 05/24/24 19:35 Dose: 150 mls/hr Miscellaneous Information (Vancomycin Consult Active) 1 each N/A UD PRN PRN Reason: Consult Stop: 06/23/24 18:41 ECG Additional Comments: Normal sinus rhythm Right bundle branch block PossibleLateral infarct(cited on or [id number]) Abnormal ECG When compared with ECG [id number] 16:41,(unconfirmed) Premature supraventricular complexesare no longerPresent Left anterior fascicular blockis no longerPresent Serial changes ofLateral infarctPresent Coding Level of Care Code 71457 CRITICAL CARE 1ST 30-74M Diagnoses Shock R57.9 Acute respiratory failure with hypoxia J96.01 KURT (obstructive sleep apnea) G47.33 Respiratory failure with hypoxia J96.91 Pneumonitis J98.4
[2024-05-24] MEDS ORDERED: IPRATROPIUM BROMIDE NEB SOLN 0.02% 0.5MG/2.5ML VIAL INH PRN (20:59)
[2024-05-24] MEDS ORDERED: LEVALBUTEROL HCL 0.63 MG/3 ML NEB INH PRN (20:59)
--- NOTE | 2024-05-24 21:07 | Billing Data ---
Date of Service May 24, 2024 Coding Level of Care Code 35599 INT INP/OBS CARE
[2024-05-24] MEDS ORDERED: ENOXAPARIN 1 MG/KG SQ SCH (21:15)
[2024-05-24] MEDS: ALBUT/IPRATROP 3MG/0.5MG NEB 3 ML VIAL NEB SCH (21:22)
[2024-05-24] MEDS: PANTOprazole 40 MG/10 ML SYR IV SCH (21:50)
[2024-05-24] MEDS: HYDROCORTISONE SOD 50 MG in SYRINGE 0 ML IV SCH (21:50)
[2024-05-24] MEDS: LACTATED RINGER'S 500 ML IV ONE ×2 (21:55→22:51)
[2024-05-24] MEDS: VALPROATE SOD 250 MG in DEXTROSE 5% 50 ML IV ONE (22:06)
[2024-05-24] MEDS ORDERED: GLUCOSE 10 TAB/TUBE PO PRN (22:09)
[2024-05-24] MEDS ORDERED: GLUCOSE 40% GEL 15 GM TUBE PO PRN (22:09)
[2024-05-24] MEDS ORDERED: DEXTROSE 50% 50 ML SYRINGE IV PRN (22:09)
[2024-05-24] MEDS: ICU Protocol for HYPERglycemia SCH (22:12)
[2024-05-24] MEDS: LACTATED RINGER'S 1,000 ML IV ONE (22:13)
[2024-05-24] MEDS: INSULIN ASPART PER UNIT CHARGE SC SCH (22:20)
[2024-05-24] MEDS: TUBE FEEDING WATER FLUSH PEG SCH (22:21)
--- NOTE | 2024-05-24 22:22 | CT Scan Report ---
Exam(s): CT CHEST Without Contrast EXAM: CT Chest Without Intravenous Contrast CLINICAL HISTORY: Reason for exam: Recurrent pneumonia. TECHNIQUE: Axial computed tomography images of the chest without intravenous contrast. CTDI is 19.99 mGy and DLP is 640.3 mGy-cm. Automated exposure control was utilized for the study. A dose lowering technique was utilized adhering to the principles of ALARA. COMPARISON: 04/01/24 FINDINGS: Lungs: Consolidation/collapse of the left lower lobe, similar to prior. Additional atelectasis dependent left upper lobe and right lung base. No mass. Pleural space: Unremarkable. No significant pleural effusion. No pneumothorax. Heart: Coronary artery atherosclerosis. Trace pericardial effusion. No cardiomegaly. Mediastinum: Leftward mediastinal shift related to left lower lobe collapse. Bones/joints: Osteopenia. Increased thoracic kyphosis. No acute fracture. No dislocation. Soft tissues: Unremarkable. Vasculature: Thoracic aortic atherosclerosis without aneurysm. Lymph nodes: Unremarkable. No enlarged lymph nodes. IMPRESSION: 1. Consolidation/collapse of the left lower lobe, similar to prior. Underlying pneumonia not excluded. 2. Additional atelectasis dependent left upper lobe and right lung base. Electronically signed by: Elli Quiles M.D. 05/24/24 22:21 PM
[2024-05-25] MEDS: PIPERACILLIN/TAZOBACTAM 4.5 GM/100 ML BAG IV SCH (01:04)
[2024-05-25] MEDS ORDERED: HYDROCORTISONE SOD SUCCINATE 100 MG/2 ML VIAL IV SCH (01:30)
[2024-05-25] MEDS ORDERED: HYDROCORTISONE SOD 100 MG in SYRINGE 0 ML IV SCH (02:30)
[2024-05-25 05:01] LABS: Basophils % (auto) 0.1 %; Hematocrit (blood only) 31.9 % (42.0-52.0); Immature Granulocytes % (auto) 0.4 %; Lymphocytes # (auto) 0.77 K/uL (1.20-3.40); Lymphocytes % (auto) 6.4 %; Mean Corpuscular Hgb Conc 31.3 g/dL (32.0-36.0); Mean Corpuscular Volume 95.8 fL (80.0-100.0); Mean Platelet Volume 9.2 fL (9.4-12.4); Monocytes # (auto) 0.65 K/uL (0.11-0.59); Monocytes % (auto) 5.4 %; Neutrophils # (auto) 10.54 K/uL (1.40-6.50); Neutrophils % (auto) 87.7 %; Platelet Count 160 K/uL (130-400); RDW Coefficient of Variation 14.7 % (11.5-14.5); RDW Standard Deviation 51.2 fL (36.4-46.3); Red Blood Count 3.33 M/uL (4.70-6.10); White Blood Count 12.02 K/ul (4.8-10.8)
[2024-05-25 05:02] LABS: Basophils # (auto) 0.01 K/uL (0.00-0.20); Immature Granulocytes # (auto) 0.05 K/uL (0.01-0.20)
[2024-05-25 05:33] LABS: Albumin Level 2.9 gm/dl (3.4-5.0); BUN Creatinine Ratio 26.7 (10-20); Bilirubin Direct 0.1 mg/dl (0-0.2); Bilirubin,Total 0.5 mg/dl (0.2-1.0); Calcium 7.9 mg/dl (8.6-10.3); Creatinine Clr Calc Pharmacy 94.8 ml/min; Phosphorus 3.2 mg/dl (2.5-4.9); Potassium 4.1 mmol/L (3.5-5.1); Total Protein 6.2 gm/dl (6.0-8.3)
[2024-05-25] MEDS: ICU ELECTROLYTE REPLACEMENT PROTOCOL SCH (05:37)
[2024-05-25] MEDS: MAGNESIUM SULFATE / D5W 1 GM/100 ML BAG IV SCH (06:04)
--- NOTE | 2024-05-25 07:53 | Critical Care Progress Note ---
Date of Service May 25, 2024 Assessment & Plan (1) Infection due to human metapneumovirus (hMPV): (2) Pneumonitis: (3) Atrial fibrillation with rapid ventricular response: (4) Sepsis: (5) Respiratory failure: (6) COPD (chronic obstructive pulmonary disease): (7) Respiratory failure with hypoxia: (8) Atrial fibrillation: (9) Convulsions: (10) Septic shock: Plan Reason Critically Ill: 74 YOM [facility] found unresponsive and hypoxic requiring intubation in the field, ICU due to being on vasopressors and mechanically ventilated - Critical access hospital records between June and August 2022 obtained, where Kian underwent tracheostomy in order to liberate from ET intubation Recommendations: Neuro - --Unable to assess --History of baseline dementia Back pain waiting on previous admission Hold Seroquel and olanzapine for the time being continue with valproic acid via PEG tube Cardiovascular - -- Septic shock Patient got total of 4 L since coming to the hospital Continue with vasopressor support to keep MAP greater than 65 Random cortisol greater than 60 2D echo 04/01/24: LV systolic function normal, RV moderately dilated, RV systolic function mildly reduced, LA mildly dilated; RV systolic pressure elevated at 30- 40mmHg, IVC mildly dilated --Elevated troponin Likely type II MS EKG 05/24/2024 4:41 PM: Sinus tachycardia, right bundle true block, normal left anterior fascicular block, no ST-T wave changes appreciated Respiratory - -- Acute hypoxic respiratory failure BioFire positive for human metapneumovirus Continue with oxygen support Patient is full code again, will consider intubation if need be --History of tracheostomy 04/04/24 tracheostomy, decannulated 04/19/2024 GI - PEG tube in place Patient did pass swallow eval prior to discharge last month and was being fed by mouth at the [place] [facility] RENAL/LYTES - -- Monitor BUNs/creatinine Avoid nephrotoxic medication ENDO - DMII - ICU hyperglycemic protocol HEME - -- Chronic anticoagulation On Eliquis at home ID - --Etiology is not clear, could be UTI versus pneumonia Left lower lobe consolidative process which has been going on even from the last visit Actually looks better than last month Urine could be a source of infection, continue with Zosyn Procalcitonin 0.28, nasal MRSA negative UA positive for nitrates but negative for bacteria --Prophylaxis VTE: Eliquis GI: Pantoprazole Lines:PIV, PEG Diet: Tube feeds Plan: In/out: Nasal MRSA negative, will discontinue vancomycin Follow-up random cortisol Continue with vasopressor support to keep MAP greater than 65 Resume tube feeds. Used to be on Peptamen Thank we will again need palliative care consult to get goals of care in place Patient was DNR/DNI on discharge which was last month Case was discussed with primary team I have personally spent 42 minutes of critical care time in the direct management of this patient. This is a life/limb threatening event. This includes time spent evaluating patient, direct bedside care, chart review, placing orders, interpretation of diagnostic studies, discussion with consultants, patient, and family members, as well as other required patient management activities. This time is exclusive of all separately billable procedures, and teaching time and separate from and in addition to any other critical care service time. Please note the above document was generated using voice recognition software. It may contain grammatical, syntax or spelling errors. Admission and Anticipated Discharge Date Admission Date: May 24, 2024 Subjective Patient seen and examined at bedside. No acute distress, no adverse events overnight He was off of Levophed and MAP was 66-67 when I was in the room He was on 35 L, 40% FiO2 saturating 93-94% He was alert, answering questions appropriately He did have tangential thoughts and some tangential answers. Denied any abdominal pain, mild chest discomfort Does complain of cough Review of Systems 2 Review of Systems: Unobtainable due to cognitive status Physical Exam 2 Physical Exam: Constitutional: No acute distress HEENT: EOMI, PERRLA Respiratory system: Decreased air entry bilaterally, no wheeze, no rhonchi, positive crackles bilaterally CVS: S1-S2 positive, no murmurs or gallops Abdomen: Soft, nontender, nondistended, positive bowel sounds x4, positive PEG Extremities: +2 pulses bilaterally radialis/ dorsalis pedis, no cyanosis, minimal pitting edema bilateral lower extremity Neuro: Awake alert oriented to self and place Psych: Normal mood and affect G/U: Positive [place]rade Skin: no rashes, warm and dry Lymphatic: no cervical or axillary lymphadenopathy Results & Data Results & Data Vital Signs (Past 12 Hours) Vital Signs Temp Pulse Pulse Resp BP BP Pulse Ox 05/25/24 07:39 66 22 92 05/25/24 07:36 60 18 92 05/25/24 07:06 35.8 C L 59 L 14 87 L 05/25/24 07:00 88/58 L 05/25/24 06:57 35.9 C L 60 14 88 L 05/25/24 06:48 35.9 C L 59 L 15 88 L 05/25/24 06:45 83/53 L 05/25/24 06:27 35.9 C L 56 L 17 100/62 89 L 05/25/24 06:15 108/61 05/25/24 06:00 35.9 C L 52 L 14 112/62 92 05/25/24 06:00 36 C L 56 L 16 112/62 92 05/25/24 05:45 36 C L 55 L 14 107/63 90 05/25/24 05:30 36 C L 55 L 14 103/68 90 05/25/24 05:15 36 C L 58 L 14 114/66 90 05/25/24 05:00 36.0 C L 47 L 14 91 05/25/24 04:57 36.0 C L 49 L 13 114/68 91 05/25/24 04:42 36.0 C L 60 24 119/70 93 05/25/24 04:30 35.9 C L 53 L 15 121/69 89 L 05/25/24 04:15 35.9 C L 64 22 92 05/25/24 04:15 121/72 05/25/24 04:04 100/57 L 05/25/24 04:03 35.9 C L 57 L 17 92 05/25/24 03:46 107/62 05/25/24 03:42 35.9 C L 62 23 92 05/25/24 03:39 35.9 C L 66 25 H 93 05/25/24 03:30 114/69 05/25/24 03:15 35.9 C L 58 L 15 103/60 93 05/25/24 03:00 35.8 C L 60 14 92 05/25/24 03:00 106/60 05/25/24 02:45 119/70 05/25/24 02:45 35.8 C L 60 16 94 05/25/24 02:30 107/65 05/25/24 02:30 35.7 C L 56 L 16 92 05/25/24 02:19 52 L 15 93 05/25/24 02:15 35.7 C L 52 L 13 102/62 92 05/25/24 02:00 35.7 C L 51 L 13 103/64 92 05/25/24 01:45 35.7 C L 53 L 14 102/63 92 05/25/24 01:30 35.7 C L 52 L 13 104/65 05/25/24 01:15 35.8 C L 53 L 15 109/66 92 05/25/24 01:00 35.8 C L 52 L 15 111/62 93 05/25/24 01:00 35.8 C L 57 L 19 111/62 92 05/25/24 00:48 35.7 C L 54 L 17 112/62 91 05/25/24 00:30 35.8 C L 55 L 106/63 05/25/24 00:15 35.7 C L 60 107/61 05/25/24 00:00 99/59 L 05/25/24 00:00 35.6 C L 58 L 13 91 05/24/24 23:47 58 L 05/24/24 23:45 35.6 C L 58 L 15 98/59 L 91 05/24/24 23:40 58 L 16 91 05/24/24 23:30 35.6 C L 58 L 18 97/57 L 91 05/24/24 23:15 35.6 C L 57 L 18 90 05/24/24 23:01 35.7 C L 58 L 17 111/45 L 90 05/24/24 22:45 99/62 L 05/24/24 22:45 35.7 C L 60 16 89 L 05/24/24 22:30 25.9 C L 65 18 108/66 92 05/24/24 22:15 106/64 05/24/24 22:00 36.1 C L 64 16 122/66 90 05/24/24 21:45 36.2 C L 67 110/68 92 05/24/24 21:23 67 16 94 05/24/24 21:20 05/24/24 21:20 05/24/24 21:20 68 05/24/24 21:00 36.6 C 68 18 118/69 92 05/24/24 20:17 37.1 C 79 17 100/59 L 91 05/24/24 20:12 97/59 L 05/24/24 20:08 105/62 05/24/24 20:03 37.3 C 83 16 93 05/24/24 20:02 82/53 L 05/24/24 19:56 96/59 L 05/24/24 19:54 95/59 L 05/24/24 19:48 95/61 L 05/24/24 19:44 37.5 C 85 16 90/59 L 90 O2 Del Method O2 Flow Rate FiO2 05/25/24 07:39 High Flow Nasal Cannula 35 40 05/25/24 07:36 High Flow Nasal Cannula 35 40 05/25/24 07:06 05/25/24 07:00 05/25/24 06:57 05/25/24 06:48 05/25/24 06:45 05/25/24 06:27 05/25/24 06:15 05/25/24 06:00 05/25/24 06:00 High Flow Nasal Cannula 30 30 05/25/24 05:45 High Flow Nasal Cannula 30 30 05/25/24 05:30 High Flow Nasal Cannula 30 30 05/25/24 05:15 High Flow Nasal Cannula 30 30 05/25/24 05:00 05/25/24 04:57 05/25/24 04:42 05/25/24 04:30 05/25/24 04:15 05/25/24 04:15 05/25/24 04:04 05/25/24 04:03 05/25/24 03:46 05/25/24 03:42 05/25/24 03:39 05/25/24 03:30 05/25/24 03:15 High Flow Nasal Cannula 30 30 05/25/24 03:00 05/25/24 03:00 05/25/24 02:45 05/25/24 02:45 05/25/24 02:30 05/25/24 02:30 05/25/24 02:19 High Flow Nasal Cannula 30 30 05/25/24 02:15 High Flow Nasal Cannula 30 30 05/25/24 02:00 05/25/24 01:45 05/25/24 01:30 05/25/24 01:15 05/25/24 01:00 05/25/24 01:00 05/25/24 00:48 05/25/24 00:30 05/25/24 00:15 05/25/24 00:00 05/25/24 00:00 05/24/24 23:47 05/24/24 23:45 05/24/24 23:40 High Flow Nasal Cannula 30 30 05/24/24 23:30 05/24/24 23:15 05/24/24 23:01 05/24/24 22:45 05/24/24 22:45 05/24/24 22:30 05/24/24 22:15 05/24/24 22:00 High Flow Nasal Cannula 30 30 05/24/24 21:45 High Flow Nasal Cannula 30 30 05/24/24 21:23 High Flow Nasal Cannula 30 30 05/24/24 21:20 High Flow Nasal Cannula 05/24/24 21:20 Nasal CPAP 05/24/24 21:20 05/24/24 21:00 High Flow Nasal Cannula 30 30 05/24/24 20:17 Nasal Cannula 6 05/24/24 20:12 05/24/24 20:08 05/24/24 20:03 05/24/24 20:02 05/24/24 19:56 05/24/24 19:54 05/24/24 19:48 05/24/24 19:44 Nasal Cannula 6 Laboratory Results 05/25/24 04:10 05/25/24 04:10 Coding Level of Care Code 77472 CRITICAL CARE 1ST 30-74M Diagnoses Infection due to human metapneumovirus (hMPV) B34.8 Pneumonitis J98.4 Atrial fibrillation with rapid ventricular response I48.91 Sepsis A41.9; R65.21; J96.01 Acute respiratory failure type: with hypoxia Sepsis acute organ dysfunction status: with acute organ dysfunction Sepsis type: sepsis due to unspecified organism Severe sepsis acute organ dysfunction type: acute respiratory failure Severe sepsis shock status: with septic shock Acute respiratory failure with hypoxia J96.01 Chronicity: acute Respiratory failure complication: hypoxia COPD (chronic obstructive pulmonary disease) J44.1 COPD type: COPD with acute exacerbation Respiratory failure with hypoxia J96.91 Atrial fibrillation I48.91 Convulsions R56.9 Septic shock A41.9; R65.21 (4) Sepsis Acute respiratory failure type: with hypoxia Sepsis acute organ dysfunction status: with acute organ dysfunction Sepsis type: sepsis due to unspecified organism Severe sepsis acute organ dysfunction type: acute respiratory failure Severe sepsis shock status: with septic shock Qualified Code(s): A41.9 - Sepsis, unspecified organism; R65.21 - Severe sepsis with septic shock; J96.01 - Acute respiratory failure with hypoxia (5) Respiratory failure Chronicity: acute Respiratory failure complication: hypoxia Qualified Code(s): J96.01 - Acute respiratory failure with hypoxia (6) COPD (chronic obstructive pulmonary disease) COPD type: COPD with acute exacerbation Qualified Code(s): J44.1 - Chronic obstructive pulmonary disease with (acute) exacerbation
[2024-05-25] MEDS: APIXABAN 5 MG TABLET PO SCH (07:58)
[2024-05-25] MEDS: VALPROATE SOD 250 MG in DEXTROSE 5% 50 ML IV SCH (08:14)
[2024-05-25] MEDS: VANCOMYCIN HCL 1,500 MG in SODIUM CHLORIDE 0.9% 500 ML IV SCH (08:20)
[2024-05-25] MEDS ORDERED: PEPTAMEN 1.5 CAL 1,000 ML BAG PEG SCH (10:15)
[2024-05-25] MEDS: MULTI VIT W/MINERALS LIQUID 15 ML UDC PO SCH (12:14)
[2024-05-25] MEDS: TUBE FEEDING WATER FLUSH PEG SCH (12:14)
--- NOTE | 2024-05-25 13:08 | Electrocardiogram Report ---
Test Reason : Blood Pressure : */* mmHG Vent. Rate : 143 BPM Atrial Rate : 143 BPM P-R Int : 154 ms QRS Dur : 128 ms QT Int : 318 ms P-R-T Axes : * -45 89 degrees QTcB Int : 490 ms Poor data quality, interpretation may be adversely affected Sinus tachycardia with Premature supraventricular complexes Right bundle branch block Left anterior fascicular block Bifascicular block Lateral infarct , age undetermined Abnormal ECG When compared with ECG of 11-Apr-2024 04:18, Premature ventricular complexes are no longer Present Vent. rate has increased by [address] no longer depressed in Inferior leads Nonspecific T wave abnormality no longer evident in Inferior leads Confirmed by Ritchie Adams ([id number]) on 05/25/2024 1:08:15 PM Referred By: [facility] Confirmed By: Ritchie Adams
--- NOTE | 2024-05-25 13:11 | Electrocardiogram Report ---
Test Reason : Blood Pressure : */* mmHG Vent. Rate : 98 BPM Atrial Rate : 98 BPM P-R Int : 144 ms QRS Dur : 132 ms QT Int : 378 ms P-R-T Axes : 58 -22 112 degrees QTcB Int : 482 ms Normal sinus rhythm Right bundle branch block Possible Lateral infarct (cited on or before 24-May-2024) Abnormal ECG When compared with ECG of 24-May-2024 16:41, (unconfirmed) Premature supraventricular complexes are no longer Present Left anterior fascicular block is no longer Present Serial changes of Lateral infarct Present Confirmed by Ritchie Adams ([id number]) on 05/25/2024 1:10:49 PM Referred By: [facility] Confirmed By: Ritchie Adams
[2024-05-25] MEDS: QUEtiapine FUMARATE 25 MG TABLET PO SCH (14:18)
--- NOTE | 2024-05-25 17:09 | Hospitalist Progress Note ---
Date of Service May 25, 2024 Assessment & Plan (1) Septic shock: (2) Sepsis: (3) Pneumonia: (4) Infection due to human metapneumovirus (hMPV): (5) Acute respiratory failure with hypoxia: (6) Tracheocutaneous fistula following tracheostomy: (7) Tachy-rosi syndrome: (8) KURT (obstructive sleep apnea): (9) COPD (chronic obstructive pulmonary disease): Plan 73yo male with dementia, afib, Bradycardia (tachy-rosi syndrome), COPD, KURT, OA, anemia, seizure disorder, recent hospitalization (04/01/24 to 04/22/24) for LLL pneumonia requiring intubation, trach placement, PEG placement, and ultimate decannulation. Returned to [facility] on 04/22/24. Presented to [facility] due to hypoxia & fever. Tested + for human metapneumovirus on [employer]. Imaging with ongoing LLL collapse. #Severe Sepsis/Septic Shock 2nd to presumed LLL Pneumonia - * continue zosyn; follow blood cx's * weaning levophed per ICU protocol for BP support * remains on IV fluids; defer management to ICU attending * wean FiO2 as tolerated * MRSA swab is negative - can d/c IV vanco #Human Metapneumovirus infection - supportive care. Probable bacterial superinfection in the setting of such. #Acute hypoxic respiratory failure - * 2nd to human metapneumovirus infection +/- LLL bacterial pneumonia * cont NC O2 and wean as tolerated * cont IV abx * of note - he was OFF ALL forms of supplemental O2 following his stay in April #Tachy-rosi syndrome/paroxysmal Afib - * Continue Eliquis * Hold metoprolol #Seizure disorder * Continue divalproex 250mg TID; can switch to PO or via PEG next 24 hours * valproate level wnl at 60 #COPD - * Continue home inhalers * Duonebs BID to help with mucous clearance, bronchospasm, etc. * wean FiO2 as tolerated * s/p hydrocortisone in the ER and shortly after admission but systemic steroids now stopped #Dementia - * uncertain why he is on both zyprexa & seroquel at [facility] * would recommend one antipsychotic only * hold trazodone * hold buspar #KURT - typically is on CPAP at HS at [facility]??? * not sure he could tolerate such given advanced dementia * hold off unless needed for respiratory support #PEG tube status - records from previous hospitalization in April showed he was tolerating minced/moist diet & nectar thick liquids speech therapy to re-eval him today update pt's when able Admission and Anticipated Discharge Date Admission Date: May 24, 2024 Subjective patient lying in bed comfortably currently on HFNC no distress, however on minimal amount of IV levophed during my visit he asked the same questions multiple times he could not tell me where he was getting a good history was difficulty as was a review of systems Review of Systems Review of Systems: denies pain in any location Physical Exam Physical Exam: gen - thin, muscle wasting of face, no distress, confused but awake/alert; bear hugger in place neck - no JVD mouth - MMM, dried mucous on palate & posterior throat heart - RRR, s1 s2, no murmur lungs - decreased BS left base, otherwise CTA b/l, no rales, no wheeze abd - soft NT ND BS+; PEG tube site clean ext - pulses 2+ b/l feet psych - oriented to self only Results & Data Results & Data Vital Signs (Past 12 Hours) Vital Signs Temp Pulse Pulse Resp BP BP Pulse Ox 05/25/24 16:58 05/25/24 16:58 65 05/25/24 12:18 67 25 H 93 05/25/24 10:48 35.9 C L 55 L 26 H 94 05/25/24 10:45 92/60 L 05/25/24 10:42 35.8 C L 54 L 18 94 05/25/24 10:30 84/55 L 05/25/24 10:30 35.7 C L 53 L 14 93 05/25/24 10:15 35.7 C L 58 L 13 91 05/25/24 10:15 83/51 L 05/25/24 10:00 35.6 C L 58 L 13 92 05/25/24 10:00 85/54 L 05/25/24 09:45 35.6 C L 57 L 13 92 05/25/24 09:45 89/54 L 05/25/24 09:30 88/52 L 05/25/24 09:21 35.5 C L 58 L 12 93 05/25/24 09:15 88/55 L 05/25/24 09:00 101/62 05/25/24 08:45 95/60 L 05/25/24 08:42 35.6 C L 62 21 92 05/25/24 08:30 35.6 C L 61 21 90 05/25/24 08:30 98/57 L 05/25/24 08:15 89/62 L 05/25/24 08:06 35.7 C L 66 22 88 L 05/25/24 08:00 91/58 L 05/25/24 07:39 35.8 C L 69 21 92 05/25/24 07:39 66 22 92 05/25/24 07:36 60 18 92 05/25/24 07:30 05/25/24 07:15 35.8 C L 64 16 88 L 05/25/24 07:15 97/53 L 05/25/24 07:06 35.8 C L 59 L 14 87 L 05/25/24 07:00 88/58 L 05/25/24 06:57 35.9 C L 60 14 88 L 05/25/24 06:50 60 05/25/24 06:48 35.9 C L 59 L 15 88 L 05/25/24 06:45 83/53 L 05/25/24 06:27 35.9 C L 56 L 17 100/62 89 L 05/25/24 06:15 108/61 05/25/24 06:00 35.9 C L 52 L 14 112/62 92 05/25/24 06:00 36 C L 56 L 16 112/62 92 05/25/24 05:45 36 C L 55 L 14 107/63 90 05/25/24 05:30 36 C L 55 L 14 103/68 90 05/25/24 05:15 36 C L 58 L 14 114/66 90 Pulse Ox O2 Del Method O2 Del Method O2 Flow Rate O2 Flow Rate FiO2 05/25/24 16:58 95 Nasal Cannula 2 05/25/24 16:58 05/25/24 12:18 Nasal Cannula 4 05/25/24 10:48 05/25/24 10:45 05/25/24 10:42 05/25/24 10:30 05/25/24 10:30 05/25/24 10:15 05/25/24 10:15 05/25/24 10:00 05/25/24 10:00 05/25/24 09:45 05/25/24 09:45 05/25/24 09:30 05/25/24 09:21 05/25/24 09:15 05/25/24 09:00 05/25/24 08:45 05/25/24 08:42 05/25/24 08:30 05/25/24 08:30 05/25/24 08:15 05/25/24 08:06 05/25/24 08:00 05/25/24 07:39 05/25/24 07:39 High Flow Nasal Cannula 35 40 05/25/24 07:36 High Flow Nasal Cannula 35 40 05/25/24 07:30 High Flow Nasal Cannula 35 40 05/25/24 07:15 05/25/24 07:15 05/25/24 07:06 05/25/24 07:00 05/25/24 06:57 05/25/24 06:50 05/25/24 06:48 05/25/24 06:45 05/25/24 06:27 05/25/24 06:15 05/25/24 06:00 05/25/24 06:00 High Flow Nasal Cannula 30 30 05/25/24 05:45 High Flow Nasal Cannula 30 30 05/25/24 05:30 High Flow Nasal Cannula 30 30 05/25/24 05:15 High Flow Nasal Cannula 30 30 Laboratory Results Laboratory Results - last 24 hr 05/24/24 05/24/24 05/24/24 16:40 17:36 18:43 WBC RBC Hgb Hct MCV MCH MCHC RDW Std Deviation RDW Coeff of Johana Plt Count MPV Immature Gran % (Auto) Neut % (Auto) Lymph % (Auto) Keith % (Auto) Eos % (Auto) Baso % (Auto) Neut # (Auto) Lymph # (Auto) Keith # (Auto) Eos # (Auto) Baso # (Auto) Immature Gran # (Auto) PT 13.2 H INR 1.2 H APTT 35 H PTT Ratio 1.3 Sodium 140 Potassium 4.6 Chloride 101 Carbon Dioxide 31 Anion Gap 8 BUN 24 H Creatinine 1.19 Est Cr Clr Drug Dosing 59.8 eGFR 64.10 BUN/Creatinine Ratio 20.2 H Glucose 143 H POC Glucose Lactate 1.6 Calcium 9.1 Phosphorus Magnesium 2.1 Total Bilirubin 0.4 Direct Bilirubin 0.1 AST 25 ALT 11 Alkaline Phosphatase 46 Troponin I High Sens 29.6 H 46.8 H D Total Protein 7.6 Albumin 3.5 Procalcitonin 0.28 Random Cortisol Urine Color Dark Yellow Urine Appearance Cloudy A Urine pH 6.5 Ur Specific [place] 1.020 Urine Protein 1+ H Urine Glucose (UA) Negative Urine Ketones Trace H Urine Blood Trace H Urine Nitrite Positive A Urine Bilirubin Negative Urine Urobilinogen Negative Ur Leukocyte Esterase 2+ H Urine WBC (Auto) >50 H Urine RBC (Auto) 0-2 U Hyaline Cast (Auto) >20 H U Epithel Cells (Auto) 0-2 Urine Bacteria (Auto) None Seen Hyaline Casts Present A Urine Mucus Present A Nasal Screen MRSA (PCR) Valproic Acid Adenovirus (PCR) Not Detected B. pertussis DNA (PCR) Not Detected B.parapertussis DNA PCR Not Detected C. pneumoniae DNA (PCR) Not Detected Coronavirus OC43 (PCR) Not Detected Coronavirus HKU1 (PCR) Not Detected Coronavirus 229E (PCR) Not Detected SARS-CoV-2 (PCR) Not Detected Coronavirus NL63 (PCR) Not Detected Human Metapneumovir PCR DETECTED A Influenza Type A (PCR) Not Detected Influenza Type B (PCR) Not Detected M. pneumoniae (PCR) Not Detected Parainfluenza 1 (PCR) Not Detected Parainfluenza 2 (PCR) Not Detected Parainfluenza 3 (PCR) Not Detected Parainfluenza 4 (PCR) Not Detected RSV (PCR) Not Detected Entero/Rhino (PCR) Not Detected 05/24/24 05/24/24 05/25/24 21:00 21:04 00:39 WBC RBC Hgb Hct MCV MCH MCHC RDW Std Deviation RDW Coeff of Johana Plt Count MPV Immature Gran % (Auto) Neut % (Auto) Lymph % (Auto) Keith % (Auto) Eos % (Auto) Baso % (Auto) Neut # (Auto) Lymph # (Auto) Keith # (Auto) Eos # (Auto) Baso # (Auto) Immature Gran # (Auto) PT INR APTT PTT Ratio Sodium Potassium Chloride Carbon Dioxide Anion Gap BUN Creatinine Est Cr Clr Drug Dosing eGFR BUN/Creatinine Ratio Glucose POC Glucose 196 H 147 H Lactate Calcium Phosphorus Magnesium Total Bilirubin Direct Bilirubin AST ALT Alkaline Phosphatase Troponin I High Sens Total Protein Albumin Procalcitonin Random Cortisol Urine Color Urine Appearance Urine pH Ur Specific [place] Urine Protein Urine Glucose (UA) Urine Ketones Urine Blood Urine Nitrite Urine Bilirubin Urine Urobilinogen Ur Leukocyte Esterase Urine WBC (Auto) Urine RBC (Auto) U Hyaline Cast (Auto) U Epithel Cells (Auto) Urine Bacteria (Auto) Hyaline Casts Urine Mucus Nasal Screen MRSA (PCR) Negative Valproic Acid Adenovirus (PCR) B. pertussis DNA (PCR) B.parapertussis DNA PCR C. pneumoniae DNA (PCR) Coronavirus OC43 (PCR) Coronavirus HKU1 (PCR) Coronavirus 229E (PCR) SARS-CoV-2 (PCR) Coronavirus NL63 (PCR) Human Metapneumovir PCR Influenza Type A (PCR) Influenza Type B (PCR) M. pneumoniae (PCR) Parainfluenza 1 (PCR) Parainfluenza 2 (PCR) Parainfluenza 3 (PCR) Parainfluenza 4 (PCR) RSV (PCR) Entero/Rhino (PCR) 05/25/24 05/25/24 05/25/24 01:01 04:10 05:58 WBC 12.02 H RBC 3.33 L Hgb 10.0 L Hct 31.9 L MCV 95.8 MCH 30.0 MCHC 31.3 L RDW Std Deviation 51.2 H RDW Coeff of Johana 14.7 H Plt Count 160 MPV 9.2 L Immature Gran % (Auto) 0.4 Neut % (Auto) 87.7 Lymph % (Auto) 6.4 Keith % (Auto) 5.4 Eos % (Auto) 0.0 Baso % (Auto) 0.1 Neut # (Auto) 10.54 H Lymph # (Auto) 0.77 L Keith # (Auto) 0.65 H Eos # (Auto) 0.00 Baso # (Auto) 0.01 Immature Gran # (Auto) 0.05 PT INR APTT PTT Ratio Sodium 139 Potassium 4.1 Chloride 108 H Carbon Dioxide 26 Anion Gap 5 BUN 20 Creatinine 0.75 D Est Cr Clr Drug Dosing 94.8 eGFR 94.70 BUN/Creatinine Ratio 26.7 H Glucose 182 H POC Glucose 175 H Lactate Calcium 7.9 L Phosphorus 3.2 Magnesium 2.0 Total Bilirubin 0.5 Direct Bilirubin 0.1 AST 26 ALT 11 Alkaline Phosphatase 36 Troponin I High Sens 52.4 H* Total Protein 6.2 Albumin 2.9 L Procalcitonin Random Cortisol > 60.00 Urine Color Urine Appearance Urine pH Ur Specific [place] Urine Protein Urine Glucose (UA) Urine Ketones Urine Blood Urine Nitrite Urine Bilirubin Urine Urobilinogen Ur Leukocyte Esterase Urine WBC (Auto) Urine RBC (Auto) U Hyaline Cast (Auto) U Epithel Cells (Auto) Urine Bacteria (Auto) Hyaline Casts Urine Mucus Nasal Screen MRSA (PCR) Valproic Acid 61 Adenovirus (PCR) B. pertussis DNA (PCR) B.parapertussis DNA PCR C. pneumoniae DNA (PCR) Coronavirus OC43 (PCR) Coronavirus HKU1 (PCR) Coronavirus 229E (PCR) SARS-CoV-2 (PCR) Coronavirus NL63 (PCR) Human Metapneumovir PCR Influenza Type A (PCR) Influenza Type B (PCR) M. pneumoniae (PCR) Parainfluenza 1 (PCR) Parainfluenza 2 (PCR) Parainfluenza 3 (PCR) Parainfluenza 4 (PCR) RSV (PCR) Entero/Rhino (PCR) 05/25/24 05/25/24 05/25/24 08:32 12:17 16:31 WBC RBC Hgb Hct MCV MCH MCHC RDW Std Deviation RDW Coeff of Johana Plt Count MPV Immature Gran % (Auto) Neut % (Auto) Lymph % (Auto) Keith % (Auto) Eos % (Auto) Baso % (Auto) Neut # (Auto) Lymph # (Auto) Keith # (Auto) Eos # (Auto) Baso # (Auto) Immature Gran # (Auto) PT INR APTT PTT Ratio Sodium Potassium Chloride Carbon Dioxide Anion Gap BUN Creatinine Est Cr Clr Drug Dosing eGFR BUN/Creatinine Ratio Glucose POC Glucose 157 H 132 H 106 H Lactate Calcium Phosphorus Magnesium Total Bilirubin Direct Bilirubin AST ALT Alkaline Phosphatase Troponin I High Sens Total Protein Albumin Procalcitonin Random Cortisol Urine Color Urine Appearance Urine pH Ur Specific [place] Urine Protein Urine Glucose (UA) Urine Ketones Urine Blood Urine Nitrite Urine Bilirubin Urine Urobilinogen Ur Leukocyte Esterase Urine WBC (Auto) Urine RBC (Auto) U Hyaline Cast (Auto) U Epithel Cells (Auto) Urine Bacteria (Auto) Hyaline Casts Urine Mucus Nasal Screen MRSA (PCR) Valproic Acid Adenovirus (PCR) B. pertussis DNA (PCR) B.parapertussis DNA PCR C. pneumoniae DNA (PCR) Coronavirus OC43 (PCR) Coronavirus HKU1 (PCR) Coronavirus 229E (PCR) SARS-CoV-2 (PCR) Coronavirus NL63 (PCR) Human Metapneumovir PCR Influenza Type A (PCR) Influenza Type B (PCR) M. pneumoniae (PCR) Parainfluenza 1 (PCR) Parainfluenza 2 (PCR) Parainfluenza 3 (PCR) Parainfluenza 4 (PCR) RSV (PCR) Entero/Rhino (PCR) Diagnostic Findings Chest X-Ray 05/24/24 16:39 EXAM: Radiograph of the Chest 1 View INDICATION: Sepsis TECHNIQUE: Frontal view of the chest. COMPARISON: 04/18/2024 FINDINGS: Lungs and pleural spaces: Increased consolidation in the left lung base and small left pleural effusion. There is new diffuse bronchovascular thickening. No visible pneumothorax although the left apex is obscured. Heart: Stable large cardiac shadow. Mediastinum: Normal contour. Bones/joints: No fracture, erosion or dislocation. Soft tissues: No abnormality noted. No radiopaque foreign body noted. Upper abdomen: No abnormality noted. IMPRESSION: 1. Increased consolidation in the left lung base and small left pleural effusion. 2. Worsening left basilar pneumonia and small pleural effusion. Consider component of mucous plugging. 3. New generalized bronchovascular thickening. Consider infectious bronchitis and chemical pneumonitis from aspiration. ACT 112: N/A Electronically signed by Amalia Ordaz 05-24-2024 5:[address] 05/24/24 18:59 Exam(s): CT CHEST Without Contrast EXAM: CT Chest Without Intravenous Contrast CLINICAL HISTORY: Reason for exam: Recurrent pneumonia. TECHNIQUE: Axial computed tomography images of the chest without intravenous contrast. CTDI is 19.99 mGy and DLP is 640.3 mGy-cm. Automated exposure control was utilized for the study. A dose lowering technique was utilized adhering to the principles of ALARA. COMPARISON: 04/01/24 FINDINGS: Lungs: Consolidation/collapse of the left lower lobe, similar to prior. Additional atelectasis dependent left upper lobe and right lung base. No mass. Pleural space: Unremarkable. No significant pleural effusion. No pneumothorax. Heart: Coronary artery atherosclerosis. Trace pericardial effusion. No cardiomegaly. Mediastinum: Leftward mediastinal shift related to left lower lobe collapse. Bones/joints: Osteopenia. Increased thoracic kyphosis. No acute fracture. No dislocation. Soft tissues: Unremarkable. Vasculature: Thoracic aortic atherosclerosis without aneurysm. Lymph nodes: Unremarkable. No enlarged lymph nodes. IMPRESSION: 1. Consolidation/collapse of the left lower lobe, similar to prior. Underlying pneumonia not excluded. 2. Additional atelectasis dependent left upper lobe and right lung base. Electronically signed by: Elli Quiles M.D. 05/24/24 22:21 PM PG Care Time/CCT Total # of Minutes Spent Total Time Spent with Patient: Total time spent is greater than 50% in coordination of care (as documented) at patient's floor/unit and/or counseling patient: Coding Level of Care Code 38830 SUB INP/OBS CARE 2/35MIN Diagnoses Septic shock A41.9; R65.21 Sepsis A41.9; R65.21; J96.01 Acute respiratory failure type: with hypoxia Sepsis acute organ dysfunction status: with acute organ dysfunction Sepsis type: sepsis due to unspecified organism Severe sepsis acute organ dysfunction type: acute respiratory failure Severe sepsis shock status: with septic shock Pneumonia J18.9 Laterality: left Lung location: lower lobe of lung Pneumonia type: due to unspecified organism Infection due to human metapneumovirus (hMPV) B34.8 Acute respiratory failure with hypoxia J96.01 Tracheocutaneous fistula following tracheostomy J95.04 Tachy-rosi syndrome I49.5 KURT (obstructive sleep apnea) G47.33 COPD (chronic obstructive pulmonary disease) J44.1 COPD type: COPD with acute exacerbation (2) Sepsis Acute respiratory failure type: with hypoxia Sepsis acute organ dysfunction status: with acute organ dysfunction Sepsis type: sepsis due to unspecified organism Severe sepsis acute organ dysfunction type: acute respiratory failure Severe sepsis shock status: with septic shock Qualified Code(s): A41.9 - Sepsis, unspecified organism; R65.21 - Severe sepsis with septic shock; J96.01 - Acute respiratory failure with hypoxia (3) Pneumonia Laterality: left Lung location: lower lobe of lung Pneumonia type: due to unspecified organism Qualified Code(s): J18.9 - Pneumonia, unspecified organism (9) COPD (chronic obstructive pulmonary disease) COPD type: COPD with acute exacerbation Qualified Code(s): J44.1 - Chronic obstructive pulmonary disease with (acute) exacerbation
[2024-05-25] MEDS: MIDODRINE HCL 2.5 MG TAB PO SCH (20:00)
[2024-05-25] MEDS: ALBUT/IPRATROP 3MG/0.5MG NEB 3 ML VIAL NEB SCH (20:33)
[2024-05-25] MEDS: OLANZapine ZYDIS 5 MG ORALLY DIS. TAB PO SCH (21:50)
[2024-05-25] MEDS: traZODone HCL 50 MG TAB PO SCH (22:34)
[2024-05-26 04:57] LABS: Basophils # (auto) 0.01 K/uL (0.00-0.20); Basophils % (auto) 0.1 %; Hematocrit (blood only) 28.6 % (42.0-52.0); Hemoglobin 8.9 g/dl (14.0-18.0); Immature Granulocytes # (auto) 0.04 K/uL (0.01-0.20); Immature Granulocytes % (auto) 0.5 %; Lymphocytes # (auto) 1.62 K/uL (1.20-3.40); Lymphocytes % (auto) 19.4 %; Mean Corpuscular Hemoglobin 30.2 pg (25.0-34.0); Mean Corpuscular Hgb Conc 31.1 g/dL (32.0-36.0); Mean Corpuscular Volume 96.9 fL (80.0-100.0); Mean Platelet Volume 9.5 fL (9.4-12.4); Monocytes % (auto) 10.8 %; Neutrophils # (auto) 5.76 K/uL (1.40-6.50); Neutrophils % (auto) 69.2 %; Platelet Count 144 K/uL (130-400); RDW Coefficient of Variation 14.6 % (11.5-14.5); RDW Standard Deviation 51.9 fL (36.4-46.3); Red Blood Count 2.95 M/uL (4.70-6.10); White Blood Count 8.33 K/ul (4.8-10.8)
[2024-05-26 05:14] LABS: Albumin Level 2.7 gm/dl (3.4-5.0); BUN Creatinine Ratio 31.3 (10-20); Bilirubin Direct 0.1 mg/dl (0-0.2); Bilirubin,Total 0.3 mg/dl (0.2-1.0); Calcium 7.9 mg/dl (8.6-10.3); Creatinine Clr Calc Pharmacy 111.1 ml/min; Magnesium 2.2 mg/dl (1.7-2.4); Phosphorus 2.4 mg/dl (2.5-4.9); Potassium 3.9 mmol/L (3.5-5.1); Total Protein 5.7 gm/dl (6.0-8.3)
[2024-05-26] MEDS: POT PHOSPHATE MONOBASIC W/ SOD TAB PO SCH (06:17)
[2024-05-26] MEDS: POTASSIUM CHLORIDE CRTAB 20 MEQ TABCR PO SCH (06:18)
[2024-05-26] MEDS: TUBE FEEDING WATER FLUSH GT SCH (06:19)
--- NOTE | 2024-05-26 09:44 | Critical Care Progress Note ---
Date of Service May 26, 2024 Assessment & Plan (1) Shock: (2) Acute respiratory failure with hypoxia: (3) KURT (obstructive sleep apnea): (4) Respiratory failure with hypoxia: (5) Pneumonitis: (6) Acute UTI: (7) Anemia: Plan Patient found unresponsive at assisted requiring pressors and high flow oxygen. Restart home meds slowly. Septic shock has resolved. Patient likely with encephalopathy and sepsis due to poor p.o. intake and viral illness/pseudomonal infection in the urine. Continue supportive care. Follow-up urine culture sensitivities. Continue Zosyn. Continue Eliquis for history of A-fib. Continue pantoprazole for GERD symptoms. Replace electrolytes as needed. Anemia noted today. Repeat hemoglobin now. Likely hemodilutional. Patient stable for downgrade to PCU. Admission and Anticipated Discharge Date Admission Date: May 24, 2024 Subjective Patient very poor historian denies any major complaints at this present time. Per nursing hemodynamics are stable and there have been no oxygenation issues overnight. He has been weaned off of high flow oxygen. Review of Systems Review of Systems: All systems reviewed & are unremarkable except as noted in HPI & below Physical Exam Physical Exam: Constitutional: Patient appears to be of their stated age. Patient is in no apparent distress. Patient is well-developed. Eyes: Pupils are equal round and reactive to light. Conjunctivae are normal. Anicteric sclera. Ears nose, mouth and throat: Mallampati class 2. Normal posterior oropharynx. Uvula is midline. Neck: Trachea is midline. Visual inspection is normal. Respiratory: Clear to auscultation bilaterally. No use of accessory muscles. No significant clubbing noted. Cardiovascular: Regular rate and rhythm. No murmurs. No edema. Gastrointestinal: Normal bowel sounds, soft, nontender and nondistended. No hepatosplenomegaly noted. Musculoskeletal: No cyanosis. Patient is able to move all extremities. Strength is 5 out of 5 in the upper and lower extremities. Skin: No rashes, warm dry and intact. Neurologic: No obvious focal neurological deficits seen. Psychiatric: Alert and oriented x1. Tangential. Results & Data Results & Data Vital Signs (Past 12 Hours) Vital Signs Temp Pulse Pulse Resp BP Pulse Ox O2 Del Method 05/26/24 08:00 109/61 05/26/24 08:00 36.4 C L 73 23 95 05/26/24 08:00 Room Air 05/26/24 07:25 105/64 05/26/24 07:25 105/64 05/26/24 07:21 90 20 100 Nasal Cannula 05/26/24 07:18 36.3 C L 92 H 25 H 100 05/26/24 06:54 36.3 C L 68 23 100 05/26/24 01:00 103/77 05/26/24 01:00 10305/26/24 01:00 10305/26/24 01:00 10377 05/26/24 01:00 10305/26/24 01:00 103/77 05/26/24 01:00 10305/26/24 00:42 36.1 C L 74 16 100 05/26/24 00:15 36.1 C L 56 L 15 85 L 05/26/24 00:00 63 05/26/24 00:00 63 05/26/24 00:00 05/26/24 00:00 05/26/24 00:00 05/26/24 00:00 05/26/24 00:00 05/26/24 00:00 05/26/24 00:00 05/26/24 00:00 05/26/24 00:00 05/26/24 00:00 05/26/24 00:00 05/26/24 00:00 05/26/24 00:00 05/26/24 00:00 05/26/24 00:00 05/26/24 00:00 05/26/24 00:00 63 05/26/24 00:00 63 05/26/24 00:00 63 05/26/24 00:00 63 05/26/24 00:00 63 05/26/24 00:00 63 05/26/24 00:00 63 05/26/24 00:00 63 05/26/24 00:00 05/25/24 23:54 36.1 C L 65 18 87 L 05/25/24 23:00 101/65 05/25/24 23:00 101/05/25/24 23:00 101/65 05/25/24 23:00 101/65 05/25/24 23:00 101/65 05/25/24 23:00 101/05/25/24 23:00 101/05/25/24 23:00 101/05/25/24 23:00 101/05/25/24 23:00 101/05/25/24 23:00 101/65 05/25/24 23:00 101/65 05/25/24 23:00 101/65 05/25/24 21:45 104/61 05/25/24 21:45 104/61 05/25/24 21:45 104/61 05/25/24 21:45 O2 Flow Rate 05/26/24 08:00 05/26/24 08:00 05/26/24 08:00 05/26/24 07:25 05/26/24 07:25 05/26/24 07:21 5 05/26/24 07:18 05/26/24 06:54 05/26/24 01:00 05/26/24 01:00 05/26/24 01:00 05/26/24 01:00 05/26/24 01:00 05/26/24 01:00 05/26/24 01:00 05/26/24 00:42 05/26/24 00:15 05/26/24 00:00 05/26/24 00:00 05/26/24 00:00 05/26/24 00:00 05/26/24 00:00 05/26/24 00:00 05/26/24 00:00 05/26/24 00:00 05/26/24 00:00 05/26/24 00:00 05/26/24 00:00 05/26/24 00:00 05/26/24 00:00 05/26/24 00:00 05/26/24 00:00 05/26/24 00:00 05/26/24 00:00 05/26/24 00:00 05/26/24 00:00 05/26/24 00:00 05/26/24 00:00 05/26/24 00:00 05/26/24 00:00 05/26/24 00:00 05/26/24 00:00 05/26/24 00:00 05/26/24 00:00 05/25/24 23:54 05/25/24 23:00 05/25/24 23:00 05/25/24 23:00 05/25/24 23:00 05/25/24 23:00 05/25/24 23:00 05/25/24 23:00 05/25/24 23:00 05/25/24 23:00 05/25/24 23:00 05/25/24 23:00 05/25/24 23:00 05/25/24 23:00 05/25/24 21:45 05/25/24 21:45 05/25/24 21:45 05/25/24 21:45 Coding Level of Care Code 72254 SUB INP/OBS CARE 04/06MIN Diagnoses Shock R57.9 Acute respiratory failure with hypoxia J96.01 KURT (obstructive sleep apnea) G47.33 Respiratory failure with hypoxia J96.91 Pneumonitis J98.4 Acute UTI N39.0 Anemia D64.9
[2024-05-26 10:21] LABS: Basophils # (auto) 0.02 K/uL (0.00-0.20); Basophils % (auto) 0.3 %; Hematocrit (blood only) 28.9 % (42.0-52.0); Hemoglobin 9.2 g/dl (14.0-18.0); Immature Granulocytes # (auto) 0.03 K/uL (0.01-0.20); Immature Granulocytes % (auto) 0.4 %; Lymphocytes # (auto) 1.29 K/uL (1.20-3.40); Lymphocytes % (auto) 17.6 %; Mean Corpuscular Hemoglobin 30.4 pg (25.0-34.0); Mean Corpuscular Hgb Conc 31.8 g/dL (32.0-36.0); Mean Corpuscular Volume 95.4 fL (80.0-100.0); Mean Platelet Volume 9.3 fL (9.4-12.4); Monocytes # (auto) 0.72 K/uL (0.11-0.59); Monocytes % (auto) 9.8 %; Neutrophils # (auto) 5.25 K/uL (1.40-6.50); Neutrophils % (auto) 71.9 %; Platelet Count 139 K/uL (130-400); RDW Coefficient of Variation 14.6 % (11.5-14.5); RDW Standard Deviation 51.1 fL (36.4-46.3); Red Blood Count 3.03 M/uL (4.70-6.10); White Blood Count 7.31 K/ul (4.8-10.8)
[2024-05-26] MEDS ORDERED: ACETAMINOPHEN 325 MG TAB PO PRN (10:36)
[2024-05-26] MEDS: DIVALPROEX DELAY RELEASE 250 MG TABEC PO SCH (13:00)
[2024-05-26] MEDS: METHYLCELLULOSE POWDER 454 GM JAR PO SCH (13:00)
--- NOTE | 2024-05-26 19:42 | Hospitalist Progress Note ---
Date of Service May 26, 2024 Assessment & Plan (1) Septic shock: (2) Sepsis: (3) Pneumonia: (4) Infection due to human metapneumovirus (hMPV): (5) Acute respiratory failure with hypoxia: (6) Tracheocutaneous fistula following tracheostomy: (7) Tachy-rosi syndrome: (8) KURT (obstructive sleep apnea): (9) COPD (chronic obstructive pulmonary disease): (10) Acute UTI: (11) Dementia with behavioral disturbance: Plan 73yo male with dementia, afib, tachy-rosi syndrome, COPD, KURT, OA, anemia, seizure disorder, recent hospitalization (04/01/24 to 04/22/24) for LLL pneumonia requiring intubation, trach placement, PEG placement, and ultimate decannulation. Returned to [facility] on 04/22/24. Presented to [facility] due to hypoxia & fever. Tested + for human metapneumovirus on [employer]. Imaging with ongoing LLL collapse. Urine cx now growing pseudomonas. #Severe Sepsis/Septic Shock 2nd to either LLL Pneumonia and/or UTI - * continue zosyn; await final urine cx result * blood cx's thus far negative * weaned off levophed early AM of 05/25/24 * FiO2 weaned off * sepsis markedly improved #Human Metapneumovirus infection - supportive care. Suspected bacterial superinfection in the setting of such. #Acute hypoxic respiratory failure - * 2nd to human metapneumovirus infection +/- LLL bacterial pneumonia * resolving; now off NC O2 #Tachy-rosi syndrome/paroxysmal Afib - * Continue Eliquis * Hold metoprolol * BPs still too low to resume #Seizure disorder * Continue divalproex 250mg TID * valproate level wnl at 60 #COPD - * Duonebs BID to help with mucous clearance, bronchospasm, etc. * s/p hydrocortisone in the ER and shortly after admission but systemic steroids now stopped #Dementia - * uncertain why he is on both zyprexa & seroquel at [facility] * would recommend one antipsychotic only; thus, hold zyprexa moving forward, resume seroquel 100mg at HS, and titrate with seroquel as needed * trazodone resumed * hold buspar for now #KURT - typically is on CPAP at HS at [facility]??? * not sure he could tolerate such given advanced dementia * hold off unless needed for respiratory support #PEG tube status - records from previous hospitalization in April showed he was tolerating minced/moist diet & nectar thick liquids speech therapy re-evaled him and he is clear for diet updated pt's by phone on 05/25 downgrade from ICU to PCU status Admission and Anticipated Discharge Date Admission Date: May 24, 2024 Subjective patient was sundowning overnight today was pleasantly confused during the visit he told me he had "2 kids" and that they were ages "11 and 12" he also said "my came and saw me this morning" (which is not true) he was telling me stories throughout the visit that often didn't make sense patient did have a large BM earlier today on the commode Review of Systems Review of Systems: patient denied pain in any location no chest pain no dyspnea no abd pain Physical Exam Physical Exam: gen - thin, muscle wasting of face, no distress, confused but looks good; very talkative today neck - no JVD mouth - MMM heart - RRR, s1 s2, no murmur lungs - decreased BS left base, otherwise CTA b/l, no rales, no wheeze abd - soft NT ND BS+ ext - pulses 2+ b/l feet psych - oriented to self only Results & Data Results & Data Vital Signs (Past 12 Hours) Vital Signs Temp Pulse Pulse Resp BP BP Pulse Ox 05/26/24 18:45 90 05/26/24 15:00 36.8 C 91 H 18 110/72 90 05/26/24 08:00 05/26/24 08:00 109/61 05/26/24 08:00 36.4 C L 73 23 95 05/26/24 08:00 O2 Del Method 05/26/24 18:45 05/26/24 15:00 Room Air 05/26/24 08:00 Room Air 05/26/24 08:00 05/26/24 08:00 05/26/24 08:00 Room Air Laboratory Results Laboratory Results - last 24 hr 05/26/24 05/26/24 05/26/24 01:03 04:00 07:39 WBC 8.33 RBC 2.95 L Hgb 8.9 L Hct 28.6 L MCV 96.9 MCH 30.2 MCHC 31.1 L RDW Std Deviation 51.9 H RDW Coeff of Johana 14.6 H Plt Count 144 MPV 9.5 Immature Gran % (Auto) 0.5 Neut % (Auto) 69.2 Lymph % (Auto) 19.4 Erath % (Auto) 10.8 Eos % (Auto) 0.0 Baso % (Auto) 0.1 Neut # (Auto) 5.76 Lymph # (Auto) 1.62 Erath # (Auto) 0.90 H Eos # (Auto) 0.00 Baso # (Auto) 0.01 Immature Gran # (Auto) 0.04 Sodium 137 Potassium 3.9 Chloride 106 Carbon Dioxide 32 Anion Gap -1 L BUN 20 Creatinine 0.64 Est Cr Clr Drug Dosing 111.1 eGFR 99.34 BUN/Creatinine Ratio 31.3 H Glucose 74 POC Glucose 91 76 Calcium 7.9 L Phosphorus 2.4 L Magnesium 2.2 Total Bilirubin 0.3 Direct Bilirubin 0.1 AST 35 ALT 12 Alkaline Phosphatase 30 L Total Protein 5.7 L Albumin 2.7 L 05/26/24 05/26/24 05/26/24 09:50 11:24 16:09 WBC 7.31 RBC 3.03 L Hgb 9.2 L Hct 28.9 L MCV 95.4 MCH 30.4 MCHC 31.8 L RDW Std Deviation 51.1 H RDW Coeff of Johana 14.6 H Plt Count 139 MPV 9.3 L Immature Gran % (Auto) 0.4 Neut % (Auto) 71.9 Lymph % (Auto) 17.6 Erath % (Auto) 9.8 Eos % (Auto) 0.0 Baso % (Auto) 0.3 Neut # (Auto) 5.25 Lymph # (Auto) 1.29 Erath # (Auto) 0.72 H Eos # (Auto) 0.00 Baso # (Auto) 0.02 Immature Gran # (Auto) 0.03 Sodium Potassium Chloride Carbon Dioxide Anion Gap BUN Creatinine Est Cr Clr Drug Dosing eGFR BUN/Creatinine Ratio Glucose POC Glucose 95 89 Calcium Phosphorus Magnesium Total Bilirubin Direct Bilirubin AST ALT Alkaline Phosphatase Total Protein Albumin Diagnostic Findings Microbiology 05/24/24 17:07 Blood Aerobic Blood Culture - Preliminary No growth in Aerobic bottle after 48 hours. 05/24/24 17:07 Blood Anaerobic Blood Culture - Preliminary No growth in Anaerobic bottle after 48 hours. 05/24/24 17:24 Blood Aerobic Blood Culture - Preliminary No growth in Aerobic bottle after 48 hours. 05/24/24 17:24 Blood Anaerobic Blood Culture - Preliminary No growth in Anaerobic bottle after 48 hours. 05/24/24 17:36 Urine,Straight Cath Urine Culture - Preliminary Pseudomonas aeruginosa PG Care Time/CCT Total # of Minutes Spent Total Time Spent with Patient: Total time spent is greater than 50% in coordination of care (as documented) at patient's floor/unit and/or counseling patient: Coding Level of Care Code 25914 SUB INP/OBS CARE 2/35MIN Diagnoses Septic shock A41.9; R65.21 Sepsis A41.9; R65.21; J96.01 Acute respiratory failure type: with hypoxia Sepsis acute organ dysfunction status: with acute organ dysfunction Sepsis type: sepsis due to unspecified organism Severe sepsis acute organ dysfunction type: acute respiratory failure Severe sepsis shock status: with septic shock Pneumonia J18.9 Laterality: left Lung location: lower lobe of lung Pneumonia type: due to unspecified organism Infection due to human metapneumovirus (hMPV) B34.8 Acute respiratory failure with hypoxia J96.01 Tracheocutaneous fistula following tracheostomy J95.04 Tachy-rosi syndrome I49.5 KURT (obstructive sleep apnea) G47.33 COPD (chronic obstructive pulmonary disease) J44.1 COPD type: COPD with acute exacerbation Acute UTI N39.0 Dementia with behavioral disturbance F03.918 (2) Sepsis Acute respiratory failure type: with hypoxia Sepsis acute organ dysfunction status: with acute organ dysfunction Sepsis type: sepsis due to unspecified organism Severe sepsis acute organ dysfunction type: acute respiratory failure Severe sepsis shock status: with septic shock Qualified Code(s): A41.9 - Sepsis, unspecified organism; R65.21 - Severe sepsis with septic shock; J96.01 - Acute respiratory failure with hypoxia (3) Pneumonia Laterality: left Lung location: lower lobe of lung Pneumonia type: due to unspecified organism Qualified Code(s): J18.9 - Pneumonia, unspecified organism (9) COPD (chronic obstructive pulmonary disease) COPD type: COPD with acute exacerbation Qualified Code(s): J44.1 - Chronic obstructive pulmonary disease with (acute) exacerbation
[2024-05-26] MEDS: EUCERIN CR 120 GM JAR TOP SCH (20:02)
[2024-05-26] MEDS: MAGNESIUM OXIDE 400 MG TAB PO SCH (20:03)
[2024-05-26] MEDS: QUEtiapine FUMARATE 100 MG TABLET PO SCH (20:05)
[2024-05-27 05:04] LABS: BUN Creatinine Ratio 25.5 (10-20); Creatinine Clr Calc Pharmacy 139.5 ml/min; Potassium 4.1 mmol/L (3.5-5.1)
--- NOTE | 2024-05-27 09:49 | Palliative Care Consultation ---
Date of Consultation May 27, 2024 Assessment & Plan (1) Palliative care by specialist: Introduced Palliative Medicine and explained our role in patient's care. Patient and/or family were receptive to palliative services for goals of care discussions. Reviewed we are different from hospice, a home health nurse visiting service. (2) Discussion about advance care planning held with family member: Phone conversation held with pt's Renee to discuss goals of care. She shared that she recalls previous conversations with palliative care team and invited our ongoing involvement in goal planning. She shared that she understands that the pt is very sick, but she is encouraged that he has been transferred out of the ICU. She shared that she cannot come to visit because she does not drive and has her own health problems. Discussed code status and helped Renee understand that CPR is only done after a person has and involves uncomfortable and invasive procedures that, if successful, have high risk of multiple complications including but not limited to rib fractures, pneumo/hemothorax, JASON, ventilator dependence, anoxic brain injury, and parts counterman/permanent cognitive and functional deficits. CPR survival: Only about 10% of patients who have [id number] sudden card iac arrest survive to hospital discharge, with many survivors having neurologic impairment. This rate is even lower among patients with serious coexisting conditions, ie chance of survival to hospital discharge for in-hospital CPR in older people is low to moderate (15%) and decreases with age, comorbidities, performance status and frailty: for pts > 70 yo, more than half of the patients who initially survived resuscitation in the hospital before hospital discharge. The pooled survival to discharge after in-hospital CPR was 18% for patients between 70 and 79 years old, 15% for patients between 80 and 89 years old and 11% for patients of 90 years and older. (Magnus CHAPAY, Migue LJ, Kwadwo F, et al. Trends in short- and long-term survival among [id number] cardiac arrest patients alive at hospital arrival. Circulation 2014;130:5338-0610. AND Aditya C, Florentino T, Reuben R, et al. Performance of clinical risk scores to predict mortality and neurological outcome in cardiac arrest patients. Resuscitation 2019;136:21-29.) Renee was thankful for the information shared. She said that she had participated in a previous discussion with her and the MDs via zoom call to discuss code status. She shared that her requested that everything possible be done to prolong his life and until he states otherwise, she will continue with full code. She referenced his previous tracheostomy and PEG tube and that he agreed to those then and would again. continue full code, full treat. Plan ACP discussion held via phone from 14:00-14:30 We will sign off on this patient as goals of care are clearly established for full code / continue all life prolonging therapies Thank you for including Palliative Care in the management of this patient. Please call with any questions or concerns regarding this consultation. History of Present Illness Reason for Consultation: goals of care Requesting Physician: Gerardo Morin MD Attending Physician: Gerardo Morin MD History of Present Illness Mr Mae is a 73 YOM residen of [facility] with PMHx afib w/RVR, Bradycardia (tachy-rosi syndrome), COPD, KURT, OA, anemia, seizure disorder, brought to ED on 05/24 for hypoxia (low 80s on room air), fever, and tachycardia. Admission course complicated by hypotension refractory to fluid challenge, metabolic encephalopathy on chronic dementia/delirium, and elevated HsCTNI, PNA w/ human meta-pneumo virus. He was admitted to the ICU for sepsis/hypotension on vasopressors and stress dose steroids. Of note, he was admitted to [facility] from 04-01-24 to 04-22-24 for septic shock secondary to aspiration, respiratory failure requiring mechanical ventilation wi th failed extubation requiring percutaneous tracheostomy(04/04/24), and PEG (04/10/24) tube placement. Following multiple palliative care conversations and discussions, patient was eventually made DNR/DNI and placed on comfort measures allowing permissive aspiration. He eventually passed a video swallow screen and was recommended minced and moist diet IDDSI 5 with thick liquids and noted that patient is a silent aspiration risk. He was de-cannulated on 04/19/24 with note of tracheocutaneous fistula, which also appears no follow up with ENT was completed. He was discharged to [facility] with PEG tube as DNR. Palliative care was consulted to readdress goals of care. Allergies Allergy/AdvReac Type Severity Reaction Status Date / Time No Known Allergies Allergy Verified 12/20/23 19:27 Home Medications Medication Instructions Recorded Confirmed Type acetaminophen 325 mg tablet 650 mg PO Q6 PRN PAIN 1-10 12/20/23 05/24/24 History acetaminophen 325 mg tablet 650 mg PO QID PRN TEMP > 101 12/20/23 05/24/24 History apixaban 5 mg tablet (Eliquis) 5 mg PO BID 12/20/23 05/24/24 History atorvastatin 40 mg tablet 40 mg PO DAILY 12/20/23 05/24/24 History buspirone 10 mg tablet 10 mg PO TID 12/20/23 05/24/24 History chlorhexidine gluconate 0.12 % 15 ml buccal Q12 12/20/23 05/24/24 History mouthwash (Peridex) divalproex 250 mg tablet,delayed 250 mg PO TID 12/20/23 05/24/24 History release ferrous sulfate 325 mg (65 mg 325 mg PO DAILY 12/20/23 05/24/24 History iron) tablet (FeroSul) folic acid 400 mcg tablet 0.4 mg PO DAILY 12/20/23 05/24/24 History ipratropium 20 mcg-albuterol 100 1 puff inhalation Q6 PRN Wheezing 12/20/23 05/24/24 History mcg/actuation mist for inhalation (Combivent Respimat) menthol 0.1 % lotion (Eucerin Itch 1 ea topical BID 12/20/23 05/24/24 History Relief) quetiapine 100 mg tablet 100 mg PO HS 12/20/23 05/24/24 History quetiapine 25 mg tablet (Seroquel) 50 mg PO DAILY 12/20/23 05/24/24 History sennosides 8.6 mg-docusate sodium 1 tab-cap PO HS 12/20/23 05/24/24 History 50 mg tablet (Senna-S) trazodone 50 mg tablet 75 mg PO HS 12/20/23 05/24/24 History Tube Feeding Water Flush 50 ml PEG Q8H ##0 04/22/24 05/24/24 Rx magnesium oxide 400 mg (241.3 mg 400 mg PO BID #60 tabs 04/22/24 05/24/24 Rx magnesium) tablet methylcellulose (with sugar) 2 2 g PO TID #100 grams 04/22/24 05/24/24 Rx gram/19 gram oral powder (Fiber Therapy (methylcellulose-sugar)) olanzapine 5 mg disintegrating 5 mg PO BID #30 tabs 04/22/24 05/24/24 Rx tablet polyethylene glycol 3350 17 gram 17 g PO BID #60 ea 04/22/24 05/24/24 Rx oral powder packet (Miralax) Patient History Medical History Dementia with behavioral disturbance Behavioural, emotional, and social difficulties (BESD) Dysphagia Paroxysmal A-fib Hypertension Dementia Diabetes mellitus Hyperlipidemia Rhinovirus infection Left lower lobe pneumonia Complication of tracheostomy tube Social History Smoking Status: Never smoker Hx Alcohol Use: No Hx Substance Use: No Preferred Language: [place] Communication Ability: Impaired Relay Operator Required: No Beliefs That Will Affect Care: None Current Living Situation: Snf Current Living Situation Comment: [facility] Feels Safe at Home: Yes Assistive Devices: Wheelchair Review of Systems Review of Systems: Unobtainable due to cognitive status Physical Exam Constitutional: + thin, + altered mental status and coop erative; no acute distress awake, alert and pleasantly communicative Eyes: PERRL, conjunctivae normal, anicteric sclerae ENMT: external ear and nose normal, oropharynx normal Respiratory: normal respiratory effort Auscultation: + diminished lung sounds and + crackles Cardiovascular: RRR, no murmur, no edema Gastrointestinal (Abdomen): normal bowel sounds, soft, nontender, no hepatosplenomegaly Results & Data Vital Signs (Past 12 Hours) Vital Signs Pulse Pulse Resp BP Pulse Ox O2 Del Method O2 Flow Rate 05/27/24 07:22 66 16 99 Nasal Cannula 3 05/27/24 00:15 66 16 103/71 90 05/26/24 23:02 71 14 91 05/26/24 22:05 65 15 91 Laboratory Results Abnormal lab results 05/26/24 05/27/24 Range/Units 09:50 04:25 RBC 3.03 L (4.70-6.10) M/uL Hgb 9.2 L (14.0-18.0) g/dl Hct 28.9 L (42.0-52.0) % MCHC 31.8 L (32.0-36.0) g/dL RDW Std Deviation 51.1 H (36.4-46.3) fL RDW Coeff of Johana 14.6 H (11.5-14.5) % MPV 9.3 L (9.4-12.4) fL Terrell # (Auto) 0.72 H (0.11-0.59) K/uL Carbon Dioxide 35 H (21-32) mmol/L Anion Gap -1 L (3-11) Creatinine 0.51 L (0.6-1.4) mg/dl BUN/Creatinine Ratio 25.5 H (10-20) Calcium 8.0 L (8.6-10.3) mg/dl Diagnostic Findings Chest X-Ray 05/24/24 16:39 EXAM: Radiograph of the Chest 1 View INDICATION: Sepsis TECHNIQUE: Frontal view of the chest. COMPARISON: 04/18/2024 FINDINGS: Lungs and pleural spaces: Increased consolidation in the left lung base and small left pleural effusion. There is new diffuse bronchovascular thickening. No visible pneumothorax although the left apex is obscured. Heart: Stable large cardiac shadow. Mediastinum: Normal contour. Bones/joints: No fracture, erosion or dislocation. Soft tissues: No abnormality noted. No radiopaque foreign body noted. Upper abdomen: No abnormality noted. IMPRESSION: 1. Increased consolidation in the left lung base and small left pleural effusion. 2. Worsening left basilar pneumonia and small pleural effusion. Consider component of mucous plugging. 3. New generalized bronchovascular thickening. Consider infectious bronchitis and chemical pneumonitis from aspiration. ACT 112: N/A Electronically signed by Amalia Ordaz 05-24-2024 5:[address] 05/24/24 18:59 Exam(s): CT CHEST Without Contrast EXAM: CT Chest Without Intravenous Contrast CLINICAL HISTORY: Reason for exam: Recurrent pneumonia. TECHNIQUE: Axial computed tomography images of the chest without intravenous contrast. CTDI is 19.99 mGy and DLP is 640.3 mGy-cm. Automated exposure control was utilized for the study. A dose lowering technique was utilized adhering to the principles of ALARA. COMPARISON: 04/01/24 FINDINGS: Lungs: Consolidation/collapse of the left lower lobe, similar to prior. Additional atelectasis dependent left upper lobe and right lung base. No mass. Pleural space: Unremarkable. No significant pleural effusion. No pneumothorax. Heart: Coronary artery atherosclerosis. Trace pericardial effusion. No cardiomegaly. Mediastinum: Leftward mediastinal shift related to left lower lobe collapse. Bones/joints: Osteopenia. Increased thoracic kyphosis. No acute fracture. No dislocation. Soft tissues: Unremarkable. Vasculature: Thoracic aortic atherosclerosis without aneurysm. Lymph nodes: Unremarkable. No enlarged lymph nodes. IMPRESSION: 1. Consolidation/collapse of the left lower lobe, similar to prior. Underlying pneumonia not excluded. 2. Additional atelectasis dependent left upper lobe and right lung base. Electronically signed by: Elli Quiles M.D. 05/24/24 22:21 PM Medications Administered Current Inpatient Medications Acetaminophen (Acetaminophen 325 Mg Tab) 650 mg PO Q6H PRN PRN Reason: PAIN 1-10 Stop: 06/25/24 10:35 Albuterol (Albut/Ipratrop 3mg/0.5mg Neb 3 Ml Vial) 3 ml NEB BIDR [facility]; Protocol Stop: 06/24/24 18:59 Last Admin: 05/27/24 07:22 Dose: 3 ml Apixaban (Apixaban 5 Mg Tablet) 5 mg PO BID QUINCY Stop: 06/24/24 08:59 Last Admin: 05/26/24 20:02 Dose: 5 mg Atorvastatin Calcium (Atorvastatin 40 Mg Tab) 40 mg PO DAILY QUINCY Stop: 06/26/24 08:59 Dextrose (Dextrose 50% 50 Ml Syringe) 25 - 50 ml IV UD PRN; Protocol PRN Reason: Hypoglycemia Protocol Stop: 06/23/24 22:08 Divalproex Sodium (Divalproex Delay Release 250 Mg Tabec) 250 mg PO TID QUINCY Stop: 06/25/24 13:59 Last Admin: 05/26/24 20:02 Dose: 250 mg Folic Acid (Folic Acid 400 Mcg Tab) 400 mcg PO DAILY QUINCY Stop: 06/26/24 08:59 Glucose (Glucose 40% Gel 15 Gm Tube) 15 - 30 gm PO UD PRN; Protocol PRN Reason: Hypoglycemia Protocol Stop: 06/23/24 22:08 Glucose (Glucose 10 Tab/Tube) 4 - 8 tab PO UD PRN; Protocol PRN Reason: Hypoglycemia Protocol Stop: 06/23/24 22:08 Piperacillin Sod/Tazobactam Sod (Zosyn) 4.5 gm in 100 mls @ 25 mls/hr IV Q8H QUINCY; Protocol Stop: 05/29/24 23:59 Last Infusion: 05/27/24 05:38 Dose: Infused Insulin Aspart (Insulin Aspart Per Unit Charge) 0 units SC Q6 QUINCY Stop: 06/23/24 22:14 Last Admin: 05/27/24 06:06 Dose: Not Given Levofloxacin (Levofloxacin 750 Mg Tab) 750 mg PO DAILY@1100 QU[facility]CY; Protocol Stop: 06/01/24 10:59 Magnesium Oxide (Magnesium Oxide 400 Mg Tab) 400 mg PO BID QUINCY Stop: 06/25/24 20:59 Last Admin: 05/26/24 20:03 Dose: 400 mg Methylcellulose (Methylcellulose Powder 454 Gm Jar) 2 gm PO TID QUINCY Stop: 06/25/24 13:59 Last Admin: 05/26/24 21:51 Dose: Not Given Midodrine (Midodrine Hcl 2.5 Mg Tab) 5 mg PO TODAY@0800,1200,1600 [facility] Stop: 06/24/24 18:44 Last Admin: 05/26/24 16:56 Dose: 5 mg Miscellaneous (Carbohydrates For Hypoglycemia ) 15 - 30 gm PO UD PRN PRN Reason: Hypoglycemia Protocol Stop: 06/23/24 22:08 Multi-Ingredient Cream (Eucerin Cr 120 Gm Jar) 1 appln TOP BID QUINCY Stop: 06/25/24 20:59 Last Admin: 05/26/24 20:02 Dose: 1 appln Multivitamins/Minerals (Multi Vit W/Minerals Liquid 15 Ml Udc) 15 ml PO QAM [facility] Stop: 06/24/24 10:59 Last Admin: 05/26/24 07:54 Dose: 15 ml Olanzapine (Olanzapine Zydis 5 Mg Orally Dis. Tab) 5 mg PO BID QUINCY Stop: 06/24/24 21:29 Last Admin: 05/26/24 07:53 Dose: 5 mg Quetiapine Fumarate (Quetiapine Fumarate 25 Mg Tablet) 50 mg PO DAILY QU[facility] Stop: 06/24/24 13:59 Last Admin: 05/26/24 08:15 Dose: 50 mg Quetiapine Fumarate (Quetiapine Fumarate 100 Mg Tablet) 100 mg PO HS [facility] Stop: 06/25/24 20:59 Last Admin: 05/26/24 20:05 Dose: 100 mg Sterile Water (Tube Feeding Water Flush) 60 ml GT Q6H [facility] Stop: 06/25/24 05:59 Last Admin: 05/27/24 06:06 Dose: Not Given Thiamine HCl (Thiamine Hcl 100 Mg Tab) 200 mg PO BID QUIN[facility] Stop: 06/26/24 08:59 Trazodone HCl (Trazodone Hcl 50 Mg Tab) 50 mg PO HS [facility] Stop: 06/25/24 20:59 Last Admin: 05/25/24 22:34 Dose: 50 mg PG Care Time/CCT Total # of Minutes Spent Total Time Spent with Patient: Total time spent is greater than 50% in coordination of care (as documented) at patient's floor/unit and/or counseling patient: Advanced Care Planning 38362 Advanced Care Planning 30 Min C[place] [address] IN/OBS CONSULT LVL 2,35M Patient Type Established Medical Decision Making Low Complexity Diagnoses Palliative care by specialist Z51.5 Discussion about advance care planning held with family member Z71.0 Additional Codes Advanced Care Planning - 21885 Advanced Care Planning 30 Min: [id number] Advanced Care Planning 30 Min ([id number])
[2024-05-27] MEDS: ATORVASTATIN 40 MG TAB PO SCH (10:53)
[2024-05-27] MEDS: levoFLOXacin 750 MG TAB PO SCH (10:53)
[2024-05-27] MEDS: THIAMINE HCL 100 MG TAB PO SCH (10:53)
[2024-05-27] MEDS: FOLIC ACID 400 MCG TAB PO SCH (10:54)
[2024-05-27] MEDS: CARBOHYDRATES FOR HYPOGLYCEMIA PO PRN (12:05)
[2024-05-27] MEDS: Nursing to Pharmacy Communication SCH (13:36)
[2024-05-27] MEDS: INSULIN ASPART PER UNIT CHARGE SC STA (13:36)
[2024-05-27] MEDS: INSULIN ASPART PER UNIT CHARGE SC SCH (17:09)
--- NOTE | 2024-05-27 19:19 | Hospitalist Progress Note ---
Date of Service May 27, 2024 Assessment & Plan (1) Septic shock: (2) Sepsis: (3) Pneumonia: (4) Infection due to human metapneumovirus (hMPV): (5) Acute respiratory failure with hypoxia: (6) Tracheocutaneous fistula following tracheostomy: (7) Tachy-rosi syndrome: (8) KURT (obstructive sleep apnea): (9) COPD (chronic obstructive pulmonary disease): (10) Acute UTI: (11) Dementia with behavioral disturbance: Plan 73yo male with dementia, afib, tachy-rosi syndrome, COPD, KURT, OA, anemia, seizure disorder, recent hospitalization (04/01/24 to 04/22/24) for LLL pneumonia requiring intubation, trach placement, PEG placement, and ultimate decannulation. Returned to [facility] on 04/22/24. Presented to [facility] due to hypoxia & fever. Tested + for human metapneumovirus on [employer]. Imaging with ongoing LLL collapse. Urine cx with MDR pseudomonas. #Severe Sepsis/Septic Shock 2nd to either LLL Pneumonia and/or UTI - * pseudomonas is sens to cipro/levaquin; will change zosyn to levaquin as this will cover the respiratory tract & urinary tract well; will use 750mg daily dosing; QTc on most recent EKG was <500msec * blood cx's remain negative * weaned off levophed early AM of 05/25/24 * FiO2 weaned off * sepsis resolved #Human Metapneumovirus infection - supportive care. Mild cough only with no hypoxia. Suspected LLL bacterial superinfection in the setting of such. #Acute hypoxic respiratory failure - * 2nd to human metapneumovirus infection +/- LLL bacterial pneumonia * resolved; now off NC O2 #Tachy-rosi syndrome/paroxysmal Afib - * Continue Eliquis * cont to Hold metoprolol but can stop midodrine; BPs are normal #Seizure disorder * Continue divalproex 250mg TID * valproate level wnl at 60 #COPD - * Duonebs BID to help with mucous clearance, bronchospasm, etc. * s/p hydrocortisone in the ER and shortly after admission but systemic steroids now stopped #Dementia - * uncertain why he is on both zyprexa & seroquel at [facility] * would recommend one antipsychotic only; thus, hold zyprexa moving forward, resumed seroquel 100mg at HS, cont seroquel 50mg qam - thus far doing fine w/o the zyprexa * trazodone resumed * hold buspar for now #KURT - typically is on CPAP at HS at SNF??? * not sure he could tolerate such given advanced dementia * hold off unless needed for respiratory support #PEG tube status - records from previous hospitalization in April showed he was tolerating minced/moist diet & nectar thick liquids speech therapy re-evaled him and he is clear for diet tolerating such updated pt's by phone on 05/25 and again 05/27 likely back to SNF tomorrow or the next day Admission and Anticipated Discharge Date Admission Date: May 24, 2024 Subjective overnight slept better with resumption of HS seroquel he is also on AM seroquel his zyprexa is on hold and he is doing well w/o such during the visit he was in good spirits as previous he is pleasantly confused he cannot provide any meaningful history or ROS he talks about his and talks about other things that don't make sense or are irrelevant today he was 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 (not true - he lives in SNF) with someone in [place] Review of Systems Review of Systems: denies pain in any location Physical Exam Physical Exam: gen - thin, muscle wasting of face, no distress, pleasantly confused but looks well neck - no JVD mouth - MMM heart - RRR, s1 s2, no murmur lungs - decreased BS left base, otherwise CTA b/l, no rales, no wheeze abd - soft NT ND BS+ ext - pulses 2+ b/l feet psych - oriented to self only Results & Data Results & Data Vital Signs (Past 12 Hours) Vital Signs Temp Pulse Pulse Resp BP BP Pulse Ox 05/27/24 16:17 36.6 C 60 18 148/76 H 90 05/27/24 16:00 68 05/27/24 14:15 05/27/24 13:58 36.6 C 65 18 137/73 99 05/27/24 12:49 36.6 C 05/27/24 12:09 60 16 97 05/27/24 12:00 113/68 05/27/24 12:00 113/68 05/27/24 12:00 11305/27/24 12:00 05/27/24 12:00 11305/27/24 12:00 05/27/24 12:00 05/27/24 12:00 05/27/24 12:00 05/27/24 12:00 05/27/24 12:00 05/27/24 12:00 05/27/24 12:00 05/27/24 12:00 11305/27/24 12:00 11305/27/24 11:24 51 L 16 100 05/27/24 11:13 127/77 05/27/24 11:13 127/77 05/27/24 11:13 127/77 05/27/24 11:13 127/77 05/27/24 11:13 127/77 05/27/24 11:13 127/77 05/27/24 11:13 127/77 05/27/24 11:13 127/77 05/27/24 11:13 127/77 05/27/24 11:13 127/77 05/27/24 11:13 127/77 05/27/24 11:13 127/77 05/27/24 11:13 127/77 05/27/24 11:13 127/77 05/27/24 11:13 127/77 05/27/24 11:13 127/77 05/27/24 11:12 64 20 98 05/27/24 10:00 51 L 15 99 05/27/24 08:03 57 L 13 119/70 98 05/27/24 08:00 05/27/24 07:22 66 16 99 Laboratory Results Laboratory Results - last 24 hr 05/27/24 05/27/24 05/27/24 01:39 04:25 11:51 Sodium 138 Potassium 4.1 Chloride 104 Carbon Dioxide 35 H Anion Gap -1 L BUN 13 Creatinine 0.51 L Est Cr Clr Drug Dosing 139.5 eGFR 106.39 BUN/Creatinine Ratio 25.5 H Glucose 75 POC Glucose 70 63 L* Calcium 8.0 L Whole Bld Vitamin B1 Pending 05/27/24 05/27/24 05/27/24 11:52 12:21 16:14 Sodium Potassium Chloride Carbon Dioxide Anion Gap BUN Creatinine Est Cr Clr Drug Dosing eGFR BUN/Creatinine Ratio Glucose POC Glucose 66 L* 73 102 H Calcium Whole Bld Vitamin B1 Diagnostic Findings Microbiology 05/24/24 17:36 Urine,Straight Cath Urine Culture - Final Pseudomonas aeruginosa 05/24/24 17:07 Blood Aerobic Blood Culture - Preliminary No growth in Aerobic bottle after 48 hours. 05/24/24 17:07 Blood Anaerobic Blood Culture - Preliminary No growth in Anaerobic bottle after 48 hours. 05/24/24 17:24 Blood Aerobic Blood Culture - Preliminary No growth in Aerobic bottle after 48 hours. 05/24/24 17:24 Blood Anaerobic Blood Culture - Preliminary No growth in Anaerobic bottle after 48 hours. PG Care Time/CCT Total # of Minutes Spent Total Time Spent with Patient: Total time spent is greater than 50% in coordination of care (as documented) at patient's floor/unit and/or counseling patient: Coding Level of Care Code 91506 SUB INP/OBS CARE 2/35MIN Diagnoses Septic shock A41.9; R65.21 Sepsis A41.9; R65.21; J96.01 Acute respiratory failure type: with hypoxia Sepsis acute organ dysfunction status: with acute organ dysfunction Sepsis type: sepsis due to unspecified organism Severe sepsis acute organ dysfunction type: acute respiratory failure Severe sepsis shock status: with septic shock Pneumonia J18.9 Laterality: left Lung location: lower lobe of lung Pneumonia type: due to unspecified organism Infection due to human metapneumovirus (hMPV) B34.8 Acute respiratory failure with hypoxia J96.01 Tracheocutaneous fistula following tracheostomy J95.04 Tachy-rosi syndrome I49.5 KURT (obstructive sleep apnea) G47.33 COPD (chronic obstructive pulmonary disease) J44.1 COPD type: COPD with acute exacerbation Acute UTI N39.0 Dementia with behavioral disturbance F03.918 (2) Sepsis Acute respiratory failure type: with hypoxia Sepsis acute organ dysfunction status: with acute organ dysfunction Sepsis type: sepsis due to unspecified organism Severe sepsis acute organ dysfunction type: acute respiratory failure Severe sepsis shock status: with septic shock Qualified Code(s): A41.9 - Sepsis, unspecified organism; R65.21 - Severe sepsis with septic shock; J96.01 - Acute respiratory failure with hypoxia (3) Pneumonia Laterality: left Lung location: lower lobe of lung Pneumonia type: due to unspecified organism Qualified Code(s): J18.9 - Pneumonia, unspecified organism (9) COPD (chronic obstructive pulmonary disease) COPD type: COPD with acute exacerbation Qualified Code(s): J44.1 - Chronic obstructive pulmonary disease with (acute) exacerbation
[2024-05-28] MEDS: METOPROLOL TARTRATE 25 MG TAB PO SCH (10:58)
[2024-05-28] MEDS: guaiFENesin SUGAR FREE 100 MG/5 ML UDC PO SCH (13:30)
--- NOTE | 2024-05-28 18:00 | Hospitalist Progress Note ---
Date of Service May 28, 2024 Assessment & Plan (1) Septic shock: (2) Sepsis: (3) Pneumonia: (4) Infection due to human metapneumovirus (hMPV): (5) Acute respiratory failure with hypoxia: (6) Tracheocutaneous fistula following tracheostomy: (7) Tachy-rosi syndrome: (8) KURT (obstructive sleep apnea): (9) COPD (chronic obstructive pulmonary disease): (10) Acute UTI: (11) Dementia with behavioral disturbance: Plan 73yo male with dementia, afib, tachy-rosi syndrome, COPD, KURT, OA, anemia, seizure disorder, recent hospitalization (04/01/24 to 04/22/24) for LLL pneumonia requiring intubation, trach placement, PEG placement, and ultimate decannulation. Returned to [facility] on 04/22/24. He is on chronic NC O2 - 2 liters continuously by report. Presented to [facility] due to hypoxia & fever. Evidence of septic shock and needed pressors (levophed) for short period of time. Tested + for human metapneumovirus on [employer]. Imaging with ongoing LLL collapse. Urine cx with MDR pseudomonas. #Severe Sepsis/Septic Shock 2nd to either LLL Pneumonia and/or UTI - * treated initially with IV zosyn to cover urine/lungs * urine cx - pseudomonas - sens to cipro/levaquin; intermediate resistance to zosyn; thus --> changed zosyn to levaquin as this will cover the respiratory tract & urinary tract well; will use 750mg daily dosing; QTc on most recent EKG was <500msec * today is day #2 of levaquin; plan 7 days in total of levaquin given the intermediate zosyn resistance * blood cx's remain negative * weaned off levophed early AM of 05/25/24 * FiO2 weaned off * sepsis resolved #Human Metapneumovirus infection - supportive care. Mild cough only with no hypoxia on his 2 L NC O2. Possible LLL bacterial superinfection in the setting of his viral infection. Added robitussin 100mg QID for cough/congestion. #Acute on Chronic hypoxic respiratory failure - * 2nd to human metapneumovirus infection +/- LLL bacterial pneumonia * stable, O2 weaned to his usual amount of 2 liters continuously #Tachy-rosi syndrome/paroxysmal Afib - * Continue Eliquis * Resumed metoprolol tartrate 25mg BID #Seizure disorder * Continue divalproex 250mg TID * valproate level wnl at 60 #COPD - * Duonebs BID to help with mucous clearance, bronchospasm, etc. * s/p hydrocortisone in the ER and shortly after admission but systemic steroids now stopped * would continue nebs at the SNF for a few more days as his human metapneumovirus illness subsides #Dementia - * uncertain why he was taking BOTH zyprexa & seroquel at [facility] * would recommend one antipsychotic only; thus, hold zyprexa moving forward, resumed seroquel 100mg at HS, cont seroquel 50mg qam - thus far doing fine w/o the zyprexa * trazodone resumed * hold buspar for now; resume at d/c #KURT - typically is on CPAP at HS at [facility]??? * not sure he could tolerate such given advanced dementia * hold off unless needed for respiratory support #PEG tube status - records from previous hospitalization in April showed he was tolerating minced/moist diet & nectar thick liquids speech therapy re-evaled him and he is clear for diet tolerating such and feeding himself we are not using the PEG for nutrition if over the next few months he does not need the PEG would have GI remove PEG at that time updated pt's by phone on 05/25 and again 05/27 plan was to d/c to [facility] today but no transport available will d/c on 05/29/24 Admission and Anticipated Discharge Date Admission Date: May 24, 2024 Subjective no events overnight he is resting comfortably at night with his seroquel only; zyprexa is on hold he c/o cough and congestion eating well and feeding himself like prior visits he is pleasantly confused and asks the same questions repeatedly tele overnight wnl Review of Systems Review of Systems: CV - no chest pain pulm - no dyspnea GI - no abd pain or N/V Physical Exam Physical Exam: gen - thin, no distress, pleasantly confused, looks well, occasional cough neck - no JVD mouth - MMM, no obvious JVD heart - RRR, s1 s2, no murmur lungs - decreased BS left base, otherwise CTA b/l, no rales, no wheeze abd - soft NT ND BS+ ext - pulses 2+ b/l feet, no edema psych - oriented to self only Results & Data Results & Data Vital Signs (Past 12 Hours) Vital Signs Temp Pulse Pulse Resp BP Pulse Ox O2 Del Method 05/28/24 16:13 52 L 05/28/24 15:47 36.8 C 58 L 18 152/78 H 94 Nasal Cannula 05/28/24 11:42 36.5 C 73 20 136/83 91 Nasal Cannula 05/28/24 10:00 Nasal Cannula 05/28/24 08:00 59 L 05/28/24 07:50 36.4 C L 71 18 145/83 H 99 Nebulizer 05/28/24 07:12 67 18 94 Nasal Cannula O2 Flow Rate 05/28/24 16:13 05/28/24 15:47 2 05/28/24 11:42 2 05/28/24 10:00 2 05/28/24 08:00 05/28/24 07:50 05/28/24 07:12 2 Laboratory Results Laboratory Results - last 48 hr 05/27/24 05/27/24 05/27/24 04:25 11:51 11:52 Sodium 138 Potassium 4.1 Chloride 104 Carbon Dioxide 35 H Anion Gap -1 L BUN 13 Creatinine 0.51 L Est Cr Clr Drug Dosing 139.5 eGFR 106.39 BUN/Creatinine Ratio 25.5 H Glucose 75 POC Glucose 63 L* 66 L* Calcium 8.0 L 05/27/24 05/27/24 05/27/24 12:21 16:14 20:37 Sodium Potassium Chloride Carbon Dioxide Anion Gap BUN Creatinine Est Cr Clr Drug Dosing eGFR BUN/Creatinine Ratio Glucose POC Glucose 73 102 H 73 Calcium PG Care Time/CCT Total # of Minutes Spent Total Time Spent with Patient: Total time spent is greater than 50% in coordination of care (as documented) at patient's floor/unit and/or counseling patient: Coding Level of Care Code 67717 SUB INP/OBS CARE 2/35MIN Diagnoses Septic shock A41.9; R65.21 Sepsis A41.9; R65.21; J96.01 Acute respiratory failure type: with hypoxia Sepsis acute organ dysfunction status: with acute organ dysfunction Sepsis type: sepsis due to unspecified organism Severe sepsis acute organ dysfunction type: acute respiratory failure Severe sepsis shock status: with septic shock Pneumonia J18.9 Laterality: left Lung location: lower lobe of lung Pneumonia type: due to unspecified organism Infection due to human metapneumovirus (hMPV) B34.8 Acute respiratory failure with hypoxia J96.01 Tracheocutaneous fistula following tracheostomy J95.04 Tachy-rosi syndrome I49.5 KURT (obstructive sleep apnea) G47.33 COPD (chronic obstructive pulmonary disease) J44.1 COPD type: COPD with acute exacerbation Acute UTI N39.0 Dementia with behavioral disturbance F03.918 (2) Sepsis Acute respiratory failure type: with hypoxia Sepsis acute organ dysfunction status: with acute organ dysfunction Sepsis type: sepsis due to unspecified organism Severe sepsis acute organ dysfunction type: acute respiratory failure Severe sepsis shock status: with septic shock Qualified Code(s): A41.9 - Sepsis, unspecified organism; R65.21 - Severe sepsis with septic shock; J96.01 - Acute respiratory failure with hypoxia (3) Pneumonia Laterality: left Lung location: lower lobe of lung Pneumonia type: due to unspecified organism Qualified Code(s): J18.9 - Pneumonia, unspecified organism (9) COPD (chronic obstructive pulmonary disease) COPD type: COPD with acute exacerbation Qualified Code(s): J44.1 - Chronic obstructive pulmonary disease with (acute) exacerbation
[2024-05-29 07:38] VITALS: O2SAT 93
[2024-05-29 07:48] VITALS: BP 137/81; RESP 19; TEMP 97.9
--- NOTE | 2024-05-29 11:01 | Discharge Summary ---
Discharge Summary Date of Service May 29, 2024 Principal Dx & Hospital Course #1 = Principal Diagnosis (1) Septic shock: Present on admission. Now resolved (2) Sepsis: Present on admission now resolved (3) Pneumonia: Present on admission. He will take oral levofloxacin for 5 more days at discharge (4) Infection due to human metapneumovirus (hMPV): Present on admission. Now resolved (5) Acute respiratory failure with hypoxia: Currently on 2 L of oxygen per nasal cannula continuous (6) Tracheocutaneous fistula following tracheostomy: Local care (7) Tachy-rosi syndrome: He is on Eliquis and low-dose metoprolol (8) KURT (obstructive sleep apnea): Supportive care. CPAP as necessary (9) COPD (chronic obstructive pulmonary disease): Acute exacerbation on admission. Now back to baseline (10) Acute UTI: Present on admission. Treated and resolved (11) Dementia with behavioral disturbance: Supportive care. Continue Seroquel Plan Discharge back to [facility] today, May 29 Admission HPI Per Admitting Provider 73 yo male PMHx afib w/RVR, Bradycardia (tachy-rosi syndrome), COPD, KURT, OA, anemia, seizure disorder, recent hospitalization for LLL pneumonia requiring intubation and tracheostomy. He was subsequently decannulated and discharged to [facility]. Today, per NH report, he was found to be hypoxic to the low 80s on room air, febrile, and tachycardic. The patient has baseline dementia and does not have capacity to make his medical decisions. Confirmed with patient's that he will be full code on admission. ED Course Hypotensive (low of 70s/50s), tachycardic to 150s, T-max 38.9, requiring up to 10L by face mask for O2 sat of low 90s Labs reveal: mild leukocytosis, elevated lactate, mild trop elevation Given cefepime, Tylenol, Toradol, started on Levophed, rec'd 2.5L NSS bolus, neb treatments Discharge Plan Discharge Items Patient Disposition: Transfer Senior Living Fac Reason For Visit: RESPIRATORY FAILURE,SEPSIS Discharge Diagnosis: Septic shock, viral illness, acute hypoxic respiratory failure, suspected pneumonia Condition on Discharge: Good Activity: Resume your previous activity Non-emergency contact: Primary Care Provider Call non-emergency contact if: your symptoms worsen Follow-up/Referrals: Adonay Yost [Primary Care Provider] - Diet: Regular Addtl Attending Provider Instructions: Metoprolol is a new medication taken twice daily. Take levofloxacin daily for 5 more days. All other medications remain the same. Wear oxygen at 2 L/min per nasal cannula Pending Studies at Discharge: No Stand-Alone Forms: My [facility] Skilled Items Patient informed of condition?: Yes DNR: Yes Discharge Level of Care: Skilled Communicable Disease: No Discharge Prognosis: Stable Lines: None Urinary Catheter: No Medications and DC Order Prescriptions: New ipratropium-albuterol 0.5 mg-3 mg(2.5 mg base)/3 mL Solution For Nebulization 3 ml NEB BIDR Qty: 5 0RF levofloxacin 750 mg Tablet 750 mg PO DAILY@1100 Qty: 5 0RF metoprolol tartrate 25 mg Tablet 25 mg PO BID Qty: 30 0RF Continued quetiapine [Seroquel] 25 mg Tablet 50 mg PO DAILY trazodone 50 mg Tablet 75 mg PO HS atorvastatin 40 mg Tablet 40 mg PO DAILY acetaminophen 325 mg Tablet 650 mg PO Q6 MDD 3G/24HR PRN (Reason: PAIN 1-10) acetaminophen 325 mg Tablet 650 mg PO QID MDD 3GM/24 HRS PRN (Reason: TEMP > 101) divalproex 250 mg tablet,delayed release (DR/EC) 250 mg PO TID buspirone 10 mg tablet 10 mg PO TID Combivent Respimat 20-100 mcg/actuation mist 1 puff INHALATION Q6 PRN (Reason: Wheezing) ferrous sulfate [FeroSul] 325 mg (65 mg iron) tablet 325 mg PO DAILY Eliquis 5 mg tablet 5 mg PO BID Eucerin Itch Relief 0.1 % Lotion 1 ea TOPICAL BID Rx Instructions: APPLY TO ITCHY AREAS EVERY DAY AND EVENING SHIFT folic acid 400 mcg Tablet 0.4 mg PO DAILY quetiapine 100 mg tablet 100 mg PO HS sennosides-docusate sodium [Senna-S] 8.6-50 mg Tablet 1 tab-cap PO HS chlorhexidine gluconate [Peridex] 0.12 % Mouthwash 15 ml BUCCAL Q12 olanzapine 5 mg Tablet,Disintegrating 5 mg PO BID Qty: 30 0RF polyethylene glycol 3350 [Miralax] 17 gram Powder In Packet 17 g PO BID Qty: 60 0RF magnesium oxide 400 mg (241.3 mg magnesium) Tablet 400 mg PO BID Qty: 60 0RF Fiber Therapy (m-cell/sugar) 2 gram/19 gram Powder 2 g PO TID Qty: 100 0RF Tube Feeding Water Flush 50 ml PEG Q8H Qty: 0 0RF Discharge Orders: Discharge Order (Routine); Ordered 05/29/24 Ordered By: Elton Pate Admission Data Admit Date/Time: 05/24/24 18:58 Attending Provider: Elton Pate Admit Provider: Marquez Kilgore Primary Care Provider: Adonay Ysot Other Providers: Donald Carlos; Louie Collazo Hospital Stay Data Consultations 05/24/24 17:47 ED Decision to Admit Stat 05/24/24 20:59 Consult [employer] [facility] Manager Routine Diagnostic Imagining Performed 05/24/24 18:59 CT chest without contrast [CT chest diagnostic wo con] Stat Pending Results Patient Have Any Pending Studies at Discharge: No Discharge Instructions Given to Patient (Per Discharging Provider) Metoprolol is a new medication taken twice daily. Take levofloxacin daily for 5 more days. All other medications remain the same. Wear oxygen at 2 L/min per nasal cannula Total Time Total Time Spent Total Time Spent (In Minutes): 45 minutes Coding Level of Care Code 02082 INP/OBS DISCH >30 MIN Diagnoses Septic shock A41.9; R65.21 Sepsis A41.9; R65.21; J96.01 Acute respiratory failure type: with hypoxia Sepsis acute organ dysfunction status: with acute organ dysfunction Sepsis type: sepsis due to unspecified organism Severe sepsis acute organ dysfunction type: acute respiratory failure Severe sepsis shock status: with septic shock Pneumonia J18.9 Laterality: left Lung location: lower lobe of lung Pneumonia type: due to unspecified organism Infection due to human metapneumovirus (hMPV) B34.8 Acute respiratory failure with hypoxia J96.01 Tracheocutaneous fistula following tracheostomy J95.04 Tachy-rosi syndrome I49.5 KURT (obstructive sleep apnea) G47.33 COPD (chronic obstructive pulmonary disease) J44.1 COPD type: COPD with acute exacerbation Acute UTI N39.0 Dementia with behavioral disturbance F03.918
[2024-05-29 11:05] VITALS: PULSE 79
== END 2024-05-29 12:31 | DRG 871 ==
LOC: ED 16:27 → SUATTDRO 18:58 → 1E 18:58 → 2S 05-27 14:15